=== PATIENT | female | born 1940 | race Caucasian/White ===

== ENCOUNTER 2017-11-19 12:24 | Emergency (ER) | payer MEDICARE ==
[2017-11-19] MEDS ORDERED: HYDROcodone/ACETAMIN 5-325 MG* 1 TAB PO ONE (14:08)
[2017-11-19 14:45] LABS: ABS Basophils 0.2 10^3/ul (0-0.2); ABS Eosinophils 0.3 10^3/ul (0-0.6); ABS Lymphocytes 3.2 10^3/ul (1.0-4.8); ABS Monocytes 0.8 10^3/ul (0-0.8); ABS Neutrophils 10.8 10^3/ul (1.5-7.7); ABS Nucleated RBC 0 10^3/ul; Hematocrit 40 % (35-47); Hemoglobin 13.1 g/dl (12.0-16.0); Lymphocyte % 20.9 % (25-47); Mean Corpuscular HGB Conc 33 g/dl (31-36); Mean Corpuscular Hemoglobin 25 pg (27-31); Mean Corpuscular Volume 78 fL (80-97); Mean Platelet Volume 9 um3 (7.4-10.4); Nucleated Red Blood Cells % 0.1; Platelet Count 336 10^3/ul (150-450); Red Blood Count 5.17 10^6/ul (4.0-5.4); Red Cell Distribution Width 18 % (10.5-15); White Blood Count 15.2 10^3/ul (3.5-10.8)
[2017-11-19 15:01] LABS: EGFR Non-African American 60.3 (>60)
--- NOTE | 2017-11-19 15:19 | RAD ---
CLINICAL HISTORY: Right buttock and thigh swelling COMPARISON: Same day venous duplex of the right lower extremity that does not reveal any DVT. TECHNIQUE: Axial CT images of the pelvis were obtained without intravenous contrast. Reformats in the sagittal and coronal planes were created and reviewed. FINDINGS: The visualized portions of the solid abdominal organs are grossly normal in appearance. The visualized segments of small and large bowel are not distended. The appendix Is grossly normal appearance without pathologic dilatation. There is no gross retroperitoneal or mesenteric lymphadenopathy in the visualized portions of the lower abdomen and pelvis. The coarsely calcified lower abdominal aorta is normal in course and diameter. The arterial and venous structures of the pelvis and upper thighs are normal in size and morphology. Degenerative changes of the lower lumbar spine includes loss of intervertebral disc height. . There are no sinister bone lesions in the visualized bones. IMPRESSION: Chronic findings described above without CT apparent acute abnormality involving the right buttock or upper thigh.
--- NOTE | 2017-11-19 15:25 | RAD ---
HISTORY: Right lower extremity pain TECHNIQUE: Multiple transverse and longitudinal ultrasound images were obtained of the veins of the right lower extremity using grayscale, color Doppler, and spectral Doppler imaging with and without compression and with augmentation. FINDINGS: VEINS: The common femoral vein, deep femoral vein, femoral vein and popliteal vein are compressible throughout their course, with normal flow on color Doppler imaging and normal response to augmentation on spectral Doppler imaging. SOFT TISSUES: Grossly normal. No large popliteal fossa cyst was identified. IMPRESSION: No sonographic evidence of deep vein thrombosis.
--- NOTE | 2017-11-19 18:07 | ED ---
Anatoly Hodges Jennifer, scribed for Manish Mercer MD on 11/19/17 at 1406 . Lower Extremity - HPI Summary HPI Summary: The patient is a 77 year old female who presents with sciatic nerve pain in the lower back pain and increasing mobility impairment that began over one month ago. She adds that there is swelling of the right buttock, and her lower back pain radiates down to the top of her right knee. She explains that she cant get out of bed or sit for more than 15 minutes without pain. The patient tried physical therapy for her low back pain that was prescribed by her doctor who [place] of the country [place] six [place]. She additionally complains of numbness in the top of both feet. - History of Current Complaint Chief Complaint: EDBackInjuryPain Stated Complaint: LOW BACK PAIN/POSSIBLE BLOOD CLOT Time Seen by Provider: 11/19/17 13:50 Hx Obtained From: Patient Onset of Pain: Prior to Arrival Onset/Duration: Weeks - Over 4 weeks ago Severity Initially: Moderate Severity Currently: Moderate Pain Intensity: 9 Pain Scale Used: 0-10 Numeric Timing: Constant Location: Radiates To - down lower back to Associated Signs And Symptoms: Positive: Swelling - right buttock, Knee Pain, Other - Lower back pain Aggravating Factor(s): Movement, Other - Getting out of bed, sitting for more than 15 minutes Alleviating Factor(s): Nothing - Allergies/Home Medications Allergies/Adverse Reactions: Allergies Allergy/AdvReac Type Severity Reaction Status Date / Time MS Codeine [Codeine] Allergy Vomiting Verified 10/27/17 08:55 MS Levofloxacin Allergy Joint Pain Verified 10/27/17 08:55 [From Levaquin] MS Penicillins [Penicillins] Allergy Hives Verified 10/27/17 08:55 MS Shellfish Allergy Allergy Difficulty Verified 10/27/17 08:55 [Shellfish Allergy] Breathing/Wheezing MS Sulfa Antibiotics Allergy Hives Verified 10/27/17 08:55 [Sulfa Antibiotics] MS Tetracycline Allergy Difficulty Verified 10/27/17 08:55 [Tetracycline] Breathing ALMONDS Allergy GI Upset Uncoded 10/27/17 08:55 AVACADO Allergy Unknown Uncoded 10/27/17 08:55 Reaction Details MRI CONTRAST MEDIUM Allergy Difficulty Uncoded 10/27/17 08:55 Breathing/Wheezing PMH/Surg Hx/FS Hx/Imm Hx Endocrine/Hematology History: Reports: Hx Diabetes Cardiovascular History: Reports: Hx Hypertension Denies: Hx Deep Vein Thrombosis, Hx Pacemaker/ICD Respiratory History: Denies: Hx Pulmonary Embolism History: Denies: Hx Renal Disease Musculoskeletal History: Denies: Hx Osteoporosis Sensory History: Denies: Hx Hearing Aid Psychiatric History: Denies: Hx Panic Disorder - Cancer History Cancer Type, 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 Hx Chemotherapy: No Hx Radiation Therapy: No - Surgical History Surgery Procedure, Year, and Place: RT KNEE TOTAL REPLACEMENT, CARDIAC STENT [facility] 2013 (RESOLUTE STENT CONDITIONAL 5 UP TO 3T SCAN IN NORMAL MODE AND 1000G/CM888SEE OTHER FACILITITY REPORTS); HYSTERECTOMY; chest tube, exploratory LUNG sx; BILATERAL CATARACTS; T&A; BLADDER TUMOR REMOVAL(CANCEROUS) Infectious Disease History: No Infectious Disease History: Denies: Traveled Outside the [place] in Last 30 Days - Family History Known Family History: Positive: Cardiac Disease, Other - [place] - Social History Alcohol Use: None Substance Use Type: Reports: None Hx Tobacco Use: No Smoking Status (MU): Never Smoked Tobacco Review of Systems Positive: Decreased ROM, Other - swelling of right buttock, pain in lower back that radiates to top of right knee Neurological: Other - Sciatic nerve pain Positive: Numbness - top of feet bilateral All Other Systems Reviewed And Are Negative: Yes Physical Exam - Summary Physical Exam Summary: General: well-appearing, no pain distress Skin: warm, color reflects adequate perfusion, dry Head: normal Eyes: EOMI, LOUIE ENT: normal Neck: supple, nontender Respiratory: CTA, breath sounds present Cardiovascular: RRR Abdomen: soft, nontender Bowel: present Musculoskeletal: Tenderness to midline of the lower back, right sciatic distribution, and right buttock. Swelling of the right buttock in comparison to the left. Right leg and left lag have 5/5 strength. Decreased range of motion with hip flexion bilateral, which the patient states is old. Neurological: Reports decreased sensation in dorsal bilateral feet. A&O x3 Psychological: affect/mood appropriate Triage Information Reviewed: Yes Vital Signs On Initial Exam: Initial Vitals Temp Pulse Resp BP Pulse Ox 97.2 F 82 15 168/107 97 11/19/17 12:27 11/19/17 12:27 11/19/17 12:27 11/19/17 12:27 11/19/17 12:27 Vital Signs Reviewed: Yes Diagnostics - Vital Signs Vital Signs Temp Pulse Resp BP Pulse Ox 11/19/17 12:27 97.2 F 82 15 168/107 97 - Laboratory Lab Results: Lab Results 11/19/17 11/19/17 11/19/17 Range/Units 14:24 14:24 14:24 WBC 15.2 H (3.5-10.8) 10^3/ul RBC 5.17 (4.0-5.4) 10^6/ul Hgb 13.1 (12.0-16.0) g/dl Hct 40 (35-47) % MCV 78 L (80-97) fL MCH 25 L (27-31) pg MCHC 33 (31-36) g/dl RDW 18 H (10.5-15) % Plt Count 336 (150-450) 10^3/ul MPV 9 (7.4-10.4) um3 Neut % (Auto) 71.0 (38-83) % Lymph % (Auto) 20.9 L (25-47) % Lucas % (Auto) 5.0 (1-9) % Eos % (Auto) 2.0 (0-6) % Baso % (Auto) 1.1 (0-2) % Absolute Neuts (auto) 10.8 H (1.5-7.7) 10^3/ul Absolute Lymphs (auto) 3.2 (1.0-4.8) 10^3/ul Absolute Monos (auto) 0.8 (0-0.8) 10^3/ul Absolute Eos (auto) 0.3 (0-0.6) 10^3/ul Absolute Basos (auto) 0.2 (0-0.2) 10^3/ul Absolute Nucleated RBC 0 10^3/ul Nucleated RBC % 0.1 APTT 32.5 (26.0-36.3) seconds Sodium 134 (133-145) mmol/L Potassium 3.3 L (3.5-5.0) mmol/L Chloride 96 L (101-111) mmol/L Carbon Dioxide 28 (22-32) mmol/L Anion Gap 10 (2-11) mmol/L BUN 25 H (6-24) mg/dL Creatinine 0.91 (0.51-0.95) mg/dL Est GFR ( Amer) 77.5 (>60) Est GFR (Non-Af Amer) 60.3 (>60) BUN/Creatinine Ratio 27.5 H (8-20) Glucose 173 H (70-100) mg/dL Calcium 10.1 (8.6-10.3) mg/dL Total Bilirubin 0.70 (0.2-1.0) mg/dL AST 22 (13-39) U/L ALT 26 (7-52) U/L Alkaline Phosphatase 60 (34-104) U/L C-Reactive Protein 18.25 H (< 5.00) mg/L Total Protein 7.3 (6.4-8.9) g/dL Albumin 4.6 (3.2-5.2) g/dL Globulin 2.7 (2-4) g/dL Albumin/Globulin Ratio 1.7 (1-3) Result Diagrams: 11/19/17 14:24 11/19/17 14:24 Lab Statement: Any lab studies that have been ordered have been reviewed, and results considered in the medical decision making process. - CT CT Pelvis CT Interpretation: Positive (See Comments) - Chronic findings described above without CT apparent acute abnormality involving the right buttock or upper thigh. Dr. Mercer has reviewed this report. CT Interpretation Completed By: Radiologist - Additional Comments Diagnostic Additional Comments: Venous Doppler Study at 14:08. Impression: No sonographic evidence of deep vein thrombosis. Dr. Mercer has reviewed this report. Lower Extremity Course/Dx - Course Course Of Treatment: BP noted and advised to follow up with PCP. Allergies noted. Medications reviewed. PAIN IMPROVED WITH NORCO. WE DISCUSSED THE INCREASED RISK OF FALL WITH THE NORCO. THE PATIENT IS AWARE AND WILL DECREASE/ STOP USE IF SHE NOTICES BEING UNSTABLE. DISCUSSED WITH NEUROSURGERY, DR SHAW. F/U PMD AND NEUROSURGERY; RETURN IF WORSE. - Diagnoses Provider Diagnoses: Uncontrolled hypertension, Low back pain, Leg pain, right buttock swelling Discharge - Discharge Plan Condition: Stable Disposition: HOME Prescriptions: HYDROcodone/ACETAMIN 5-325 MG* [[place] 5-325 TAB*] 1 tab PO Q6H PRN #20 tab MDD 4 PRN Reason: Pain Patient Education Materials: Chronic Back Pain (ED), Leg Pain (ED) Referrals: Renny Moore MD [Primary Care Provider] - Fabby Conde MD [Medical Doctor] - Additional Instructions: Your blood pressure was elevated during todays visit; please follow up with your primary care provider within a week for further evaluation. FOLLOW UP WITH YOUR PRIMARY CARE DOCTOR AND NEUROSURGERY, DR SHAW. RETURN TO THE EMERGENCY DEPARTMENT FOR ANY WORSENING OF YOUR CONDITION OR QUESTIONS OR CONCERNS. The documentation as recorded by the Anatoly bowie Jennifer accurately reflects the service I personally performed and the decisions made by me, Manish Mercer MD.
[2017-11-19 18:38] VITALS: BP 162/90
== END 2017-11-19 18:37 | disposition home or self-care (01) ==
LOC: ED 12:24
DX: M54.5 Low back pain (principal); R22.31 Localized swelling, mass and lump, right upper limb; I10 Essential (primary) hypertension; M47.816 Spondylosis without myelopathy or radiculopathy, lumbar region; Z88.3 Allergy status to other anti-infective agents; Z88.5 Allergy status to narcotic agent; Z88.0 Allergy status to penicillin; Z88.2 Allergy status to sulfonamides; Z91.041 Radiographic dye allergy status
CPT/HCPCS: 36415; 72192; 80053; 85025; 85730; 86140; 99282

== ENCOUNTER 2017-12-01 10:57 | Emergency (ER) | payer MEDICARE ==
--- OUTSIDE RECORDS SUMMARY | 2017-12-01 12:56 | XMS REPORT ---
:1940 External Reference #:[id number] Author Organization [facility] Address [address] [address] Phone [phone] Care Team Providers Name Role Phone Renny Moore MD Primary Care Physician Unavailable Payers Type Date Identification Numbers Payment Provider Subscriber Commercial Policy Number: [id number] [employer] Medicare Ashley Wilhelm Group Number: [id number] [address] PayID: [id number] [place] [address] Commercial PayID: [id number] Medicare D - Drug Plan Ashley Wilhelm Commercial Effective: Policy Number: [id number] yoshi Galvez/Leo Ashley Wilhelm 2015 Options Expires: 2016 PayID: [id number] [address] [address] Attn: [place] [address] Commercial Effective: 2015 Policy Number: Today's Option Of Ashley Wilhelm [id number] [place] Expires: 2015 PayID: [id number] [address] [place] [address] Medigap Part B Expires: 2015 Policy Number: [employer] Ashley Wilhelm [id number] Healthcare PayID: [id number] [address] [place] [address] Workers Compensation Expires: 2016 Policy Number: [place] Wilhelm [id number] Onset: 2014 Group Number: [id number] [address] [place] [address] PayID: [id number] Problems Date Description Provider Status Onset: 10/18/2014 Asthma without status asthmaticus Renny Moore M.D. Active Onset: 10/18/2014 Depressive disorder Renny Moore M.D. Active Onset: 10/18/2014 Benign essential hypertension Renny Moore M.D. Active Onset: 10/18/2014 Mixed hyperlipidemia Renny Moore M.D. Active Onset: 10/18/2014 Hypothyroidism Renny Moore M.D. Active Onset: 10/18/2014 Psoriasis Renny Moore M.D. Active Onset: 01/06/2015 Injury of lower leg Renny Moore M.D. Active Onset: 01/06/2015 Neck pain Renny Moore M.D. Active Onset: 01/27/2015 Type 2 diabetes mellitus Renny Moore M.D. Active Onset: 01/27/2015 Lymphedema Renny Moore M.D. Active Onset: 01/27/2015 Anemia Renny Moore M.D. Active Onset: 02/10/2015 Onychia of toe Renny Moore M.D. Active Onset: 05/21/2015 Morbid obesity Renny Moore M.D. Active Onset: 08/19/2015 Coronary angioplasty Renny Moore M.D. Active Onset: 08/19/2015 Coronary atherosclerosis Renny Moore M.D. Active Onset: 05/13/2016 Parkinson's disease Daniel Peterson MD Active Onset: 05/13/2016 Essential tremor Daniel Peterson MD Active Onset: 05/13/2016 Diabetic peripheral neuropathy Daniel Peterson MD Active associated with type 2 diabetes mellitus Onset: 05/20/2016 Age-related osteoporosis w/o Renny Moore M.D. Active current pathological fracture Onset: 06/25/2016 Edema Adrianna Kaplan M.D. Active Onset: 08/02/2016 Sleep disorder Daniel Peterson MD Active Onset: 12/07/2016 Mild recurrent major depression Renny Moore M.D. Active Onset: 12/23/2016 Abnormal gait Renny Moore M.D. Active Onset: 04/13/2017 Localized, primary osteoarthritis Christiana Talbot M.D. Active Onset: 05/26/2017 Non-organic sleep disorder Daniel Peterson MD Active Onset: 07/04/2017 Chronic obstructive lung disease Sarai Cochran MD Active Onset: 07/04/2017 Other sleep disorders Sarai Cochran MD Active Onset: 07/15/2017 Arthralgia of the ankle and/or Christiana Talbot M.D. Active foot Onset: 09/20/2017 Thoracic and lumbosacral neuritis Renny Moore M.D. Active Onset: 11/21/2017 Lumbosacral spondylosis without Fabby Conde MD Active myelopathy Onset: 11/21/2017 Lumbar spondylolisthesis Fabby Conde MD Active Onset: 11/21/2017 Obesity Fabby Conde MD Active Onset: 10/18/2014 Disorder of upper respiratory Renny Moore M.D. Resolved system Resolved: 08/19/2015 Onset: 10/18/2014 Malaise and fatigue Renny Moore M.D. Resolved Resolved: 08/19/2015 Onset: 12/30/2014 Concussion injury of brain Renny Moore M.D. Resolved Resolved: 08/19/2015 Onset: 08/07/2015 Essential hypertension Renny Moore M.D. Resolved Resolved: 08/19/2015 Family History Date Family Member(s) Problem(s) Comments General Heart Disease General Cancer General Bursitis General Lymphedema General Cerebrovascular Accident (CVA) General Hypertension Father Heart Disease Father Alcoholism Father prostate cancer Mother Heart Disease Mother Bipolar Disorder Mother breast and uterine cancer Siblings 1 Siblings heart disease,prostate cancer,depression Social History Type Date Description Comments Lives With Alone Occupation Disabled Cigarette Use Former Cigarette Smoker ETOH Use 11/20/2017 Denies alcohol use Smoking Patient is a former smoker quit 30+ yrs ago smoked 1/2 pack daily Recreational Drug Use Denies Drug Use Daily Caffeine Consumes on average 2 cups 1-2 of regular coffee per day Exercise Type/Frequency Exercises regularly chair exercise twice a week Allergies, Adverse Reactions, Alerts Date Description Reaction Status Severity Comments 10/18/2014 Penicillins active Moderate to hives Severe 10/18/2014 Erythromycin active Moderate 10/18/2014 Sulfa Antibiotics active hives 10/18/2014 Vancomycin active intense itching 10/18/2014 Codeine Nausea and active Vomiting 10/18/2014 Cipro active Severe white corpuscles disappear 10/18/2014 Levaquin active muscle pain 05/21/2015 Meloxicam active 05/21/2015 Statins myalgia active 06/30/2015 Shellfish active 06/30/2015 Tetracycline active 06/30/2015 Ampicillin active 08/07/2015 Doxycycline active 06/25/2016 Fosamax active 04/13/2017 Bandage Adhesive active Medications Medication Date Status Form Strength Qnty SIG Indications Ordering Provider Ventolin HFA 11/04 Active Aerosol 108(90Bas 1unit 2 puffs by J45.909 Alex e) s mouth four D. Perd[place], mcg/Act times a M.D.,FACP day as needed Duloxetine HCL 10/[address] 60mg 30cap 1 by mouth F33.0 Part s every day Roman Moore Vortex Valved 07/14 Active Device 1unit use as Sarai [employer] s instructed MD Sammie Neuroquell 07/04 Active Capsules One Sarai capsule lani Cochran MD Nebulizer 07/04 Active Kit 1unit 1 unit J44.9 Sarai Kit/Tubing/Mouthpi s nebulizati sukumar Cochran on every MD 4- 6 hours as needed Pulse Oximeter 07/04 Active Misc 1unit use as J44.9 Sarai s instructed MD Sammie Montelukast Sodium 01/28 Active Tablets 10mg 90tab once daily J30.2 s Roman Moore Repaglinide 12/10 Active Tablets 0.5mg 60tab twice s daily just Oscar bentley M.D. food Hydrochlorothiazid 12/07 Active Tablets 12.5mg 90tab 1 by mouth I10 s every day Roman Moore Valsartan-Hydrochl 09/29 Active Tablets 160-12.5m 90tab 1 by mouth I10 Ridge orothiazide g s every day Roman Moore Albuterol Sulfate 08/19 Active Nebulizer 0.63mg/3M 75ml one J45.901 Sarai /2016 L treatment Sammie every 4 MD hours as needed Metformin HCL 11/11 Active Tablets 1000mg 180ta take one bs tablet by Oscar blunt M.D. twice daily Levothyroxine Active Tablets 125mcg 90tab 1 by mouth Alex /0000 s every day Mimi Wallace M.D.,FACP Multi For Her 50+ Active Capsules 1 by mouth Unknown /0000 every day Vitamin D-3 Active Capsules 5000Unit 90cap 1 by mouth Unknown /0000 s every day Cranberry Plus Active Capsules 4200-20-3 90cap 1 by mouth Unknown Vitamin C /0000 mg-mg-Uni s every day t Vitamin C ER Active Tablets ER 1000mg 1 by mouth Unknown /0000 every day Co Q10 Active Capsules 100mg 90cap 1 by mouth Unknown /0000 s every day Aspirin Active Tablets 81mg 1 by mouth Unknown /0000 every day Zyrtec Allergy Active Tablets 10mg 1 by mouth Unknown /0000 every day Advair Diskus Active Aerosol 100-50mcg 3unit use 2 Ridge /Dose s inhalation Pachikara 2 times , M.D. daily Probiotic Active Capsules 1 by mouth Unknown /0000 once daily Aleve Active Tablets 220mg 2 tablets Unknown /0000 as needed for pain Tylenol Active Capsules 325mg 2 tablets Unknown /0000 every 4 hours as needed for pain (alternate s with aleve) Oxycodone HCL Active Tablets 5mg 1-2 tabs Unknown /0000 by mouth every 4-6 hours as needed Medrol 11/14 Hx Tablets 4mg 1pak medrol M51.16 Alex dosepack Mimi Wallace, Jena galvan M.D.,FACP 11/21 Medrol 10/28 Hx TBPK 4mg 1unit as s directed Oscar Bella M.D. 11/14 Doxycycline 10/25 Hx Capsules 100mg 20cap 1 cab J01.90 Renny luisnaa s twice a Oscar bolivar M.D. 11/04 Prednisone 09/20 Hx Tablets 10mg 30tab 5tabx M51.16 s 2days,4 Pachikara - [id number] , MPari 10/25 [id number] /2018 ,0dcal8dve s,1tabx . Duloxetine HCL 07/[address] 30mg 90cap once daily F33.0 Part s with food Oscar Bella M.D. 10/25 Azithromycin 07/19 Hx Tablets 250mg 6tabs 2 tab J06.9 today and Oscar carrillo M.D. 07/24 Methylprednisolone 07/19 Hx TBPK 4mg 1unit as s directed Oscar Bella M.D. 11/04 Azithromycin 05/11 Hx Tablets 250mg 6tabs 2 tab J06.9 today and Duikara - then Roman carrillo 05/25 Clindamycin HCL 04/28 Hx Capsules 150mg 28cap 1 cap L03.116 s every 6 Oscar castaneda M.D. 05/11 Medial Prevention Coordinator 04/13 Hx 1unit medial M25.562 Christiana Knee Brace s concrete handler Antione, - knee M.DSantiago 07/04 brace, left Venlafaxine HCL ER 01/28 Hx Caps ER 150mg 90cap 1 by mouth F33.0 24HR s every day Oscar Bella M.D. 07/04 Azithromycin 01/28 Hx Tablets 250mg 6tabs 2 tab J06.9 today and Oscar carrillo M.D. 05/11 Carbidopa-Levodopa 01/24 Hx Tablets 25-100mg 120ta 2 tabs in G20 Harmony, - morning 07/04 and 1 at lunch and 1 in evening Venlafaxine HCL ER 12/28 Hx Caps ER 75mg 30cap once a day 24HR s Oscar Bella M.D. 01/28 Venlafaxine HCL 12/24 Hx Tablets 75mg 90tab 1 by mouth F33.0 s every day Oscar Bella M.D. 12/28 Venlafaxine HCL ER 12/07 Hx Tablets ER 37.5mg 30tab 1 tab F33.0 24HR s daily for Oscar - 1week and Roman 12/24 then 2 tab /2016 daily Januvia 12/07 Hx Tablets 50mg 60tab one tab E11.42 s daily [facility] M.DSantiago 12/09 Bupropion HCL ER 09/29 Hx Tablets ER 150mg 30tab once daily F33.0 (XL) 24HR s [facility] , M.D. 12/07 with food Sertraline HCL 09/29 Hx Tablets 100mg 30tab 1 by mouth F33.0 s every day [facility] M.D. 12/07 Clindamycin HCL 09/17 Hx Capsules 300mg 30cap three L03.032 s times a [facility] - day , M.D. 12/07 Sertraline HCL 09/17 Hx Tablets 100mg 30tab 1 by mouth F32.9 s every day Oscar M.DSantiago 09/29 Symbicort 09/14 Hx Aerosol 160-4.5mc 30.6g 2 puff g/Act m twice a [facility] - day , M.D. 10/27 Azithromycin 08/23 Hx Tablets 250mg 6tabs 2 tab J20.9 today and Oscar - then 1tab , M.DSantiago 09/17 Prednisone 08/19 Hx Tablets 10mg 30tab 5tabx J45.901 s 2days,4 Pachikara - [id number] , M.D. 09/17 [id number] /2016 ,8vnri5bma s,1tabxday . Medrol 06/28 Hx TBPK 4mg 1unit as s directed Oscar M.DSantiago 08/20 Bupropion HCL ER 05/20 Hx Tablets ER 300mg 30tab 1 tab in F32.9 () [facility]HR [facility] , M.[facility] 09/29 Sertraline HCL 05/20 Hx Tablets 50mg 30tab 1 by mouth F32.9 s every day Ocsar M.DSantiago 09/17 Bupropion HCL ER 03/11 Hx Tablets ER 150mg 30tab 1 by mouth F32.9 Renny (XL) 24HR s every day Oscar Bella M.D. 05/20 Azithromycin 01/04 Hx Tablets 250mg 6tabs 2 tab J20.8 today and Oscar - then 1tab Roman 03/11 Methylprednisolone 01/04 Hx Tablets 4mg 21tab use as J20.8 Renny (Oliver) s directed Oscar Bella M.D. 03/11 Prednisone 09/18 Hx Tablets 10mg 30tab 5tabx s 2days,4 Oscar - [id number] Roman 11/17 [id number] /2016 ,6qbuk2lbo s,1tabx . Azithromycin 09/10 Hx Tablets 250mg 6tabs 2 tab J20.8 today and Oscar - juan 1tab Roman 11/17 Clindamycin HCL 08/12 Hx Capsules 150mg 28cap 1 cap R07.9 s every 6 Pachikara - hours , M.DSantiago 08/12 Clindamycin HCL 08/12 Hx Capsules 150mg 28cap 1 cap J20.8 s every 6 Pachikara - hours , M.DSantiago 09/10 Hydrochlorothiazid 08/12 Hx Tablets 12.5mg 30tab once daily I89.0 Ridge s Oscar Bella M.D. 01/04 Feosol 08/07 Hx Tablets 325(65Fe) 30tab once daily D50.9 mg s Oscar Bella M.D. 11/17 Bupropion HCL ER 07/04 Hx Tablets ER 100mg 90tab take 1 F32.9 Olvin (SR) 12HR s tablet by [place], - mouth SYSTEMS ENGINEER 03/11 morning Ipratropium 06/17 Hx Solution 0.5-2.5(3 84ml 3ml Olvin Atlas/Albuterol )mg/3ML nebulizer [place], Sulfate - up to SYSTEMS ENGINEER 12/07 twice a day as needed Prednisone 06/13 Hx Tablets 10mg 30tab 5tabx 493.90 Olvin /2014 s 2days,4 [place], - [id number] SYSTEMS ENGINEER 06/23 [id number] /2015 ,0cyev4orw s,1tabxday . Prednisone 05/21 Hx Tablets 10mg 25tab 5tab x 1 493.90 s day,4 Pachikara - czhw1phym , M.DSantiago 06/13 3 t a b x2days,2ta ix6voqa,1t abxday. Feosol 05/21 Hx Tablets 325(65Fe) 30tab once daily 285.8 mg s Pachikara - M.DSantiago 08/07 Meloxicam 05/07 Hx Tablets 7.5mg 30tab 1 by mouth 722.93 s every day Pachikara - as needed , MSantiagoDSantiago 06/24 Clindamycin HCL 02/10 Hx Capsules 150mg 28cap 1 cap 681.11 s every 6 Pachikara - hours MPari 02/14 Doxycycline 01/06 Hx Tablets 100mg 20tab twice a Renny Monohydrate day Pachika - MPari 02/10 Proair HFA 10/18 Hx Aerosol 108(90Bas 3unit 2 puffs ih J45.909 e) s every 4 Pachikara - mcg/Act hours as M.Mimi 11/04 Doxycycline 10/18 Hx Tablets 100mg 20tab 1 by mouth 478.9 Ridge Hyclate s twice a Pachikara - day MSantiagoDSantiago 12/30 Lisinopril Hx Tablets 10mg 90tab 1 by mouth Ridge / s every day Pachika - MSantiagoDSantiago 06/02 Clopidogrel Hx Tablets 75mg 90tab 1 by mouth Renny Bisulfate / s every day Oscar - Roman 05/07 Levemir Flextouch Hx Solution 100Unit/M 30uni inject 55 Unknown /0000 Pen-Inject L ts units - under the 10/18 skin every day Metformin HCL Hx Tablets 500mg 180ta 2 by mouth Renny /0000 bs twice a Pachikara - day , M.D. 11/11 Xopenex HFA Hx Aerosol 45mcg/Act 1unit 2 puffs Unknown /0000 s four times - a day as 10/18 Astragalus Root Hx Tablet 1000mg 1 by mouth Unknown /0000 every day - 05/12 Acidophilus Hx Unknown /0000 - 05/12 Krill Oil Hx 1 by mouth Unknown /0000 three - times 07/04 Amlodipine Hx Tablets 5mg 180ta take 1 Renny Besylate /0000 bs tablet by Pachikara - mouth , M.D. 09/29 morning and in the evening Sertraline HCL Hx Tablets 100mg 90tab take one Renny /0000 s tablet by Pachikara - mouth once , M.D. 05/20 Montelukast Sodium Hx Tablets 10mg 90tab Take One Olvin /0000 s Tablet By Bhutanese, - Mouth Once SYSTEMS ENGINEER 08/19 Prednisone Hx TBPK 10mg (21) 3 tabs Unknown /0000 day#1, 3 - tabs 09/17 day#2, tabs day#3, #1 for 3 days Aspirin Adult Low Hx Tablets DR 81mg 1 by mouth Unknown Dose /0000 every day - 05/25 Turmeric Hx Capsules 500mg 1 by mouth Unknown /0000 twice a - day 11/14 Clindamycin HCL Hx Capsules 300mg Unknown /0000 - 11/14 Medications Administered in Office Medication Date Status Form Strength Qnty SIG Indications Ordering Provider Depomedrol Administered Injection Christiana 40MG Ryann Talbot M.D. Depomedrol Administered Injection Christiana 40MG Ryann Talbot M.D. Immunizations CPT Code Status Date Vaccine Lot # [id number] Given 09/01/2017 Tdap - Tetanus/Diptheria/Acellular Pertussis [id number] Given 09/17/2016 Influenza Virus Vaccine, Quadrivalent, Split [id number] Virus, [place] Use [id number] Given 10/24/2015 Influenza Virus Vaccine, Quadrivalent, Split, Preservative Free [id number] Given 01/27/2015 Pneumococcal Conjugate Vaccine 13 Valent For [id number] Intramuscular Use Vital Signs Date Vital Result Comment 11/21/2017 Height 61.5 inches 5'1.50" Weight 280.00 lb Heart Rate 91 /min BP Systolic Sitting 138 mmHg BP Diastolic Sitting 84 mmHg Pain Level 6 BMI (Body Mass Index) 52.0 kg/m2 11/14/2017 Heart Rate 98 /min BP Systolic Sitting 174 mmHg BP Diastolic Sitting 100 mmHg Body Temperature 97.3 F O2 % BldC Oximetry 94 % 10/25/2017 Height 61.5 inches 5'1.50" Heart Rate 86 /min BP Systolic Sitting 146 mmHg BP Diastolic Sitting 80 mmHg Body Temperature 97.4 F O2 % BldC Oximetry 95 % 09/20/2017 Heart Rate 88 /min BP Systolic Sitting 136 mmHg BP Diastolic Sitting 80 mmHg O2 % BldC Oximetry 96 % 09/01/2017 Heart Rate 86 /min BP Systolic Sitting 138 mmHg BP Diastolic Sitting 80 mmHg O2 % BldC Oximetry 95 % 07/19/2017 Height 61.5 inches 5'1.50" Weight 283.00 lb per pt Heart Rate 90 /min BP Systolic 138 mmHg BP Diastolic 80 mmHg Body Temperature 97.7 F O2 % BldC Oximetry 97 % BMI (Body Mass Index) 52.6 kg/m2 07/15/2017 Height 61.5 inches 5'1.50" Weight 283.00 lb Heart Rate 98 /min BP Systolic 140 mmHg BP Diastolic 80 mmHg BMI (Body Mass Index) 52.6 kg/m2 06/27/2017 Height 61.5 inches 5'1.50" Weight 275.00 lb Heart Rate 84 /min BP Systolic 115 mmHg BP Diastolic 81 mmHg Body Temperature 97.9 F Pain Level 4 BMI (Body Mass Index) 51.1 kg/m2 05/26/2017 Height 61.5 inches 5'1.50" Weight 274.00 lb Heart Rate 102 /min BP Systolic Sitting 138 mmHg BP Diastolic Sitting 82 mmHg Respiratory Rate 19 /min BMI (Body Mass Index) 50.9 kg/m2 05/11/2017 Heart Rate 79 /min BP Systolic Sitting 138 mmHg BP Diastolic Sitting 80 mmHg Body Temperature 98.0 F O2 % BldC Oximetry 97 % 04/28/2017 Heart Rate 118 /min BP Systolic Sitting 169 mmHg BP Diastolic Sitting 96 mmHg Body Temperature 98.3 F O2 % BldC Oximetry 96 % 04/13/2017 Height 61.5 inches 5'1.50" Weight 274.00 lb Heart Rate 87 /min BP Systolic 147 mmHg BP Diastolic 73 mmHg Body Temperature 98.3 F BMI (Body Mass Index) 50.9 kg/m2 03/18/2017 Heart Rate 100 /min BP Systolic 142 mmHg BP Diastolic 76 mmHg Body Temperature 98.4 F O2 % BldC Oximetry 95 % 01/28/2017 Heart Rate 84 /min BP Systolic Sitting 138 mmHg BP Diastolic Sitting 76 mmHg Body Temperature 98.2 F O2 % BldC Oximetry 98 % 01/24/2017 Height 61.5 inches 5'1.50" Weight 276.00 lb Heart Rate 88 /min BP Systolic 130 mmHg BP Diastolic 90 mmHg BMI (Body Mass Index) 51.3 kg/m2 12/23/2016 Height 61.5 inches 5'1.50" Weight 277.38 lb Heart Rate 96 /min BP Systolic Sitting 150 mmHg BP Diastolic Sitting 84 mmHg Body Temperature 98.4 F O2 % BldC Oximetry 96 % BMI (Body Mass Index) 51.6 kg/m2 12/07/2016 Weight 275.50 lb Heart Rate 112 /min BP Systolic Sitting 126 mmHg BP Diastolic Sitting 88 mmHg Body Temperature 98.3 F O2 % BldC Oximetry 95 % 09/29/2016 Weight 273.00 lb Heart Rate 92 /min BP Systolic Sitting 140 mmHg BP Diastolic Sitting 82 mmHg Respiratory Rate 15 /min Body Temperature 97.7 F O2 % BldC Oximetry 97 % 09/17/2016 Heart Rate 96 /min BP Systolic Sitting 156 mmHg BP Diastolic Sitting 70 mmHg Body Temperature 98.7 F O2 % BldC Oximetry 97 % 08/23/2016 Height 61.5 inches 5'1.50" Weight 279.00 lb per pt report Heart Rate 92 /min BP Systolic Sitting 144 mmHg BP Diastolic Sitting 76 mmHg Respiratory Rate 18 /min Body Temperature 99.2 F O2 % BldC Oximetry 97 % BMI (Body Mass Index) 51.9 kg/m2 08/19/2016 Height 61.5 inches 5'1.50" Weight 279.00 lb Heart Rate 112 /min BP Systolic Sitting 168 mmHg BP Diastolic Sitting 88 mmHg Body Temperature 98.9 F O2 % BldC Oximetry 96 % BMI (Body Mass Index) 51.9 kg/m2 08/02/2016 Height 61.5 inches 5'1.50" Weight 276.50 lb Heart Rate 84 /min BP Systolic Sitting 130 mmHg BP Diastolic Sitting 80 mmHg BMI (Body Mass Index) 51.4 kg/m2 06/25/2016 Height 61.5 inches 5'1.50" Weight 276.00 lb Heart Rate 82 /min BP Systolic 128 mmHg L lower arm, reg cuff BP Diastolic 98 mmHg L lower arm, reg cuff BP Systolic Sitting 134 mmHg R Lower arm, reg cuff BP Diastolic Sitting 82 mmHg R Lower arm, reg cuff BP Systolic Standing 130 mmHg R Lower arm, reg cuff BP Diastolic Standing 86 mmHg R Lower arm, reg cuff Respiratory Rate 20 /min BMI (Body Mass Index) 51.3 kg/m2 Ejection Fraction 55-60% 08/15/15 06/03/2016 Height 61.5 inches 5'1.50" Heart Rate 100 /min BP Systolic 133 mmHg BP Diastolic 86 mmHg Body Temperature 98.9 F O2 % BldC Oximetry 97 % 05/20/2016 Height 61.5 inches 5'1.50" Weight 274.12 lb Heart Rate 92 /min BP Systolic 136 mmHg BP Diastolic 70 mmHg Body Temperature 98.4 F O2 % BldC Oximetry 95 % BMI (Body Mass Index) 51.0 kg/m2 05/13/2016 Height 61.5 inches 5'1.50" Weight 272.00 lb Heart Rate 84 /min BP Systolic Sitting 132 mmHg BP Diastolic Sitting 80 mmHg Respiratory Rate 16 /min BMI (Body Mass Index) 50.6 kg/m2 03/11/2016 Height 61.5 inches 5'1.50" Weight 274.00 lb Heart Rate 86 /min BP Systolic Sitting 122 mmHg BP Diastolic Sitting 76 mmHg Body Temperature 98.6 F O2 % BldC Oximetry 97 % BMI (Body Mass Index) 50.9 kg/m2 01/05/2016 Height 61.5 inches 5'1.50" Weight 275.00 lb Heart Rate 108 /min BP Systolic Sitting 148 mmHg BP Diastolic Sitting 86 mmHg Body Temperature 98.8 F O2 % BldC Oximetry 95 % BMI (Body Mass Index) 51.1 kg/m2 11/17/2015 Height 61.5 inches 5'1.50" Weight 271.50 lb Heart Rate 88 /min BP Systolic Sitting 140 mmHg BP Diastolic Sitting 80 mmHg Body Temperature 97.4 F O2 % BldC Oximetry 96 % BMI (Body Mass Index) 50.5 kg/m2 09/10/2015 Height 61.5 inches 5'1.50" Weight 270.00 lb Heart Rate 85 /min BP Systolic 118 mmHg BP Diastolic 70 mmHg Body Temperature 98.8 F O2 % BldC Oximetry 96 % BMI (Body Mass Index) 50.2 kg/m2 08/12/2015 Height 61.5 inches 5'1.50" Weight 275.00 lb Heart Rate 88 /min BP Systolic Sitting 163 mmHg BP Diastolic Sitting 78 mmHg Body Temperature 98.3 F O2 % BldC Oximetry 96 % BMI (Body Mass Index) 51.1 kg/m2 08/07/2015 Weight 273.38 lb Heart Rate 84 /min BP Systolic Sitting 142 mmHg taking sudafed BP Diastolic Sitting 78 mmHg taking sudafed Body Temperature 99.4 F O2 % BldC Oximetry 97 % 07/04/2015 Height 61.5 inches 5'1.50" Weight 270.25 lb Heart Rate 84 /min BP Systolic Sitting 142 mmHg BP Diastolic Sitting 70 mmHg Body Temperature 98.6 F O2 % BldC Oximetry 96 % BMI (Body Mass Index) 50.2 kg/m2 06/13/2015 Height 61.5 inches 5'1.50" Heart Rate 88 /min BP Systolic Sitting 142 mmHg BP Diastolic Sitting 80 mmHg O2 % BldC Oximetry 95 % 05/21/2015 Height 61.5 inches 5'1.50" Weight 272.00 lb Heart Rate 83 /min BP Systolic 136 mmHg BP Diastolic 78 mmHg Body Temperature 98.9 F O2 % BldC Oximetry 97 % BMI (Body Mass Index) 50.6 kg/m2 05/07/2015 Weight 272.00 lb Heart Rate 94 /min BP Systolic Sitting 132 mmHg BP Diastolic Sitting 74 mmHg Pain Level 4 lower back O2 % BldC Oximetry 96 % 03/07/2015 Heart Rate 76 /min BP Systolic Sitting 145 mmHg BP Diastolic Sitting 85 mmHg 02/10/2015 Height 61.5 inches 5'1.50" Weight 266.00 lb Heart Rate 98 /min BP Systolic Sitting 128 mmHg BP Diastolic Sitting 80 mmHg Body Temperature 98.7 F O2 % BldC Oximetry 96 % BMI (Body Mass Index) 49.4 kg/m2 01/27/2015 Height 61.5 inches 5'1.50" Weight 266.00 lb Heart Rate 107 /min BP Systolic Sitting 130 mmHg BP Diastolic Sitting 70 mmHg O2 % BldC Oximetry 94 % BMI (Body Mass Index) 49.4 kg/m2 01/06/2015 Height 61.5 inches 5'1.50" Weight 262.00 lb BMI (Body Mass Index) 48.7 kg/m2 12/30/2014 Weight 261.25 lb Heart Rate 103 /min BP Systolic Sitting 130 mmHg BP Diastolic Sitting 86 mmHg Body Temperature 98.2 F O2 % BldC Oximetry 97 % 12/27/2014 Weight 261.75 lb Heart Rate 88 /min BP Systolic Sitting 129 mmHg BP Diastolic Sitting 76 mmHg Body Temperature 99.0 F 10/18/2014 Height 61.5 inches 5'1.50" Weight 259.00 lb Heart Rate 87 /min BP Systolic Sitting 124 mmHg BP Diastolic Sitting 62 mmHg Body Temperature 98.8 F O2 % BldC Oximetry 97 % BMI (Body Mass Index) 48.1 kg/m2 Results Test Date Test Result H/L Range Note CBC Auto Diff 11/19/2017 White Blood Count 15.2 10^3/uL High 3.5-10.8 Red Blood Count 5.17 10^6/uL 4.0-5.4 Hemoglobin 13.1 g/dL 12.0-16.0 Hematocrit 40 % 35-47 Mean Corpuscular Volume 78 fL Low 80-97 Mean Corpuscular Hemoglobin 25 pg Low 27-31 Mean Corpuscular HGB Conc 33 g/dL 31-36 Red Cell Distribution Width 18 % High 10.5-15 Platelet Count 336 10^3/uL 150-450 Mean Platelet Volume 9 um3 7.4-10.4 Abs Neutrophils 10.8 10^3/uL High 1.5-7.7 Abs Lymphocytes 3.2 10^3/uL 1.0-4.8 Abs Monocytes 0.8 10^3/uL 0-0.8 Abs Eosinophils 0.3 10^3/uL 0-0.6 Abs Basophils 0.2 10^3/uL 0-0.2 Abs Nucleated RBC 0 10^3/uL Granulocyte % 71.0 % 38-83 Lymphocyte % 20.9 % Low 25-47 Monocyte % 5.0 % 1-9 Eosinophil % 2.0 % 0-6 Basophil % 1.1 % 0-2 Nucleated Red Blood Cells % 0.1 Laboratory test finding 11/19/2017 Partial Thrombo Time 32.5 seconds 26.0 -36.3 PTT Comp Metabolic Panel 11/19/2017 Sodium 134 mmol/L 133-145 Potassium 3.3 mmol/L Low 3.5-5.0 Chloride 96 mmol/L Low 101-111 Co2 Carbon Dioxide 28 mmol/L 22-32 Anion Gap 10 mmol/L 2-11 Glucose 173 mg/dL High 70-100 Blood Urea Nitrogen 25 mg/dL High 6-24 Creatinine 0.91 mg/dL 0.51-0.95 BUN/Creatinine Ratio 27.5 High 8-20 Calcium 10.1 mg/dL 8.6-10.3 Total Protein 7.3 g/dL 6.4-8.9 Albumin 4.6 g/dL 3.2-5.2 Globulin 2.7 g/dL 2-4 Albumin/Globulin Ratio 1.7 1-3 Total Bilirubin 0.70 mg/dL 0.2-1.0 Alkaline Phosphatase 60 U/L 34-104 Alt 26 U/L 7-52 Ast 22 U/L 13-39 Egfr Non- 60.3 >60 Egfr 77.5 >60 1 Laboratory test finding 11/19/2017 C Reactive Protein 18.25 mg/L High &lt ; 5.00 2 Comp Metabolic Panel 10/27/2017 Sodium 136 mmol/L 133-145 Potassium 4.6 mmol/L 3.5-5.0 Chloride 99 mmol/L Low 101-111 Co2 Carbon Dioxide 29 mmol/L 22-32 Anion Gap 8 mmol/L 2-11 Glucose 163 mg/dL High 70-100 Blood Urea Nitrogen 18 mg/dL 6-24 Creatinine 0.75 mg/dL 0.51-0.95 BUN/Creatinine Ratio 24.0 High 8-20 Calcium 9.5 mg/dL 8.6-10.3 Total Protein 6.3 g/dL Low 6.4-8.9 Albumin 4.2 g/dL 3.2-5.2 Globulin 2.1 g/dL 2-4 Albumin/Globulin Ratio 2.0 1-3 Total Bilirubin 0.80 mg/dL 0.2-1.0 Alkaline Phosphatase 70 U/L 34-104 Alt 17 U/L 7-52 Ast 19 U/L 13-39 Egfr Non- 75.3 >60 Egfr 96.9 >60 3 Laboratory test finding 10/27/2017 TSH (Thyroid Stim Horm) 1.61 mcIU/mL 0.34-5.60 Lipid Profile 10/27/2017 Triglycerides 192 mg/dL 4 (Trig/Chol/HDL) Cholesterol 220 mg/dL 5 HDL Cholesterol 57.2 mg/dL 6 LDL Cholesterol 124 mg/dL 7 Laboratory test finding 07/19/2017 Hemoglobin A1c 6.6 5-7 Laboratory test finding 04/28/2017 Hemoglobin A1c 7.0 5-7 Laboratory test finding 12/23/2016 Hemoglobin A1c 7.5 High 5-7 Urine Microalbumin Random 12/23/2016 Urine Creatinine 122.02 mg/dL Ur Microalbumin (mg/L) 38.0 mg/L Urine Microalbumin/Creatinine 31.1 ug/mg High <31 Laboratory test 09/24/2016 D Dimer Quantitative < 200 ng/mL Less Than 230 8 finding Comp Metabolic Panel 09/24/2016 Sodium 135 mmol/L 133-145 Potassium 3.8 mmol/L 3.5-5.0 Chloride 100 mmol/L Low 101-111 Co2 Carbon Dioxide 27 mmol/L 22-32 Anion Gap 8 mmol/L 2-11 Glucose 167 mg/dL High 70-100 Blood Urea Nitrogen 16 mg/dL 6-24 Creatinine 0.94 mg/dL 0.51-0.95 BUN/Creatinine Ratio 17.0 8-20 Calcium 9.6 mg/dL 8.6-10.3 Total Protein 7.0 g/dL 6.4-8.9 Albumin 4.2 g/dL 3.2-5.2 Globulin 2.8 g/dL 2-4 Albumin/Globulin Ratio 1.5 1-3 Total Bilirubin 0.60 mg/dL 0.2-1.0 Alkaline Phosphatase 70 U/L 34-104 Alt 22 U/L 7-52 Ast 19 U/L 13-39 Egfr Non- 58.2 >60 Egfr 74.9 >60 9 Laboratory test finding 09/24/2016 C Reactive Protein 15.76 mg/L High &lt ; 5.00 10 CBC Auto Diff 09/24/2016 White Blood Count 10.0 10^3/uL 3.5-10.8 Red Blood Count 4.52 10^6/uL 4.0-5.4 Hemoglobin 11.5 g/dL Low 12.0-16.0 Hematocrit 35 % 35-47 Mean Corpuscular Volume 78 fL Low 80-97 Mean Corpuscular Hemoglobin 26 pg Low 27-31 Mean Corpuscular HGB Conc 33 g/dL 31-36 Red Cell Distribution Width 17 % High 10.5-15 Platelet Count 266 10^3/uL 150-450 Mean Platelet Volume 8 um3 7.4-10.4 Abs Neutrophils 6.3 10^3/uL 1.5-7.7 Abs Lymphocytes 2.2 10^3/uL 1.0-4.8 Abs Monocytes 0.6 10^3/uL 0-0.8 Abs Eosinophils 0.8 10^3/uL High 0-0.6 Abs Basophils 0.1 10^3/uL 0-0.2 Abs Nucleated RBC 0.01 10^3/uL Granulocyte % 63.7 % 38-83 Lymphocyte % 21.9 % Low 25-47 Monocyte % 5.9 % 1-9 Eosinophil % 7.8 % High 0-6 Basophil % 0.7 % 0-2 Nucleated Red Blood Cells % 0.1 Laboratory test finding 09/24/2016 B-Type Natriuretic Peptide 48 pg/mL 11 BNP Comp Metabolic Panel 08/24/2016 Sodium 134 mmol/L 133-145 Potassium 4.0 mmol/L 3.5-5.0 Chloride 98 mmol/L Low 101-111 Co2 Carbon Dioxide 26 mmol/L 22-32 Anion Gap 10 mmol/L 2-11 Glucose 304 mg/dL High 70-100 Blood Urea Nitrogen 25 mg/dL High 6-24 Creatinine 1.05 mg/dL High 0.51-0.95 BUN/Creatinine Ratio 23.8 High 8-20 Calcium 9.0 mg/dL 8.6-10.3 Total Protein 6.0 g/dL Low 6.4-8.9 Albumin 4.0 g/dL 3.2-5.2 Globulin 2.0 g/dL 2-4 Albumin/Globulin Ratio 2.0 1-3 Total Bilirubin 0.60 mg/dL 0.2-1.0 Alkaline Phosphatase 62 U/L 34-104 Alt 19 U/L 7-52 Ast 12 U/L Low 13-39 Egfr Non- 51.2 >60 Egfr 65.9 >60 12 Laboratory test finding 08/23/2016 Hemoglobin A1c 7.4 High 5-7 Laboratory test finding 05/20/2016 Hemoglobin A1c 7.4 High 5-7 Lipid Profile (Trig/Chol/HDL) 05/04/2016 Triglycerides 341 mg/dL 13 Cholesterol 310 mg/dL 14 HDL Cholesterol 49.8 mg/dL 15 LDL Cholesterol 192 mg/dL 16 Comp Metabolic Panel 05/04/2016 Sodium 135 mmol/L 133-145 Potassium 4.1 mmol/L 3.5-5.0 Chloride 101 mmol/L 101-111 Co2 Carbon Dioxide 26 mmol/L 22-32 Anion Gap 8 mmol/L 2-11 Glucose 162 mg/dL High 70-100 Blood Urea Nitrogen 17 mg/dL 6-24 Creatinine 0.91 mg/dL 0.51-0.95 BUN/Creatinine Ratio 18.7 8-20 Calcium 9.4 mg/dL 8.6-10.3 Total Protein 6.1 g/dL Low 6.4-8.9 Albumin 4.0 g/dL 3.2-5.2 Globulin 2.1 g/dL 2-4 Albumin/Globulin Ratio 1.9 1-3 Total Bilirubin 0.60 mg/dL 0.2-1.0 Alkaline Phosphatase 67 U/L 34-104 Alt 17 U/L 7-52 Ast 15 U/L 13-39 Egfr Non- 60.6 >60 Egfr 77.9 >60 17 Laboratory test finding 05/04/2016 TSH (Thyroid Stim 0.47 mcIU/mL 0.34- 5.60 18 Horm) Vitamin B12 And Folate 05/04/2016 Vitamin B12 564 pg/mL 180-914 19 Serum Folic Acid (Folate) > 20.00 ng/mL >3.99 20 Laboratory test finding 03/11/2016 Hemoglobin A1c 7.5 High 5-7 Laboratory test finding 11/17/2015 Hemoglobin A1c 7.6 High 5-7 CBC Auto Diff 09/16/2015 White Blood Count 10.1 10^3/uL 4.8-10.8 Red Blood Count 4.52 10^6/uL 4.0-5.4 Hemoglobin 11.7 g/dL Low 12.0-16.0 Hematocrit 36 % 35-47 Mean Corpuscular Volume 79 fL Low 80-97 Mean Corpuscular Hemoglobin 26 pg Low 27-31 Mean Corpuscular HGB Conc 33 g/dL 31-36 Red Cell Distribution Width 17 % High 10.5-15 Platelet Count 247 10^3/uL 150-450 Mean Platelet Volume 8 um3 7.4-10.4 Abs Neutrophils 6.7 10^3/uL 1.5-7.7 Abs Lymphocytes 2.0 10^3/uL 1.0-4.8 Abs Monocytes 0.6 10^3/uL 0-0.8 Abs Eosinophils 0.7 10^3/uL High 0-0.6 Abs Basophils 0.1 10^3/uL 0-0.2 Abs Nucleated RBC 0 10^3/uL Granulocyte % 66.9 % 38-83 Lymphocyte % 19.6 % Low 25-47 Monocyte % 6.0 % 1-9 Eosinophil % 6.7 % High 0-6 Basophil % 0.8 % 0-2 Nucleated Red Blood Cells % 0 Laboratory test finding 08/07/2015 Hemoglobin A1c 7.3 High 5-7 CBC Auto Diff 05/16/2015 White Blood Count 7.7 10^3/uL 4.8-10.8 Red Blood Count 4.63 10^6/uL 4.0-5.4 Hemoglobin 11.7 g/dL Low 12.0-16.0 Hematocrit 37 % 35-47 Mean Corpuscular Volume 79 fL Low 80-97 Mean Corpuscular Hemoglobin 25 pg Low 27-31 Mean Corpuscular HGB Conc 32 g/dL 31-36 Red Cell Distribution Width 17 % High 10.5-15 Platelet Count 224 10^3/uL 150-450 Mean Platelet Volume 8 um3 7.4-10.4 Abs Neutrophils 5.0 10^3/uL 1.5-7.7 Abs Lymphocytes 1.5 10^3/uL 1.0-4.8 Abs Monocytes 0.4 10^3/uL 0-0.8 Abs Eosinophils 0.6 10^3/uL 0-0.6 Abs Basophils 0.1 10^3/uL 0-0.2 Abs Nucleated RBC 0 10^3/uL Granulocyte % 64.8 % 38-83 Lymphocyte % 19.9 % Low 25-47 Monocyte % 5.8 % 1-9 Eosinophil % 8.1 % High 0-6 Basophil % 1.4 % 0-2 Nucleated Red Blood Cells % 0.1 Iron & Iron Binding Capacity 05/16/2015 Iron 47 g/dL Low 50-212 Unsaturated Iron Binding 366 g/dL Total Iron Binding Capacity 413 g/dL 250-450 % Iron Saturation 11 % Low 15-55 Vitamin B12 And Folate Serum 05/16/2015 Vitamin B12 980 pg/mL High 180- 914 21 Folic Acid (Folate) > 20.00 ng/mL >3.99 Laboratory test finding 05/16/2015 TSH (Thyroid Stim Horm) 1.54 ?IU/mL 0.34-5.60 Urine Microalbumin 05/16/2015 Ur Microalbumin (mg/L) 7.0 mg/L Random Urine Creatinine 84.15 mg/dL Urine Microalbumin/Creatinine 8.3 ug/mg <31 Lipid Profile (Trig/Chol/HDL) 05/16/2015 Triglycerides 324 mg/dL 22 Cholesterol 285 mg/dL 23 HDL Cholesterol 46.8 mg/dL 24 LDL Cholesterol 173 mg/dL 25 Comp Metabolic Panel 05/16/2015 Sodium 136 mmol/L 133-145 Potassium 4.3 mmol/L 3.5-5.0 Chloride 101 mmol/L 101-111 Co2 Carbon Dioxide 26 mmol/L 22-32 Anion Gap 9 mmol/L 2-11 Glucose 164 mg/dL High 70-100 Blood Urea Nitrogen 16 mg/dL 6-24 Creatinine 0.81 mg/dL 0.51-0.95 BUN/Creatinine Ratio 19.8 8-20 Calcium 9.4 mg/dL 8.6-10.3 Total Protein 6.5 g/dL 6.4-8.9 Albumin 4.2 g/dL 3.2-5.2 Globulin 2.3 g/dL 2-4 Albumin/Globulin Ratio 1.8 1-3 Total Bilirubin 0.70 mg/dL 0.2-1.0 Alkaline Phosphatase 72 U/L 34-104 Alt 18 U/L 7-52 Ast 17 U/L 13-39 Egfr Non- 69.5 >60 Egfr 89.4 >60 26 Laboratory test finding 01/17/2015 TSH (Thyroid Stimulating 0.80 IU/mL 0.34-5.60 Horm) CBC Auto Diff 01/17/2015 White Blood Count 8.6 10^3/uL 4.8-10.8 Red Blood Count 4.45 10^6/uL 4.0-5.4 Hemoglobin 11.5 g/dL Low 12.0-16.0 Hematocrit 35 % 35-47 Mean Corpuscular Volume 78 fL Low 80-97 Mean Corpuscular Hemoglobin 26 pg Low 27-31 Mean Corpuscular HGB Conc 33 g/dL 31-36 Red Cell Distribution Width 16 % High 10.5-15 Platelet Count 237 10^3/uL 150-450 Mean Platelet Volume 8 um3 7.4-10.4 Abs Neutrophils 5.7 10^3/uL 1.5-7.7 Abs Lymphocytes 1.7 10^3/uL 1.0-4.8 Abs Monocytes 0.5 10^3/uL 0-0.8 Abs Eosinophils 0.5 10^3/uL 0-0.6 Abs Basophils 0.1 10^3/uL 0-0.2 Abs Nucleated RBC 0 10^3/uL Granulocyte % 66.6 % 38-83 Lymphocyte % 20.1 % Low 25-47 Monocyte % 6.1 % 1-9 Eosinophil % 6.1 % High 0-6 Basophil % 1.1 % 0-2 Nucleated Red Blood Cells % 0 Comp Metabolic Panel 01/17/2015 Sodium 137 mmol/L 133-145 Potassium 4.4 mmol/L 3.5-5.0 Chloride 102 mmol/L 101-111 Co2 Carbon Dioxide 26 mmol/L 22-32 Anion Gap 9 mmol/L 2-11 Glucose 129 mg/dL High 70-100 Blood Urea Nitrogen 15 mg/dL 6-24 Creatinine 0.79 mg/dL 0.51-0.95 BUN/Creatinine Ratio 19.0 8-20 Calcium 9.3 mg/dL 8.6-10.3 Total Protein 6.5 g/dL 6.4-8.9 Albumin 4.3 g/dL 3.2-5.2 Globulin 2.2 g/dL 2-4 Albumin/Globulin Ratio 2.0 1-3 Total Bilirubin 0.50 mg/dL 0.2-1.0 Alkaline Phosphatase 78 U/L 34-104 Alt 18 U/L 7-52 Ast 15 U/L 13-39 Egfr Non- 71.5 >60 Egfr 92.0 >60 27 Vitamin B12 And Folate Serum 01/17/2015 Vitamin B12 774 pg/mL 180-914 28 Folate > 20.00 ng/mL >3.99 Vitamin D, 25 Hydroxy 01/17/2015 25-Hydroxy Vitamin D2 <4.0 ng/mL 25-Hydroxy Vitamin D3 66 ng/mL 25-Hydroxy Vitamin D Total 66 ng/mL 29 Laboratory test finding 10/18/2014 Hemoglobin A1c 6.3 5-7 1 Because ethnic data is not always readily available, this report includes an eGFR for both -Americans and non- Americans. The National Kidney Disease Education Program (NKDEP) does not endorse the use of the MDRD equation for patients that are not between the ages of 18 and 70, are , have extremes of body size, muscle mass, or nutritional status, or are non- or non-. According to the National Kidney Foundation, irrespective of diagnosis, the stage of the disease is based on the level of kidney function: Stage Description GFR(mL/min/1.73 m(2)) 1 Kidney damage with normal or decreased GFR 90 2 Kidney damage with mild decrease in GFR 60-89 3 Moderate decrease in GFR 30-59 4 Severe decrease in GFR 15-29 5 Kidney failure <15 (or dialysis) 2 Acute inflammation: >10.00 3 Because ethnic data is not always readily available, this report includes an eGFR for both -Americans and non- Americans. The National Kidney Disease Education Program (NKDEP) does not endorse the use of the MDRD equation for patients that are not between the ages of 18 and 70, are , have extremes of body size, muscle mass, or nutritional status, or are non- or non-. According to the National Kidney Foundation, irrespective of diagnosis, the stage of the disease is based on the level of kidney function: Stage Description GFR(mL/min/1.73 m(2)) 1 Kidney damage with normal or decreased GFR 90 2 Kidney damage with mild decrease in GFR 60-89 3 Moderate decrease in GFR 30-59 4 Severe decrease in GFR 15-29 5 Kidney failure <15 (or dialysis) 4 Desirable: <150 Borderline High: 150-199 High: 200-499 Very High: >500 5 Desirable: <200 Borderline High: 200-239 High: >239 6 Low: <40 Desirable: 40-60 High: >60 7 Desirable: <100 Near Optimal: 100-129 Borderline High: 130-159 High: 160-189 Very High: >189 8 Please note: The following may produce a false positive D Dimer test: - Rheumatoid factor greater than 60 IU/ml - Plasma hemoglobin greater than 0.05 gm/dl - Bilirubin greater than 50 mg/dl - Lipids greater than 1000 mg/dl - FDP greater than 20 ug/ml 9 Because ethnic data is not always readily available, this report includes an eGFR for both -Americans and non- Americans. The National Kidney Disease Education Program (NKDEP) does not endorse the use of the MDRD equation for patients that are not between the ages of 18 and 70, are , have extremes of body size, muscle mass, or nutritional status, or are non- or non-. According to the National Kidney Foundation, irrespective of diagnosis, the stage of the disease is based on the level of kidney function: Stage Description GFR(mL/min/1.73 m(2)) 1 Kidney damage with normal or decreased GFR 90 2 Kidney damage with mild decrease in GFR 60-89 3 Moderate decrease in GFR 30-59 4 Severe decrease in GFR 15-29 5 Kidney failure <15 (or dialysis) 10 Acute inflammation: >10.00 11 >100 to <200 pg/mL: likely compensated congestive heart failure (CHF) 200 to 400 pg/mL: likely moderate CHF >400 pg/mL: likely moderate to severe CHF 12 Because ethnic data is not always readily available, this report includes an eGFR for both -Americans and non- Americans. The National Kidney Disease Education Program (NKDEP) does not endorse the use of the MDRD equation for patients that are not between the ages of 18 and 70, are , have extremes of body size, muscle mass, or nutritional status, or are non- or non-. According to the National Kidney Foundation, irrespective of diagnosis, the stage of the disease is based on the level of kidney function: Stage Description GFR(mL/min/1.73 m(2)) 1 Kidney damage with normal or decreased GFR 90 2 Kidney damage with mild decrease in GFR 60-89 3 Moderate decrease in GFR 30-59 4 Severe decrease in GFR 15-29 5 Kidney failure <15 (or dialysis) 13 Desirable <150 Borderline high 150-199 High 200-499 Very High >500 14 Desirable <200 Borderline high 200-239 High >239 15 Low <40 Desirable: 40-60 High: >60 16 Desirable: <100 mg/dL Near Optimal: 100-129 mg/dL Borderline High: 130-159 mg/dL High: 160-189 mg/dL Very High: >189 mg/dL 17 Because ethnic data is not always readily available, this report includes an eGFR for both -Americans and non- Americans. The National Kidney Disease Education Program (NKDEP) does not endorse the use of the MDRD equation for patients that are not between the ages of 18 and 70, are , have extremes of body size, muscle mass, or nutritional status, or are non- or non-. According to the National Kidney Foundation, irrespective of diagnosis, the stage of the disease is based on the level of kidney function: Stage Description GFR(mL/min/1.73 m(2)) 1 Kidney damage with normal or decreased GFR 90 2 Kidney damage with mild decrease in GFR 60-89 3 Moderate decrease in GFR 30-59 4 Severe decrease in GFR 15-29 5 Kidney failure <15 (or dialysis) 18 FASTING 12 HOUR 19 Normal Range 180 to 914 Indeterminate Range 145 to 180 Deficient Range <145 20 FASTING 12 HOUR 21 Normal Range 180 to 914 Indeterminate Range 145 to 180 Deficient Range <145 22 Desirable <150 Borderline high 150-199 High 200-499 Very High >500 23 Desirable <200 Borderline high 200-239 High >239 24 Low <40 Desirable: 40-60 High: >60 25 Desirable: <100 mg/dL Near Optimal: 100-129 mg/dL Borderline High: 130-159 mg/dL High: 160-189 mg/dL Very High: >189 mg/dL 26 Because ethnic data is not always readily available, this report includes an eGFR for both -Americans and non- Americans. The National Kidney Disease Education Program (NKDEP) does not endorse the use of the MDRD equation for patients that are not between the ages of 18 and 70, are , have extremes of body size, muscle mass, or nutritional status, or are non- or non-. According to the National Kidney Foundation, irrespective of diagnosis, the stage of the disease is based on the level of kidney function: Stage Description GFR(mL/min/1.73 m(2)) 1 Kidney damage with normal or decreased GFR 90 2 Kidney damage with mild decrease in GFR 60-89 3 Moderate decrease in GFR 30-59 4 Severe decrease in GFR 15-29 5 Kidney failure <15 (or dialysis) 27 Because ethnic data is not always readily available, this report includes an eGFR for both -Americans and non- Americans. The National Kidney Disease Education Program (NKDEP) does not endorse the use of the MDRD equation for patients that are not between the ages of 18 and 70, are , have extremes of body size, muscle mass, or nutritional status, or are non- or non-. According to the National Kidney Foundation, irrespective of diagnosis, the stage of the disease is based on the level of kidney function: Stage Description GFR(mL/min/1.73 m(2)) 1 Kidney damage with normal or decreased GFR 90 2 Kidney damage with mild decrease in GFR 60-89 3 Moderate decrease in GFR 30-59 4 Severe decrease in GFR 15-29 5 Kidney failure <15 (or dialysis) 28 Normal Range 180 to 914 Indeterminate Range 145 to 180 Deficient Range <145 29 Interpretation: 51-80 ng/mL (increased risk of hypercalciuria) REFERENCE VALUE 25-HYDROXY D TOTAL (D2+D3) Optimum levels in the healthy population are 20-50, patients with bone disease may benefit from higher levels within this range. Test Performed by: [facility] - [address] [address] Supervisor Blood Donor Recruiters: Manish Sandoval II, M.D., Ph.D. Procedures Date CPT Code Description Status Comment 07/15/2017 Inject/Drain Joint/Bursa Major Completed 04/13/2017 Inject/Drain Joint/Bursa Major Completed 03/28/2017 Diabetic Retinal Eye Exam Completed 08/23/2016 Colonoscopy Completed declines 07/30/2016 92256 ECHO Transthorasic Realtime 2D W Completed Doppler & Color Flow Hosp 06/25/2016 03241 EKG Tracing & Interpretation Completed 04/15/2016 33152 Diffusing Capacity Completed 04/15/2016 23552 Pulmonary Function><Bronchodil Completed 04/15/2016 Bone Mineral Density Test Completed 08/15/2015 69194 ECHO Transthoracic, Real-Time 2D With Completed Doppler And Color Flow 08/12/2015 07659 EKG Tracing & Interpretation Completed 07/17/2015 Diabetic Retinal Eye Exam Completed 09/16/2013 Mammogram Completed Declined further Encounters Type Date Location Provider CPT E/M Dx Office Visit 11/21/2017 [facility] [address] M47.26 2:00p Of Saida Conde MD M43.16 M51.16 E66.8 E11.42 Office Visit 11/14/2017 8:40a [facility] Internal Alex Wallace, 40576 M51.16 Medicine - [place] [address] Owens,FACP E11.42 Office Visit 10/25/2017 11:20a [facility] Internal Renny Moore, 19365 J01.90 Medicine - [place] [address] [place] F33.0 M51.16 Office Visit 09/20/2017 1:00p [facility] Internal Renny Moore 91072 M51.16 Medicine - [place] [address] [place] Office Visit 09/01/2017 8:40a [facility] Internal Renny Moore 48136 J45.909 Medicine - [place] [address] [place] J01.90 F33.0 Z23 Office Visit 07/19/2017 11:20a [facility] Internal Renny Moore 74963 J45.909 Medicine - [place] [address] Owens E11.42 I10 F33.0 J06.9 Office Visit 07/15/2017 1:45p [facility] M.D. 88558 M25.562 C.M.A. M25.462 M17.12 M25.572 R29.6 Office Visit 07/04/2017 11:30a [facility] [place] [address] J44.9 Services Of [facility] J45.909 R06.83 R40.0 R68.2 E66.01 Office Visit 06/27/2017 10:15a [facility] M.D. 23616 M25.572 C.M.A. S92.415A M25.562 W19.xxxA Office Visit 05/26/2017 9:45a [facility] [address] G20 E11.42 R53.83 Office Visit 05/11/2017 11:20a [facility] Internal Renny Moore, 84740 J06.9 Medicine - [place] Owens Office Visit 04/28/2017 1:40p [facility] Internal Renny Moore 66204 E11.42 Medicine - [address] Roman E66.01 Z12.39 I10 F33.0 L03.116 M25.562 Office Visit 04/13/2017 10:00a [facility] M.D. 26943 M25.562 C.M.A. M25.462 M17.12 Office Visit 03/18/2017 11:20a [facility] Internal Renny Moore M.D. 54047 F33.0 Medicine - [address] J45.909 M25.562 Office Visit 01/28/2017 11:00a [facility] Internal Renny Moore M.D. 17905 F33.0 Medicine - [address] G93.3 I82.402 J06.9 J30.2 Office Visit 01/24/2017 2:15p [facility] [address] R26.81 E11.42 G20 Office Visit 12/07/2016 3:40p [facility] Internal Renny Moore 92929 E11.42 Medicine - [address] Roman F33.0 I10 Office Visit 09/29/2016 11:40a [facility] Internal Renny Moore 06234 L03.032 Medicine - [place] M.D. I10 F33.0 Office Visit 09/17/2016 2:20p [facility] Internal Renny Moore 39272 L03.032 Medicine - [address] Roman Z23 Office Visit 08/23/2016 1:00p [facility] Internal Medicine Renny Moore M.D. 02582 I10 - [address] E78.2 E11.42 J45.909 E03.9 J20.9 E66.01 M81.0 Office Visit 08/19/2016 2:40p [facility] Internal Medicine - Renny Moore, [address] M.D. Office Visit 08/02/2016 10:15a [facility] [address] G20 E11.42 F51.8 Office Visit 06/25/2016 9:40a [facility] Adrianna Kaplan M.D. 63525 I25.10 [facility] I10 E11.8 E78.2 E66.01 Z82.49 R60.0 R06.02 Z68.43 Office Visit 06/03/2016 4:20p [facility] Internal Renny Moore 23231 M79.605 Medicine - [address] M.D. Office Visit 05/20/2016 8:40a [facility] Internal Renny Moore 75703 M81.0 Medicine - [address] M.D. E78.2 E11.42 G20 J45.909 F32.9 Office Visit 05/13/2016 8:30a [facility] [address] G20 G25.2 E11.42 Office Visit 03/11/2016 9:40a [facility] Internal Renyn Moore M.D. 18267 E11.9 Medicine - [address] I10 E03.9 E78.2 F32.9 R25.1 Office Visit 01/05/2016 3:40p [facility] Internal Renny Moore M.D. 94654 J20.8 Medicine - [address] Office Visit 11/17/2015 2:40p [facility] Internal Renny Moore M.D. 52204 E11.9 Medicine - [address] M81.0 J45.909 I10 E03.9 E66.01 Z68.43 Office Visit 09/10/2015 10:00a [facility] Internal Medicine Renny Moore 78719 J20.8 - [place] Owens Office Visit 08/12/2015 8:40a [facility] Internal Medicine Renny Moore 83830 R07.9 - [address] M.DSantiago J20.8 I89.0 R60.0 R94.31 Office Visit 08/07/2015 8:40a [facility] Internal Renny Moore M.D. 11289 E11.9 Medicine - [address] E03.8 J45.909 F32.9 D50.9 I10 I89.0 Office Visit 07/04/2015 8:30a [facility] [place] [address] 285.8 280.9 Office Visit 06/13/2015 2:00p [facility] [place] [address] 493.[address] - [address] Office Visit 05/21/2015 8:00a [facility] Internal Medicine Renny Moore 29129 493.90 - [place] Owens 285.8 278.01 272.2 285.9 Office Visit 05/07/2015 4:00p [facility] Internal Renny Moore, 85022 250.00 Lucio Sheikh M.D. 722.93 285.8 244.8 724.2 Office Visit 03/07/2015 11:00a [facility] Internal Renny Moore, 83316 959.7 Lucio Sheikh M.D. Office Visit 02/10/2015 2:20p [facility] Internal Renny Moore, 12752 681.11 Medicine - [address] Nakita.DSantiago Office Visit 01/27/2015 3:00p [facility] Internal Renny Moore 42659 250.00 Medicine - [address] Roman 244.8 401.1 272.2 457.1 285.8 V03.82 Office Visit 01/06/2015 3:00p [facility] Jana Moore M.D. 34937 850.9 Medicine - [address] 850.9 959.7 959.7 723.1 723.1 Office Visit 12/30/2014 1:20p [facility] Jana Moore M.D. 18394 850.9 Medicine - [address] 850.9 959.7 959.7 Office Visit 12/27/2014 2:20p [facility] Internal Medicine Peggy Damon M.D. 18145 850.0 - [place] 850.0 924.9 924.9 847.0 847.0 847.9 847.9 Office Visit 10/18/2014 10:20a [facility] Internal Renny Moore, 52133 493.90 Medicine - [place] 311 401.1 272.2 244.8 478.9 780.79 781.2 627.8 719.47 250.00 Plan of Care Future Appointment(s):12/19/2017 1:00 pm - Fabby Conde MD at [facility]12/13/2017 3:00 pm - Renny Moore M.D. at [facility] Internal Medicine - [address]/21/2017 - Fabby Conde, MDM47.26 Other spondylosis with radiculopathy, lumbar regionNew Xrays:SP Lumbar Ap//Lat 2-3 ViewsSpine Entire Ap/LatM43.16 Spondylolisthesis, lumbar pubpxhB11.16 Intervertebral disc disorders w radiculopathy, lumbar hfshbjX53.8 Other lswpshjK61.42 Type 2 diabetes mellitus with diabetic polyneuropathyFollow up:RV 4 weeks
[2017-12-01 13:43] LABS: ABS Basophils 0.1 10^3/ul (0-0.2); ABS Eosinophils 0.3 10^3/ul (0-0.6); ABS Monocytes 0.6 10^3/ul (0-0.8); ABS Nucleated RBC 0 10^3/ul; Eosinophil % 3.4 % (0-6); Hematocrit 34 % (35-47); Hemoglobin 11.5 g/dl (12.0-16.0); Lymphocyte % 20.2 % (25-47); Mean Corpuscular HGB Conc 33 g/dl (31-36); Mean Corpuscular Hemoglobin 26 pg (27-31); Mean Corpuscular Volume 77 fL (80-97); Mean Platelet Volume 8 um3 (7.4-10.4); Nucleated Red Blood Cells % 0.1; Platelet Count 284 10^3/ul (150-450); Red Blood Count 4.48 10^6/ul (4.0-5.4); Red Cell Distribution Width 18 % (10.5-15); White Blood Count 10.1 10^3/ul (3.5-10.8)
[2017-12-01 14:04] VITALS: BP 181/85
--- NOTE | 2017-12-02 16:54 | ED ---
Elpdiio Hodges Angela, scribed for Wilman Beal MD on 12/01/17 at 1253 . Throat Pain/Nasal Congestion - HPI Summary HPI Summary: This pt is a 77 y/o female [facility] since last night. Pt reports her epistaxis began in the middle of the night. She notes that this morning her epistaxis worsened. Pt denies any recent sinus infection, her last one was 3-4 weeks ago. Pt states she has been dealing with herniating discs in her back which have caused her to have increased pain. Pt notes her pain has significantly increased that she is unable to ambulate anymore. She has seen Dr. Conde once and has another upcoming appointment later in the month. PMHx: HTN. Pt is currently on low dose aspirin, and ibuprofen and aleve for back pain. - History of Current Complaint Chief Complaint: EDEpistaxis Time Seen by Provider: 12/01/17 12:43 Hx Obtained From: Patient Onset/Duration: Lasting Hours, Still Present Severity: Moderate Associated Signs And Symptoms: Positive: Nasal Discharge - epistaxis Cough: None - Allergies/Home Medications Allergies/Adverse Reactions: Allergies Allergy/AdvReac Type Severity Reaction Status Date / Time almond Allergy GI Upset Verified 11/19/17 18:13 avocado Allergy Unknown Verified 11/19/17 18:13 Reaction Details codeine Allergy Vomiting Verified 11/19/17 18:13 Iodinated Contrast- Oral and Allergy Difficulty Verified 11/19/17 18:13 IV Dye Breathing/Wheezing levofloxacin Allergy Joint Pain Verified 11/19/17 18:13 Penicillins Allergy Hives Verified 11/19/17 18:13 shellfish derived Allergy Difficulty Verified 11/19/17 18:13 Breathing/Wheezing Sulfa (Sulfonamide Allergy Hives Verified 11/19/17 18:13 Antibiotics) Tetracyclines Allergy Difficulty Verified 11/19/17 18:13 Breathing PMH/Surg Hx/FS Hx/Imm Hx Endocrine/Hematology History: Reports: Hx Diabetes Cardiovascular History: Reports: Hx Hypertension Denies: Hx Deep Vein Thrombosis, Hx Pacemaker/ICD Respiratory History: Denies: Hx Pulmonary Embolism History: Denies: Hx Renal Disease Musculoskeletal History: Denies: Hx Osteoporosis Sensory History: Denies: Hx Hearing Aid Psychiatric History: Denies: Hx Panic Disorder - Cancer History Cancer Type, 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 Hx Chemotherapy: No Hx Radiation Therapy: No - Surgical History Surgery Procedure, Year, and Place: [facility] KN[facility] (RESOLUTE STENT CONDITIONAL 5 UP TO 3T SCAN IN NORMAL MODE AND 1000G/CM888SEE OTHER FACILITITY REPORTS); HYSTERECTOMY; chest tube, exploratory LUNG sx; BILATERAL CATARACTS; T&A; BLADDER TUMOR REMOVAL(CANCEROUS) Infectious Disease History: No Infectious Disease History: Denies: Traveled Outside the [place] in Last 30 Days - Family History Known Family History: Positive: Cardiac Disease, Other - [place] - Social History Alcohol Use: None Substance Use Type: Reports: None Hx Tobacco Use: No Smoking Status (MU): Never Smoked Tobacco Review of Systems Negative: Fever, Chills Positive: Epistaxis Respiratory: Negative Gastrointestinal: Negative Musculoskeletal: Other - chronic back pain Neurological: Negative All Other Systems Reviewed And Are Negative: Yes Physical Exam - Summary Physical Exam Summary: VITAL SIGNS: Reviewed. GENERAL: Patient is an obese female who is lying comfortable in the stretcher. Patient is not in any acute respiratory distress. HEAD AND FACE: No signs of trauma. No ecchymosis, hematomas or skull depressions. No sinus tenderness. There is old blood in the right nostril, not actively bleeding. EYES: PERRLA, EOMI x 2, No injected conjunctiva, no nystagmus. EARS: Hearing grossly intact. Ear canals and tympanic membranes are within normal limits. MOUTH: Oropharynx within normal limits. NECK: Supple, trachea is midline, no adenopathy, no JVD, no carotid bruit, no c- spine tenderness, neck with full ROM. CHEST: Symmetric, no tenderness at palpation LUNGS: Clear to auscultation bilaterally. No wheezing or crackles. CVS: Regular rate and rhythm, S1 and S2 present, no murmurs or gallops appreciated. ABDOMEN: Soft, non-tender. No signs of distention. No rebound no guarding, and no masses palpated. Bowel sounds are normal. EXTREMITIES: FROM in all major joints, no edema, no cyanosis or clubbing. NEURO: Alert and oriented x 3. No acute neurological deficits. Speech is normal and follows commands. SKIN: Dry and warm Triage Information Reviewed: Yes Vital Signs On Initial Exam: Initial Vitals Temp Pulse Resp BP Pulse Ox 96.9 F 92 17 142/73 97 12/01/17 11:01 12/01/17 11:01 12/01/17 11:01 12/01/17 11:01 12/01/17 11:01 Vital Signs Reviewed: Yes Diagnostics - Vital Signs Vital Signs Temp Pulse Resp BP Pulse Ox 12/01/17 11:01 96.9 F 92 17 142/73 97 - Laboratory Result Diagrams: 12/01/17 13:25 Lab Statement: Any lab studies that have been ordered have been reviewed, and results considered in the medical decision making process. EENT Course/Dx - Course Assessment/Plan: This pt is a 77 y/o female presenting to [facility] c/o epistaxis since last night. Pt reports her epistaxis began in the middle of the night. She notes that this morning her epistaxis worsened. Pt denies any recent sinus infection, her last one was 3-4 weeks ago. Pt states she has been dealing with herniating discs in her back which have caused her to have increased pain. Pt notes her pain has significantly increased that she is unable to ambulate anymore. She has seen Dr. Conde once and has another upcoming appointment later in the month. The pt was observed in the ED for a couple of hours and there were no more episodes of bleeding. Therefore the pt will be discharged to home with follow up from her PCP. Pt is hemodynamically stable, alert and oriented x3. She is instructed to return to the ED for any worsening symptoms. - Diagnoses Provider Diagnoses: Epistaxis Discharge - Discharge Plan Condition: Stable Disposition: HOME Patient Education Materials: Nosebleed (ED) Referrals: Renny Moore MD [Primary Care Provider] - 3 Days Additional Instructions: Please follow up with your primary care provider. RETURN TO THE ED FOR ANY WORSENING SYMPTOMS. The documentation as recorded by the Elpidio bowie Angela accurately reflects the service I personally performed and the decisions made by , Wilman Beal MD.
== END 2017-12-01 14:00 | disposition home or self-care (01) ==
LOC: ED 10:57
DX: R04.0 Epistaxis (principal); E11.9 Type 2 diabetes mellitus without complications; I10 Essential (primary) hypertension; Z85.51 Personal history of malignant neoplasm of bladder; Z79.82 Long term (current) use of aspirin; Z88.2 Allergy status to sulfonamides
CPT/HCPCS: 36415; 85025; 99282

== ENCOUNTER 2017-12-08 11:54 | Inpatient (IN) | payer MEDICARE ==
[2017-12-08 12:44] LABS: ABS Basophils 0.1 10^3/ul (0-0.2); ABS Eosinophils 0.4 10^3/ul (0-0.6); ABS Lymphocytes 2.2 10^3/ul (1.0-4.8); ABS Monocytes 0.5 10^3/ul (0-0.8); ABS Neutrophils 7.2 10^3/ul (1.5-7.7); ABS Nucleated RBC 0 10^3/ul; Eosinophil % 3.9 % (0-6); Hematocrit 34 % (35-47); Hemoglobin 11.1 g/dl (12.0-16.0); Lymphocyte % 20.9 % (25-47); Mean Corpuscular HGB Conc 33 g/dl (31-36); Mean Corpuscular Hemoglobin 26 pg (27-31); Mean Corpuscular Volume 78 fL (80-97); Mean Platelet Volume 8 um3 (7.4-10.4); Nucleated Red Blood Cells % 0.1; Platelet Count 318 10^3/ul (150-450); Red Blood Count 4.34 10^6/ul (4.0-5.4); Red Cell Distribution Width 18 % (10.5-15); White Blood Count 10.5 10^3/ul (3.5-10.8)
[2017-12-08 12:50] LABS: INR 0.93 (0.77-1.02)
--- OUTSIDE RECORDS SUMMARY | 2017-12-08 12:53 | XMS REPORT ---
:1940 External Reference #:[id number] Author Organization [facility] Address [address] [address] Phone [phone] Care Team Providers Name Role Phone Renny Moore MD Primary Care Physician Unavailable Payers Type Date Identification Numbers Payment Provider Subscriber Commercial Policy Number: [id number] [employer] Ashely Wilhelm Group Number: [id number] [address] PayID: [id number] [place] [address] Commercial PayID: [id number] Medicare D - Drug Plan Ashley Wilhelm Commercial Effective: Policy Number: [id number] yoshi Galvez/Leo Ashley Wilhelm 2015 Options Expires: 2016 PayID: [id number] [address] [address] Attn: [place] [address] Commercial Effective: 2015 Policy Number: Today's Option Of Ashley Wilhelm [id number] [place] Expires: 2015 PayID: [id number] [address] [place] [address] Medigap Part B Expires: 2015 Policy Number: [facility] Ashley Wilhelm [id number] Healthcare PayID: [id number] [address] [place] [address] Workers Compensation Expires: 2016 Policy Number: Quita Wilhelm [id number] Onset: 2014 Group Number: [id number] [address] [place] [address] PayID: [address] [id number] Problems Date Description Provider Status Onset: 10/18/2014 [...] 11/21/2017 Obesity Fabby Conde MD Active Onset: 12/05/2017 Candidiasis Renny Moore M.D. Active Onset: 10/18/2014 Disorder of upper respiratory [...] Form Strength Qnty SIG Indications Ordering Provider Hydrocodone-Acetam 12/05 Active Tablets 5-325mg 45tab 1 tab M51.16 Renny inophen s every 8h Pachika as needed , Roman Cyclobenzaprine 12/05 Active Tablets 5mg 30tab 1 tab at M51.16 Renny HCL s 4pm and at [facility] bedtime , Roman Clotrimazole 12/05 Active Cream 1% 90gm apply B37.9 twice Oscar daily , Roman Ventolin HFA 11/04 Active Aerosol 108(90Bas 1unit 2 puffs by J45.909 Alex e) s mouth four DSantiago Wallace, mcg/Act times a M.DSantiago,FACP day as needed Duloxetine HCL 10/25 Active [...] Tablets 0.5mg 60tab twice s daily just Pachikara before Roman food Hydrochlorothiazid 12/07 Active Tablets 12.5mg 90tab 1 by mouth I10 s every day Roman Moore Valsartan-Hydrochl 09/29 Active Tablets 160-12.5m 90tab 1 by mouth I10 orothiazide g s every day Roman Moore Albuterol Sulfate 08/19 Active Nebulizer 0.63mg/3M 75ml one J45.901 Sarai L treatment Sammie, every 4 MD hours as needed Metformin HCL 11/11 Active Tablets 1000mg 180ta take one bs tablet by Oscar blunt M.D. twice daily Levothyroxine Active Tablets 125mcg 90tab 1 by mouth Alex / s every day Mimi Wallace M.D.,FACP Multi [...] Capsules 100mg 90cap 1 by mouth Unknown / s every day Aspirin Active Tablets 81mg 1 by mouth Unknown /0000 every day Zyrtec Allergy Active Tablets 10mg 1 by mouth Unknown /0000 every day Advair Diskus Active Aerosol 100-50mcg 3unit use 2 Renny /Dose s inhalation Oscar 2 times Roman daily Probiotic Active Capsules 1 by mouth [...] Hx Tablets 4mg 1pak medrol M51.16 Alex /2017 Jena Ding M.D.,FACP 11/21 Medrol 10/28 Hx TBPK 4mg 1unit as s directed Oscar Bella M.D. 11/14 Doxycycline 10/25 Hx Capsules 100mg 20cap 1 cab J01.90 s twice a Oscar bolivar M.D. 11/04 Prednisone 12/ Hx Tablets 10mg 30tab 5tabx M51.16 s 2days,4 Pachikara - [id number] , MSantiagoD. 10/25 [id number] /2018 ,5dgqe4hon s,1tabxday . Duloxetine HCL 07/[address] 30mg 90cap once daily F33.0 Part s with food Oscar Bella M.D. 10/25 Azithromycin 07/19 Hx Tablets 250mg 6tabs 2 tab J06.9 today and Oscar - then Roman carrillo 07/24 Methylprednisolone 07/19 Hx TBPK 4mg 1unit as s directed Oscar Bella M.D. 11/04 Azithromycin 05/11 Hx Tablets 250mg 6tabs 2 tab J06.9 today and Duikara - then Roman carrillo 05/25 Clindamycin HCL 04/28 Hx Capsules 150mg 28cap 1 cap L03.116 s every 6 Oscar castaneda M.D. 05/11 Medial Candy Decorator 04/13 Hx 1unit medial M25.562 Christiana Knee Brace s repairer screen crusher Antione, - knee M.DSantiago 07/04 brace, left Venlafaxine HCL ER 01/28 Hx Caps ER 150mg 90cap 1 by mouth F33.0 24HR s every day Oscar Bella M.D. 07/04 Azithromycin 01/28 Hx Tablets 250mg 6tabs 2 tab J06.9 today and Zacra - then 1Roman sun 05/11 Carbidopa-Levodopa 01/24 Hx Tablets 25-100mg 120ta 2 tabs in G20 bs rufina Peterson, - morning 07/04 and 1 at lunch and 1 in evening Venlafaxine HCL ER 12/28 Hx Caps ER 75mg 30cap once a day 24HR s Oscar SahnDSantiago 01/28 Venlafaxine HCL 12/24 Hx Tablets 75mg 90tab 1 by mouth F33.0 s every day Oscar - M.D. 12/28 Venlafaxine HCL ER 12/07 Hx Tablets ER 37.5mg 30tab 1 tab F33.0 24HR s daily for Pachikara - 1we and , M.D. 12/24 then 2 tab daily Januvia 12/07 Hx Tablets 50mg 60tab one tab E11.42 s daily Oscar M.DSantiago 12/09 Bupropion HCL ER 09/29 Hx Tablets ER 150mg 30tab once daily F33.0 () 24HR s in the [facility] , M.D. 12/07 with Sertraline HCL 09/29 Hx Tablets 100mg 30tab 1 by mouth F33.0 s every day Oscar M.DSantiago 12/07 Clindamycin HCL 09/17 Hx Capsules 300mg 30cap three L03.032 s times a Zac - day , M.D. 12/07 Sertraline HCL 09/17 Hx Tablets 100mg 30tab 1 by mouth F32.9 s every day Nakita Hi.DSantiago 09/29 Symbicort 09/14 Hx Aerosol 160-4.5mc 30.6g 2 puff g/Act m twice a Pachikara - day , M.D. 10/27 Azithromycin 08/23 Hx Tablets 250mg 6tabs 2 tab J20.9 today and Zacra - then 1tab , M.D. 09/17 Prednisone 08/19 Hx Tablets 10mg 30tab 5tabx J45.901 s 2days,4 Pachikara - [id number] , M.D. 09/17 [id number] /2016 ,1rqxy5klf s,1tabxday . Medrol 06/28 Hx TBPK 4mg 1unit as s directed Oscar Bella M.D. 08/20 Bupropion HCL ER 05/20 Hx Tablets ER 300mg 30tab 1 tab in F32.9 Renyn (XL) 24HR s in the [facility] , M.D. 09/29 Sertraline HCL 05/20 Hx Tablets 50mg 30tab 1 by mouth F32.9 s every day Oscar Bella M.D. 09/17 Bupropion HCL ER 03/11 Hx Tablets ER 150mg 30tab 1 by mouth F32.9 Renny (XL) 24HR s every day Oscar Bella M.D. 05/20 Azithromycin 01/04 Hx Tablets 250mg 6tabs 2 tab J20.8 today and Oscar - then 1tab , MSantiagoDSantiago 03/11 Methylprednisolone 01/04 Hx Tablets 4mg 21tab use as J20.8 Renny (Oliver s directed Oscar Bella M.D. 03/11 Prednisone 09/18 Hx Tablets 10mg 30tab 5tabx s 2days,4 Duikara - ocub1ihzc , MSantiagoDSantiago 11/17 [id number] /2016 ,0gtxw6xjf s,1tabxday . Azithromycin 09/10 Hx Tablets 250mg 6tabs 2 tab J20.8 today and Oscar - then 1tab , MSantiagoD. 11/17 Clindamycin HCL 08/12 Hx Capsules 150mg 28cap 1 cap R07.9 s every 6 Pachikara - hours , M.D. 08/12 Clindamycin HCL 08/12 Hx Capsules 150mg 28cap 1 cap J20.8 s every 6 Pachikara - hours , M.D. 09/10 Hydrochlorothiazid 08/12 Hx Tablets 12.5mg 30tab once daily I89.0 Renny s sOcar Bella M.D. 01/04 Feosol 08/07 Hx Tablets 325(65Fe) 30tab once daily D50.9 mg s Pachika - , M.D. 11/17 Bupropion HCL ER 07/04 Hx Tablets ER 100mg 90tab take 1 F32.9 Olvin (SR) 12HR s tablet by Romanian, - mouth [employer] 03/11 morning Ipratropium 06/17 Hx Solution 0.5-2.5(3 84ml 3ml Olvin Earleton/Albuterol )mg/3ML nebulizer Romanian, Sulfate - up to [employer] 12/07 twice a day as needed Prednisone 06/13 Hx Tablets 10mg 30tab 5tabx 493.90 Olvin /2014 s 2days,4 Romanian, - xpoq2isfc [employer] 06/23 4fxjw1qakb /2015 ,5hwou9mqd s,1tabxday . Prednisone 05/21 Hx Tablets 10mg 25tab 5tab x 1 493.90 [place] s day,4 Pachikara - aaqr4cdje , M.D. 06/13 3 t a b x2days,2ta he2lziz,1t abxday. Feosol 05/21 Hx Tablets 325(65Fe) 30tab once daily 285.8 mg s Oscar - , M.D. 08/07 Meloxicam 05/07 Hx Tablets 7.5mg 30tab 1 by mouth 722.93 [place] s every day Pachikara - as needed , M.D. 06/24 Clindamycin HCL 02/10 Hx Capsules 150mg 28cap 1 cap 681.11 s every 6 Pachikara - hours , M.D. 02/14 Doxycycline 01/06 Hx Tablets 100mg 20tab twice a Renny Monohydrate /2014 s day Pachikara - , M.D. 02/10 Proair HFA 10/18 Hx Aerosol 108(90Bas 3unit 2 puffs ih J45.909 e) s every 4 Pachikara - mcg/Act hours as , M.D. 11/04 Doxycycline 10/18 Hx Tablets 100mg 20tab 1 by mouth 478.9 Renny Hyclate s twice a Pachikara - day , M.D. 12/30 Lisinopril 00 Hx Tablets 10mg 90tab 1 by mouth [place] /0000 s every day Oscar Bella M.D. 06/02 Clopidogrel /00 Hx Tablets 75mg 90tab 1 by mouth Renny Bisulfate /0000 s every day Oscar Bella M.D. 05/07 Levemir Flextouch Hx Solution 100Unit/M 30uni inject 55 Unknown /0000 Pen-Inject L ts units - under the 10/18 skin day Metformin HCL Hx Tablets 500mg 180ta 2 by mouth Renny /0000 bs twice a Oscar - Roman bolivar 11/11 Xopenex HFA Hx Aerosol 45mcg/Act 1unit 2 puffs Unknown /0000 s four times - a day as 10/18 Astragalus Root 00/ Hx Tablet 1000mg 1 by mouth Unknown /0000 every day - 05/12 Acidophilus 00/ Hx Unknown /0000 - 05/12 Krill Oil Hx 1 by mouth Unknown /0000 three - times 07/04 Amlodipine 00 Hx Tablets 5mg 180ta take 1 [place] Besylate /0000 bs tablet by Duika - mouth , M.DSantiago 09/29 morning and in the evening Sertraline HCL / Hx Tablets 100mg 90tab take one [place] /0000 s tablet by Pachikara - mouth once , M.D. 05/20 Montelukast Sodium Hx Tablets 10mg 90tab Take One Olvin /0000 s Tablet By Romanian, - Mouth Once [employer] 08/192016 Prednisone 0000 Hx TBPK 10mg (21) 3 tabs Unknown /0000 day#1, 3 - tabs 09/17 day#2, tabs day#3, #1 for 3 days Aspirin Adult Low [address] 81mg 1 by mouth Unknown Dose /0000 every day - 05/25 Turmeric Hx Capsules 500mg 1 by mouth Unknown /0000 twice a - day 11/14 Clindamycin HCL 0000 Hx Capsules 300mg Unknown /0000 - 11/14 Medications Administered in Office Medication Date Status Form Strength Qnty SIG Indications Ordering Provider Depomedrol Administered Injection Christiana 40MG 017 Roman Talbot Depomedrol Administered Injection Christiana 40MG 017 Roman Talbot Immunizations CPT Code Status Date Vaccine Lot # [id number] Given 09/01/2017 Tdap - Tetanus/Diptheria/Acellular Pertussis [id number] Given 09/17/2016 Influenza Virus Vaccine, Quadrivalent, Split [id number] Virus, Im Use 39175 Given 10/24/2015 Influenza Virus Vaccine, Quadrivalent, Split, Preservative Free 65653 Given 01/27/2015 Pneumococcal Conjugate Vaccine 13 Valent For [id number] Intramuscular Use Vital Signs Date Vital Result Comment 12/05/2017 Height 61.5 inches 5'1.50" Heart Rate 104 /min BP Systolic 150 mmHg Lower Arm BP Diastolic 90 mmHg Lower Arm O2 % BldC Oximetry 97 % 11/21/2017 Height 61.5 inches 5'1.50" Weight 280.00 [...] Result H/L Range Note CBC Auto Diff 12/01/2017 White Blood Count 10.1 10^3/uL 3.5-10.8 Red Blood Count 4.48 10^6/uL 4.0-5.4 Hemoglobin 11.5 g/dL Low 12.0-16.0 Hematocrit 34 % Low 35-47 Mean Corpuscular Volume 77 fL Low 80-97 Mean Corpuscular Hemoglobin 26 pg Low 27-31 Mean Corpuscular HGB Conc 33 g/dL 31-36 Red Cell Distribution Width 18 % High 10.5-15 Platelet Count 284 10^3/uL 150-450 Mean Platelet Volume 8 um3 7.4-10.4 Abs Neutrophils 7.0 10^3/uL 1.5-7.7 Abs Lymphocytes 2.0 10^3/uL 1.0-4.8 Abs Monocytes 0.6 10^3/uL 0-0.8 Abs Eosinophils 0.3 10^3/uL 0-0.6 Abs Basophils 0.1 10^3/uL 0-0.2 Abs Nucleated RBC 0 10^3/uL Granulocyte % 69.9 % 38-83 Lymphocyte % 20.2 % Low 25-47 Monocyte % 5.8 % 1-9 Eosinophil % 3.4 % 0-6 Basophil % 0.7 % 0-2 Nucleated Red Blood Cells % 0.1 CBC Auto Diff 11/19/2017 White Blood Count [...] levels within this range. Test Performed by: [facility] [address] [address] Website/Blog Editor: Manish Sandoval II, M.D., Ph.D. Procedures Date CPT Code Description Status Comment 07/15/2017 Inject/Drain Joint/Bursa Major Completed 04/13/2017 Inject/Drain Joint/Bursa Major Completed 03/28/2017 Diabetic Retinal Eye Exam Completed 08/23/2016 Colonoscopy Completed declines 07/30/2016 59617 ECHO Transthorasic Realtime 2D W Completed Doppler & Color Flow Hosp 06/25/2016 07756 EKG Tracing & Interpretation Completed 04/15/2016 46329 Diffusing Capacity Completed 04/15/2016 34937 Pulmonary Function><Bronchodil Completed 04/15/2016 Bone Mineral Density Test Completed 08/15/2015 62901 ECHO Transthoracic, Real-Time 2D With Completed Doppler And Color Flow 08/12/2015 19659 EKG Tracing & Interpretation Completed 07/17/2015 Diabetic Retinal Eye Exam Completed 09/16/2013 Mammogram Completed Declined further Encounters Type Date Location Provider CPT E/M Dx Office Visit 11/14/2017 8:40a [facility] Internal Alex Wallace, [address] M51.16 Medicine - [address] Roman,FACP E11.42 Office Visit 10/25/2017 11:20a [facility] Internal Renny Moore, 64303 J01.90 Medicine - [address] Roman F33.0 M51.16 Office Visit 09/20/2017 1:00p [facility] Internal Renny Moore, [address]20 M51.16 Medicine - [address] [place] Office Visit 09/01/2017 8:40a [facility] Internal Renny Moore, 90888 J45.909 Medicine - [address] Roman J01.90 F33.0 Z23 Office Visit 07/19/2017 11:20a [facility] Internal Renny Moore, 31507 J45.909 Medicine - [address] Roman E11.42 I10 F33.0 J06.9 Office Visit 07/15/2017 1:45p [facility] Talbot M.D. 23078 M25.562 C.M.A. M25.462 M17.12 M25.572 R29.6 Office Visit 07/04/2017 11:30a [facility] [address] J44.9 Services Of [facility] J45.909 R06.83 R40.0 R68.2 E66.01 Office Visit 06/27/2017 10:15a [facility] Tal[facility] M.D. 71584 M25.572 C.M.A. S92.415A M25.562 W19.xxxA Office Visit 05/26/2017 9:45a [facility] [address] G20 E11.42 R53.83 Office Visit 05/11/2017 11:20a [facility] Internal Renny Moore, 19294 J06.9 Lucio Sheikh M.D. Office Visit 04/28/2017 1:40p [facility] Internal Renny Moore, 40170 E11.42 Medicine - [address] Nakita.DSantiago E66.01 Z12.39 I10 F33.0 L03.116 M25.562 Office Visit 04/13/2017 10:00a [facility] M.D. 22812 M25.562 C.M.A. M25.462 M17.12 Office Visit 03/18/2017 11:20a [facility] Internal Renny Moore M.D. 98687 F33.0 Medicine - [address] J45.909 M25.562 Office Visit 01/28/2017 11:00a [facility] Jana Moore M.D. 56055 F33.0 Medicine - [address] G93.3 I82.402 J06.9 J30.2 Office Visit 01/24/2017 2:15p [facility] [address] R26.81 E11.42 G20 Office Visit 12/07/2016 3:40p [facility] Internal Renny Moore, 23666 E11.42 Medicine - [address] ShanDSantiago F33.0 I10 Office Visit 09/29/2016 11:40a [facility] Internal Renny Moore 27155 L03.032 Lucio Sheikh M.D. I10 F33.0 Office Visit 09/17/2016 2:20p [facility] Internal Renny Moore 66553 L03.032 Medicine - [address] MSantiagoDSantiago Z23 Office Visit 08/23/2016 1:00p [facility] Internal Medicine Renny Moore M.D. 43487 I10 - [address] E78.2 E11.42 J45.909 E03.9 J20.9 E66.01 M81.0 Office Visit 08/19/2016 2:40p [facility] Internal Medicine Jena Moore [address] M.D. Office Visit 08/02/2016 10:15a [facility] [address] G20 E11.42 F51.8 Office Visit 06/25/2016 9:40a [facility] Adrianna Kaplan M.D. 61127 I25.10 [facility] At [facility] I10 E11.8 E78.2 E66.01 Z82.49 R60.0 R06.02 Z68.43 Office Visit 06/03/2016 4:20p [facility] Internal Renny Moore 61363 M79.605 Medicine - [address] M.D. Office Visit 05/20/2016 8:40a [facility] Internal Renny Moore 85193 M81.0 Medicine - [address] M.D. E78.2 E11.42 G20 J45.909 F32.9 Office Visit 05/13/2016 8:30a [facility] [address] G20 G25.2 E11.42 Office Visit 03/11/2016 9:40a [facility] Internal Renny Moore M.D. 33532 E11.9 Medicine - [address] I10 E03.9 E78.2 F32.9 R25.1 Office Visit 01/05/2016 3:40p [facility] Internal Renny Moore M.D. 69618 J20.8 Medicine - [address] Office Visit 11/17/2015 2:40p [facility] Internal Renny Moore M.D. 26528 E11.9 Medicine - [address] M81.0 J45.909 I10 E03.9 E66.01 Z68.43 Office Visit 09/10/2015 10:00a [facility] Internal Medicine Renny Moore 36654 J20.8 - Aguilar Owens Office Visit 08/12/2015 8:40a [facility] Internal Medicine Renny Mooer [address]29 R07.9 - [address] M.DSantiago J20.8 I89.0 R60.0 R94.31 Office Visit 08/07/2015 8:40a [facility] Internal Renny Moore M.D. 20452 E11.9 Medicine - [address] E03.8 J45.909 F32.9 D50.9 I10 I89.0 Office Visit 07/04/2015 8:30a [facility] Internal Medicine - Olvin Wright, [employer] [address] 285.8 280.9 Office Visit 06/13/2015 2:00p [facility] Internal Medicine Olvin Wright, [employer] [address]30 493.90 - [address] Office Visit 05/21/2015 8:00a [facility] Internal Medicine Renny Moore, 42099 493.90 - [place] M.DSantiago 285.8 278.01 272.2 285.9 Office Visit 05/07/2015 4:00p [facility] Internal Renny Moore, 99206 250.00 Medicine - [place] Nakita.DSantiago 722.93 285.8 244.8 724.2 Office Visit 03/07/2015 11:00a [facility] Internal Renny Moore, 74673 959.7 Medicine - [place] ShanDSantiago Office Visit 02/10/2015 2:20p [facility] Internal Renny Moore 72237 681.11 Medicine - [address] M.D. Office Visit 01/27/2015 3:00p [facility] Internal Renny Moore, 43016 250.00 Medicine - [address] M.D. 244.8 401.1 272.2 457.1 285.8 V03.82 Office Visit 01/06/2015 3:00p [facility] Internal Renny Moore M.D. 32443 850.9 Medicine - [address] 850.9 959.7 959.7 723.1 723.1 Office Visit 12/30/2014 1:20p [facility] Internal Renny Moore M.D. 55644 850.9 Medicine - [address] 850.9 959.7 959.7 Office Visit 12/27/2014 2:20p [facility] Internal Medicine Peggy Damon M.D. 60318 850.0 - [place] 850.0 924.9 924.9 847.0 847.0 847.9 847.9 Office Visit 10/18/2014 10:20a [facility] Internal Renny Moore, 33155 493.90 Medicine - [place] Roman 311 401.1 272.2 244.8 478.9 780.79 781.2 627.8 719.47 250.00 Plan of Care Future Appointment(s):12/19/2017 1:00 pm - Fabby Conde MD at [facility]12/05/2017 - Renny Moore M.D.M51.16 Intervertebral disc disorders w radiculopathy, lumbar regionNew Medication: Hydrocodone-Acetaminophen 5-325 mgCyclobenzaprine HCL 5 mgComments:Will arrange hospital bed.Restart VNA.? Asisted livingFollow up:2 amryzV66.9 Candidiasis, unspecifiedNew Medication:Clotrimazole 1 %F33.0 Major depressive disorder, recurrent, mildComments:Continue present regimen
[2017-12-08 12:59] LABS: Urine Appearance Cloudy; Urine Blood Negative (Negative); Urine Color Yellow; Urine Ketones Negative (Negative); Urine Protein Negative (Negative); Urine Urobilinogen Negative (Negative)
[2017-12-08 13:02] LABS: EGFR Non-African American 77.7 (>60)
[2017-12-08] MEDS ORDERED: Aztreonam (*) 2 GM VIAL IVPB ONE (13:26)
[2017-12-08] MEDS ORDERED: Clindamycin 600 MG IVPREMIX(* 600 MG/50 ML SDV IV ONE (13:26)
[2017-12-08] MEDS ORDERED: Aztreonam (*) 1 GM in NS 0.9% 50 ML* 50 ML IVPB ONE (14:00)
--- NOTE | 2017-12-08 14:15 | RAD ---
INDICATION: Lower extremity edema and redness. COMPARISON: Comparison is made with a prior study from November 19, 2017. TECHNIQUE: Multiple real-time, color flow and Doppler tracings of both lower extremities were obtained. FINDINGS: The common femoral, femoral, profunda femoral and popliteal veins all demonstrate normal compressibility, augmentation with compression and phasic response with respiration. Flow is documented in the posterior tibial veins of the right calf. The peroneal veins in the right calf were not well visualized and the calf veins in the left lower leg were not seen. IMPRESSION: 1. NO EVIDENCE FOR DEEP VENOUS THROMBOSIS AT OR ABOVE THE KNEE. 2. UNABLE TO ASSESS CALF VEINS DUE TO EDEMA AND BODY HABITUS.
--- NOTE | 2017-12-08 14:17 | ED ---
Ken Hodges Julia, scribed for Wilman Lockwood MD on 12/08/17 at 1212 . Lower Extremity - HPI Summary HPI Summary: This patient is a 77 year old F BIBA to [facility] from [facility] due to worsening lower extremity edema and erythema for the past few days. . Patient report lower extremity numbness. Patient denies fever and chills. The patient rates the pain 6/10 in severity. Symptoms aggravated by walking. 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 - History of Current Complaint Chief Complaint: EDExtremityLower Stated Complaint: LEG SWELLING Time Seen by Provider: 12/08/17 12:04 Hx Obtained From: Patient Mechanism Of Injury: Unknown Pain Intensity: 6 Pain Scale Used: 0-10 Numeric Associated Signs And Symptoms: Positive: Swelling, Redness Aggravating Factor(s): Standing Able to Bear Weight: Yes - Allergies/Home Medications Allergies/Adverse Reactions: Allergies Allergy/AdvReac Type Severity Reaction Status Date / Time almond Allergy GI Upset Verified 12/08/17 12:02 avocado Allergy Unknown Verified 12/08/17 12:02 Reaction Details codeine Allergy Vomiting Verified 12/08/17 12:02 Iodinated Contrast- Oral and Allergy Difficulty Verified 12/08/17 12:02 IV Dye Breathing/Wheezing levofloxacin Allergy Joint Pain Verified 12/08/17 12:02 Penicillins Allergy Hives Verified 12/08/17 12:02 shellfish derived Allergy Difficulty Verified 12/08/17 12:02 Breathing/Wheezing Sulfa (Sulfonamide Allergy Hives Verified 12/08/17 12:02 Antibiotics) Tetracyclines Allergy Difficulty Verified 12/08/17 12:02 Breathing vancomycin Allergy Itching Verified 12/08/17 12:02 Home Medications: Home Medications Clotrimazole 1% CREAM* [Clotrimazole 1%*] 1 applic TOPICAL BID 12/08/17 [ History Confirmed 12/08/17] Cranberry [Cranberry] 400 mg PO DAILY 12/08/17 [History Confirmed 12/08/17] Cyclobenzaprine TAB* [Flexeril 10 MG TAB*] 5 mg PO BID PRN 12/08/17 [History Confirmed 12/08/17] DULoxetine DR CAP* [Cymbalta CAP*] 60 mg PO DAILY 12/08/17 [History Confirmed ] HYDROcodone/ACETAMIN 5-325 MG* [[place] 5-325 TAB*] 1 tab PO Q8H PRN MDD 3 [History Confirmed 12/08/17] Hydrochlorothiazide TAB* [Hydrodiuril TAB*] 12.5 mg PO DAILY 12/08/17 [History Confirmed 12/08/17] Multivitamins/Minerals TAB* [Theragran/minerals TAB*] 1 tab PO DAILY 12/08/17 [ History Confirmed 12/08/17] Repaglinide TAB* [Prandin TAB*] 0.5 mg PO BID AC 12/08/17 [History Confirmed ] PMH/Surg Hx/FS Hx/Imm Hx Endocrine/Hematology History: Reports: Hx Diabetes Cardiovascular History: Reports: Hx Hypertension Denies: Hx Deep Vein Thrombosis, Hx Pacemaker/ICD Respiratory History: Reports: Hx Chronic Obstructive Pulmonary Disease (COPD) Denies: Hx Pulmonary Embolism History: Denies: Hx Renal Disease Musculoskeletal History: Reports: Hx Back Problems - herniat lumbar sacarl spine , DDD Denies: Hx Osteoporosis Sensory History: Denies: Hx Hearing Aid Neurological History: Reports: Other Neuro Impairments/Disorders - early jesús Parkinsons Psychiatric History: Denies: Hx Panic Disorder - Cancer History Cancer Type, 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 Hx Chemotherapy: No Hx Radiation Therapy: No - Surgical History Surgery Procedure, Year, and Place: RT KNEE TOTAL REPLACEMENT, CARDIAC STENT [facility] 2013 (RESOLUTE STENT CONDITIONAL 5 UP TO 3T SCAN IN NORMAL MODE AND 1000G/CM888SEE OTHER FACILITITY REPORTS); HYSTERECTOMY; chest tube, exploratory LUNG sx; BILATERAL CATARACTS; T&A; BLADDER TUMOR REMOVAL(CANCEROUS) Infectious Disease History: No Infectious Disease History: Denies: Traveled Outside the [place] in Last 30 Days - Family History Known Family History: Positive: Cardiac Disease, Other - CA and lymphedema - Social History Occupation: Retired Alcohol Use: None Substance Use Type: Reports: None Hx Tobacco Use: No Smoking Status (MU): Never Smoked Tobacco Review of Systems Negative: Fever, Chills Positive: Edema Positive: Rash - erythmea of LE Positive: Numbness - lower extremities All Other Systems Reviewed And Are Negative: Yes Physical Exam Triage Information Reviewed: Yes Vital Signs On Initial Exam: Initial Vitals Temp Pulse Resp BP Pulse Ox 98.5 F 79 18 215/100 98 12/08/17 12:00 12/08/17 12:00 12/08/17 12:00 12/08/17 12:00 12/08/17 12:00 Vital Signs Reviewed: Yes Appearance: Positive: Well-Appearing, No Pain Distress Skin: Positive: Other - bilateral leg cellulitis with significant edema both legs. Head/Face: Positive: Normal Head/Face Inspection Neck: Positive: Nontender Respiratory/Lung Sounds: Positive: Clear to Auscultation, Breath Sounds Present Cardiovascular: Positive: RRR. Negative: Murmur Abdomen Description: Positive: Nontender Musculoskeletal: Positive: Edema Left, Edema Right Neurological: Positive: Sensory/Motor Intact, Alert, Oriented to Person Place, Time, CN Intact II-III Psychiatric: Positive: Normal - Rachel Coma Scale Best Eye Response: 4 - Spontaneous Best Motor Response: 6 - Obeys Commands Best Verbal Response: 5 - Oriented Coma Scale Total: 15 Diagnostics - Vital Signs Vital Signs Temp Pulse Resp BP Pulse Ox 12/08/17 12:00 98.5 F 79 18 215/100 98 - Laboratory Lab Results: Lab Results 12/08/17 12/08/17 12/08/17 Range/Units 12:20 12:28 12:28 WBC 10.5 (3.5-10.8) 10^3/ul RBC 4.34 (4.0-5.4) 10^6/ul Hgb 11.1 L (12.0-16.0) g/dl Hct 34 L (35-47) % MCV 78 L (80-97) fL MCH 26 L (27-31) pg MCHC 33 (31-36) g/dl RDW 18 H (10.5-15) % Plt Count 318 (150-450) 10^3/ul MPV 8 (7.4-10.4) um3 Neut % (Auto) 69.2 (38-83) % Lymph % (Auto) 20.9 L (25-47) % [place] % (Auto) 5.2 (0-7) % Eos % (Auto) 3.9 (0-6) % Baso % (Auto) 0.8 (0-2) % Absolute Neuts (auto) 7.2 (1.5-7.7) 10^3/ul Absolute Lymphs (auto) 2.2 (1.0-4.8) 10^3/ul Absolute Monos (auto) 0.5 (0-0.8) 10^3/ul Absolute Eos (auto) 0.4 (0-0.6) 10^3/ul Absolute Basos (auto) 0.1 (0-0.2) 10^3/ul Absolute Nucleated RBC 0 10^3/ul Nucleated RBC % 0.1 ESR 48 H (0-40) mm/Hr INR (Anticoag Therapy) (0.77-1.02) Sodium 131 L (133-145) mmol/L Potassium 3.3 L (3.5-5.0) mmol/L Chloride 93 L (101-111) mmol/L Carbon Dioxide 28 (22-32) mmol/L Anion Gap 10 (2-11) mmol/L BUN 15 (6-24) mg/dL Creatinine 0.73 (0.51-0.95) mg/dL Est GFR ( Amer) 100.0 (>60) Est GFR (Non-Af Amer) 77.7 (>60) BUN/Creatinine Ratio 20.5 H (8-20) Glucose 129 H (70-100) mg/dL Lactic Acid (0.5-2.0) mmol/L Calcium 9.9 (8.6-10.3) mg/dL Total Bilirubin 0.60 (0.2-1.0) mg/dL AST 27 (13-39) U/L ALT 26 (7-52) U/L Alkaline Phosphatase 66 (34-104) U/L C-Reactive Protein 53.78 H (< 5.00) mg/L Total Protein 7.0 (6.4-8.9) g/dL Albumin 4.3 (3.2-5.2) g/dL Globulin 2.7 (2-4) g/dL Albumin/Globulin Ratio 1.6 (1-3) Urine Color Yellow Urine Appearance Cloudy Urine pH 5.0 (5-9) Ur Specific [place] 1.010 (1.010-1.030) Urine Protein Negative (Negative) Urine Ketones Negative (Negative) Urine Blood Negative (Negative) Urine Nitrate Negative (Negative) Urine Bilirubin Negative (Negative) Urine Urobilinogen Negative (Negative) Ur Leukocyte Esterase 2+ H (Negative) Urine WBC (Auto) 3+(>20/hpf) H (Absent) Urine RBC (Auto) Absent (Absent) Urine Bacteria Absent (Absent) Urine Glucose Negative (Negative) Urine Ascorbic Acid * H (Negative) 12/08/17 12/08/17 Range/Units 12:28 12:28 WBC (3.5-10.8) 10^3/ul RBC (4.0-5.4) 10^6/ul Hgb (12.0-16.0) g/dl Hct (35-47) % MCV (80-97) fL MCH (27-31) pg MCHC (31-36) g/dl RDW (10.5-15) % Plt Count (150-450) 10^3/ul MPV (7.4-10.4) um3 Neut % (Auto) (38-83) % Lymph % (Auto) (25-47) % [place] % (Auto) (0-7) % Eos % (Auto) (0-6) % Baso % (Auto) (0-2) % Absolute Neuts (auto) (1.5-7.7) 10^3/ul Absolute Lymphs (auto) (1.0-4.8) 10^3/ul Absolute Monos (auto) (0-0.8) 10^3/ul Absolute Eos (auto) (0-0.6) 10^3/ul Absolute Basos (auto) (0-0.2) 10^3/ul Absolute Nucleated RBC 10^3/ul Nucleated RBC % ESR (0-40) mm/Hr INR (Anticoag Therapy) 0.93 (0.77-1.02) Sodium (133-145) mmol/L Potassium (3.5-5.0) mmol/L Chloride (101-111) mmol/L Carbon Dioxide (22-32) mmol/L Anion Gap (2-11) mmol/L BUN (6-24) mg/dL Creatinine (0.51-0.95) mg/dL Est GFR ( Amer) (>60) Est GFR (Non-Af Amer) (>60) BUN/Creatinine Ratio (8-20) Glucose (70-100) mg/dL Lactic Acid 1.4 (0.5-2.0) mmol/L Calcium (8.6-10.3) mg/dL Total Bilirubin (0.2-1.0) mg/dL AST (13-39) U/L ALT (7-52) U/L Alkaline Phosphatase (34-104) U/L C-Reactive Protein (< 5.00) mg/L Total Protein (6.4-8.9) g/dL Albumin (3.2-5.2) g/dL Globulin (2-4) g/dL Albumin/Globulin Ratio (1-3) Urine Color Urine Appearance Urine pH (5-9) Ur Specific [place] (1.010-1.030) Urine Protein (Negative) Urine Ketones (Negative) Urine Blood (Negative) Urine Nitrate (Negative) Urine Bilirubin (Negative) Urine Urobilinogen (Negative) Ur Leukocyte Esterase (Negative) Urine WBC (Auto) (Absent) Urine RBC (Auto) (Absent) Urine Bacteria (Absent) Urine Glucose (Negative) Urine Ascorbic Acid (Negative) Result Diagrams: 12/08/17 12:28 12/08/17 12:28 Lab Statement: Any lab studies that have been ordered have been reviewed, and results considered in the medical decision making process. Lower Extremity Course/Dx - Course Course Of Treatment: Patient presents with bilateral lower extremity edema and redness worsening over the past few days. Lab work is unremarkable. A lower extremity US reveals . Patient is given Clindamycin and Azactam. Dr. Mckeon agrees to admit. - Diagnoses Provider Diagnoses: Cellulitis, Leg edema, Hypertension - Physician Notifications Discussed Care Of Patient With: Venu Mckeon - hospitalist Time Discussed With Above Provider: 13:30 Instructed by Provider To: Admit As Inpatient Discharge - Discharge Plan Condition: Good Disposition: ADMITTED TO [facility] Referrals: Renny Moore MD [Primary Care Provider] - The documentation as recorded by the Ken bowie Julia accurately reflects the service I personally performed and the decisions made by , Wilman Lockwood MD.
[2017-12-08] MEDS ORDERED: Acetaminophen TAB* 325 MG PO PRN (14:22)
[2017-12-08] MEDS ORDERED: Dextrose 50% Syringe 50 ML* 25 GM/50 ML SYRINGE IV PUSH PRN (14:22)
[2017-12-08] MEDS ORDERED: Ondansetron INJ* 2 MG/ML VIAL IV PRN (14:22)
[2017-12-08] MEDS ORDERED: Potassium Chlor TAB* 20 MEQ TAB.ER PO ONE (14:29)
--- NOTE | 2017-12-08 14:29 | ED ---
Ken Hodges Julia, scribed for Wilman Lockwood MD on 12/08/17 at 1425 . Progress - Progress Note Progress Note: Patients lower extremity US reveals: 1. NO EVIDENCE FOR DEEP VENOUS THROMBOSIS AT OR ABOVE THE KNEE. 2. UNABLE TO ASSESS CALF VEINS DUE TO EDEMA AND BODY HABITUS. ED Physician has reviewed this report. Course/Dx - Course Course Of Treatment: Patient presents with bilateral lower extremity edema and redness worsening over the past few days. Lab work is unremarkable. A lower extremity US reveals . Patient is given Clindamycin and Azactam. Dr. Mckeon agrees to admit. - Diagnoses Provider Diagnoses: Cellulitis, Leg edema, Hypertension - Provider Notifications Time Discussed With Above Provider: 13:30 Instructed by Provider To: Admit As Inpatient The documentation as recorded by the Ken bowie Julia accurately reflects the service I personally performed and the decisions made by Mandie francis Walter, MD.
[2017-12-08] MEDS ORDERED: NS 0.9% 1000 ML* 1,000 ML IV SCH (14:30)
[2017-12-08] MEDS ORDERED: hydrALAZINE IV* 20 MG/ML VIAL IV SLOW PU PRN (14:46)
[2017-12-08] MEDS: Cyclobenzaprine TAB* 10 MG PO PRN (14:55)
[2017-12-08] MEDS ORDERED: ceFAZolin 2 GM PREMIX (*) 2 GM/50 ML BAG IVPB SCH (16:00)
[2017-12-08] MEDS: HYDROcodone/ACETAMIN 5-325 MG* 1 TAB PO PRN (16:35)
[2017-12-08] MEDS: amLODIPine TAB* 5 MG PO SCH (16:35)
[2017-12-08] MEDS: Insulin LISPRO* 1 UNITS UNIT SUBCUT SCH (16:52)
[2017-12-08] MEDS: CEFAZOLIN IVPB SCH ×2 (17:21)
[2017-12-08] MEDS: D5W IVPB SCH ×2 (17:21)
--- NOTE | 2017-12-08 17:50 | ECHO ---
Patient: DAVID DUFF [facility] Rec#: [id number] : 1940 Date: 12/08/2017 Age: 77y Height: 154.94 cm / 61.0 in Weight: 127.01 kg / 279.9 lbs Sex: F BSA: 2.18 Room#: [facility] Admit Date#: 12/08/2017 Type: Inpatient Referring: Corey Avila NP Reading: Adrianna Kaplan MD Bridge Teacher: Odalis Alvarez RDCS CC: Oscar GRIFFITHS,[facility] Indication: Hypertension, history of CAD, edema BP: 210/95 HR: 80 Rhythm: NSR with PACs Findings History: CAD with PCI, HTN, DM, COPD, lymphedema. Technical Comments: The study quality is fair. The study is technically limited due to patient body habitus. Completed at 1645. Left Ventricle: The left ventricular chamber size is normal. Mild concentric left ventricular hypertrophy is observed. There is basal septal hypertrophy without evidence of systolic anterior motion. Global left ventricular wall motion and contractility are within normal limits. The left ventricle appears hyperdynamic. The estimated ejection fraction is greater than 65%. Abnormal left ventricular diastolic function is observed. Abnormal left ventricular diastolic filling is observed, consistent with impaired relaxation. Left Atrium: The left atrium is mildly dilated. Right Ventricle: The right ventricular cavity size is normal. The right ventricular global systolic function is hyperdynamic. Right Atrium: The right atrial cavity size is normal. Aortic Valve: The aortic valve is trileaflet. The aortic valve leaflets are moderately thickened. Systolic excursion of the aortic valve cusps is reduced. There is no evidence of aortic regurgitation. There is mild aortic stenosis.Note: hyperdynamic contraction of the LV elevates velocities across the aortic valve, but short axis view of aortic valve confirms decreased leaflet excursion. The mean gradient of the aortic valve is 13.82 mmHg. The aortic valve area, by VTI's, is calculated at 1.7 cm2. Mitral Valve: There is mitral annular calcification. The mitral valve leaflets are moderately thickened. There is mild mitral regurgitation. There is no evidence of mitral stenosis. Tricuspid Valve: The tricuspid valve leaflets are normal. There is mild tricuspid regurgitation. The right ventricular systolic pressure is estimated at 34 mmHg. There is evidence that pulmonary hypertension may be underestimated. There is no tricuspid stenosis. Pulmonic Valve: The pulmonic valve appears normal. There is a trace pulmonic regurgitation. There is no pulmonic stenosis. Pericardium: There is no significant pericardial effusion. A pericardial fat pad is visualized. Aorta: There is no dilatation of the ascending aorta. There is no dilatation of the aortic arch. The aortic root is normal in size. Pulmonary Artery: The main pulmonary artery appears normal. Venous: The inferior vena cava appears normal in size. There is a greater than 50% respiratory change in the inferior vena cava dimension. Conclusions Mild concentric left ventricular hypertrophy is observed. The left ventricle appears hyperdynamic. The estimated ejection fraction is greater than 65%. Abnormal left ventricular diastolic filling is observed, consistent with impaired relaxation. The right ventricular global systolic function is hyperdynamic. There is mild aortic stenosis: mean gradient is 13.82 mmHg, the MALIA by VTI's, is calculated at 1.7 cm2. DI 0.6 (VTI). There is mild mitral regurgitation. There is mild tricuspid regurgitation. The right ventricular systolic pressure is estimated at 34 mmHg, possible underestimated. Compared with prior echo of 07/30/16, hyperdynamic ventricular function replaces normal function, no prior valvular stenosis or insufficiency noted. Measurements Name Value Normal Range RVIDd (AP) 2D 3.1 cm (0.9 - 2.6) RVDdMajor (2D) 3.9 cm (2.2 - 4.4) RVAW (2D) 0.7 cm (0.2 - 0.5) RAd ISD 4CH 4.9 cm (3.4 - 4.9) RA (A4C)W 4.2 cm (2.9 - 4.6) IVSd (2D) 1.2 cm (0.6 - 1) LVPWd (2D) 1.3 cm (0.6 - 1) LVIDd (2D) 4.5 cm (3.6 - 5.4) LVIDs (2D) 2.6 cm - LV FS (2D) 43 % (25 - 45) Aortic Annulus 1.7 cm (1.4 - 2.6) Ao root diameter (2D) 3.2 cm (2.1 - 3.5) Ascending Ao 3.3 cm (2.1 - 3.4) Aortic arch 2.4 cm (1.8 - 3.4) LA dimension (AP) 2D 4.1 cm (2.3 - 3.8) LAd ISD 4CH 5.2 cm (2.9 - 5.3) LA ISD 4CH W 4.5 cm (2.5 - 4.5) Name Value Normal Range LA ESV SP 4CH (A/L) 58 ml - LA ESV SP 2CH (A/L) 57 ml - LA ESV BP (A/L) 63 ml - LA ESV BP (A/L) index 29 ml/m2 - LA ESV SP 4CH (MOD) 51 ml - LA ESV SP 2CH (MOD) 56 ml - Name Value Normal Range MV E-wave Vmax 1.19 m/sec - MV deceleration time 233.39 msec - MV A-wave Vmax 1.47 m/sec - MV E:A ratio 0.8 ratio - LV septal e' Vmax 0.08 m/sec - LV lateral e' Vmax 0.08 m/sec - LV E:e' septal ratio 15.4 ratio - LV E:e' lateral ratio 14.9 ratio - Name Value Normal Range AV Vmax 2.7 m/sec - AV VTI 55 cm - AV peak gradient 29.63 mmHg - AV mean gradient 13.82 mmHg - LVOT diameter 1.9 cm - LVOT Vmax 1.4 m/sec - LVOT VTI 33.1 cm - LVOT peak gradient 8.25 mmHg - LVOT mean gradient 5.19 mmHg - DOI (VTI) 0.6 ratio - MALIA (continuity Vmax) 1.5 cm2 - MALIA (continuity VTI) 1.7 cm2 - MERT Vmax 0.86 m/sec - Name Value Normal Range TR Vmax 2.8 m/sec - TR peak gradient 31 mmHg - RAP 3 mmHg - RVSP 34 mmHg - IVC diameter 1.8 cm - Name Value Normal Range PV Vmax 1.1 m/sec - PV peak gradient 4.86 mmHg -
[2017-12-08] MEDS: Mometasone/Formoter 100/5 MDI INH SCH (20:36)
[2017-12-08] MEDS: Heparin VIAL(*) 5000 UNITS/ML VIAL (FIVE THOUSAND) SUBCUT SCH (21:45)
[2017-12-08] MEDS: Nystatin TOP POWDER* 15 GM BTL TOPICAL SCH (21:46)
--- NOTE | 2017-12-08 22:39 | HP ---
CC: Dr. Moore * HISTORY AND PHYSICAL: DATE OF ADMISSION: 12/07/17 PRIMARY CARE PHYSICIAN: Dr. Moore. ATTENDING PHYSICIAN WHILE IN THE HOSPITAL: Red Mckeon MD * (report dictated by Corey Avila NP). CHIEF COMPLAINT: Leg swelling bilaterally. HISTORY OF PRESENT ILLNESS: Mrs. Wilhelm is a 77-year-old female patient. She has a history of asthma, hypertension, diabetes, hypothyroidism, carotid artery disease, anxiety, depression, pleural effusion in the past requiring VATS, and history of requiring chronic pain related to disk herniation. She presents today stating that over the last several days, she has had worsening redness and swelling over the lower extremities. She does state while talking to her she had a history of lymphedema and she does have visiting nurses. She says that the redness was getting worse. She called her primary to try to get an appointment with them, but they unfortunately could not fill her and so, they referred her to Urgent Care. She went to Urgent Care today and they referred her to the ER. She says the redness has been getting worse since probably Tuesday. The swelling in her legs is worse as well. She denies having any history of CHF. Denies ever having to be on Lasix and she says that she never had the redness to the lower extremities like this previously. She says her legs again does have the history of lymphedema. She says that for the last several weeks because of the back pain, she has been really lying in bed. She has been sleeping in the upright position in her couch. She denies any orthopnea. No nocturnal dyspnea. She denies any weight changes. No chest pain or shortness of breath. She came into the ED today. There was concern because of the lower leg swelling and the fact that this may represent a cellulitis. We were asked to evaluate for admission. PAST MEDICAL HISTORY: Significant for: 1. Asthma. 2. Hypertension. 3. Diabetes. 4. Hypothyroidism. 5. Depression. 6. Anxiety. 7. Chronic back pain. 8. CAD. 9. History of pleural effusions. PAST SURGICAL HISTORY: 1. She has had VATS. 2. Cardiac cath. 3. Hysterectomy. 4. Right knee replacement. HOME MEDICATIONS: Include: 1. Levothyroxine 125 mcg daily. 2. Clotrimazole 1 application topically b.i.d. 3. Multivitamin 1 tablet daily. 4. [place] 1 tablet p.o. every 8 hours as needed. 5. Flexeril 5 mg twice a day as needed. 6. Vitamin D 5000 units p.o. daily. 7. Vitamin C 1000 mg daily. 8. Coenzyme Q10 100 mg p.o. daily. 9. Cymbalta 60 mg p.o. daily. 10. Cranberry 400 mg p.o. daily. 11. Zyrtec 10 mg daily. 12. Aspirin 81 mg a day. 13. Metformin 1000 mg p.o. b.i.d. 14. Prandin 0.5 mg p.o. b.i.d. a.c. 15. Singulair 10 mg daily. 16. Hydrochlorothiazide 12.5 mg p.o. daily. 17. Advair 1 puff inhaled b.i.d. 18. Ventolin 2 puffs inhaled every 4 hours as needed. ALLERGIES TO MEDICATIONS: Include CODEINE, IV DYE, LEVAQUIN, PENICILLIN, SHELLFISH, SULFA, TETRACYCLINE, and VANCO. SOCIAL HISTORY: She does not smoke. Does not drink alcohol. She is . Surrogate decision makers are her brother and daughter. REVIEW OF SYSTEMS: There is no documented fever. She denied having any significant weight change. There was no ear discharge. She denies having any rhinorrhea. No sore throat. No thyroid enlargement. Denied having any chest pain. No orthopnea. No nocturnal dyspnea. There was no abdominal pain. No nausea or vomiting. No dysuria. There was no frequency. No seizure. No loss of consciousness. No pruritus. There is no skin ulcerations reported. Review of 14 systems completed, all others negative. PHYSICAL EXAMINATION GENERAL: At this time, Ms. Wilhelm is a 77-year-old female patient. She is morbidly obese. She is sitting in the ED stretcher. She does not appear to be in any acute distress. VITAL SIGNS: When she initially came in, the blood pressure was 215/110 and is still 110/95. The blood pressure was taken by the nursing staff and is taking another one now. Her pulse was 81, respirations 18, O2 sat 97%, temperature 98.5. HEENT: Head: Atraumatic, normocephalic. Eyes: Sclerae are anicteric and not pale. Throat: Oral mucosa appears to be moist. No oropharyngeal erythema. NECK: Supple. LUNGS: Clear to auscultation bilaterally. No wheezes, rales, or rhonchi. HEART: Sounds S1, S2. Regular rate and rhythm. No murmurs, rubs, or gallops. ABDOMEN: Soft, flat, nontender. Bowel sounds were present. EXTREMITIES: Again, she had +4 pitting edema bilaterally. She does appear to have chronic lymphedema. She has redness to lower extremities bilaterally. Redness to the right leg does appear to be slightly worse. The redness is extending up into her right groin. NEUROLOGIC: She is awake, alert, oriented. No gross focal deficits. SKIN: Intact. DIAGNOSTIC STUDIES/LAB DATA: WBC of 10.5, RBC of 4.34, hemoglobin 11.1, hematocrit of 34, platelet count of 318. INR of 0.93. Sodium 131, potassium is 3.3, chloride 93, bicarb 28, BUN 15, creatinine of 0.73, glucose 129, lactic 1.4, calcium 9.9. Total bili 0.6, AST 27, ALT 26. CRP of 53. Urine showed 2+ leukocyte esterase, 2+ wbc's. She had a venous Doppler ultrasound today, impression: No evidence for DVT at or above the knee, unable to assess calf veins due to edema and body habitus. EKG pending. Old medical records reviewed. ASSESSMENT AND PLAN: Ms. Wilhelm is a 77-year-old female patient with multiple medical problems coming into our ER today with complaints of lower leg swelling , pain, redness for evaluation. There was concern for possible cellulitis. We were asked to evaluate for admission. She will be admitted under observation status for: 1. Lower leg swelling and edema with what appears like cellulitis. The right leg appears to be a little bit worse than the left. There is redness going up into her groin on that side. I am going to go ahead and put her on Ancef 2 g every 8 hours. I will get blood cultures as well. She does not appear to be septic. I will get wound care consult because she does look like she has a chronic component of lymphedema and her legs probably do need to be wrapped as well. Keep them in an elevated position and we will continue to follow. 2. Asthma. Continue meds as prescribed. 3. Hypertension. Not well controlled. When she came in, her blood pressure was in the 200 systolic. Most recently now is 170/89 and she is on hydrochlorothiazide. I will go ahead and put her on Norvasc and p.r.n. hydralazine. We will follow. 4. Diabetes. Lispro insulin sliding scale has been ordered. 5. Hypothyroidism. Continue Synthroid. 6. Depression and anxiety. Continue supportive care. 7. History of chronic pain. I did order Flexeril and [place], she is taking at home. 8. Coronary artery disease. She is not on aspirin. We will continue this for now. I am adding the calcium channel yrn. We are going to try to get records from [facility] in [place] as that is where she was cathed 4 years ago and that she is where she says the last hospitalization was. 9. History of pleural effusion, not an active issue. 10. DVT prophylaxis. She is high risk. I will place her on heparin subcu. 11. Code status. Full code. 12. Fluids, electrolytes, and nutrition. She can have a consistent carb diet. TIME SPENT: Time spent on admission 60 minutes, greater than half the time was spent [id number] with the patient obtaining my history and physical; other half time was spent going over the plan of care with the patient and implementing plan of care. I did discuss the plan of care with my attending, Dr. Mckeon; he is in agreement. COREY AVILA NP [id number]/[facility] #: [id number] HENRI
[2017-12-09] MEDS: D5W IVPB SCH ×4 (00:24→08:29)
[2017-12-09] MEDS: CEFAZOLIN IVPB SCH ×4 (00:24→08:29)
[2017-12-09] MEDS: HYDROcodone/ACETAMIN 5-325 MG* 1 TAB PO PRN ×2 (00:26→08:30)
[2017-12-09] MEDS: Cyclobenzaprine TAB* 10 MG PO PRN (04:01)
[2017-12-09] MEDS: Heparin VIAL(*) 5000 UNITS/ML VIAL (FIVE THOUSAND) SUBCUT SCH ×3 (05:45→21:42)
[2017-12-09] MEDS: Levothyroxine TAB* 125 MCG TAB PO SCH (05:45)
[2017-12-09 06:38] LABS: ABS Basophils 0.1 10^3/ul (0-0.2); ABS Eosinophils 0.3 10^3/ul (0-0.6); ABS Lymphocytes 1.3 10^3/ul (1.0-4.8); ABS Monocytes 0.5 10^3/ul (0-0.8); ABS Neutrophils 6.4 10^3/ul (1.5-7.7); ABS Nucleated RBC 0 10^3/ul; Eosinophil % 3.1 % (0-6); Hematocrit 30 % (35-47); Hemoglobin 9.8 g/dl (12.0-16.0); Lymphocyte % 14.7 % (25-47); Mean Corpuscular HGB Conc 33 g/dl (31-36); Mean Corpuscular Hemoglobin 26 pg (27-31); Mean Corpuscular Volume 77 fL (80-97); Mean Platelet Volume 8 um3 (7.4-10.4); Nucleated Red Blood Cells % 0.1; Platelet Count 241 10^3/ul (150-450); Red Blood Count 3.81 10^6/ul (4.0-5.4); Red Cell Distribution Width 18 % (10.5-15); White Blood Count 8.6 10^3/ul (3.5-10.8)
[2017-12-09 06:49] LABS: INR 0.98 (0.77-1.02)
[2017-12-09 06:50] LABS: EGFR Non-African American 85.8 (>60)
[2017-12-09] MEDS: Nystatin TOP POWDER* 15 GM BTL TOPICAL SCH ×3 (08:27→20:30)
[2017-12-09] MEDS: amLODIPine TAB* 5 MG PO SCH (08:30)
[2017-12-09] MEDS: Hydrochlorothiazide TAB* 25 MG PO SCH (08:30)
[2017-12-09] MEDS: Cetirizine* 10 MG TAB PO SCH (08:30)
[2017-12-09] MEDS: Aspirin Low Dose CHEW TAB* 81 MG PO SCH (08:30)
[2017-12-09] MEDS: DULoxetine DR CAP* 60 MG CAP.DR PO SCH (08:30)
[2017-12-09] MEDS: Insulin LISPRO* 1 UNITS UNIT SUBCUT SCH ×3 (08:30→17:53)
[2017-12-09] MEDS: Mometasone/Formoter 100/5 MDI INH SCH ×2 (08:31→20:22)
[2017-12-09] MEDS ORDERED: Levothyroxine TAB* 125 MCG TAB PO SCH (09:00)
[2017-12-09] MEDS ORDERED: HYDROcodone/ACETAMIN 5-325 MG* 1 TAB PO PRN (09:22)
--- NOTE | 2017-12-09 12:10 | PN ---
Subjective Date of Service: 12/09/17 Interval History: Patient seen and examined. States she feels the staff "moved her too quickly" and now she is having spasms and can't ambulate. Per record, patient was ambulating in room and in the ER. Denies any fever, fatigue or chills. Only complaint is back spasms and feels her legs are more edematous than usual. Objective Active Medications: Acetaminophen (Tylenol Tab*) 650 mg PO Q4H PRN PRN Reason: FEVER/PAIN Hydrocodone Bitart/Acetaminophen ([place] 5-325 Tab*) 1 tab PO Q6H PRN PRN Reason: PAIN Amlodipine Besylate (Norvasc Tab*) 10 mg PO DAILY [facility] Last Admin: 12/09/17 08:30 Dose: 10 mg Aspirin (Aspirin Low Dose Tab*) 81 mg PO DAILY [facility] Last Admin: 12/09/17 08:30 Dose: 81 mg Cetirizine HCl (Zyrtec*) 10 mg PO DAILY [facility] PRN Reason: Protocol Last Admin: 12/09/17 08:30 Dose: 10 mg Cyclobenzaprine HCl (Flexeril Tab*) 5 mg PO BID PRN PRN Reason: PAIN Last Admin: 12/09/17 04:01 Dose: 5 mg Dextrose (D50w Syringe 50 Ml*) 12.5 gm IV PUSH .FOR FS < 60 - SS PRN PRN Reason: FS < 60 Duloxetine HCl (Cymbalta Cap*) 60 mg PO DAILY [facility] Last Admin: 12/09/17 08:30 Dose: 60 mg Heparin Sodium (Porcine) (Heparin Vial(*)) 5,000 units SUBCUT Q8HR [facility] Last Admin: 12/09/17 05:45 Dose: 5,000 units Hydralazine HCl (Apresoline Iv*) 5 mg IV SLOW PU Q6H PRN PRN Reason: BLOOD PRESSURE Hydrochlorothiazide (Hydrodiuril Tab*) 12.5 mg PO DAILY [facility] Last Admin: 12/09/17 08:30 Dose: 12.5 mg Sodium Chloride (Ns 0.9% 1000 Ml*) 1,000 mls @ 100 mls/hr IV PER RATE [facility] Last Admin: 12/08/17 19:40 Dose: 100 mls/hr Cefazolin Sodium 2 gm/ (Dextrose) 50 mls @ 100 mls/hr IVPB Q8H [facility] Last Admin: 12/09/17 08:29 Dose: 100 mls/hr Insulin Human Lispro (Humalog*) 0 units SUBCUT AC [facility] PRN Reason: Protocol Last Admin: 12/09/17 08:30 Dose: 3 unit Levothyroxine Sodium (Synthroid Tab*) 125 mcg PO 0600 [facility] Last Admin: 12/09/17 05:45 Dose: 125 mcg Mometasone Furoate/Formoterol Fumar (Dulera 100/5 Mdi*) 2 puff INH BID [facility] Last Admin: 12/09/17 08:31 Dose: 2 puff Nystatin (Nystatin Top Powder*) 1 applic TOPICAL TID [facility] Last Admin: 12/09/17 08:27 Dose: 1 applic Ondansetron HCl (Zofran Inj*) 4 mg IV Q6H PRN PRN Reason: NAUSEA Vital Signs - 8 hr 12/09/17 12/09/17 12/09/17 05:56 07:18 08:30 Temperature 98.2 F Pulse Rate 79 Respiratory 16 18 16 Rate Blood Pressure 160/65 (mmHg) O2 Sat by Pulse 96 Oximetry 12/09/17 12/09/17 10:10 11:42 Temperature 98.3 F Pulse Rate 76 Respiratory 16 18 Rate Blood Pressure 149/72 (mmHg) O2 Sat by Pulse 96 Oximetry Oxygen Devices in Use Now: None Appearance: Alert, anxious Ears/Nose/Mouth/Throat: - - dry oral mucosa Neck: Trachea Midline Respiratory: Symmetrical Chest Expansion and Respiratory Effort, Clear to Auscultation Cardiovascular: NL Sounds; No Murmurs; No JVD, RRR Abdominal: NL Sounds; No Tenderness; No Distention Extremities: - - baseline lymphedema of LE with erythema, no warmth, some scabbing, no exudate Neurological: Alert and Oriented x 3, - - general weakness Nutrition: Taking PO's Result Diagrams: 12/09/17 06:17 12/09/17 06:17 Additional Lab and Data: Lab Results 12/08/17 12/08/17 12/08/17 Range/Units 12:20 12:28 12:28 WBC 10.5 (3.5-10.8) 10^3/ul RBC 4.34 (4.0-5.4) 10^6/ul Hgb 11.1 L (12.0-16.0) g/dl Hct 34 L (35-47) % MCV 78 L (80-97) fL MCH 26 L (27-31) pg MCHC 33 (31-36) g/dl RDW 18 H (10.5-15) % Plt Count 318 (150-450) 10^3/ul MPV 8 (7.4-10.4) um3 Neut % (Auto) 69.2 (38-83) % Lymph % (Auto) 20.9 L (25-47) % [place] % (Auto) 5.2 (0-7) % Eos % (Auto) 3.9 (0-6) % Baso % (Auto) 0.8 (0-2) % Absolute Neuts (auto) 7.2 (1.5-7.7) 10^3/ul Absolute Lymphs (auto) 2.2 (1.0-4.8) 10^3/ul Absolute Monos (auto) 0.5 (0-0.8) 10^3/ul Absolute Eos (auto) 0.4 (0-0.6) 10^3/ul Absolute Basos (auto) 0.1 (0-0.2) 10^3/ul Absolute Nucleated RBC 0 10^3/ul Nucleated RBC % 0.1 ESR 48 H (0-40) mm/Hr INR (Anticoag Therapy) (0.77-1.02) Sodium 131 L (133-145) mmol/L Potassium 3.3 L (3.5-5.0) mmol/L Chloride 93 L (101-111) mmol/L Carbon Dioxide 28 (22-32) mmol/L Anion Gap 10 (2-11) mmol/L BUN 15 (6-24) mg/dL Creatinine 0.73 (0.51-0.95) mg/dL Est GFR ( Amer) 100.0 (>60) Est GFR (Non-Af Amer) 77.7 (>60) BUN/Creatinine Ratio 20.5 H (8-20) Glucose 129 H (70-100) mg/dL Lactic Acid (0.5-2.0) mmol/L Calcium 9.9 (8.6-10.3) mg/dL Total Bilirubin 0.60 (0.2-1.0) mg/dL AST 27 (13-39) U/L ALT 26 (7-52) U/L Alkaline Phosphatase 66 (34-104) U/L C-Reactive Protein 53.78 H (< 5.00) mg/L Total Protein 7.0 (6.4-8.9) g/dL Albumin 4.3 (3.2-5.2) g/dL Globulin 2.7 (2-4) g/dL Albumin/Globulin Ratio 1.6 (1-3) Urine Color Yellow Urine Appearance Cloudy Urine pH 5.0 (5-9) Ur Specific [place] 1.010 (1.010-1.030) Urine Protein Negative (Negative) Urine Ketones Negative (Negative) Urine Blood Negative (Negative) Urine Nitrate Negative (Negative) Urine Bilirubin Negative (Negative) Urine Urobilinogen Negative (Negative) Ur Leukocyte Esterase 2+ H (Negative) Urine WBC (Auto) 3+(>20/hpf) H (Absent) Urine RBC (Auto) Absent (Absent) Urine Bacteria Absent (Absent) Urine Glucose Negative (Negative) Urine Ascorbic Acid * H (Negative) 12/08/17 12/08/17 Range/Units 12:28 12:28 WBC (3.5-10.8) 10^3/ul RBC (4.0-5.4) 10^6/ul Hgb (12.0-16.0) g/dl Hct (35-47) % MCV (80-97) fL MCH (27-31) pg MCHC (31-36) g/dl RDW (10.5-15) % Plt Count (150-450) 10^3/ul MPV (7.4-10.4) um3 Neut % (Auto) (38-83) % Lymph % (Auto) (25-47) % [place] % (Auto) (0-7) % Eos % (Auto) (0-6) % Baso % (Auto) (0-2) % Absolute Neuts (auto) (1.5-7.7) 10^3/ul Absolute Lymphs (auto) (1.0-4.8) 10^3/ul Absolute Monos (auto) (0-0.8) 10^3/ul Absolute Eos (auto) (0-0.6) 10^3/ul Absolute Basos (auto) (0-0.2) 10^3/ul Absolute Nucleated RBC 10^3/ul Nucleated RBC % ESR (0-40) mm/Hr INR (Anticoag Therapy) 0.93 (0.77-1.02) Sodium (133-145) mmol/L Potassium (3.5-5.0) mmol/L Chloride (101-111) mmol/L Carbon Dioxide (22-32) mmol/L Anion Gap (2-11) mmol/L BUN (6-24) mg/dL Creatinine (0.51-0.95) mg/dL Est GFR ( Amer) (>60) Est GFR (Non-Af Amer) (>60) BUN/Creatinine Ratio (8-20) Glucose (70-100) mg/dL Lactic Acid 1.4 (0.5-2.0) mmol/L Calcium (8.6-10.3) mg/dL Total Bilirubin (0.2-1.0) mg/dL AST (13-39) U/L ALT (7-52) U/L Alkaline Phosphatase (34-104) U/L C-Reactive Protein (< 5.00) mg/L Total Protein (6.4-8.9) g/dL Albumin (3.2-5.2) g/dL Globulin (2-4) g/dL Albumin/Globulin Ratio (1-3) Urine Color Urine Appearance Urine pH (5-9) Ur Specific [place] (1.010-1.030) Urine Protein (Negative) Urine Ketones (Negative) Urine Blood (Negative) Urine Nitrate (Negative) Urine Bilirubin (Negative) Urine Urobilinogen (Negative) Ur Leukocyte Esterase (Negative) Urine WBC (Auto) (Absent) Urine RBC (Auto) (Absent) Urine Bacteria (Absent) Urine Glucose (Negative) Urine Ascorbic Acid (Negative) Assess/Plan/Problems-Billing Assessment: This is a 77 year old morbidly obese female that presented to ER with c/o bilateral leg edema and inability to ambulate 2/2 to back pain. - Patient Problems (1) Lymphedema of both lower extremities Code(s): I89.0 - LYMPHEDEMA, NOT ELSEWHERE CLASSIFIED SNOMED Code(s): 29437966032508637 Comment: - Continue IV ancef Q8h, although this appears to be chronic and not cellulitic in nature - Wound consult - supportive care (2) Back pain Code(s): M54.9 - DORSALGIA, UNSPECIFIED SNOMED Code(s): 426268459 Comment: - Chronic, has seen Dr. Conde in the past - Reviewed MRI, has stage 1 spondy and herniations, is not due to go back to [place] until May - Increase frequency of pain meds, trial valium for spasms - PT evaluation (3) Hypertension Code(s): I10 - ESSENTIAL (PRIMARY) HYPERTENSION SNOMED Code(s): 11837791 Comment: - BP stable now on amlodipine, HCTZ and hydralazine PRN - Continue to monitor (4) Asthma Code(s): J45.909 - UNSPECIFIED ASTHMA, UNCOMPLICATED SNOMED Code(s): 375973685 Comment: - No exacerbation noted, continue zyrtec and Dulera (5) Coronary artery disease Code(s): I25.10 - ATHSCL HEART DISEASE OF CIRCLE CORONARY ARTERY W/O ANG PCTRS SNOMED Code(s): 95167744 Comment: - Not on ASA or statin at home - ASA added (6) Hypothyroid Code(s): E03.9 - HYPOTHYROIDISM, UNSPECIFIED SNOMED Code(s): 04491540 Comment: - Continue synthroid (7) Diabetes Code(s): E11.9 - TYPE 2 DIABETES MELLITUS WITHOUT COMPLICATIONS SNOMED Code(s) : 74443780 Comment: - Lispro SS AC and HS (8) Anxiety and depression Code(s): F41.8 - OTHER SPECIFIED ANXIETY DISORDERS SNOMED Code(s): 567025857 Comment: - Continue cymbalta (9) DVT prophylaxis Code(s): TYI1532 - SNOMED Code(s): 808851895 Comment: - Heparin SQ (10) Full code status Code(s): Z78.9 - OTHER SPECIFIED HEALTH STATUS SNOMED Code(s): 991440228 Status and Disposition: Remain inpatient OBS, likely DC in AM to home with [facility] Counseling and/or Coordination of Care Minutes: coordinated with staff
[2017-12-09] MEDS: Diazepam TAB(*) 5 MG PO PRN ×2 (13:11→20:29)
[2017-12-09] MEDS ORDERED: Ondansetron TAB* 4 MG PO PRN (15:05)
[2017-12-09] MEDS: oxyCODONE TAB* 5 MG TAB PO PRN ×2 (15:57→22:56)
[2017-12-09] MEDS: ceFAZolin 1 GM VIAL(*) 2 GM in NS 0.9% 100 ML* 100 ML IVPB SCH (16:47)
[2017-12-09] MEDS ORDERED: predniSONE TAB* 20 MG PO ONE (16:51)
[2017-12-09] MEDS ORDERED: Senna TAB PO ONE (16:52)
[2017-12-09] MEDS ORDERED: Docusate CAP* 100 MG PO PRN (16:54)
[2017-12-09] MEDS ORDERED: Senna TAB PO PRN (16:55)
[2017-12-09] MEDS: Polyethylene Glycol 3350* 17 GM PACKET PO PRN (20:36)
[2017-12-10] MEDS: ceFAZolin 1 GM VIAL(*) 2 GM in NS 0.9% 100 ML* 100 ML IVPB SCH ×4 (00:06→23:56)
[2017-12-10] MEDS: Levothyroxine TAB* 125 MCG TAB PO SCH (05:56)
[2017-12-10] MEDS: Heparin VIAL(*) 5000 UNITS/ML VIAL (FIVE THOUSAND) SUBCUT SCH ×3 (05:56→22:14)
[2017-12-10] MEDS: oxyCODONE TAB* 5 MG TAB PO PRN (05:56)
[2017-12-10] MEDS: Mometasone/Formoter 100/5 MDI INH SCH ×2 (07:51→19:39)
[2017-12-10] MEDS: DULoxetine DR CAP* 60 MG CAP.DR PO SCH (08:42)
[2017-12-10] MEDS: Cetirizine* 10 MG TAB PO SCH (08:42)
[2017-12-10] MEDS: predniSONE TAB* 20 MG PO SCH (08:42)
[2017-12-10] MEDS: Hydrochlorothiazide TAB* 25 MG PO SCH (08:42)
[2017-12-10] MEDS: amLODIPine TAB* 5 MG PO SCH (08:42)
[2017-12-10] MEDS: Aspirin Low Dose CHEW TAB* 81 MG PO SCH (08:43)
[2017-12-10] MEDS: Insulin LISPRO* 1 UNITS UNIT SUBCUT SCH ×3 (08:45→17:30)
--- NOTE | 2017-12-10 10:09 | PN ---
Subjective Date of Service: 12/10/17 Interval History: Pt reports her LE continue to feel painful and are "much much more red than normal". She c/o low back pain in which she states it has been difficult to get OOB but she is willing to try today. She reports 8 weeks of declining due to increased back pain and increase in LE edema. She reports she had to call EMS to help her get off her couch. She reports she has be sleeping in her recliner due to not being able to get in and out of her bed. She had a f/u with Neuro surgeon a few weeks ago who is not sure yet if she is a surgical candidate for back surgery and has a f/u next week. She denies any fever/chills. No nausea. Reports good appetite. No SOB, orthopnea or CP. Objective Active Medications: Acetaminophen (Tylenol Tab*) 650 mg PO Q4H PRN PRN Reason: FEVER/PAIN Hydrocodone Bitart/Acetaminophen ([place] 5-325 Tab*) 1 tab PO Q6H PRN PRN Reason: PAIN Amlodipine Besylate (Norvasc Tab*) 10 mg PO DAILY [facility] Last Admin: 12/10/17 08:42 Dose: 10 mg Aspirin (Aspirin Low Dose Tab*) 81 mg PO DAILY [facility] Last Admin: 12/10/17 08:43 Dose: 81 mg Cetirizine HCl (Zyrtec*) 10 mg PO DAILY [facility] PRN Reason: Protocol Last Admin: 12/10/17 08:42 Dose: 10 mg Cyclobenzaprine HCl (Flexeril Tab*) 5 mg PO BID PRN PRN Reason: PAIN Last Admin: 12/09/17 04:01 Dose: 5 mg Dextrose (D50w Syringe 50 Ml*) 12.5 gm IV PUSH .FOR FS < 60 - SS PRN PRN Reason: FS < 60 Diazepam (Valium Tab(*)) 5 mg PO Q6H PRN PRN Reason: spasm Last Admin: 12/09/17 20:29 Dose: 5 mg Docusate Sodium (Colace Cap*) 100 mg PO DAILY PRN PRN Reason: CONSTIPATION Last Admin: 12/09/17 17:53 Dose: 100 mg Duloxetine HCl (Cymbalta Cap*) 60 mg PO DAILY [facility] Last Admin: 12/10/17 08:42 Dose: 60 mg Heparin Sodium (Porcine) (Heparin Vial(*)) 5,000 units SUBCUT Q8HR [facility] Last Admin: 12/10/17 05:56 Dose: 5,000 units Hydralazine HCl (Apresoline Iv*) 5 mg IV SLOW PU Q6H PRN PRN Reason: BLOOD PRESSURE Last Admin: 12/10/17 04:31 Dose: 5 mg Hydrochlorothiazide (Hydrodiuril Tab*) 12.5 mg PO DAILY [facility] Last Admin: 12/10/17 08:42 Dose: 12.5 mg Sodium Chloride (Ns 0.9% 1000 Ml*) 1,000 mls @ 100 mls/hr IV PER RATE [facility] Last Admin: 12/08/17 19:40 Dose: 100 mls/hr Cefazolin Sodium 2 gm/ Sodium (Chloride) 100 mls @ 200 mls/hr IVPB Q8H [facility] Last Admin: 12/10/17 08:46 Dose: 200 mls/hr Insulin Human Lispro (Humalog*) 0 units SUBCUT AC [facility] PRN Reason: Protocol Last Admin: 12/10/17 08:45 Dose: 2 unit Levothyroxine Sodium (Synthroid Tab*) 125 mcg PO 0600 [facility] Last Admin: 12/10/17 05:56 Dose: 125 mcg Mometasone Furoate/Formoterol Fumar (Dulera 100/5 Mdi*) 2 puff INH BID [facility] Last Admin: 12/10/17 07:51 Dose: 2 puff Nystatin (Nystatin Top Powder*) 1 applic TOPICAL TID [facility] Last Admin: 12/09/17 20:30 Dose: Not Given Ondansetron HCl (Zofran Tab*) 8 mg PO Q6H PRN PRN Reason: NAUSEA Oxycodone HCl (Roxycodone Tab*) 10 mg PO Q6H PRN PRN Reason: PAIN - BREAKTHROUGH Last Admin: 12/10/17 05:56 Dose: 10 mg Polyethylene Glycol/Electrolytes (Miralax*) 17 gm PO DAILY PRN PRN Reason: CONSTIPATION Last Admin: 12/09/17 20:36 Dose: 17 gm Prednisone (Deltasone Tab*) 40 mg PO DAILY [facility] Stop: 12/15/17 08:59 Last Admin: 12/10/17 08:42 Dose: 40 mg Senna (Senokot Tab*) 1 tab PO DAILY PRN PRN Reason: CONSTIPATION Vital Signs - 8 hr 12/10/17 12/10/17 12/10/17 04:22 05:56 07:38 Temperature 97.5 F 97.4 F Pulse Rate 74 80 Respiratory 16 16 18 Rate Blood Pressure 185/99 158/74 (mmHg) O2 Sat by Pulse 98 98 Oximetry 12/10/17 08:46 Temperature Pulse Rate Respiratory 18 Rate Blood Pressure (mmHg) O2 Sat by Pulse Oximetry Oxygen Devices in Use Now: None Appearance: morbidly obese female sitting up in bed A+O x3 in NAD Eyes: No Scleral Icterus, PERRLA Ears/Nose/Mouth/Throat: NL Teeth, Lips, Gums, Mucous Membranes Moist Neck: NL Appearance and Movements; NL JVP Respiratory: Symmetrical Chest Expansion and Respiratory Effort, Clear to Auscultation Cardiovascular: NL Sounds; No Murmurs; No JVD, RRR Abdominal: NL Sounds; No Tenderness; No Distention, - - obese Extremities: No Clubbing, Cyanosis, - - 3+ LE edema b/l LE; Both LE are bright red, hot to touch Skin: No Nodules or Sclerosis Neurological: Alert and Oriented x 3, NL Sensation, NL Muscle Strength and Tone Lines/Tubes/Other Access: Clean, Dry and Intact Peripheral IV Nutrition: Taking PO's Result Diagrams: 12/09/17 06:17 12/09/17 06:17 Additional Lab and Data: Lab Results 12/08/17 12/08/17 12/08/17 Range/Units 12:20 12:28 12:28 WBC 10.5 (3.5-10.8) 10^3/ul RBC 4.34 (4.0-5.4) 10^6/ul Hgb 11.1 L (12.0-16.0) g/dl Hct 34 L (35-47) % MCV 78 L (80-97) fL MCH 26 L (27-31) pg MCHC 33 (31-36) g/dl RDW 18 H (10.5-15) % Plt Count 318 (150-450) 10^3/ul MPV 8 (7.4-10.4) um3 Neut % (Auto) 69.2 (38-83) % Lymph % (Auto) 20.9 L (25-47) % [place] % (Auto) 5.2 (0-7) % Eos % (Auto) 3.9 (0-6) % Baso % (Auto) 0.8 (0-2) % Absolute Neuts (auto) 7.2 (1.5-7.7) 10^3/ul Absolute Lymphs (auto) 2.2 (1.0-4.8) 10^3/ul Absolute Monos (auto) 0.5 (0-0.8) 10^3/ul Absolute Eos (auto) 0.4 (0-0.6) 10^3/ul Absolute Basos (auto) 0.1 (0-0.2) 10^3/ul Absolute Nucleated RBC 0 10^3/ul Nucleated RBC % 0.1 ESR 48 H (0-40) mm/Hr INR (Anticoag Therapy) (0.77-1.02) Sodium 131 L (133-145) mmol/L Potassium 3.3 L (3.5-5.0) mmol/L Chloride 93 L (101-111) mmol/L Carbon Dioxide 28 (22-32) mmol/L Anion Gap 10 (2-11) mmol/L BUN 15 (6-24) mg/dL Creatinine 0.73 (0.51-0.95) mg/dL Est GFR ( Amer) 100.0 (>60) Est GFR (Non-Af Amer) 77.7 (>60) BUN/Creatinine Ratio 20.5 H (8-20) Glucose 129 H (70-100) mg/dL Lactic Acid (0.5-2.0) mmol/L Calcium 9.9 (8.6-10.3) mg/dL Total Bilirubin 0.60 (0.2-1.0) mg/dL AST 27 (13-39) U/L ALT 26 (7-52) U/L Alkaline Phosphatase 66 (34-104) U/L C-Reactive Protein 53.78 H (< 5.00) mg/L Total Protein 7.0 (6.4-8.9) g/dL Albumin 4.3 (3.2-5.2) g/dL Globulin 2.7 (2-4) g/dL Albumin/Globulin Ratio 1.6 (1-3) Urine Color Yellow Urine Appearance Cloudy Urine pH 5.0 (5-9) Ur Specific [place] 1.010 (1.010-1.030) Urine Protein Negative (Negative) Urine Ketones Negative (Negative) Urine Blood Negative (Negative) Urine Nitrate Negative (Negative) Urine Bilirubin Negative (Negative) Urine Urobilinogen Negative (Negative) Ur Leukocyte Esterase 2+ H (Negative) Urine WBC (Auto) 3+(>20/hpf) H (Absent) Urine RBC (Auto) Absent (Absent) Urine Bacteria Absent (Absent) Urine Glucose Negative (Negative) Urine Ascorbic Acid * H (Negative) 12/08/17 12/08/17 Range/Units 12:28 12:28 WBC (3.5-10.8) 10^3/ul RBC (4.0-5.4) 10^6/ul Hgb (12.0-16.0) g/dl Hct (35-47) % MCV (80-97) fL MCH (27-31) pg MCHC (31-36) g/dl RDW (10.5-15) % Plt Count (150-450) 10^3/ul MPV (7.4-10.4) um3 Neut % (Auto) (38-83) % Lymph % (Auto) (25-47) % [place] % (Auto) (0-7) % Eos % (Auto) (0-6) % Baso % (Auto) (0-2) % Absolute Neuts (auto) (1.5-7.7) 10^3/ul Absolute Lymphs (auto) (1.0-4.8) 10^3/ul Absolute Monos (auto) (0-0.8) 10^3/ul Absolute Eos (auto) (0-0.6) 10^3/ul Absolute Basos (auto) (0-0.2) 10^3/ul Absolute Nucleated RBC 10^3/ul Nucleated RBC % ESR (0-40) mm/Hr INR (Anticoag Therapy) 0.93 (0.77-1.02) Sodium (133-145) mmol/L Potassium (3.5-5.0) mmol/L Chloride (101-111) mmol/L Carbon Dioxide (22-32) mmol/L Anion Gap (2-11) mmol/L BUN (6-24) mg/dL Creatinine (0.51-0.95) mg/dL Est GFR ( Amer) (>60) Est GFR (Non-Af Amer) (>60) BUN/Creatinine Ratio (8-20) Glucose (70-100) mg/dL Lactic Acid 1.4 (0.5-2.0) mmol/L Calcium (8.6-10.3) mg/dL Total Bilirubin (0.2-1.0) mg/dL AST (13-39) U/L ALT (7-52) U/L Alkaline Phosphatase (34-104) U/L C-Reactive Protein (< 5.00) mg/L Total Protein (6.4-8.9) g/dL Albumin (3.2-5.2) g/dL Globulin (2-4) g/dL Albumin/Globulin Ratio (1-3) Urine Color Urine Appearance Urine pH (5-9) Ur Specific [place] (1.010-1.030) Urine Protein (Negative) Urine Ketones (Negative) Urine Blood (Negative) Urine Nitrate (Negative) Urine Bilirubin (Negative) Urine Urobilinogen (Negative) Ur Leukocyte Esterase (Negative) Urine WBC (Auto) (Absent) Urine RBC (Auto) (Absent) Urine Bacteria (Absent) Urine Glucose (Negative) Urine Ascorbic Acid (Negative) Assess/Plan/Problems-Billing Assessment: This is a 77 year old morbidly obese female that presented to ER with c/o bilateral leg edema and inability to ambulate 2/2 to back pain with LE cellulitis. - Patient Problems (1) Lymphedema of both lower extremities Comment: - bilateral LE cellulitis? Pt's legs do appear to be very erythematous, could be chronic, per pt this is not her baseline. No leukocytosis or fevers. BC negative so far. - Continue IV ancef Q8h - Wound consult - pt refused for nurse to touch legs - supportive care - She will require a referral to lymphedema clinic at discharge (2) Back pain Comment: - Appears she has be declining over the last 8 weeks, reporting she called EMS as she was not able to get off the couch - will await PT input. Strongly encouraged to get OOB. - Chronic, has seen Dr. Conde recently, pt reports f/u next week - Reviewed MRI, has stage 1 spondy and herniations - NS wasnt sure if she was a surgical canidate - Increase frequency of pain meds, trial valium for spasms - PT evaluation (3) Anxiety and depression Comment: - Continue cymbalta (4) Asthma Comment: - No exacerbation noted, continue zyrtec and Dulera (5) Coronary artery disease Comment: - Not on ASA or statin at home - ASA added (6) Diabetes Comment: - Lispro SS AC and HS (7) Hypertension Comment: - BP stable now on amlodipine, HCTZ and hydralazine PRN - Continue to monitor (8) Hypothyroid Comment: - Continue synthroid - Last TSH 1.61 on 10/27/17 (9) DVT prophylaxis Comment: - Heparin SQ (10) Full code status Status and Disposition: Switch to inpatient. Pt may require subacute rehab depending on her ability to ambulate.
[2017-12-10] MEDS: Nystatin TOP POWDER* 15 GM BTL TOPICAL SCH ×3 (11:15→20:35)
[2017-12-10] MEDS: Diazepam TAB(*) 5 MG PO PRN ×2 (13:36→22:20)
[2017-12-10] MEDS ORDERED: Metoprolol Tartrate IV* 1 MG/ML 5 ML VIAL IV ONE ×3 (17:03→18:54)
[2017-12-10] MEDS: Lidocaine PATCH 5%* 1 PATCH TRANSDERM SCH (17:29)
[2017-12-10] MEDS ORDERED: Metoprolol Tartrate IV* 1 MG/ML 5 ML VIAL ONE (18:15)
[2017-12-10] MEDS ORDERED: NS 0.9% 1000 ML* 1,000 ML IV SCH (18:45)
--- NOTE | 2017-12-10 19:21 | PN ---
Hospitalist Progress Note Date of Service: 12/10/17 Patient HR 130-150's, initially appearing to be SVT, then afib. pt asymptomatic , blood pressures stable SBP 130/140's. Metoprolol 5 mg IV x2 given which broke rate into a NSR. Pt has no hx of afib and this appears to be an isolate event in the setting of illness. Plan to continue to monitor on tele. If develops afib again, consider starting metoprolol po and anticoagulation. Troponin 0.15, continue to trend trops. Pt has no CP/SOB. Suspect demand ischemia.
[2017-12-10] MEDS: Lidocaine Patch REMOVE* 1 NOTE MISC PATCH OFF SCH (20:35)
[2017-12-10] MEDS ORDERED: Lidocaine Patch REMOVE* 1 NOTE MISC SCH (21:00)
[2017-12-11] MEDS: Mometasone/Formoter 100/5 MDI INH SCH ×3 (00:26→21:19)
[2017-12-11] MEDS: oxyCODONE TAB* 5 MG TAB PO PRN ×3 (02:26→21:12)
[2017-12-11] MEDS: Levothyroxine TAB* 125 MCG TAB PO SCH (05:38)
[2017-12-11] MEDS: Heparin VIAL(*) 5000 UNITS/ML VIAL (FIVE THOUSAND) SUBCUT SCH ×2 (05:38→13:20)
[2017-12-11 06:15] LABS: ABS Basophils 0.1 10^3/ul (0-0.2); ABS Eosinophils 0.2 10^3/ul (0-0.6); ABS Lymphocytes 2.6 10^3/ul (1.0-4.8); ABS Monocytes 0.8 10^3/ul (0-0.8); ABS Neutrophils 7.3 10^3/ul (1.5-7.7); ABS Nucleated RBC 0 10^3/ul; Eosinophil % 1.9 % (0-6); Hematocrit 31 % (35-47); Hemoglobin 10.1 g/dl (12.0-16.0); Lymphocyte % 24.1 % (25-47); Mean Corpuscular HGB Conc 33 g/dl (31-36); Mean Corpuscular Hemoglobin 26 pg (27-31); Mean Corpuscular Volume 79 fL (80-97); Mean Platelet Volume 8 um3 (7.4-10.4); Nucleated Red Blood Cells % 0.1; Platelet Count 266 10^3/ul (150-450); Red Blood Count 3.92 10^6/ul (4.0-5.4); Red Cell Distribution Width 18 % (10.5-15); White Blood Count 10.9 10^3/ul (3.5-10.8)
[2017-12-11 06:28] LABS: EGFR Non-African American 84.4 (>60)
[2017-12-11] MEDS: Diazepam TAB(*) 5 MG PO PRN ×2 (07:50→21:12)
[2017-12-11] MEDS: ceFAZolin 1 GM VIAL(*) 2 GM in NS 0.9% 100 ML* 100 ML IVPB SCH (07:54)
[2017-12-11] MEDS: amLODIPine TAB* 5 MG PO SCH (08:33)
[2017-12-11] MEDS: Aspirin Low Dose CHEW TAB* 81 MG PO SCH (08:34)
[2017-12-11] MEDS: Cetirizine* 10 MG TAB PO SCH (08:34)
[2017-12-11] MEDS: Insulin LISPRO* 1 UNITS UNIT SUBCUT SCH ×3 (08:34→17:33)
[2017-12-11] MEDS: Lidocaine PATCH 5%* 1 PATCH TRANSDERM SCH (08:34)
[2017-12-11] MEDS: Hydrochlorothiazide TAB* 25 MG PO SCH (08:35)
[2017-12-11] MEDS: Cephalexin CAP* 500 MG PO SCH ×4 (08:48→19:58)
[2017-12-11] MEDS: predniSONE TAB* 20 MG PO SCH (08:49)
[2017-12-11] MEDS ORDERED: Potassium Chlor TAB* 20 MEQ TAB.ER PO ONE (09:00)
[2017-12-11] MEDS: DULoxetine DR CAP* 60 MG CAP.DR PO SCH (10:22)
[2017-12-11] MEDS: Nystatin TOP POWDER* 15 GM BTL TOPICAL SCH ×3 (10:22→20:00)
[2017-12-11] MEDS ORDERED: Metoprolol Tartrate IV* 1 MG/ML 5 ML VIAL IV ONE ×3 (13:57→14:45)
--- NOTE | 2017-12-11 13:58 | PN ---
Subjective Date of Service: 12/11/17 Interval History: Patient reports she feels better today and LE are much less red. No fevers or chills. No SOB/CP - reports wheezing today. She continues to refuse to get OOB reporting now she "twisted on over stretched my left hip". She had another episode of afib with rvr and converted after 5 mg of metoprolol x2. Discussed anticoagulation and she is not sure if she would like coumadin and NOAC. She was completely asymptomatic. Objective Active Medications: Acetaminophen (Tylenol Tab*) 650 mg PO Q4H PRN PRN Reason: FEVER/PAIN Hydrocodone Bitart/Acetaminophen ([place] 5-325 Tab*) 1 tab PO Q6H PRN PRN Reason: PAIN Amlodipine Besylate (Norvasc Tab*) 10 mg PO DAILY [facility] Last Admin: 12/11/17 08:33 Dose: 10 mg Aspirin (Aspirin Low Dose Tab*) 81 mg PO DAILY [facility] Last Admin: 12/11/17 08:34 Dose: 81 mg Cephalexin HCl (Keflex Cap*) 500 mg PO QID [facility] Stop: 12/16/17 08:59 Last Admin: 12/11/17 13:20 Dose: 500 mg Cetirizine HCl (Zyrtec*) 10 mg PO DAILY [facility] PRN Reason: Protocol Last Admin: 12/11/17 08:34 Dose: 10 mg Cyclobenzaprine HCl (Flexeril Tab*) 5 mg PO BID PRN PRN Reason: PAIN Last Admin: 12/09/17 04:01 Dose: 5 mg Dextrose (D50w Syringe 50 Ml*) 12.5 gm IV PUSH .FOR FS < 60 - SS PRN PRN Reason: FS < 60 Diazepam (Valium Tab(*)) 5 mg PO Q8H PRN PRN Reason: spasm Last Admin: 12/11/17 07:50 Dose: 5 mg Docusate Sodium (Colace Cap*) 100 mg PO DAILY PRN PRN Reason: CONSTIPATION Last Admin: 12/09/17 17:53 Dose: 100 mg Duloxetine HCl (Cymbalta Cap*) 60 mg PO DAILY [facility] Last Admin: 12/11/17 10:22 Dose: 60 mg Heparin Sodium (Porcine) (Heparin Vial(*)) 5,000 units SUBCUT Q8HR [facility] Last Admin: 12/11/17 13:20 Dose: 5,000 units Hydralazine HCl (Apresoline Iv*) 5 mg IV SLOW PU Q6H PRN PRN Reason: BLOOD PRESSURE Last Admin: 12/10/17 04:31 Dose: 5 mg Hydrochlorothiazide (Hydrodiuril Tab*) 12.5 mg PO DAILY [facility] Last Admin: 12/11/17 08:35 Dose: 12.5 mg Insulin Human Lispro (Humalog*) 0 units SUBCUT AC [facility] PRN Reason: Protocol Last Admin: 12/11/17 13:19 Dose: 6 unit Levothyroxine Sodium (Synthroid Tab*) 125 mcg PO 0600 [facility] Last Admin: 12/11/17 05:38 Dose: 125 mcg Lidocaine (Lidoderm 5% Patch*) 1 patch TRANSDERM DAILY [facility] Last Admin: 12/11/17 08:34 Dose: 1 patch Metoprolol Tartrate (Lopressor Iv*) 5 mg IV ONCE ONE Stop: 12/11/17 13:58 Mometasone Furoate/Formoterol Fumar (Dulera 100/5 Mdi*) 2 puff INH BID [facility] Last Admin: 12/11/17 07:28 Dose: 2 puff Nystatin (Nystatin Top Powder*) 1 applic TOPICAL TID [facility] Last Admin: 12/11/17 10:22 Dose: 1 applic Ondansetron HCl (Zofran Tab*) 8 mg PO Q6H PRN PRN Reason: NAUSEA Oxycodone HCl (Roxycodone Tab*) 10 mg PO Q6H PRN PRN Reason: PAIN - BREAKTHROUGH Last Admin: 12/11/17 08:49 Dose: 10 mg Pharmacy Profile Note (Lidocaine Patch Remove*) 1 note PATCH OFF 2100 [facility] Last Admin: 12/10/17 20:35 Dose: 1 note Polyethylene Glycol/Electrolytes (Miralax*) 17 gm PO DAILY PRN PRN Reason: CONSTIPATION Last Admin: 12/09/17 20:36 Dose: 17 gm Prednisone (Deltasone Tab*) 40 mg PO DAILY [facility] Stop: 12/15/17 08:59 Last Admin: 12/11/17 08:49 Dose: 40 mg Senna (Senokot Tab*) 1 tab PO DAILY PRN PRN Reason: CONSTIPATION Vital Signs - 8 hr 12/11/17 12/11/17 12/11/17 07:50 08:49 09:20 Respiratory 20 20 20 Rate 12/11/17 10:45 Respiratory 19 Rate Oxygen Devices in Use Now: None Appearance: morbidly obese female A+O x3 in NAD Eyes: No Scleral Icterus, PERRLA Ears/Nose/Mouth/Throat: NL Teeth, Lips, Gums Neck: NL Appearance and Movements; NL JVP Respiratory: Symmetrical Chest Expansion and Respiratory Effort, Clear to Auscultation Cardiovascular: NL Sounds; No Murmurs; No JVD, - - 2-3+ LE edema Abdominal: NL Sounds; No Tenderness; No Distention, - - obese Extremities: No Clubbing, Cyanosis, - - Passive ROM intact in LE. Skin: - - LE have b/l vascualr skin changes - cellulitis was bright red now faded erythema. Neurological: Alert and Oriented x 3, NL Sensation, NL Muscle Strength and Tone Lines/Tubes/Other Access: Clean, Dry and Intact Peripheral IV Nutrition: Taking PO's Result Diagrams: 12/11/17 05:34 12/11/17 05:34 Additional Lab and Data: Lab Results 12/08/17 12/08/17 12/08/17 Range/Units 12:20 12:28 12:28 WBC 10.5 (3.5-10.8) 10^3/ul RBC 4.34 (4.0-5.4) 10^6/ul Hgb 11.1 L (12.0-16.0) g/dl Hct 34 L (35-47) % MCV 78 L (80-97) fL MCH 26 L (27-31) pg MCHC 33 (31-36) g/dl RDW 18 H (10.5-15) % Plt Count 318 (150-450) 10^3/ul MPV 8 (7.4-10.4) um3 Neut % (Auto) 69.2 (38-83) % Lymph % (Auto) 20.9 L (25-47) % [place] % (Auto) 5.2 (0-7) % Eos % (Auto) 3.9 (0-6) % Baso % (Auto) 0.8 (0-2) % Absolute Neuts (auto) 7.2 (1.5-7.7) 10^3/ul Absolute Lymphs (auto) 2.2 (1.0-4.8) 10^3/ul Absolute Monos (auto) 0.5 (0-0.8) 10^3/ul Absolute Eos (auto) 0.4 (0-0.6) 10^3/ul Absolute Basos (auto) 0.1 (0-0.2) 10^3/ul Absolute Nucleated RBC 0 10^3/ul Nucleated RBC % 0.1 ESR 48 H (0-40) mm/Hr INR (Anticoag Therapy) (0.77-1.02) Sodium 131 L (133-145) mmol/L Potassium 3.3 L (3.5-5.0) mmol/L Chloride 93 L (101-111) mmol/L Carbon Dioxide 28 (22-32) mmol/L Anion Gap 10 (2-11) mmol/L BUN 15 (6-24) mg/dL Creatinine 0.73 (0.51-0.95) mg/dL Est GFR ( Amer) 100.0 (>60) Est GFR (Non-Af Amer) 77.7 (>60) BUN/Creatinine Ratio 20.5 H (8-20) Glucose 129 H (70-100) mg/dL Lactic Acid (0.5-2.0) mmol/L Calcium 9.9 (8.6-10.3) mg/dL Total Bilirubin 0.60 (0.2-1.0) mg/dL AST 27 (13-39) U/L ALT 26 (7-52) U/L Alkaline Phosphatase 66 (34-104) U/L C-Reactive Protein 53.78 H (< 5.00) mg/L Total Protein 7.0 (6.4-8.9) g/dL Albumin 4.3 (3.2-5.2) g/dL Globulin 2.7 (2-4) g/dL Albumin/Globulin Ratio 1.6 (1-3) Urine Color Yellow Urine Appearance Cloudy Urine pH 5.0 (5-9) Ur Specific [place] 1.010 (1.010-1.030) Urine Protein Negative (Negative) Urine Ketones Negative (Negative) Urine Blood Negative (Negative) Urine Nitrate Negative (Negative) Urine Bilirubin Negative (Negative) Urine Urobilinogen Negative (Negative) Ur Leukocyte Esterase 2+ H (Negative) Urine WBC (Auto) 3+(>20/hpf) H (Absent) Urine RBC (Auto) Absent (Absent) Urine Bacteria Absent (Absent) Urine Glucose Negative (Negative) Urine Ascorbic Acid * H (Negative) 12/08/17 12/08/17 Range/Units 12:28 12:28 WBC (3.5-10.8) 10^3/ul RBC (4.0-5.4) 10^6/ul Hgb (12.0-16.0) g/dl Hct (35-47) % MCV (80-97) fL MCH (27-31) pg MCHC (31-36) g/dl RDW (10.5-15) % Plt Count (150-450) 10^3/ul MPV (7.4-10.4) um3 Neut % (Auto) (38-83) % Lymph % (Auto) (25-47) % [place] % (Auto) (0-7) % Eos % (Auto) (0-6) % Baso % (Auto) (0-2) % Absolute Neuts (auto) (1.5-7.7) 10^3/ul Absolute Lymphs (auto) (1.0-4.8) 10^3/ul Absolute Monos (auto) (0-0.8) 10^3/ul Absolute Eos (auto) (0-0.6) 10^3/ul Absolute Basos (auto) (0-0.2) 10^3/ul Absolute Nucleated RBC 10^3/ul Nucleated RBC % ESR (0-40) mm/Hr INR (Anticoag Therapy) 0.93 (0.77-1.02) Sodium (133-145) mmol/L Potassium (3.5-5.0) mmol/L Chloride (101-111) mmol/L Carbon Dioxide (22-32) mmol/L Anion Gap (2-11) mmol/L BUN (6-24) mg/dL Creatinine (0.51-0.95) mg/dL Est GFR ( Amer) (>60) Est GFR (Non-Af Amer) (>60) BUN/Creatinine Ratio (8-20) Glucose (70-100) mg/dL Lactic Acid 1.4 (0.5-2.0) mmol/L Calcium (8.6-10.3) mg/dL Total Bilirubin (0.2-1.0) mg/dL AST (13-39) U/L ALT (7-52) U/L Alkaline Phosphatase (34-104) U/L C-Reactive Protein (< 5.00) mg/L Total Protein (6.4-8.9) g/dL Albumin (3.2-5.2) g/dL Globulin (2-4) g/dL Albumin/Globulin Ratio (1-3) Urine Color Urine Appearance Urine pH (5-9) Ur Specific [place] (1.010-1.030) Urine Protein (Negative) Urine Ketones (Negative) Urine Blood (Negative) Urine Nitrate (Negative) Urine Bilirubin (Negative) Urine Urobilinogen (Negative) Ur Leukocyte Esterase (Negative) Urine WBC (Auto) (Absent) Urine RBC (Auto) (Absent) Urine Bacteria (Absent) Urine Glucose (Negative) Urine Ascorbic Acid (Negative) Assess/Plan/Problems-Billing Assessment: This is a 77 year old morbidly obese female that presented to ER with c/o bilateral leg edema and inability to ambulate 2/2 to back pain with LE cellulitis. - Patient Problems (1) Lymphedema of both lower extremities Comment: - bilateral LE cellulitis - much improvement today. No fevers. BC negative so far. - SWitch to PO Keflex - Wound consult - pt refused for nurse to touch legs - supportive care - She will require a referral to lymphedema clinic at discharge (2) New onset a-fib Comment: - first episode 12/10 where she was converted with IV metoprolol 5 md x 2 - thought it was an isolated episode in the setting of cellulitis; Today had 2nd episode today with afib rvr rate 140's - converted again to NSR with metoprolol 5 mg iv x2. She was started on Metoprolol Tartrate 25 mg po Q12. Heparin drip started. Pt to determine discharge anticoagulation med. Will needs cards eval and f/u as outpt. - Echo: "mild LVH, LV hyperdynamic EF >65%, Abnormal LV diastolic filling consistent with impaired relaxation, RV global systolic function is hyperdynamic , mild , mild MR, mild TR. - Trend Trops. - Add on TSH, mg+ (3) Back pain Comment: - Appears she has be declining over the last 8 weeks, reporting she called EMS as she was not able to get off the couch - will await PT input (was not seen yesterday). Strongly encouraged to get OOB. Difficult to determine if she does have pain, she has many excuses to not get OOB, she appears comfortable w/o pain on exam. - Chronic, has seen Dr. Conde recently, pt reports f/u next week - Reviewed MRI, has stage 1 spondy and herniations - NS wasnt sure if she was a surgical canidate - Pain management, trial valium for spasms - May require subacute rehab (4) Anxiety and depression Comment: - Continue cymbalta (5) Asthma Comment: - Reports feeling wheezy today - continue zyrtec and Dulera - nebs prn (6) Coronary artery disease Comment: - Not on ASA or statin at home - ASA added (7) Diabetes Comment: - Lispro SS AC and HS (8) Hypertension Comment: - BP stable now on amlodipine, HCTZ and hydralazine PRN - Continue to monitor (9) Hypothyroid Comment: - Continue synthroid - Last TSH 1.61 on 10/27/17 - recheck TSH now (10) DVT prophylaxis Comment: - Heparin SQ (11) Full code status Status and Disposition: inpatient. Pt may require subacute rehab depending on her ability to ambulate.
[2017-12-11] MEDS ORDERED: Magnesium Sulfate 2 GM IV* 2 GM/50 ML BAG IVPB ONE (14:31)
[2017-12-11] MEDS ORDERED: Metoprolol Tartrate TAB* 25 MG ONE (14:45)
[2017-12-11] MEDS ORDERED: Metoprolol Tartrate TAB* 25 MG PO ONE (14:45)
[2017-12-11] MEDS ORDERED: Albuterol/Ipratropium NEB.SOL* Albuterol 2.5 MG/Ipratropium 0.5 MG 3 ML INH PRN (15:37)
[2017-12-11] MEDS: Heparin VIAL(*) 5000 UNITS/ML VIAL (FIVE THOUSAND) IV SCH (16:04)
[2017-12-11] MEDS: Heparin DRIP 25,000 UNITS(*) 25,000 UNITS/500 ML BAG IVPB SCH (16:12)
[2017-12-11] MEDS: Lidocaine Patch REMOVE* 1 NOTE MISC PATCH OFF SCH (19:59)
[2017-12-11] MEDS: Metoprolol Tartrate TAB* 25 MG PO SCH (19:59)
[2017-12-11 22:29] LABS: ABS Basophils 0.1 10^3/ul (0-0.2); ABS Eosinophils 0 10^3/ul (0-0.6); ABS Lymphocytes 2.8 10^3/ul (1.0-4.8); ABS Monocytes 1.3 10^3/ul (0-0.8); ABS Neutrophils 16.4 10^3/ul (1.5-7.7); ABS Nucleated RBC 0 10^3/ul; Eosinophil % 0.2 % (0-6); Hematocrit 34 % (35-47); Lymphocyte % 13.6 % (25-47); Mean Corpuscular HGB Conc 32 g/dl (31-36); Mean Corpuscular Hemoglobin 25 pg (27-31); Mean Corpuscular Volume 78 fL (80-97); Mean Platelet Volume 8 um3 (7.4-10.4); Nucleated Red Blood Cells % 0; Platelet Count 408 10^3/ul (150-450); Red Blood Count 4.34 10^6/ul (4.0-5.4); Red Cell Distribution Width 19 % (10.5-15); White Blood Count 20.7 10^3/ul (3.5-10.8)
[2017-12-12] MEDS: Levothyroxine TAB* 125 MCG TAB PO SCH (05:34)
[2017-12-12 06:14] LABS: EGFR Non-African American 62.6 (>60)
[2017-12-12] MEDS: Metoprolol Tartrate TAB* 25 MG PO SCH ×2 (08:20→21:02)
[2017-12-12] MEDS: amLODIPine TAB* 5 MG PO SCH (08:24)
[2017-12-12] MEDS: Hydrochlorothiazide TAB* 25 MG PO SCH (08:24)
[2017-12-12] MEDS: Cephalexin CAP* 500 MG PO SCH ×4 (08:24→21:02)
[2017-12-12] MEDS: DULoxetine DR CAP* 60 MG CAP.DR PO SCH (08:24)
[2017-12-12] MEDS: Cetirizine* 10 MG TAB PO SCH (08:25)
[2017-12-12] MEDS: Aspirin Low Dose CHEW TAB* 81 MG PO SCH (08:25)
[2017-12-12] MEDS: Nystatin TOP POWDER* 15 GM BTL TOPICAL SCH ×3 (08:25→21:04)
[2017-12-12] MEDS: Insulin LISPRO* 1 UNITS UNIT SUBCUT SCH ×3 (08:25→17:56)
[2017-12-12] MEDS: Lidocaine PATCH 5%* 1 PATCH TRANSDERM SCH (08:26)
--- NOTE | 2017-12-12 09:00 | PN ---
Subjective Date of Service: 12/12/17 Interval History: Ms. Wilhelm reports that she feels tired but otherwise denies complaint. Note is made that she fell earlier today and hit her head. CT brain was negative. She reports feeling fine now. She feels that she is ready for discharge and able to ambulate safely enough to care for herself at home. Objective Active Medications: Acetaminophen (Tylenol Tab*) 650 mg PO Q4H PRN Hydrocodone Bitart/Acetaminophen ([place] 5-325 Tab*) 1 tab PO Q6H PRN Albuterol/Ipratropium (Duoneb (Albuterol 2.5 Mg/Ipratropium 0.5 Mg)) 1 neb INH Q4H PRN Amlodipine Besylate (Norvasc Tab*) 10 mg PO DAILY [facility] Aspirin (Aspirin Low Dose Tab*) 81 mg PO DAILY [facility] Cephalexin HCl (Keflex Cap*) 500 mg PO QID [facility] Cetirizine HCl (Zyrtec*) 10 mg PO DAILY [facility] Cyclobenzaprine HCl (Flexeril Tab*) 5 mg PO BID PRN Dextrose (D50w Syringe 50 Ml*) 12.5 gm IV PUSH .FOR FS < 60 - SS PRN Diazepam (Valium Tab(*)) 5 mg PO Q8H PRN Docusate Sodium (Colace Cap*) 100 mg PO DAILY [facility] Duloxetine HCl (Cymbalta Cap*) 60 mg PO DAILY [facility] Heparin Sodium (Porcine) (Heparin Vial(*)) 0 units IV .PER PROTOCOL [facility] Hydralazine HCl (Apresoline Iv*) 5 mg IV SLOW PU Q6H PRN Hydrochlorothiazide (Hydrodiuril Tab*) 12.5 mg PO DAILY [facility] Heparin Sodium/Dextrose (Heparin Drip 25,000 Units(*)) 25,000 units in 500 mls @ 0 mls/hr IVPB PER RATE [facility]; Per Protocol Insulin Human Lispro (Humalog*) 0 units SUBCUT AC [facility] Levothyroxine Sodium (Synthroid Tab*) 125 mcg PO 0600 [facility] Lidocaine (Lidoderm 5% Patch*) 1 patch TRANSDERM DAILY [facility] Metoprolol Tartrate (Lopressor Tab*) 25 mg PO BID [facility] Mometasone Furoate/Formoterol Fumar (Dulera 100/5 Mdi*) 2 puff INH BID [facility] Nystatin (Nystatin Top Powder*) 1 applic TOPICAL TID [facility] Ondansetron HCl (Zofran Tab*) 8 mg PO Q6H PRN Oxycodone HCl (Roxycodone Tab*) 10 mg PO Q6H PRN Pharmacy Profile Note (Lidocaine Patch Remove*) 1 note PATCH OFF 2100 [facility] Polyethylene Glycol/Electrolytes (Miralax*) 17 gm PO DAILY PRN Senna (Senokot Tab*) 1 tab PO DAILY PRN Vital Signs: Temp Pulse Resp BP Pulse Ox 98.5 F 98 18 142/77 97 12/12/17 07:37 12/12/17 07:37 12/12/17 07:37 12/12/17 07:37 12/12/17 07:37 Oxygen Devices in Use Now: None Appearance: Morbidly obese female lying in bed in NAD Eyes: No Scleral Icterus Ears/Nose/Mouth/Throat: Mucous Membranes Moist Neck: Trachea Midline Respiratory: Symmetrical Chest Expansion and Respiratory Effort, Clear to Auscultation Cardiovascular: NL Sounds; No Murmurs; No JVD, - - +1 edema to B LEs Abdominal: No Hepatosplenomegaly Skin: - - Faint erythema to bilateral LEs at level of ankles Neurological: Alert and Oriented x 3, NL Muscle Strength and Tone Nutrition: Taking PO's Result Diagrams: 12/12/17 16:23 12/12/17 05:41 Additional Lab and Data: . Assess/Plan/Problems-Billing Assessment: Ms. Wilhelm is a 77 year old morbidly obese female who was admitted on 12/08/17 with c/o bilateral leg edema and inability to ambulate 2/2 to back pain with LE cellulitis. - Patient Problems (1) Fall Comment: - Fall while on heparin gtt. - CT brain negative, plan to monitor overnight due to presence of anticoagulation. - Neuro checks q2h. (2) Cellulitis Comment: - Worsening leukocytosis as of yesterday but now resolved. Cellulititis is greatly improved. No fevers. BC negative so far. - Continue PO Keflex - Wound consult - pt refused for nurse to touch legs - She will require a referral to lymphedema clinic at discharge (3) New onset a-fib Comment: - Intermittent afib since 12/10 with some response to metoprolol. - Increase metoprolol to 37.5 mg po BID. - Heparin drip started. Pt to determine discharge anticoagulation med. - Will needs cards eval and f/u as outpt. - Echo: "mild LVH, LV hyperdynamic EF >65%, Abnormal LV diastolic filling consistent with impaired relaxation, RV global systolic function is hyperdynamic , mild , mild MR, mild TR. (4) Back pain Comment: - Pt reports that she is able to adequately ambulate independently. - Chronic, has seen Dr. Conde recently, pt reports f/u next week. Reviewed MRI, has stage 1 spondy and herniations - NS wasnt sure if she was a surgical canidate - Pain management, trial valium for spasms. (5) Elevated troponin Comment: - Peaked at 0.28. - Suspect demand ischemia related to afib with RVR and acute illnes. - Echo with intact EF and no wall motion abnormalities. (6) Anxiety and depression Comment: - Continue cymbalta (7) Hypertension Comment: - BP well controlled. - Continue amlodipine, HCTZ. (8) Hypothyroid Comment: - Continue synthroid - Last TSH 1.61 on 10/27/17 - recheck TSH now (9) Asthma Comment: - No further wheezing. - Continue zyrtec and Dulera, nebs prn. (10) Coronary artery disease Comment: - Not on ASA or statin at home - ASA added (11) Diabetes Comment: - BG 170-270. - Increase Lispro SS AC. (12) DVT prophylaxis Comment: - Heparin SQ (13) Full code status Comment: Status and Disposition: Inpatient. Anticipate discharge to home when medically stable.
[2017-12-12] MEDS ORDERED: Metoprolol Tartrate TAB* 25 MG PO ONE ×2 (09:01)
[2017-12-12] MEDS ORDERED: Potassium Chlor TAB* 20 MEQ TAB.ER PO ONE (09:05)
[2017-12-12] MEDS: Mometasone/Formoter 100/5 MDI INH SCH ×2 (09:30→21:10)
[2017-12-12] MEDS: Diazepam TAB(*) 5 MG PO PRN ×2 (09:36→21:00)
[2017-12-12] MEDS: Polyethylene Glycol 3350* 17 GM PACKET PO PRN (09:44)
[2017-12-12] MEDS ORDERED: Morphine INJ* 4 MG/ML 1 ML SYRINGE (NEW SYRINGE VERSION) IV ONE (12:19)
[2017-12-12] MEDS ORDERED: Morphine INJ* 4 MG/ML 1 ML SYRINGE (NEW SYRINGE VERSION) ONE (12:21)
--- NOTE | 2017-12-12 13:22 | RAD ---
INDICATION: Fall in a patient taking heparin COMPARISON: Most recent comparison CT the brain is dated December 31, 2014 TECHNIQUE: Contiguous axial sections of the brain were obtained from the skull base to the vertex without contrast. FINDINGS: The ventricles, cisterns and sulci are within normal limits. A stable calcified meningioma is noted immediately external to the right frontal lobe. The [place]-white matter differentiation is adequately maintained and there is no sulcal effacement. No significant focal abnormality or mass effect is present. There is no evidence for intracranial hemorrhage. Again noted is hyperostosis frontalis interna. No significant focal osseous abnormality is present. The visualized portion of the paranasal sinuses appear clear. The mastoid air cells are well aerated bilaterally. IMPRESSION: Chronic findings as described above without CT evidence of acute intracranial hemorrhage or traumatic bony injury.
[2017-12-12 16:33] LABS: ABS Basophils 0.1 10^3/ul (0-0.2); ABS Eosinophils 0.6 10^3/ul (0-0.6); ABS Lymphocytes 3.3 10^3/ul (1.0-4.8); ABS Monocytes 0.7 10^3/ul (0-0.8); ABS Nucleated RBC 0 10^3/ul; Eosinophil % 4.4 % (0-6); Hematocrit 32 % (35-47); Hemoglobin 10.5 g/dl (12.0-16.0); Lymphocyte % 26.3 % (25-47); Mean Corpuscular HGB Conc 32 g/dl (31-36); Mean Corpuscular Hemoglobin 25 pg (27-31); Mean Corpuscular Volume 78 fL (80-97); Mean Platelet Volume 8 um3 (7.4-10.4); Nucleated Red Blood Cells % 0; Platelet Count 314 10^3/ul (150-450); Red Blood Count 4.13 10^6/ul (4.0-5.4); Red Cell Distribution Width 19 % (10.5-15); White Blood Count 12.6 10^3/ul (3.5-10.8)
[2017-12-12] MEDS: Heparin VIAL(*) 5000 UNITS/ML VIAL (FIVE THOUSAND) IV SCH (18:23)
[2017-12-12] MEDS: Heparin DRIP 25,000 UNITS(*) 25,000 UNITS/500 ML BAG IVPB SCH (18:24)
[2017-12-12] MEDS: Cyclobenzaprine TAB* 10 MG PO PRN (19:59)
[2017-12-12] MEDS: Lidocaine Patch REMOVE* 1 NOTE MISC PATCH OFF SCH (21:04)
[2017-12-12] MEDS: oxyCODONE TAB* 5 MG TAB PO PRN (23:20)
[2017-12-13] MEDS: Levothyroxine TAB* 125 MCG TAB PO SCH (06:16)
[2017-12-13] MEDS: Mometasone/Formoter 100/5 MDI INH SCH (08:25)
[2017-12-13] MEDS: Insulin LISPRO* 1 UNITS UNIT SUBCUT SCH ×2 (10:22→13:22)
[2017-12-13] MEDS: Metoprolol Tartrate TAB* 25 MG PO SCH (10:25)
[2017-12-13] MEDS: Nystatin TOP POWDER* 15 GM BTL TOPICAL SCH ×2 (10:25→14:00)
[2017-12-13] MEDS: Cephalexin CAP* 500 MG PO SCH ×2 (10:28→13:22)
[2017-12-13] MEDS: Hydrochlorothiazide TAB* 25 MG PO SCH (10:28)
[2017-12-13] MEDS: amLODIPine TAB* 5 MG PO SCH (10:29)
[2017-12-13] MEDS: Cetirizine* 10 MG TAB PO SCH (10:29)
[2017-12-13] MEDS: Aspirin Low Dose CHEW TAB* 81 MG PO SCH (10:30)
[2017-12-13] MEDS: Lidocaine PATCH 5%* 1 PATCH TRANSDERM SCH (10:32)
[2017-12-13] MEDS: DULoxetine DR CAP* 60 MG CAP.DR PO SCH (10:42)
--- NOTE | 2017-12-13 11:33 | PN ---
Subjective Date of Service: 12/13/17 Interval History: Ms. Wilhelm states that she is feeling very well today and is eager for discharge to home. She denies chest pain, SOB, nausea, or abdominal pain. Objective Active Medications: Acetaminophen (Tylenol Tab*) 650 mg PO Q4H PRN Hydrocodone Bitart/Acetaminophen ([place] 5-325 Tab*) 1 tab PO Q6H PRN Albuterol/Ipratropium (Duoneb (Albuterol 2.5 Mg/Ipratropium 0.5 Mg)) 1 neb INH Q4H PRN Amlodipine Besylate (Norvasc Tab*) 10 mg PO DAILY [facility] Aspirin (Aspirin Low Dose Tab*) 81 mg PO DAILY [facility] Cephalexin HCl (Keflex Cap*) 500 mg PO QID [facility] Cetirizine HCl (Zyrtec*) 10 mg PO DAILY [facility] Cyclobenzaprine HCl (Flexeril Tab*) 5 mg PO BID PRN Dextrose (D50w Syringe 50 Ml*) 12.5 gm IV PUSH .FOR FS < 60 - SS PRN Diazepam (Valium Tab(*)) 5 mg PO Q8H PRN Docusate Sodium (Colace Cap*) 100 mg PO DAILY [facility]N Duloxetine HCl (Cymbalta Cap*) 60 mg PO DAILY [facility] Heparin Sodium (Porcine) (Heparin Vial(*)) 0 units IV .PER PROTOCOL [facility] Hydralazine HCl (Apresoline Iv*) 5 mg IV SLOW PU Q6H PRN Hydrochlorothiazide (Hydrodiuril Tab*) 12.5 mg PO DAILY [facility] Heparin Sodium/Dextrose (Heparin Drip 25,000 Units(*)) 25,000 units in 500 mls @ 0 mls/hr IVPB PER RATE [facility]; Per Protocol Insulin Human Lispro (Humalog*) 0 units SUBCUT AC [facility] Levothyroxine Sodium (Synthroid Tab*) 125 mcg PO 0600 [facility] Lidocaine (Lidoderm 5% Patch*) 1 patch TRANSDERM DAILY [facility] Metoprolol Tartrate (Lopressor Tab*) 37.5 mg PO BID [facility] Mometasone Furoate/Formoterol Fumar (Dulera 100/5 Mdi*) 2 puff INH BID [facility] Nystatin (Nystatin Top Powder*) 1 applic TOPICAL TID [facility] Ondansetron HCl (Zofran Tab*) 8 mg PO Q6H PRN Oxycodone HCl (Roxycodone Tab*) 10 mg PO Q6H PRN Pharmacy Profile Note (Lidocaine Patch Remove*) 1 note PATCH OFF 2100 [facility] Polyethylene Glycol/Electrolytes (Miralax*) 17 gm PO DAILY PRN Senna (Senokot Tab*) 1 tab PO DAILY PRN Vital Signs: Temp Pulse Resp BP Pulse Ox 98.4 F 72 16 149/70 95 12/13/17 08:21 12/13/17 08:25 12/13/17 08:25 12/13/17 08:21 12/13/17 08:25 Oxygen Devices in Use Now: None Appearance: Female lying in bed in NAD Eyes: No Scleral Icterus Ears/Nose/Mouth/Throat: Mucous Membranes Moist Neck: Trachea Midline Respiratory: Symmetrical Chest Expansion and Respiratory Effort, Clear to Auscultation Cardiovascular: NL Sounds; No Murmurs; No JVD, - - Bilateral LE edema unchanged Abdominal: NL Sounds; No Tenderness; No Distention Lymphatic: No Cervical Adenopathy Skin: No Rash or Ulcers Neurological: Alert and Oriented x 3, NL Muscle Strength and Tone Nutrition: Taking PO's Result Diagrams: 12/12/17 16:23 12/12/17 05:41 Additional Lab and Data: . Assess/Plan/Problems-Billing Assessment: Ms. Wilhelm is a 77 year old morbidly obese female who was admitted on 12/08/17 with c/o bilateral leg edema and inability to ambulate 2/2 to back pain with LE cellulitis. - Patient Problems (1) Fall Comment: - No neuro changes. - CT brain negative. (2) Cellulitis Comment: - Worsening leukocytosis as of yesterday but now resolved. Cellulititis is greatly improved. No fevers. BC negative so far. - Continue PO Keflex - Wound consult - pt refused for nurse to touch legs - She will require a referral to lymphedema clinic at discharge (3) New onset a-fib Comment: - Intermittent afib since 12/10 with good response to metoprolol. - Continue metoprolol to 37.5 mg po BID. - CHADSVasc2 score of 4, plan for xarelto for anticoagulation. - Will needs cards eval and f/u as outpt. - Echo: "mild LVH, LV hyperdynamic EF >65%, Abnormal LV diastolic filling consistent with impaired relaxation, RV global systolic function is hyperdynamic , mild , mild MR, mild TR. (4) Back pain Comment: - Pt reports that she is able to adequately ambulate independently. - Chronic, has seen Dr. Conde recently, pt reports f/u next week. Reviewed MRI, has stage 1 spondy and herniations - NS wasnt sure if she was a surgical canidate - Pain management, trial valium for spasms. (5) Elevated troponin Comment: - Peaked at 0.28. - Suspect demand ischemia related to afib with RVR and acute illnes. - Echo with intact EF and no wall motion abnormalities. (6) Anxiety and depression Comment: - Continue cymbalta (7) Hypertension Comment: - BP well controlled. - Continue amlodipine, HCTZ. (8) Hypothyroid Comment: - Continue synthroid (9) Asthma Comment: - No further wheezing. - Continue zyrtec and Dulera, nebs prn. (10) Coronary artery disease Comment: - Not on ASA or statin at home - ASA added (11) Diabetes Comment: - BG 170-270. - Resume metformin and prandin. (12) DVT prophylaxis Comment: - Heparin SQ (13) Full code status Comment: Status and Disposition: Inpatient. Discharge to home.
[2017-12-13 13:54] VITALS: BP 131/67
[2017-12-13] MEDS ORDERED: Rivaroxaban TAB(*) 20 MG TAB PO SCH (14:45)
--- NOTE | 2017-12-14 20:16 | DS ---
CC: Dr. Moore * DISCHARGE SUMMARY: DATE OF ADMISSION: 12/07/17 DATE OF DISCHARGE: 12/13/17 PRIMARY CARE PHYSICIAN: Dr. Moore. ATTENDING PHYSICIAN: Dr. Sree Cotton * (dictation provided by Nohemy Wilhelm NP ). PRIMARY DIAGNOSES: 1. Bilateral lower extremity cellulitis. 2. Atrial fibrillation with rapid ventricular response (new diagnosis). SECONDARY DIAGNOSES: 1. Asthma. 2. Hypertension. 3. Diabetes. 4. Hypothyroidism. 5. Depression. 6. Anxiety. 7. Chronic back pain. 8. Coronary artery disease. 9. History of pleural effusions. PAST SURGICAL HISTORY: 1. History of VATS. 2. Cardiac cath. 3. Hysterectomy. 4. Right knee replacement. MEDICATIONS AT THE TIME OF DISCHARGE: 1. Levothyroxine 125 mcg p.o. daily. 2. Clotrimazole cream 1 application topically b.i.d. 3. Multivitamin with mineral 1 tab p.o. daily. 4. Hydrocodone/acetaminophen 5/325 one tab p.o. q.8 hours. p.r.n. 5. Cyclobenzaprine 5 mg p.o. b.i.d. p.r.n. 6. Cholecalciferol 5000 units p.o. daily. 7. Ascorbic acid 1000 mg p.o. daily. 8. CoQ10 100 mg p.o. daily. 9. Cymbalta 60 mg p.o. daily. 10. Cranberry 400 mg p.o. daily. 11. Cetirizine 10 mg p.o. daily. 12. Aspirin 81 mg p.o. daily. 13. Metformin 1000 mg p.o. b.i.d. 14. Montelukast 10 mg p.o. daily. 15. Prandin 0.5 mg p.o. b.i.d. with meals. 16. Hydrochlorothiazide 12.5 mg p.o. daily. 17. Fluticasone/salmeterol 100/50 one inhalation b.i.d. 18. Albuterol inhaler 2 puffs inhaled q.4 hours p.r.n. 19. Amlodipine 10 mg p.o. daily. 20. Senna 1 tab p.o. daily p.r.n. 21. Rivaroxaban 20 mg p.o. daily. 22. Polyethylene glycol 17 g p.o. daily p.r.n. 23. Metoprolol tartrate 37.5 mg p.o. b.i.d. 24. Lidocaine patch 5% daily. 25. Docusate 100 mg p.o. daily p.r.n. 26. Keflex 500 mg p.o. four times a day to complete course for cellulitis. HOSPITAL COURSE: Ms. Wilhelm is 77-year-old female with the past medical history as outlined above, who originally presented to the emergency room on 12/07/17 with concern for lower extremity swelling. Please see dictated H and P from Corey Avila NP, for complete details. In brief, the patient reports that she had redness that had been getting worse to bilateral lower extremities. She went to Urgent Care and they were concerned for significant cellulitis and therefore sent her directly to the emergency room. In the emergency room, it is suspected that she had cellulitis. She had no leukocytosis. Her ESR was 48. Her CRP was 53.78. In the emergency room, she had a venous Doppler study that showed "no evidence of deep venous thrombosis at or above the knee, unable to assess calf veins due to edema and body habitus." The patient was admitted to the hospital, she was treated with Ancef intravenously and initially a wound care consult was ordered for the component of significant chronic lymphedema. The patient ultimately refused to have wound care, look at her legs or help with lymphedema. For this edema, she did have a transthoracic echocardiogram on 12/08/17, which showed that the ejection fraction was 65%. There was abnormal left ventricular diastolic filling, impaired relaxation. No significant valvular stenosis or insufficiency was noted. The patient intermittently complained of back pain and spasms, but is now able to ambulate independently. The patient has a history of back pain that has been a problem for several weeks at least. She had an MRI performed, which showed spondylosis and herniations and that she is scheduled already to go back previously as an outpatient to see the neurosurgeon and will continue with that plan. The patient was found to be in atrial fibrillation with the heart rate in the 130s to 150s. On 12/10/17, the patient was given metoprolol intravenously with good resolution of this; however, despite addition of metoprolol orally, she had another episode. Ultimately, she has had good control on metoprolol tartrate 37.5 mg p.o. b.i.d. She was initially on a heparin drip. Her AFib now has been transitioned over to Xarelto. She did have echocardiogram as noted. She is in sinus rhythm at the time of discharge. It is recommended that she follows up with Cardiology as outpatient. During this hospitalization, while on heparin drip, the patient stood up to get out of bed and fell. She reported hitting her head, so we did send her for CT of the brain on 12/12/17, which showed no abnormality. Because of the fact that she was anticoagulated, I did monitor her overnight. She showed no neurological abnormalities whatsoever and was at baseline over 24 hours after that incident. I have instructed her, she should return immediately to the emergency room if she has any confusion or neurological deficit or significant headache though I think this is unlikely given the mechanism of her fall. Ms. Wilhelm is medically stable for discharge home and to follow up with Dr. Moore. DISPOSITION: To home. DIET: Consistent carbohydrate, low fat, low salt. ACTIVITY: As tolerated. FOLLOWUP PLANS: 1. Please follow up with Dr. Moore and the neurosurgical team regarding back pain. 2. Please follow up with Dr. Moore regarding possibility of seeing Cardiology regarding new atrial fibrillation. 3. Please follow up with the wound clinic or lymphedema specialist regarding ongoing lower extremity edema. TIME SPENT: Approximately 60 minutes was spent in discharge of this patient, more than half the time was spent with patient at the bedside reviewing the events leading up to this hospitalization, performing physical examination, reviewing my plan of care. NOHEMY WILHELM NP [id number]/CPS #: [id number] HENRI
== END 2017-12-13 15:30 | disposition home or self-care (01) | DRG 603 ==
LOC: ED 11:54 → OBSVTOIN 14:16 → MED 14:16
PROVIDERS: ADMIT Internal Medicine; ATTEND Internal Medicine
DX: L03.116 Cellulitis of left lower limb (principal); I48.91 Unspecified atrial fibrillation; S09.90XA Unspecified injury of head, initial encounter; L03.115 Cellulitis of right lower limb; J45.909 Unspecified asthma, uncomplicated; I25.10 Atherosclerotic heart disease of native coronary artery without angina pectoris; I11.9 Hypertensive heart disease without heart failure; E11.9 Type 2 diabetes mellitus without complications; E03.9 Hypothyroidism, unspecified; F32.9 Major depressive disorder, single episode, unspecified; F41.9 Anxiety disorder, unspecified; M54.9 Dorsalgia, unspecified; Z96.651 Presence of right artificial knee joint; M47.9 Spondylosis, unspecified; W18.30XA Fall on same level, unspecified, initial encounter; Y92.230 Patient room in hospital as the place of occurrence of the external cause; M51.26 Other intervertebral disc displacement, lumbar region; Z79.84 Long term (current) use of oral hypoglycemic drugs; Z79.82 Long term (current) use of aspirin; Z79.899 Other long term (current) drug therapy; Z88.2 Allergy status to sulfonamides; Z88.8 Allergy status to other drugs, medicaments and biological substances; Z88.1 Allergy status to other antibiotic agents; Z91.041 Radiographic dye allergy status; Z88.5 Allergy status to narcotic agent; Z88.0 Allergy status to penicillin; Z91.013 Allergy to seafood; R74.8 Abnormal levels of other serum enzymes; I89.0 Lymphedema, not elsewhere classified
CPT/HCPCS: 36415; 70450; 80048; 80053; 81003; 81015; 83605; 83735; 83880; 84443; 84484; 85025; 85610; 85652; 85730; 86140; 87040; 87086; 93005; 93306; 93970; 94640; 94760; 99284; A9270-GY; G8978-GP-CM; G8979-GP-CK; J0360; J0690; J1644; J2270; J3475; J3490; J7512

== ENCOUNTER 2017-12-15 09:41 | Observation (INO) | payer MEDICARE ==
[2017-12-15] MEDS ORDERED: NS 0.9% 1000 ML* 1,000 ML IV ONE (12:56)
[2017-12-15] MEDS ORDERED: Cyclobenzaprine TAB* 10 MG PO ONE (12:56)
[2017-12-15] MEDS ORDERED: NS 0.9% 1000 ML* 1,000 ML IV SCH (13:00)
--- NOTE | 2017-12-15 13:24 | RAD ---
HISTORY: Weakness COMPARISONS: August 23, 2016 VIEWS: 1: frontal portable view of the chest at 12:55 PM FINDINGS: LINES AND TUBES: None. CARDIOMEDIASTINAL SILHOUETTE: The cardiac silhouette is enlarged. The cardiomediastinal silhouette is otherwise normal for portable technique. PLEURA: The costophrenic angles are sharp. No pleural abnormalities are noted. LUNG PARENCHYMA: There is patchy alveolar opacification of the right lower lung. ABDOMEN: The upper abdomen is clear. There is no subphrenic gas. BONES AND SOFT TISSUES: No bone or soft tissue abnormalities are noted. IMPRESSION: 1. CARDIOMEGALY. 2. BIBASILAR ATELECTASIS VERSUS CONSOLIDATION. RECOMMEND FOLLOW-UP UNTIL RESOLUTION TO EXCLUDE UNDERLYING PULMONARY PARENCHYMAL PATHOLOGY.
--- NOTE | 2017-12-15 13:33 | RAD ---
Indication: Right pelvis and hip pain. CT of the pelvis was obtained in the axial plane. Sagittal and coronal reconstructed images were obtained. The visualized lower lumbar spine demonstrates degenerative changes of the facet joints. No fracture is noted. The sacrum demonstrates no fracture. Coccyx demonstrates no fracture. The ileum is otherwise unremarkable. Degenerative changes of the sacroiliac joints are noted with sclerosis especially in the right sacroiliac joint. The right acetabulum is intact without fracture. The right inferior pubic ramus demonstrates no fracture. The right femoral neck and head demonstrates no fracture. Pelvic ring is otherwise intact. . No pelvic masses are identified. No dilated small bowel are noted. The colon is filled with stool. IMPRESSION: No fracture of the pelvis is noted. No fracture of the right femur is noted. Degenerative changes of the sacroiliac joints more so on the right than on the left.
--- NOTE | 2017-12-15 13:36 | RAD ---
HISTORY: Low back pain status post fall COMPARISONS: October 28, 2017 MRI TECHNIQUE: Multiple contiguous axial CT scans were obtained of the lumbar spine without intravenous contrast, with coronal and sagittal multiplanar reformations. FINDINGS: SPINAL CANAL: Evaluation of the central canal is limited on CT technique; however, there is no obvious canalicular mass or epidural hemorrhage. ALIGNMENT: There is a levoscoliotic curvature of the spine. There is grade 1 anterolisthesis of L4 on L5 and L5 on S1. VERTEBRAL BODIES: There is anterolateral marginal osteophyte formation with reactive end plate changes most pronounced along the lower thoracic spine, and at L4-L5 and L5-S1. There is no displaced fracture. The vertebral bodies are preserved in height. There is diffuse osteopenia. JOINTS: There is facet osteoarthritis most pronounced along the lower lumbar spine. MUSCULATURE: Unremarkable INTERVERTEBRAL DISCS: There is diffuse loss of intervertebral disc height throughout the spine. AXIAL IMAGES: At L3-L4, there is broad-based disc bulge with ligament separately. There is mild narrowing of the central canal. There is no osseous neural foraminal narrowing. At L4-L5, there is broad-based disc bulge/rolled disc. There is severe bilateral neural foraminal narrowing. There is severe narrowing of central canal. L5-S1, there is bilateral facet hypertrophy. There is severe bilateral neural foraminal narrowing. There is mild narrowing of the central canal. SOFT TISSUES: There is atherosclerosis of the abdominal aorta. OTHER: There is osteoarthritis of the SI joints bilaterally. IMPRESSION: 1. OSTEOPENIA. 2. DEGENERATIVE DISC DISEASE AND OSTEOARTHRITIS, DESCRIBED ABOVE. 3. NO ACUTE OSSEOUS INJURY TO THE LUMBAR SPINE.
[2017-12-15 13:54] LABS: ABS Basophils 0.1 10^3/ul (0-0.2); ABS Eosinophils 0.4 10^3/ul (0-0.6); ABS Lymphocytes 1.6 10^3/ul (1.0-4.8); ABS Monocytes 0.5 10^3/ul (0-0.8); ABS Neutrophils 6.8 10^3/ul (1.5-7.7); ABS Nucleated RBC 0 10^3/ul; Hematocrit 33 % (35-47); Lymphocyte % 16.9 % (25-47); Mean Corpuscular HGB Conc 34 g/dl (31-36); Mean Corpuscular Hemoglobin 26 pg (27-31); Mean Corpuscular Volume 78 fL (80-97); Mean Platelet Volume 8 um3 (7.4-10.4); Nucleated Red Blood Cells % 0.1; Platelet Count 310 10^3/ul (150-450); Red Blood Count 4.24 10^6/ul (4.0-5.4); Red Cell Distribution Width 18 % (10.5-15); White Blood Count 9.4 10^3/ul (3.5-10.8)
[2017-12-15 14:04] LABS: INR 1.08 (0.77-1.02)
[2017-12-15 14:09] LABS: EGFR Non-African American 103.4 (>60)
[2017-12-15] MEDS ORDERED: Ondansetron INJ* 2 MG/ML VIAL IV PRN (17:03)
[2017-12-15] MEDS ORDERED: Docusate CAP* 100 MG PO PRN (17:05)
[2017-12-15] MEDS ORDERED: Albuterol HFA INHALER* 8 gm MDI INH PRN (17:05)
[2017-12-15] MEDS ORDERED: Polyethylene Glycol 3350* 17 GM PACKET PO PRN (17:05)
[2017-12-15] MEDS ORDERED: Senna TAB PO PRN (17:05)
[2017-12-15] MEDS ORDERED: Furosemide IV* 10 MG/ML 2 ML VIAL (20 MG) IV SLOW PU ONE (17:08)
--- NOTE | 2017-12-15 17:34 | ED ---
[facility] Hodges Thomas, scribed for Manish Mercer MD on 12/15/17 at 1141 . Complex/Multi-Sys Presentation - HPI Summary HPI Summary: The patient is a 77 year old female who fell from her recliner last night and was found this morning by maintenance. She was not able to get up by herself and she was on the floor for 7-8 hours before being found. She presents to the emergency department with complaints of lower back pain that radiates to her right lower extremity. This pain is chronic but was worsened with the fall last night. The pain is worsened with lower extremity movement. The patient has some bruising to her left hand due to an IV. The patient denies head pain, neck pain , chest pain, and arm pain. Past medical history includes herniated disk and Parkinsons disease. She is shaking, which she attributes to her Parkinsons disease. She lives alone in independent living. - History Of Current Complaint Chief Complaint: EDExtremityLower Time Seen by Provider: 12/15/17 11:22 Hx Obtained From: Patient Onset/Duration: Lasting Days - 1, Still Present Timing: Constant Severity Currently: Moderate Location: Pain At: - bilateral lower extremities, lower back Alleviating Factor(s): None Associated Signs And Symptoms: Positive: Other - Bilateral lower extremity pain , lower back pain, bruising; NEGATIVE: head pain, neck pain, chest pain, arm pain - Allergies/Home Medications Allergies/Adverse Reactions: Allergies Allergy/AdvReac Type Severity Reaction Status Date / Time avocado Allergy Unknown Verified 12/08/17 12:02 Reaction Details Iodinated Contrast- Oral and Allergy Difficulty Verified 12/08/17 12:02 IV Dye Breathing/Wheezing Penicillins Allergy Hives Verified 12/08/17 12:02 shellfish derived Allergy Difficulty Verified 12/08/17 12:02 Breathing/Wheezing Sulfa (Sulfonamide Allergy Hives Verified 12/08/17 12:02 Antibiotics) Tetracyclines Allergy Difficulty Verified 12/08/17 12:02 Breathing vancomycin Allergy Itching Verified 12/08/17 12:02 almond AdvReac GI Upset Verified 12/09/17 09:39 codeine AdvReac Vomiting Verified 12/09/17 09:39 levofloxacin AdvReac Joint Pain Verified 12/09/17 09:39 PMH/Surg Hx/FS Hx/Imm Hx Endocrine/Hematology History: Reports: Hx Diabetes Cardiovascular History: Reports: Hx Hypertension Denies: Hx Deep Vein Thrombosis, Hx Pacemaker/ICD Respiratory History: Reports: Hx Chronic Obstructive Pulmonary Disease (COPD) Denies: Hx Pulmonary Embolism History: Denies: Hx Renal Disease Musculoskeletal History: Reports: Hx Back Problems - herniat lumbar sacarl spine , DDD Denies: Hx Osteoporosis Sensory History: Denies: Hx Contacts or Glasses, Hx Hearing Aid Opthamlomology History: Denies: Hx Contacts or Glasses Neurological History: Reports: Other Neuro Impairments/Disorders - early stang Parkinsons Psychiatric History: Denies: Hx Panic Disorder - Cancer History Cancer Type, 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 Hx Chemotherapy: No Hx Radiation Therapy: No - Surgical History Surgery Procedure, Year, and Place: RT KNEE TOTAL REPLACEMENT, CARDIAC STENT [facility] 2013 (RESOLUTE STENT CONDITIONAL 5 UP TO 3T SCAN IN NORMAL MODE AND 1000G/CM888SEE OTHER FACILITITY REPORTS); HYSTERECTOMY; chest tube, exploratory LUNG sx; BILATERAL CATARACTS; T&A; BLADDER TUMOR REMOVAL(CANCEROUS) Infectious Disease History: No Infectious Disease History: Denies: Traveled Outside the [place] in Last 30 Days - Family History Known Family History: Positive: Cardiac Disease, Other - CA and lymphedema - Social History Occupation: Unemployed Lives: Alone Alcohol Use: None Substance Use Type: Reports: None Hx Tobacco Use: No Smoking Status (MU): Former Smoker Amount Used/How Often: Quit 30 years ago Review of Systems Negative: Fever Negative: Chest Pain Positive: Other - Bilateral lower extremity pain, lower back pain; NEGATIVE: head pain, neck pain, arm pain Negative: Headache All Other Systems Reviewed And Are Negative: Yes Physical Exam - Summary Physical Exam Summary: General: well-appearing, mild pain distress, morbidly obese Skin: warm, color reflects adequate perfusion, dry Head: normal Eyes: EOMI, LOUIE ENT: dry oral mucosa Neck: supple, nontender Respiratory: CTA, breath sounds present Cardiovascular: RRR Abdomen: soft, nontender, morbidly obese Bowel: present Musculoskeletal: strength/ROM intact Extremities: There is erythema in both lower legs. She can move both lower extremities. She has good plantar and dorsiflexion. There is no sensory deficit. She is tender to palpation to the right sciatic distribution on her right buttock and down the left leg. Neurological: sensory/motor intact, A&O x3 Psychological: affect/mood appropriate Triage Information Reviewed: Yes Vital Signs On Initial Exam: Initial Vitals Temp Pulse Resp BP Pulse Ox 97.7 F 66 20 148/66 97 12/15/17 09:52 12/15/17 09:52 12/15/17 09:52 12/15/17 09:52 12/15/17 09:52 Vital Signs Reviewed: Yes Diagnostics - Vital Signs Vital Signs Temp Pulse Resp BP Pulse Ox 12/15/17 11:00 67 14 167/67 99 12/15/17 10:30 66 9 157/138 98 12/15/17 10:06 67 15 97 12/15/17 10:05 151/65 12/15/17 09:52 97.7 F 66 20 148/66 97 - Laboratory Lab Results: Lab Results 12/15/17 12/15/17 12/15/17 Range/Units 13:42 13:42 13:42 WBC (3.5-10.8) 10^3/ul RBC (4.0-5.4) 10^6/ul Hgb (12.0-16.0) g/dl Hct (35-47) % MCV (80-97) fL MCH (27-31) pg MCHC (31-36) g/dl RDW (10.5-15) % Plt Count (150-450) 10^3/ul MPV (7.4-10.4) um3 Neut % (Auto) (38-83) % Lymph % (Auto) (25-47) % Payette % (Auto) (0-7) % Eos % (Auto) (0-6) % Baso % (Auto) (0-2) % Absolute Neuts (auto) (1.5-7.7) 10^3/ul Absolute Lymphs (auto) (1.0-4.8) 10^3/ul Absolute Monos (auto) (0-0.8) 10^3/ul Absolute Eos (auto) (0-0.6) 10^3/ul Absolute Basos (auto) (0-0.2) 10^3/ul Absolute Nucleated RBC 10^3/ul Nucleated RBC % INR (Anticoag Therapy) 1.08 H (0.77-1.02) APTT 36.3 (26.0-36.3) seconds Sodium 134 (133-145) mmol/L Potassium 3.4 L (3.5-5.0) mmol/L Chloride 97 L (101-111) mmol/L Carbon Dioxide 29 (22-32) mmol/L Anion Gap 8 (2-11) mmol/L BUN 13 (6-24) mg/dL Creatinine 0.57 (0.51-0.95) mg/dL Est GFR ( Amer) 133.0 (>60) Est GFR (Non-Af Amer) 103.4 (>60) BUN/Creatinine Ratio 22.8 H (8-20) Glucose 171 H (70-100) mg/dL Lactic Acid (0.5-2.0) mmol/L Calcium 9.3 (8.6-10.3) mg/dL Magnesium 1.7 L (1.9-2.7) mg/dL Total Bilirubin 0.70 (0.2-1.0) mg/dL AST 12 L (13-39) U/L ALT 14 (7-52) U/L Alkaline Phosphatase 88 (34-104) U/L Total Creatine Kinase 74 (10-223) U/L CK-MB (CK-2) 4.7 (0.6-6.3) ng/mL Troponin I 0.03 (<0.04) ng/mL C-Reactive Protein 66.26 H (< 5.00) mg/L B-Natriuretic Peptide 133 H ( - 100) pg/mL Total Protein 6.2 L (6.4-8.9) g/dL Albumin 3.6 (3.2-5.2) g/dL Globulin 2.6 (2-4) g/dL Albumin/Globulin Ratio 1.4 (1-3) Lipase 22 (11.0-82.0) U/L TSH 2.40 (0.34-5.60) mcIU/mL 12/15/17 12/15/17 Range/Units 13:42 13:42 WBC 9.4 (3.5-10.8) 10^3/ul RBC 4.24 (4.0-5.4) 10^6/ul Hgb 11.0 L (12.0-16.0) g/dl Hct 33 L (35-47) % MCV 78 L (80-97) fL MCH 26 L (27-31) pg MCHC 34 (31-36) g/dl RDW 18 H (10.5-15) % Plt Count 310 (150-450) 10^3/ul MPV 8 (7.4-10.4) um3 Neut % (Auto) 72.4 (38-83) % Lymph % (Auto) 16.9 L (25-47) % Payette % (Auto) 5.3 (0-7) % Eos % (Auto) 4.0 (0-6) % Baso % (Auto) 1.4 (0-2) % Absolute Neuts (auto) 6.8 (1.5-7.7) 10^3/ul Absolute Lymphs (auto) 1.6 (1.0-4.8) 10^3/ul Absolute Monos (auto) 0.5 (0-0.8) 10^3/ul Absolute Eos (auto) 0.4 (0-0.6) 10^3/ul Absolute Basos (auto) 0.1 (0-0.2) 10^3/ul Absolute Nucleated RBC 0 10^3/ul Nucleated RBC % 0.1 INR (Anticoag Therapy) (0.77-1.02) APTT (26.0-36.3) seconds Sodium (133-145) mmol/L Potassium (3.5-5.0) mmol/L Chloride (101-111) mmol/L Carbon Dioxide (22-32) mmol/L Anion Gap (2-11) mmol/L BUN (6-24) mg/dL Creatinine (0.51-0.95) mg/dL Est GFR ( Amer) (>60) Est GFR (Non-Af Amer) (>60) BUN/Creatinine Ratio (8-20) Glucose (70-100) mg/dL Lactic Acid 1.2 (0.5-2.0) mmol/L Calcium (8.6-10.3) mg/dL Magnesium (1.9-2.7) mg/dL Total Bilirubin (0.2-1.0) mg/dL AST (13-39) U/L ALT (7-52) U/L Alkaline Phosphatase (34-104) U/L Total Creatine Kinase (10-223) U/L CK-MB (CK-2) (0.6-6.3) ng/mL Troponin I (<0.04) ng/mL C-Reactive Protein (< 5.00) mg/L B-Natriuretic Peptide ( - 100) pg/mL Total Protein (6.4-8.9) g/dL Albumin (3.2-5.2) g/dL Globulin (2-4) g/dL Albumin/Globulin Ratio (1-3) Lipase (11.0-82.0) U/L TSH (0.34-5.60) mcIU/mL Result Diagrams: 12/15/17 13:42 12/15/17 13:42 Lab Statement: Any lab studies that have been ordered have been reviewed, and results considered in the medical decision making process. - Radiology CXR Xray Interpretation: No Acute Changes - 1. CARDIOMEGALY. 2. BIBASILAR ATELECTASIS VERSUS CONSOLIDATION. RECOMMEND FOLLOW-UP UNTIL RESOLUTION TO EXCLUDE UNDERLYING PULMONARY PARENCHYMAL PATHOLOGY. Dr. Mercer has reviewed this report. Radiology Interpretation Completed By: Radiologist - CT CT Pelvis CT Interpretation: No Acute Changes - No fracture of the pelvis is noted. No fracture of the right femur is noted. Degenerative changes of the sacroiliac joints more so on the right than on the left. Dr. Mercer has reviewed this report. CT Interpretation Completed By: Radiologist CT L-Spine CT Interpretation: No Acute Changes - 1. OSTEOPENIA. 2. DEGENERATIVE DISC DISEASE AND OSTEOARTHRITIS, DESCRIBED ABOVE. 3. NO ACUTE OSSEOUS INJURY TO THE LUMBAR SPINE. Dr. Mercer has reviewed this report. CT Interpretation Completed By: Radiologist - EKG 13:23 Cardiac Rate: NL - at 69 BPM EKG Rhythm: Sinus Rhythm ST Segment: Normal Ectopy: None Complex Multi-Symp Course/Dx Course Of Treatment: Medications reviewed. Allergies noted. BP noted and patient urged to follow up with primary care. PATIENT FEELS UNSAFE TO GO HOME DUE TO GENERALIZED WEAKNESS AND LOW BACK PAIN/RT SCIATICA - Diagnoses Provider Diagnoses: Uncontrolled hypertension, Weakness, Low back pain with sciatica - Physician Notifications Discussed Care Of Patient With: Sharonda Mchugh Time Discussed With Above Provider: 15:00 Instructed by Provider To: Admit As Inpatient Discharge - Discharge Plan Condition: Stable Disposition: ADMITTED TO [facility] Referrals: Renny Moore MD [Primary Care Provider] - The documentation as recorded by the Stone bowie Thomas accurately reflects the service I personally performed and the decisions made by me, Manish Mercer MD.
[2017-12-15] MEDS: Rivaroxaban TAB(*) 20 MG TAB PO SCH (18:22)
[2017-12-15] MEDS: HYDROcodone/ACETAMIN 5-325 MG* 1 TAB PO PRN (18:22)
[2017-12-15] MEDS ORDERED: hydrALAZINE IV* 20 MG/ML VIAL IV SLOW PU PRN (18:43)
[2017-12-15] MEDS: Mometasone/Formoter 100/5 MDI INH SCH (20:42)
[2017-12-15] MEDS: Cephalexin CAP* 500 MG PO SCH (21:20)
[2017-12-15] MEDS: Metoprolol Tartrate TAB* 25 MG PO SCH (21:20)
[2017-12-15] MEDS: Cyclobenzaprine TAB* 10 MG PO PRN (21:20)
[2017-12-15] MEDS: metFORMIN* 1,000 MG TAB PO SCH (21:20)
[2017-12-15] MEDS: Clotrimazole 1% CREAM* 30 GM TOPICAL SCH (21:29)
[2017-12-15] MEDS: Lidocaine Patch REMOVE* 1 NOTE MISC PATCH OFF SCH (21:30)
--- NOTE | 2017-12-16 01:49 | HP ---
CC: Dr. Moore * ADMISSION HISTORY AND PHYSICAL: DATE OF ADMISSION: 12/15/17 PRIMARY CARE PROVIDER: Dr. Moore. MY ATTENDING WHILE IN THE HOSPITAL: Dr. Sharonda Mchugh.* (DICTATED BY CHELI DOMINGUEZ) CHIEF COMPLAINT: Fall with prolonged downtime. HISTORY OF PRESENT ILLNESS: Ms. Wilhelm is a 77-year-old female with past medical history significant for Parkinson's, coronary artery disease, asthma, diabetes, atrial fibrillation, chronic pain, spinal pathology, and lymphedema, who presents after trying to get out of her recliner in the middle of the night last night and experiencing spasms in the back of both of her legs and falling without head trauma. The patient was unable to get to her phone and was down until 9 a.m. The patient denies any prodromal symptoms. The patient has been feeling very weak due to her Parkinson's disease and has been experiencing significant muscle spasms. The patient states that the swelling in her legs was worse yesterday because she was unable to keep them elevated at home. The patient states that her redness and swelling related to her presumed cellulitis has improved greatly since she has been on antibiotics. The patient states that she is on mild diuretic, but is not on any other therapy for her lymphedema. The patient denies any other symptoms except for slight nasal congestion and cough, but she attributes these not being able to take her Advair this morning. The patient states she has been feeling cold all day. The patient denies any sick contacts or ever being in the hospital. The patient denies urinary frequency or pain, diarrhea, constipation, abdominal pain, chest pain, shortness of breath or other abnormalities. The patient was unable to walk in the emergency department due to weakness in her legs. Due to the patient being unable to function at home, we were asked to consult for admission. The patient rates her pain at the time of examination in her legs from her hips down to her knee at a 6/10. PAST MEDICAL HISTORY: Asthma; coronary artery disease; hypertension; diabetes mellitus; lymphedema; hyperlipidemia; Parkinson's disease; hypothyroidism; anxiety and depression; pleural effusion, status post VATS; chronic pain; atrial fibrillation; bladder cancer. PAST SURGICAL HISTORY: VATS procedure, cardiac catheterization with stent placement, right knee replacement, hysterectomy. MEDICATIONS: 1. Metformin 1000 mg p.o. b.i.d. 2. Singulair 10 mg p.o. daily. 3. Advair 150 one inhalation b.i.d. 4. Zyrtec 10 mg p.o. daily. 5. CoQ10 100 mg p.o. daily. 6. Aspirin 81 mg p.o. daily. 7. Vitamin C 1000 mg p.o. daily. 8. Vitamin D 5000 units p.o. daily. 9. Levothyroxine 125 mcg p.o. daily. 10. Albuterol 2 puffs inhalation q.4 hours as needed. 11. Clotrimazole 1 application topical b.i.d. 12. Multivitamin 1 tab p.o. daily. 13. Cyclobenzaprine 5 mg p.o. b.i.d. as needed. 14. Duloxetine 60 mg p.o. daily. 15. Cranberry 400 mg p.o. daily. 16. Prandin 0.5 mg p.o. a.c. 17. Hydrochlorothiazide 12.5 mg p.o. daily. 18. [place] 5/325 one tab p.o. q.8 hours. 19. Amlodipine 10 mg p.o. daily. 20. Cephalexin 500 mg p.o. 4 times a day. 21. Docusate 100 mg p.o. daily. 22. Metoprolol 37.5 mg p.o. b.i.d. 23. Polyethylene glycol 17 g p.o. daily. 24. Xarelto 20 mg p.o. nightly. 25. Senna 1 tab p.o. daily as needed. 26. Lidocaine patch 1 patch transdermal daily. ALLERGIES: AVOCADO, IV CONTRAST, PENICILLIN, SHELLFISH, SULFA, TETRACYCLINE, VANCOMYCIN, ALMOND, CODEINE, and LEVOFLOXACIN. FAMILY HISTORY: The patient's mother of heart disease. The patient's father of heart failure, also had prostate cancer. The patient's brother has prostate cancer and heart disease. The patient's mother had breast cancer. SOCIAL HISTORY: The patient has never smoked, drunk, or used illicit drugs. 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 The patient is and has 1 adult child who is in good health. The patient would like her healthcare proxy to be her brother, Moo Cat, phone number [phone]. REVIEW OF SYSTEMS: A 14-point review of systems was reviewed and is negative except as above. PHYSICAL EXAMINATION GENERAL: The patient is a 77-year-old female who appears stated age and is sitting in the bed, in no acute distress. HEENT: Head: Normocephalic, atraumatic. Sclerae anicteric. No conjunctival injection. Nasal mucosa moist. Oral mucosa moist. The patient's lips are chapped. No pharyngeal erythema, discharge, or exudate. NECK: Supple, nontender. No lymphadenopathy. No carotid bruit auscultated. No JVD. RESPIRATORY: Clear to auscultation bilaterally. No wheezes, rales, or rhonchi. Good air exchange bilaterally. CARDIAC: Regular rate and rhythm. No clicks, murmurs, gallops, or rubs. Pulses 2+ in the bilateral dorsalis pedis, posterior tibialis, and radial areas. 4+ edema in the bilateral lower extremities with redness and tenderness to light touch anywhere in the lower extremities. ABDOMEN: Soft, nontender, and nondistended. Bowel sounds present and normoactive in all 4 quadrants. No hepatosplenomegaly. No abdominal bruits auscultated. Morbidly obese. NEUROLOGICAL: Cranial nerves II through XII intact. Strength 4/5 in bilateral upper extremities. The patient has a high-frequency tremor in her left upper extremity, worse than her right. Sensation to light touch intact bilaterally. The patient has 2+/5 strength in her left lower extremity and 2-/5 strength in her right lower extremity. Sensation is intact to light touch. Reflexes are 1 + in the bilateral brachial, patellar areas and areflexic in the bilateral Achilles' areas. Babinski is downgoing bilaterally. PSYCHIATRIC: The patient is pleasant and cooperative. SKIN: The patient has significant bruises over her body and various stages of healing. The patient has significant edema with skin scaling in her bilateral lower extremities as well as redness with mild warmth. LABORATORY DATA: White blood cell count 9.4, hemoglobin 11.0, hematocrit 33, platelet count 310. INR 1.08, APTT 36.3. Sodium 134, potassium 3.4, chloride 97, carbon dioxide 29, anion gap 8, BUN 13, creatinine 0.57, glucose 171, lactic acid 1.2, calcium 9.3, magnesium 1.7. Total bilirubin 0.7, AST 12, ALT 14, creatine kinase 74, alkaline phosphatase 88, CK-MB 4.7. Troponin I 0.03. CRP 66.23. BNP 133. Total protein 6.2, albumin 3.6, globulin 2.6, albumin to globulin ratio 1.4, lipase 22. TSH 2.4. DIAGNOSTIC STUDIES: Electrocardiogram shows a poor quality study, baseline wander, the patient is in normal sinus rhythm though P waves are not always present due to baseline activity, no ST segment changes, no blocks or other abnormalities, QTC of 475, left axis deviation, no other abnormalities. Chest x-ray read as cardiomegaly, bibasilar atelectasis versus consolidation, recommend followup until resolution to exclude underlying pulmonary parenchymal pathology. Lumbar spine CT read as osteopenia, degenerative disk disease, and osteoarthritis as described above. No acute osseous injury of the lumbar spine. Pelvis CT read as no fracture of the pelvis, no fracture of the right femur is noted, degenerative changes of the sacroiliac joints more so in the left than the right. IMPRESSION: The patient is a 77-year-old female with complex past medical history including significant for morbid obesity, lymphedema, Parkinson's disease, asthma, coronary artery disease, degenerative disk disease, and spondylolisthesis with bilateral neuroforaminal stenosis, who presents after a fall with significant downtime with no other significant pathology besides overall weakness, was unable to walk and will be admitted to the hospital for physical therapy, occupational therapy, and pain control and possible placement. ASSESSMENT AND PLAN: 1. Fall, weakness. The patient had a fall due to what appears to be exacerbation of known weakness in her lower extremities. The patient had increased swelling in her legs due to not being able to raise them. The patient also has known lumbar spine pathology, which she is not a surgical candidate for due to her weight and Parkinson's disease. The patient has no signs of stroke or new focal deficits. The patient will be admitted to the hospital for physical therapy, occupational therapy, and probable placement. The patient will have pain control with Flexeril and her home pain medications. The patient will be continued on Keflex for her lower extremity edema. The patient will be continued on hydrochlorothiazide and received an extra dose of Lasix IV at this time for her lower extremity edema as this may be contributing to her inability to walk. 2. Lymphedema, previous lower extremity cellulitis. The patient does not appear to have current cellulitis. We will have the wound clinic take a look at her to assess her for care of her chronic lymphedema. The patient should follow up as outpatient with the lymphedema clinic. 3. Parkinson's. The patient has Parkinson's disease, which is at baseline according to her. The patient is on any medications for this. The patient will follow up with her neurologist outpatient for initiation of medications. 4. Coronary artery disease. The patient has no chest pain or shortness of breath. The patient had a troponin that is negative and no EKG changes. Continue the patient's aspirin and beta yrn. 5. Asthma. Continue the patient's home Singulair, Advair, albuterol. The patient feels congested, but has no other signs of asthma exacerbation. 6. Diabetes mellitus. Continue the patient's metformin and Prandin while in the hospital. 7. Chronic pain. Continue the patient's duloxetine, [place], and Flexeril. 8. Hypertension. The patient is hypertensive in the emergency department. Continue metoprolol and amlodipine. We will increase the patient's hydrochlorothiazide. 9. Depression. Continue duloxetine. 10. Atrial fibrillation. The patient is in normal sinus rhythm currently. Continue the patient's metoprolol. 11. DVT prophylaxis: The patient is on Xarelto. 12. FEN: The patient is on a heart-healthy diet without caffeine and have no fluids at this time due to lower extremity edema. 13. Code status. The patient will be a full code. The patient's surrogate decision maker will be her brother, Moo Cat, as above. DISPOSITION: The patient is admitted inpatient with hopeful placement. TIME SPENT: Approximately 60 minutes spent on this admission, 30 of which was spent [id number] with the patient obtaining history and physical and discussing treatment plan. This plan has been discussed with my attending, Dr. Sharonda Mchugh, and she is in agreement. CHELI DOMINGUEZ [id number]/[facility] #: [id number] MTDD
[2017-12-16] MEDS: HYDROcodone/ACETAMIN 5-325 MG* 1 TAB PO PRN ×3 (02:45→21:57)
[2017-12-16] MEDS ORDERED: HYDROmorphone INJ* 1 MG/ML CARPUJECT SYRINGE IV ONE (03:54)
[2017-12-16] MEDS ORDERED: HYDROmorphone INJ* 1 MG/ML CARPUJECT SYRINGE ONE (03:57)
[2017-12-16] MEDS: Levothyroxine TAB* 125 MCG TAB PO SCH (06:18)
[2017-12-16 07:14] LABS: ABS Basophils 0.1 10^3/ul (0-0.2); ABS Eosinophils 0.4 10^3/ul (0-0.6); ABS Monocytes 0.7 10^3/ul (0-0.8); ABS Neutrophils 6.6 10^3/ul (1.5-7.7); ABS Nucleated RBC 0 10^3/ul; Eosinophil % 3.7 % (0-6); Hematocrit 32 % (35-47); Hemoglobin 10.7 g/dl (12.0-16.0); Lymphocyte % 20.3 % (25-47); Mean Corpuscular HGB Conc 33 g/dl (31-36); Mean Corpuscular Hemoglobin 26 pg (27-31); Mean Corpuscular Volume 78 fL (80-97); Mean Platelet Volume 8 um3 (7.4-10.4); Nucleated Red Blood Cells % 0.1; Platelet Count 345 10^3/ul (150-450); Red Blood Count 4.14 10^6/ul (4.0-5.4); Red Cell Distribution Width 18 % (10.5-15); White Blood Count 9.6 10^3/ul (3.5-10.8)
[2017-12-16 07:30] LABS: EGFR Non-African American 85.8 (>60)
[2017-12-16] MEDS ORDERED: Repaglinide TAB* 0.5 MG PO SCH (07:30)
[2017-12-16] MEDS: Cyclobenzaprine TAB* 10 MG PO PRN ×3 (08:04→21:57)
[2017-12-16] MEDS: Montelukast Sodium TAB* 10 MG PO SCH (08:04)
[2017-12-16] MEDS: DULoxetine DR CAP* 60 MG CAP.DR PO SCH (08:04)
[2017-12-16] MEDS: Cholecalciferol TAB* 1000 UNITS PO SCH (08:04)
[2017-12-16] MEDS: metFORMIN* 1,000 MG TAB PO SCH ×2 (08:04→21:22)
[2017-12-16] MEDS: Cetirizine* 10 MG TAB PO SCH (08:04)
[2017-12-16] MEDS: Repaglinide TAB* 0.5 MG PO SCH ×3 (08:04→17:20)
[2017-12-16] MEDS: Ascorbic Acid TAB* 500 MG PO SCH (08:04)
[2017-12-16] MEDS: Multivitamins/Minerals TAB PO SCH (08:04)
[2017-12-16] MEDS: Aspirin Low Dose CHEW TAB* 81 MG PO SCH (08:05)
[2017-12-16] MEDS: Hydrochlorothiazide TAB* 25 MG PO SCH (08:05)
[2017-12-16] MEDS: amLODIPine TAB* 5 MG PO SCH (08:05)
[2017-12-16] MEDS: Cephalexin CAP* 500 MG PO SCH ×4 (08:05→21:21)
[2017-12-16] MEDS: Metoprolol Tartrate TAB* 25 MG PO SCH ×2 (08:05→21:22)
[2017-12-16] MEDS: Lidocaine PATCH 5%* 1 PATCH TRANSDERM SCH (08:07)
[2017-12-16] MEDS: Mometasone/Formoter 100/5 MDI INH SCH ×2 (08:45→19:48)
[2017-12-16] MEDS: Clotrimazole 1% CREAM* 30 GM TOPICAL SCH ×2 (13:38→21:27)
[2017-12-16] MEDS: Rivaroxaban TAB(*) 20 MG TAB PO SCH (17:20)
--- NOTE | 2017-12-16 18:40 | PN ---
Subjective Date of Service: 12/16/17 Interval History: Patient seen and examined at bedside. Denies fever, chills, shortness of breath , chest discomfort, N/V/D. Pt states that the redness and swelling in her LEs is improving since she was treated for cellulitis. Family History: Unchanged from Admission Social History: Unchanged from Admission Past Medical History: Unchanged from Admission Objective Active Medications: Hydrocodone Bitart/Acetaminophen ([place] 5-325 Tab*) 1 tab PO Q8H PRN Reason: PAIN Albuterol (Ventolin Hfa Inhaler*) 2 puff INH Q4HR PRN Reason: WHEEZING Amlodipine Besylate (Norvasc Tab*) 10 mg PO DAILY [facility] Ascorbic Acid (Vitamin C Tab*) 1,000 mg PO DAILY [facility] Aspirin (Aspirin Low Dose Tab*) 81 mg PO DAILY [facility] Cephalexin HCl (Keflex Cap*) 500 mg PO QID [facility] Cetirizine HCl (Zyrtec*) 10 mg PO DAILY [facility] Cholecalciferol (Vitamin D Tab*) 5,000 units PO DAILY [facility] Clotrimazole (Clotrimazole 1%*) 1 applic TOPICAL BID [facility] Cyclobenzaprine HCl (Flexeril Tab*) 5 mg PO TID PRN Reason: PAIN Docusate Sodium (Colace Cap*) 100 mg PO DAILY PRN Reason: CONSTIPATION Duloxetine HCl (Cymbalta Cap*) 60 mg PO DAILY [facility] Hydralazine HCl (Apresoline Iv*) 5 mg IV SLOW PU Q6H PRN Reason: SYSTOLIC BP GREATER THAN: Hydrochlorothiazide (Hydrodiuril Tab*) 25 mg PO DAILY [facility] Levothyroxine Sodium (Synthroid Tab*) 125 mcg PO 0600 [facility] Lidocaine (Lidoderm 5% Patch*) 1 patch TRANSDERM DAILY [facility] Metformin HCl (Glucophage*) 1,000 mg PO BID [facility] Metoprolol Tartrate (Lopressor Tab*) 37.5 mg PO BID [facility] Mometasone Furoate/Formoterol Fumar (Dulera 100/5 Mdi*) 2 puff INH BID [facility] Montelukast Sodium (Singulair Tab*) 10 mg PO DAILY [facility] Multivitamins/Minerals (Theragran/Minerals Tab*) 1 tab PO DAILY [facility] Ondansetron HCl (Zofran Inj*) 4 mg IV Q6H PRN Reason: NAUSEA Pharmacy Profile Note (Lidocaine Patch Remove*) 1 note PATCH OFF 2100 [facility] Polyethylene Glycol/Electrolytes (Miralax*) 17 gm PO DAILY PRN Reason: CONSTIPATION Repaglinide (Prandin Tab*) 0.5 mg PO AC [facility] Rivaroxaban (Xarelto(*)) 20 mg PO 1800 [facility] Senna (Senokot Tab*) 1 tab PO DAILY PRN Reason: CONSTIPATION Vital Signs - 8 hr 12/16/17 12/16/17 12/16/17 10:40 10:49 11:32 Temperature 98.2 F Pulse Rate 65 Respiratory 18 18 16 Rate Blood Pressure 129/61 (mmHg) O2 Sat by Pulse 100 Oximetry 12/16/17 12/16/17 12/16/17 13:33 13:39 15:13 Temperature 98.5 F Pulse Rate 71 Respiratory 18 16 20 Rate Blood Pressure 98/37 (mmHg) O2 Sat by Pulse 97 Oximetry 12/16/17 12/16/17 16:10 16:22 Temperature 98.3 F Pulse Rate 80 Respiratory 18 Rate Blood Pressure 144/56 (mmHg) O2 Sat by Pulse 95 Oximetry Oxygen Devices in Use Now: None Appearance: NAD, laying in bed Ears/Nose/Mouth/Throat: Mucous Membranes Moist Respiratory: Symmetrical Chest Expansion and Respiratory Effort, Clear to Auscultation Cardiovascular: NL Sounds; No Murmurs; No JVD, RRR Abdominal: NL Sounds; No Tenderness; No Distention Extremities: - - Bilateral LE edema Skin: - - Mild erythema to bilateral LE Neurological: Alert and Oriented x 3, NL Muscle Strength and Tone Lines/Tubes/Other Access: Clean, Dry and Intact Peripheral IV - site benign Nutrition: Taking PO's Result Diagrams: 12/16/17 06:33 12/16/17 06:33 Additional Lab and Data: Microbiology and Other Data: Microbiology 12/15/17 18:00 Influenza Types A,B Antigen (SELMA) - Final Nasal Specimen received for Influenza A/B Molecular testing Assess/Plan/Problems-Billing Assessment: Ms. Wilhelm is a 77 yo female with PMH significant for Parkinson's disease, astham, REGLA, HTN, DM, lymphedema, HLD, hypothyroidism, A/D, chronic pain, bladder CA and afib who presented to the emergency room with complaints of back spasms and a fall at home. - Patient Problems (1) Fall Comment: - Suspect secondary to exacerbation of weakness / generalized weakness - Continue PT/OT - Pt will need VANDANA (2) Lymphedema of both lower extremities Code(s): I89.0 - LYMPHEDEMA, NOT ELSEWHERE CLASSIFIED SNOMED Code(s): 75901219184918283 Comment: - With recent cellulitis - Afebrile and no leukocytosis - Blood cultures, no growth day 1 - Continue Keflex, day 8/10 - Wound clinic consult, input appreciated - Supportive care - She will require a referral to lymphedema clinic at discharge (3) Parkinson disease Code(s): G20 - PARKINSON'S DISEASE SNOMED Code(s): 52816084 Comment: - No currently on medications - Will need to follow-up with neurology outpatient for initiation of medications (4) Chronic pain Code(s): G89.29 - OTHER CHRONIC PAIN SNOMED Code(s): 45967555 Comment: - Continue duloxetine, [place], and flexeril (5) Afib Code(s): I48.91 - UNSPECIFIED ATRIAL FIBRILLATION SNOMED Code(s): 89561373 Comment: - Heart rate regular at this time - Continue metoprolol (6) Anxiety and depression Code(s): F41.8 - OTHER SPECIFIED ANXIETY DISORDERS SNOMED Code(s): 979313503 Comment: - Continue cymbalta (7) Hypertension Code(s): I10 - ESSENTIAL (PRIMARY) HYPERTENSION SNOMED Code(s): 81991740 Comment: - SBP 90-140's - Continue amlodipine and HCTZ (8) Hypothyroid Code(s): E03.9 - HYPOTHYROIDISM, UNSPECIFIED SNOMED Code(s): 27527053 Comment: - TSH 2.4 - Continue synthroid (9) Coronary artery disease Code(s): I25.10 - ATHSCL HEART DISEASE OF [place] CORONARY ARTERY W/O ANG PCTRS SNOMED Code(s): 69898660 Comment: - Asymptomatic - Continue metoprolol and ASA (10) Diabetes Code(s): E11.9 - TYPE 2 DIABETES MELLITUS WITHOUT COMPLICATIONS SNOMED Code(s) : 93119339 Comment: - BG 120-170 - Continue metformin and prandin (11) DVT prophylaxis Code(s): NTC9582 - SNOMED Code(s): 696171410 Comment: - Heparin SQ (12) Full code status Code(s): Z78.9 - OTHER SPECIFIED HEALTH STATUS SNOMED Code(s): 349385396 Status and Disposition: OBV to Inpatient. Discharge to rehab when bed available.
[2017-12-16] MEDS ORDERED: Magnesium Sulfate 2 GM IV* 2 GM/50 ML BAG IVPB ONE (18:44)
[2017-12-16] MEDS: Lidocaine Patch REMOVE* 1 NOTE MISC PATCH OFF SCH (21:28)
[2017-12-17 02:08] LABS: Urine Appearance Clear; Urine Blood Negative (Negative); Urine Color Yellow; Urine Ketones Negative (Negative); Urine Protein Negative (Negative); Urine Specific Gravity 1.012 (1.010-1.030); Urine Urobilinogen Negative (Negative)
[2017-12-17] MEDS: Levothyroxine TAB* 125 MCG TAB PO SCH (05:56)
[2017-12-17] MEDS: Cyclobenzaprine TAB* 10 MG PO PRN ×3 (06:09→23:37)
[2017-12-17] MEDS: Cholecalciferol TAB* 1000 UNITS PO SCH (09:24)
[2017-12-17] MEDS: Hydrochlorothiazide TAB* 25 MG PO SCH (09:25)
[2017-12-17] MEDS: amLODIPine TAB* 5 MG PO SCH (09:26)
[2017-12-17] MEDS: Cetirizine* 10 MG TAB PO SCH (09:26)
[2017-12-17] MEDS: Aspirin Low Dose CHEW TAB* 81 MG PO SCH (09:26)
--- NOTE | 2017-12-17 09:28 | PN ---
Subjective Family History: Unchanged from Admission Social History: Unchanged from Admission Past Medical History: Unchanged from Admission Objective Active Medications: Hydrocodone Bitart/Acetaminophen ([place] 5-325 Tab*) 1 tab PO Q8H PRN PRN Reason: PAIN Last Admin: 12/16/17 21:57 Dose: 1 tab Albuterol (Ventolin Hfa Inhaler*) 2 puff INH Q4HR PRN PRN Reason: WHEEZING Amlodipine Besylate (Norvasc Tab*) 10 mg PO DAILY [facility] Last Admin: 12/16/17 08:05 Dose: 10 mg Ascorbic Acid (Vitamin C Tab*) 1,000 mg PO DAILY [facility] Last Admin: 12/16/17 08:04 Dose: 1,000 mg Aspirin (Aspirin Low Dose Tab*) 81 mg PO DAILY [facility] Last Admin: 12/16/17 08:05 Dose: 81 mg Cephalexin HCl (Keflex Cap*) 500 mg PO QID [facility] Stop: 12/18/17 22:00 Last Admin: 12/16/17 21:21 Dose: 500 mg Cetirizine HCl (Zyrtec*) 10 mg PO DAILY [facility] PRN Reason: Protocol Last Admin: 12/16/17 08:04 Dose: 10 mg Cholecalciferol (Vitamin D Tab*) 5,000 units PO DAILY [facility] Last Admin: 12/16/17 08:04 Dose: 5,000 units Clotrimazole (Clotrimazole 1%*) 1 applic TOPICAL BID [facility] Last Admin: 12/16/17 21:27 Dose: 1 applic Cyclobenzaprine HCl (Flexeril Tab*) 5 mg PO TID PRN PRN Reason: PAIN Last Admin: 12/17/17 06:09 Dose: 5 mg Docusate Sodium (Colace Cap*) 100 mg PO DAILY PRN PRN Reason: CONSTIPATION Last Admin: 12/16/17 13:33 Dose: 100 mg Duloxetine HCl (Cymbalta Cap*) 60 mg PO DAILY [facility] Last Admin: 12/16/17 08:04 Dose: 60 mg Hydralazine HCl (Apresoline Iv*) 5 mg IV SLOW PU Q6H PRN PRN Reason: SYSTOLIC BP GREATER THAN: Hydrochlorothiazide (Hydrodiuril Tab*) 25 mg PO DAILY [facility] Last Admin: 12/16/17 08:05 Dose: 25 mg Levothyroxine Sodium (Synthroid Tab*) 125 mcg PO 0600 [facility] Last Admin: 12/17/17 05:56 Dose: 125 mcg Lidocaine (Lidoderm 5% Patch*) 1 patch TRANSDERM DAILY [facility] Last Admin: 12/16/17 08:07 Dose: 1 patch Metformin HCl (Glucophage*) 1,000 mg PO BID [facility] Last Admin: 12/16/17 21:22 Dose: 1,000 mg Metoprolol Tartrate (Lopressor Tab*) 37.5 mg PO BID [facility] Last Admin: 12/16/17 21:22 Dose: 37.5 mg Mometasone Furoate/Formoterol Fumar (Dulera 100/5 Mdi*) 2 puff INH BID [facility] Last Admin: 12/16/17 19:48 Dose: 2 puff Montelukast Sodium (Singulair Tab*) 10 mg PO DAILY [facility] Last Admin: 12/16/17 08:04 Dose: 10 mg Multivitamins/Minerals (Theragran/Minerals Tab*) 1 tab PO DAILY [facility] Last Admin: 12/16/17 08:04 Dose: 1 tab Ondansetron HCl (Zofran Inj*) 4 mg IV Q6H PRN PRN Reason: NAUSEA Pharmacy Profile Note (Lidocaine Patch Remove*) 1 note PATCH OFF 2100 [facility] Last Admin: 12/16/17 21:28 Dose: 1 note Polyethylene Glycol/Electrolytes (Miralax*) 17 gm PO DAILY PRN PRN Reason: CONSTIPATION Repaglinide (Prandin Tab*) 0.5 mg PO AC [facility] Last Admin: 12/16/17 17:20 Dose: 0.5 mg Rivaroxaban (Xarelto(*)) 20 mg PO 1800 [facility] Last Admin: 12/16/17 17:20 Dose: 20 mg Senna (Senokot Tab*) 1 tab PO DAILY PRN PRN Reason: CONSTIPATION Last Admin: 12/16/17 08:06 Dose: 1 tab Vital Signs - 8 hr 12/17/17 12/17/17 12/17/17 03:16 06:09 07:23 Temperature 98.1 F 98.0 F Pulse Rate 58 68 Respiratory 16 16 14 Rate Blood Pressure 136/61 162/74 (mmHg) O2 Sat by Pulse 96 94 Oximetry Oxygen Devices in Use Now: None Appearance: Alert, supine in bed. In good spirits. Looks comfortable. Eyes: No Scleral Icterus Respiratory: Symmetrical Chest Expansion and Respiratory Effort, Clear to Auscultation, Clear to Percussion Cardiovascular: NL Sounds; No Murmurs; No JVD, RRR, No Edema, - Extremities: No Clubbing, Cyanosis, - - 1+ edema BL Skin: No Nodules or Sclerosis, - - Lower half both lower legs dry, red, scaly anteriorly. Neurological: NL Sensation - BURK. Speech clear and fluent. No tremor. Result Diagrams: 12/16/17 06:33 12/16/17 06:33 Additional Lab and Data: Microbiology and Other Data: Microbiology 12/15/17 18:00 Influenza Types A,B Antigen (SELMA) - Final Nasal Specimen received for Influenza A/B Molecular testing Assess/Plan/Problems-Billing Assessment: Ms. Wilhelm is a 77 yo female with PMH significant for Parkinson's disease, astham, REGLA, HTN, DM, lymphedema, HLD, hypothyroidism, A/D, chronic pain, bladder CA and afib who presented to the emergency room with complaints of back spasms and a fall at home. - Patient Problems (1) Back pain Current Visit: No Status: Acute Code(s): M54.9 - DORSALGIA, UNSPECIFIED SNOMED Code(s): 479234993 Comment: Has seen Dr. Conde and Dr. Peterson. LS spine MRI 10/28/17 showed has stage 1 spondy and herniations - NS wasnt sure if she was a surgical canidate Continue present hydrocodone/APAP, cyclobenzaprine, lidocaine patch. (2) Hypomagnesemia Current Visit: Yes Status: Acute Code(s): E83.42 - HYPOMAGNESEMIA SNOMED Code(s): 484851579 Comment: Start po mag oxide. This may contribute to her leg spasms. (3) Lymphedema of both lower extremities Current Visit: No Status: Chronic Code(s): I89.0 - LYMPHEDEMA, NOT ELSEWHERE CLASSIFIED SNOMED Code(s): 17597464589103057 Comment: ? cellulitis vs dermatitis. - Afebrile and no leukocytosis - Blood cultures, no growth day 1 - Continue Keflex, last day 3/4. (10 day course). Start HC 1% cream bid to legs. - She may benefit from a referral to lymphedema clinic at discharge (4) Afib Current Visit: No Status: Chronic Code(s): I48.91 - UNSPECIFIED ATRIAL FIBRILLATION SNOMED Code(s): 19733214 Comment: In NSR 12/16. - Continue metoprolol, rviaroxaban. (5) Hypothyroid Current Visit: No Status: Chronic Code(s): E03.9 - HYPOTHYROIDISM, UNSPECIFIED SNOMED Code(s): 17639791 Comment: - TSH 2.40 12/15/17. - Continue synthroid (6) Morbid obesity Current Visit: Yes Status: Acute Code(s): E66.01 - MORBID (SEVERE) OBESITY DUE TO EXCESS CALORIES SNOMED Code(s): 687387968 Comment: BMI 52.4. (7) Asthma Current Visit: No Status: Chronic Code(s): J45.909 - UNSPECIFIED ASTHMA, UNCOMPLICATED SNOMED Code(s): 283128871 Comment: - Continue mometasone/formoterol (8) Gait difficulty Current Visit: Yes Status: Acute Code(s): R26.9 - UNSPECIFIED ABNORMALITIES OF GAIT AND MOBILITY SNOMED Code(s): 69142521 Comment: ? dx Parkinsons's, did not tolerate first med. Dr. Lin to see. (9) Diabetes Current Visit: No Status: Chronic Code(s): E11.9 - TYPE 2 DIABETES MELLITUS WITHOUT COMPLICATIONS SNOMED Code(s): 43169190 Comment: Start Lispro by SS 12/17. - Continue metformin and repaglinide. (10) Hypertension Current Visit: No Status: Chronic Code(s): I10 - ESSENTIAL (PRIMARY) HYPERTENSION SNOMED Code(s): 77193930 Comment: - Continue amlodipine and HCTZ (11) Cellulitis Current Visit: No Status: Acute Code(s): L03.90 - CELLULITIS, UNSPECIFIED SNOMED Code(s): 172972053 Comment: See discussion of lymphedema above. (12) Coronary artery disease Current Visit: No Status: Chronic Code(s): I25.10 - ATHSCL HEART DISEASE OF [place] CORONARY ARTERY W/O ANG PCTRS SNOMED Code(s): 75883472 Comment: - Asymptomatic - Continue metoprolol and ASA Start atorvastatin 20 mg 12/17. Status and Disposition: OBV to Inpatient. Discharge to rehab when bed available.
[2017-12-17] MEDS: DULoxetine DR CAP* 60 MG CAP.DR PO SCH (09:30)
[2017-12-17] MEDS: Cephalexin CAP* 500 MG PO SCH ×4 (09:30→21:00)
[2017-12-17] MEDS: Multivitamins/Minerals TAB PO SCH (09:30)
[2017-12-17] MEDS: Montelukast Sodium TAB* 10 MG PO SCH (09:31)
[2017-12-17] MEDS: metFORMIN* 1,000 MG TAB PO SCH ×2 (09:31→21:01)
[2017-12-17] MEDS: Ascorbic Acid TAB* 500 MG PO SCH (09:34)
[2017-12-17] MEDS: Repaglinide TAB* 0.5 MG PO SCH ×3 (09:34→18:11)
[2017-12-17] MEDS: Metoprolol Tartrate TAB* 25 MG PO SCH ×2 (09:36→21:00)
[2017-12-17] MEDS: Lidocaine PATCH 5%* 1 PATCH TRANSDERM SCH (09:38)
[2017-12-17] MEDS: HYDROcodone/ACETAMIN 5-325 MG* 1 TAB PO PRN ×2 (09:38→21:01)
[2017-12-17] MEDS: Clotrimazole 1% CREAM* 30 GM TOPICAL SCH ×2 (09:43→21:02)
[2017-12-17] MEDS ORDERED: Dextrose 50% Syringe 50 ML* 25 GM/50 ML SYRINGE IV PUSH PRN (09:47)
[2017-12-17] MEDS ORDERED: Magnesium Oxide TAB* 400 MG ONE (09:47)
[2017-12-17] MEDS: Magnesium Oxide TAB* 400 MG PO SCH ×2 (09:49→21:01)
[2017-12-17] MEDS: Mometasone/Formoter 100/5 MDI INH SCH ×2 (10:15→20:55)
[2017-12-17] MEDS: Insulin LISPRO* 1 UNITS UNIT SUBCUT SCH ×3 (13:17→21:11)
[2017-12-17] MEDS ORDERED: Atorvastatin* 20 MG TAB PO SCH (17:00)
[2017-12-17] MEDS: Rivaroxaban TAB(*) 20 MG TAB PO SCH (18:12)
[2017-12-17] MEDS: Lidocaine Patch REMOVE* 1 NOTE MISC PATCH OFF SCH (21:03)
[2017-12-17] MEDS: Calcium Carbonate CHEW TAB* 500 MG (TUMS) PO PRN (23:37)
--- NOTE | 2017-12-17 23:48 | CONS ---
CC: Dr. Daniel Peterson; Dr. Moore* CONSULTATION REPORT: DATE OF CONSULT: 12/17/2017. REQUESTING PHYSICIAN: Dr. Mckeon. NEUROLOGIST: Dr. Daniel Peterson. PRIMARY CARE PHYSICIAN: Dr. Moore. REASON FOR CONSULT: Difficulty walking. HISTORY OF PRESENT ILLNESS: Sheryl Wilhelm is a 77-year-old woman with history of tremor following with Dr. Peterson, who was admitted recently to hospital from to 12/13/17 with bilateral lower extremity cellulitis and atrial fibrillation with rapid ventricular response, who now is readmitted on 12/15/17 secondary to back spasms making it difficult for her to get out of her La-[place]-Boy. She tells me her story goes back about a year. It has been about a year since she has been able to climb into her bed. She started sleeping on her sofa, eventually it was hard to get up. She had to call the ambulance twice. She then started using a La-Z-Boy. She indicates it has been 9 months since she walked regularly. It used to take 2 minutes walk from her door to her mail box and now it takes 10 minutes. She lives at an independent living at [facility]. She does do chair exercises twice a week. She unfortunately in the morning can feel like there are tendons behind her knee that freeze up and she will have to call the ambulance to get out of bed. When she started having that feeling today; the pain radiating from her left hip toward her knee. The discomfort can be behind her knee on the left hand side. Once she gets moving, then the pain goes away. She does find that at times she has spasms in her low back she can feel like she is dragging her feet. Her feet can be numb. She notices this more in the last 5 to 6 weeks. It is mainly in her feet, but sometimes it can go higher. Sometimes, it is hard to black pickler her legs, right greater than left, and her legs have gotten more edematous with lymphedema and more recent diagnosis of possible cellulitis. She has had difficulty with tremor, which tends to happen when she is using them and gets worse when she is tired or stressed. She had seen Dr. Peterson, who had raised question of Parkinson's disease, tried Sinemet with no improvement. He also diagnosed her with a essential tremor as well as with a peripheral neuropathy in the setting of diabetes. She indicates that she had an MRI of the lumbosacral spine, was going to see a neurosurgeon and was going to start physical therapy. In review of her MRI of the lumbosacral spine, she does have several findings in particular a moderate stenosis at L4-L5. Please see report for details. This film was reviewed directly. She also tells me that she occasionally feels like has difficulty swallowing and food gets struck in her throat. This is on occasion. Her handwriting has not changed in size. She describes it as a medium size handwriting. She did have an MRI of the brain in May 2016, which was reported to be normal. This film was reviewed directly. PAST MEDICAL HISTORY: Includes tremor with a diagnosis of a essential tremor and the question of Parkinson's, however she did not respond to Sinemet; coronary artery disease with stent; hypertension; diabetes; hyperlipidemia; hypothyroidism; lymphedema; pleural effusion with surgery; atrial fibrillation with rapid ventricular response; chronic pain. She has a longstanding history of fibromyalgia, anxiety, depression, bladder cancer, asthma, degenerative joint disease. She has had right knee replacement, surgery for bladder cancer, tonsillectomy, and adenoidectomy at age 4, and hysterectomy with bilateral salpingo- oophorectomy. MEDICATIONS: Her current medications in hospital include: 1. Hydrocodone 1 tablet every 8 hours by mouth as needed for pain. 2. Albuterol 2 puffs inhaled q.4 hours p.r.n. wheezing. 3. Norvasc 10 mg p.o. q. day. 4. Aspirin 81 mg p.o. q. day. 5. Atorvastatin 20 mg p.o. q.p.m. 6. Keflex 500 mg p.o. four times a day. 7. Zyrtec 10 mg p.o. q. day. 8. Vitamin D 5000 units p.o. q. day. 9. Clotrimazole 1% applied topically b.i.d. 10. Flexeril 5 mg p.o. t.i.d. p.r.n. pain. 11. Dextrose 12.5 g IV push p.r.n. fingerstick less than 60. 12. Colace 100 mg p.o. p.r.n. constipation. 13. Cymbalta 60 mg p.o. q. day. 14. Hydrochlorothiazide 25 mg p.o. q. day. 15. Hydrocortisone cream 1% applied topically b.i.d. 16. Humalog as prescribed. 17. Levothyroxine 125 mcg p.o. q.a.m. 18. Lidocaine patch 5% applied each day. 19. Mag oxide 400 mg p.o. b.i.d. 20. Glucophage 1000 mg p.o. b.i.d. 21. Metoprolol 37.5 mg p.o. b.i.d. 22. Dulera 2 puffs inhaled b.i.d. 23. Singulair 10 mg p.o. q. day. 24. Zofran 4 mg IV q.6 hours p.r.n. nausea. 25. MiraLAX 17 g p.o. q. day p.r.n. constipation. 26. Prandin 0.5 mg p.o. a.c. 27. Xarelto 20 mg p.o. q.p.m. 28. Senna 1 tablet p.o. q. day p.r.n. constipation. ALLERGIES: Include AVOCADO, IV CONTRAST, PENICILLIN, SHELL FISH, SULFA, TETRACYCLINE, VANCOMYCIN, ALMOND, CODEINE, and LEVOFLOXACIN. The patient indicates to refer to the chart as she could not remember all of this information. FAMILY HISTORY: Includes a mother who had bipolar and the chart indicates she of heart disease. Father had prostate cancer, was an alcoholic, and chart indicates he also of heart failure. There is a history of prostate cancer and heart disease in a brother. Chart indicates breast cancer in mother and there is also history of arthritis and heart disease in the family. SOCIAL HISTORY: Sheryl Wilhelm does not smoke or drink alcohol. She is single, . Her daughter is in [place]. REVIEW OF SYSTEMS: A 14-review of systems was performed and this has been included in the HPI and in the past medical history. PHYSICAL EXAM: Sheryl Wilhelm is a 77-year-old woman, who showed appropriate concern. The most recent vitals include a temperature of 98, pulse of 63, respiratory rate was 22, saturation was 95%, blood pressure was 146/77. She had a regular cardiac rhythm. Her lungs were clear to auscultation. She had lymphedema in her legs. They were extremely large, distally had some redness to them, which she tells me has improved. No clear open wounds. Peripheral pulses could be felt down in her feet. She is awake, alert, articulate, had normal language function. The pupils were equal and responsive to light. It is hard to visualize her fundi. She had full extraocular movements with no nystagmus. She had full staley to confrontation. Her facial expression and sensation were equal. Palate was upgoing. Tongue was midline. Sternocleidomastoid and trapezius were 5/5 in strength. There was normal bulk and tone. No pronator drift. She had good strength in the upper extremities. She did have some bruising of her arm on the right. In her lower extremities, she could not lift up her legs; she proximally had hip flexion on the right side when she tried to lift the leg she got back pain, and when she lifted the left leg she got pain from her lateral hip down to her knee, but was able to move it slightly. Distally, however, when helping lift her leg, she had good knee extension and knee flexion bilaterally with full strength. She had full strength and foot dorsiflexion and EHL strength. Vibration sensation was absent in the toes, decreased by 20 seconds at the ankles, normal at the distal interphalangeal joints. She had sharp sensation and cold sensation that were decreased in the feet. Light touch was symmetric. There were no asymmetries to pinprick, cold, or light touch. Reflexes were 2+ in the upper extremities, absent in the right knee where she had a knee replacement, 2+ in the left knee, absent at the ankles, and toes with flexor response. An essential tremor was noted in the left greater than right upper extremity. Gait could not be tested due to clinical status. There was no evidence of resting tremor, increased tone , or bradykinesia. DIAGNOSTIC STUDIES/LAB DATA: Data includes TSH of 2.40, CK of 74. MRI of the lumbosacral spine as noted above that was reviewed directly from October, which did show lumbosacral spinal stenosis, which was moderate at L4- L5. Please see report for details. MRI of the brain from 2015, which did not show any significant pathology. CBC yesterday showed normal hemoglobin, normal white count, and normal platelets. Hemoglobin and hematocrit were slightly low at 10.7 and 32. Her basic metabolic panel showed a slightly low chloride at 98 yesterday. Glucose was 170. Point-of- care glucose has been variable between 128 and 184. In the last 2 days, her magnesium was low at 1.6. Urinalysis most recently showed 1+ esterase, 1+ white blood cell count. IMPRESSION AND PLAN: 1. Sheryl Wilhelm is a 77-year-old woman with progressive weakness over 1 year with falls in the setting of diabetes, peripheral neuropathy, significant lower extremity lymphedema, history of arthritis, findings of lumbosacral spine stenosis which is moderate at L4-L5 on MRI of the lumbosacral spine in October. The cause for her decline in gait and function is most likely multifactorial. First of all at baseline, she has a peripheral neuropathy most likely secondary to diabetes, which can affect her balance. This seems mostly distal in nature, but certainly can affect proprioception. 2. She has history of arthritis with significant pain that gets better with movement, sometimes this is so bad she needs someone to help her get out of bed and has had to call the ambulance or fire department. Once she gets going, she is better and the pain goes away. 3. Edema, which has increased causing increased lower extremity weight. This can make it harder for her to move. The disconnect between the good distal strength compared to the proximal strength, both in the L5-S1 distribution suggests this leg weight is significantly contributing to her weakness. Certainly over time, progressively not being able to use her limbs because of all of these issues, she has had progressive decline in function. There is no clear proximal weakness in her arms or pain in the muscles or proximal limbs to suggest myopathy and her CK is normal. It is unclear to say how much the finding of lumbosacral spinal stenosis is contributing to the picture. The findings are significant. EMG/NCS can not be performed in the setting of her significant lymphedema. She does need supportive care and at this point, I would highly suggest aggressive rehabilitation with physical therapy, occupational therapy, work on lymphedema to try to get back and to an independent state. She does have evidence of a essential tremor. I found no evidence of Parkinson' s disease on today's visit. Therefore, no new medications have been suggested at this time. My thoughts and ideas were transmitted to Dr. Mckeon, who will be taking care of her as a hospitalist. Please let me know if further neurologic input is needed. TIME SPENT: Over 2 hours was spent in patient care, reviewing outpatient chart , inpatient chart, previous workup, films directly, communicating with caregiver. All questions were answered. [id number]/CPS #: [id number] HENRI
[2017-12-18] MEDS: Hydrocortisone 1% CREAM* 30 GM TUBE TOPICAL SCH ×3 (00:22→21:20)
[2017-12-18] MEDS: HYDROcodone/ACETAMIN 5-325 MG* 1 TAB PO PRN (05:18)
[2017-12-18] MEDS: Levothyroxine TAB* 125 MCG TAB PO SCH (05:29)
[2017-12-18] MEDS: Mometasone/Formoter 100/5 MDI INH SCH ×2 (08:17→20:09)
[2017-12-18] MEDS: Cyclobenzaprine TAB* 10 MG PO PRN ×2 (08:40→18:40)
[2017-12-18] MEDS: Cholecalciferol TAB* 1000 UNITS PO SCH (08:43)
[2017-12-18] MEDS: Metoprolol Tartrate TAB* 25 MG PO SCH ×2 (08:44→21:19)
[2017-12-18] MEDS: metFORMIN* 1,000 MG TAB PO SCH ×2 (08:46→21:20)
[2017-12-18] MEDS: Hydrochlorothiazide TAB* 25 MG PO SCH (08:46)
[2017-12-18] MEDS: DULoxetine DR CAP* 60 MG CAP.DR PO SCH (08:46)
[2017-12-18] MEDS: Cephalexin CAP* 500 MG PO SCH ×4 (08:46→21:19)
[2017-12-18] MEDS: Repaglinide TAB* 0.5 MG PO SCH ×3 (08:46→17:29)
[2017-12-18] MEDS: Montelukast Sodium TAB* 10 MG PO SCH (08:47)
[2017-12-18] MEDS: amLODIPine TAB* 5 MG PO SCH (08:47)
[2017-12-18] MEDS: Magnesium Oxide TAB* 400 MG PO SCH ×2 (08:48→21:19)
[2017-12-18] MEDS: Cetirizine* 10 MG TAB PO SCH (08:48)
[2017-12-18] MEDS: Aspirin Low Dose CHEW TAB* 81 MG PO SCH (08:48)
[2017-12-18] MEDS: Clotrimazole 1% CREAM* 30 GM TOPICAL SCH ×2 (08:49→21:20)
[2017-12-18] MEDS: Lidocaine PATCH 5%* 1 PATCH TRANSDERM SCH (08:50)
[2017-12-18] MEDS: Insulin LISPRO* 1 UNITS UNIT SUBCUT SCH ×4 (08:50→21:14)
--- NOTE | 2017-12-18 09:08 | PN ---
Subjective Date of Service: 12/18/17 Interval History: Intermittent pains: spasms both legs, pain R buttock to R leg, 2-3 times a days , last hours. No bowel c/o. Appetite OK. Family History: Unchanged from Admission Social History: Unchanged from Admission Past Medical History: Unchanged from Admission Objective Active Medications: Hydrocodone Bitart/Acetaminophen ([place] 5-325 Tab*) 1 tab PO Q8H PRN PRN Reason: PAIN Last Admin: 12/18/17 05:18 Dose: 1 tab Albuterol (Ventolin Hfa Inhaler*) 2 puff INH Q4HR PRN PRN Reason: WHEEZING Amlodipine Besylate (Norvasc Tab*) 10 mg PO DAILY [facility] Last Admin: 12/18/17 08:47 Dose: 10 mg Aspirin (Aspirin Low Dose Tab*) 81 mg PO DAILY [facility] Last Admin: 12/18/17 08:48 Dose: 81 mg Atorvastatin Calcium (Lipitor*) 20 mg PO 1700 [facility] Last Admin: 12/17/17 18:11 Dose: Not Given Calcium Carbonate (Tums*) 500 mg PO TID PRN PRN Reason: INDIGESTION Last Admin: 12/17/17 23:37 Dose: 500 mg Cephalexin HCl (Keflex Cap*) 500 mg PO QID [facility] Stop: 12/18/17 22:00 Last Admin: 12/18/17 08:46 Dose: 500 mg Cetirizine HCl (Zyrtec*) 10 mg PO DAILY [facility] PRN Reason: Protocol Last Admin: 12/18/17 08:48 Dose: 10 mg Cholecalciferol (Vitamin D Tab*) 5,000 units PO DAILY [facility] Last Admin: 12/18/17 08:43 Dose: 5,000 units Clotrimazole (Clotrimazole 1%*) 1 applic TOPICAL BID [facility] Last Admin: 12/18/17 08:49 Dose: 1 applic Cyclobenzaprine HCl (Flexeril Tab*) 5 mg PO TID PRN PRN Reason: PAIN Last Admin: 12/18/17 08:40 Dose: 5 mg Dextrose (D50w Syringe 50 Ml*) 12.5 gm IV PUSH .FOR FS < 60 - SS PRN PRN Reason: FS < 60 Docusate Sodium (Colace Cap*) 100 mg PO DAILY PRN PRN Reason: CONSTIPATION Last Admin: 12/16/17 13:33 Dose: 100 mg Duloxetine HCl (Cymbalta Cap*) 60 mg PO DAILY [facility] Last Admin: 12/18/17 08:46 Dose: 60 mg Hydrochlorothiazide (Hydrodiuril Tab*) 25 mg PO DAILY [facility] Last Admin: 12/18/17 08:46 Dose: 25 mg Hydrocortisone (Hytone Cream 1%*) 1 applic TOPICAL BID [facility] Last Admin: 12/18/17 00:22 Dose: Not Given Insulin Human Lispro (Humalog*) 0 units SUBCUT ACHS [facility] PRN Reason: Protocol Last Admin: 12/18/17 08:50 Dose: 3 unit Levothyroxine Sodium (Synthroid Tab*) 125 mcg PO 0600 [facility] Last Admin: 12/18/17 05:29 Dose: 125 mcg Lidocaine (Lidoderm 5% Patch*) 1 patch TRANSDERM DAILY [facility] Last Admin: 12/18/17 08:50 Dose: 1 patch Magnesium Oxide (Magox 400 Tab*) 400 mg PO BID [facility] Last Admin: 12/18/17 08:48 Dose: 400 mg Metformin HCl (Glucophage*) 1,000 mg PO BID [facility] Last Admin: 12/18/17 08:46 Dose: 1,000 mg Metoprolol Tartrate (Lopressor Tab*) 37.5 mg PO BID [facility] Last Admin: 12/18/17 08:44 Dose: 37.5 mg Mometasone Furoate/Formoterol Fumar (Dulera 100/5 Mdi*) 2 puff INH BID [facility] Last Admin: 12/18/17 08:17 Dose: 2 puff Montelukast Sodium (Singulair Tab*) 10 mg PO DAILY [facility] Last Admin: 12/18/17 08:47 Dose: 10 mg Ondansetron HCl (Zofran Inj*) 4 mg IV Q6H PRN PRN Reason: NAUSEA Pharmacy Profile Note (Lidocaine Patch Remove*) 1 note PATCH OFF 2100 [facility] Last Admin: 12/17/17 21:03 Dose: 1 note Polyethylene Glycol/Electrolytes (Miralax*) 17 gm PO DAILY PRN PRN Reason: CONSTIPATION Repaglinide (Prandin Tab*) 0.5 mg PO AC [facility] Last Admin: 12/18/17 08:46 Dose: 0.5 mg Rivaroxaban (Xarelto(*)) 20 mg PO 1800 [facility] Last Admin: 12/17/17 18:12 Dose: 20 mg Senna (Senokot Tab*) 1 tab PO DAILY PRN PRN Reason: CONSTIPATION Last Admin: 12/16/17 08:06 Dose: 1 tab Vital Signs - 8 hr 12/18/17 12/18/17 12/18/17 02:23 03:12 05:18 Temperature 98.3 F Pulse Rate 63 Respiratory 16 16 16 Rate Blood Pressure 137/61 (mmHg) O2 Sat by Pulse 95 Oximetry 12/18/17 12/18/17 12/18/17 07:35 07:57 08:40 Temperature 98.0 F Pulse Rate 65 Respiratory 16 16 18 Rate Blood Pressure 154/73 (mmHg) O2 Sat by Pulse 97 Oximetry Oxygen Devices in Use Now: None Appearance: Alert, supine in bed. In good spirits. Looks comfortable. Eyes: No Scleral Icterus Extremities: No Clubbing, Cyanosis, - - 1+ edema BL. Skin: No Nodules or Sclerosis, - - erythema, dryness and scales about the same both LE's. Neurological: Alert and Oriented x 3, NL Sensation Result Diagrams: 12/16/17 06:33 12/16/17 06:33 Additional Lab and Data: Microbiology and Other Data: Microbiology 12/15/17 18:00 Influenza Types A,B Antigen (SELMA) - Final Nasal Specimen received for Influenza A/B Molecular testing Assess/Plan/Problems-Billing Assessment: Ms. Wilhelm is a 77 yo female with PMH significant for Parkinson's disease, astham, REGLA, HTN, DM, lymphedema, HLD, hypothyroidism, A/D, chronic pain, bladder CA and afib who presented to the emergency room with complaints of back spasms and a fall at home. - Patient Problems (1) Back pain Current Visit: No Status: Acute Code(s): M54.9 - DORSALGIA, UNSPECIFIED SNOMED Code(s): 535098434 Comment: Has seen Dr. Conde and Dr. Peterson. LS spine MRI 10/28/17 showed has stage 1 spondy and herniations - NS wasnt sure if she was a surgical canidate Continue present hydrocodone/APAP, cyclobenzaprine, lidocaine patch. She does not want any stronger pain meds. (2) Hypomagnesemia Current Visit: Yes Status: Acute Code(s): E83.42 - HYPOMAGNESEMIA SNOMED Code(s): 668753462 Comment: Start po mag oxide. This may contribute to her leg spasms. Recheck mag level in a few days. (3) Lymphedema of both lower extremities Current Visit: No Status: Chronic Code(s): I89.0 - LYMPHEDEMA, NOT ELSEWHERE CLASSIFIED SNOMED Code(s): 32037760423657087 Comment: ? cellulitis vs dermatitis. - Afebrile and no leukocytosis - Blood cultures, no growth day 1 - Completed 10 day course of cephalexin. Started HC 1% cream bid to legs 12/17. - She may benefit from a referral to lymphedema clinic at discharge (4) Afib Current Visit: No Status: Chronic Code(s): I48.91 - UNSPECIFIED ATRIAL FIBRILLATION SNOMED Code(s): 56175628 Comment: In NSR 12/16. - Continue metoprolol, rivaroxaban. (5) Hypothyroid Current Visit: No Status: Chronic Code(s): E03.9 - HYPOTHYROIDISM, UNSPECIFIED SNOMED Code(s): 20446936 Comment: - TSH 2.40 12/15/17. - Continue synthroid (6) Morbid obesity Current Visit: Yes Status: Acute Code(s): E66.01 - MORBID (SEVERE) OBESITY DUE TO EXCESS CALORIES SNOMED Code(s): 809918556 Comment: BMI 52.4. (7) Asthma Current Visit: No Status: Chronic Code(s): J45.909 - UNSPECIFIED ASTHMA, UNCOMPLICATED SNOMED Code(s): 430891004 Comment: - Continue mometasone/formoterol (8) Gait difficulty Current Visit: Yes Status: Acute Code(s): R26.9 - UNSPECIFIED ABNORMALITIES OF GAIT AND MOBILITY SNOMED Code(s): 18300768 Comment: Dr. Lin did not find evidence of Parkinson's disease. Gait impaired by pt's peripheral neuropathy (likely diabetic), arthritis, leg edema, extreme obesity. (9) Diabetes Current Visit: No Status: Chronic Code(s): E11.9 - TYPE 2 DIABETES MELLITUS WITHOUT COMPLICATIONS SNOMED Code(s): 35175604 Comment: Start Lispro by SS 12/17. - Continue metformin and repaglinide. (10) Hypertension Current Visit: No Status: Chronic Code(s): I10 - ESSENTIAL (PRIMARY) HYPERTENSION SNOMED Code(s): 69222242 Comment: - Continue amlodipine and HCTZ (11) Cellulitis Current Visit: No Status: Acute Code(s): L03.90 - CELLULITIS, UNSPECIFIED SNOMED Code(s): 437248660 Comment: See discussion of lymphedema above. (12) Coronary artery disease Current Visit: No Status: Chronic Code(s): I25.10 - ATHSCL HEART DISEASE OF [place] CORONARY ARTERY W/O ANG PCTRS SNOMED Code(s): 80602643 Comment: - Continue metoprolol and ASA Pt states she had a muscle problem with atorvastatin. Pt did not receive any-- she refused it. Now listed as adverse reaction in allergy list. Status and Disposition: OBV to Inpatient. Discharge to rehab when bed available.
[2017-12-18] MEDS: Rivaroxaban TAB(*) 20 MG TAB PO SCH (18:36)
[2017-12-18] MEDS: Lidocaine Patch REMOVE* 1 NOTE MISC PATCH OFF SCH (21:20)
[2017-12-19] MEDS: HYDROcodone/ACETAMIN 5-325 MG* 1 TAB PO PRN ×2 (00:04→13:34)
[2017-12-19] MEDS: Levothyroxine TAB* 125 MCG TAB PO SCH (05:41)
[2017-12-19] MEDS: Repaglinide TAB* 0.5 MG PO SCH ×3 (07:43→16:49)
[2017-12-19] MEDS: Insulin LISPRO* 1 UNITS UNIT SUBCUT SCH ×4 (07:43→20:05)
[2017-12-19] MEDS: Cyclobenzaprine TAB* 10 MG PO PRN ×3 (07:44→22:22)
[2017-12-19] MEDS: Mometasone/Formoter 100/5 MDI INH SCH ×2 (07:55→20:30)
[2017-12-19] MEDS: Metoprolol Tartrate TAB* 25 MG PO SCH ×2 (10:17→20:13)
[2017-12-19] MEDS: Cholecalciferol TAB* 1000 UNITS PO SCH (10:18)
[2017-12-19] MEDS: DULoxetine DR CAP* 60 MG CAP.DR PO SCH (10:19)
[2017-12-19] MEDS: Hydrochlorothiazide TAB* 25 MG PO SCH (10:19)
[2017-12-19] MEDS: Montelukast Sodium TAB* 10 MG PO SCH (10:19)
[2017-12-19] MEDS: amLODIPine TAB* 5 MG PO SCH (10:20)
[2017-12-19] MEDS: Cetirizine* 10 MG TAB PO SCH (10:20)
[2017-12-19] MEDS: Magnesium Oxide TAB* 400 MG PO SCH ×2 (10:20→20:11)
[2017-12-19] MEDS: Aspirin Low Dose CHEW TAB* 81 MG PO SCH (10:20)
[2017-12-19] MEDS: metFORMIN* 1,000 MG TAB PO SCH (10:21)
[2017-12-19] MEDS: Hydrocortisone 1% CREAM* 30 GM TUBE TOPICAL SCH ×2 (10:22→20:11)
[2017-12-19] MEDS: Clotrimazole 1% CREAM* 30 GM TOPICAL SCH ×2 (10:23→20:17)
[2017-12-19] MEDS: Lidocaine PATCH 5%* 1 PATCH TRANSDERM SCH (10:30)
--- NOTE | 2017-12-19 11:33 | PN ---
Subjective Date of Service: 12/19/17 Interval History: Pain in legs level 6. No BM so far today. No new c/o. Family History: Unchanged from Admission Social History: Unchanged from Admission Past Medical History: Unchanged from Admission Objective Active Medications: Hydrocodone Bitart/Acetaminophen ([place] 5-325 Tab*) 1 tab PO Q8H PRN PRN Reason: PAIN Last Admin: 12/19/17 00:04 Dose: 1 tab Albuterol (Ventolin Hfa Inhaler*) 2 puff INH Q4HR PRN PRN Reason: WHEEZING Amlodipine Besylate (Norvasc Tab*) 10 mg PO DAILY [facility] Last Admin: 12/19/17 10:20 Dose: 10 mg Aspirin (Aspirin Low Dose Tab*) 81 mg PO DAILY [facility] Last Admin: 12/19/17 10:20 Dose: 81 mg Calcium Carbonate (Tums*) 500 mg PO TID PRN PRN Reason: INDIGESTION Last Admin: 12/17/17 23:37 Dose: 500 mg Cetirizine HCl (Zyrtec*) 10 mg PO DAILY [facility] PRN Reason: Protocol Last Admin: 12/19/17 10:20 Dose: 10 mg Cholecalciferol (Vitamin D Tab*) 5,000 units PO DAILY [facility] Last Admin: 12/19/17 10:18 Dose: 5,000 units Clotrimazole (Clotrimazole 1%*) 1 applic TOPICAL BID [facility] Last Admin: 12/19/17 10:23 Dose: 1 applic Cyclobenzaprine HCl (Flexeril Tab*) 5 mg PO TID PRN PRN Reason: PAIN Last Admin: 12/19/17 07:44 Dose: 5 mg Dextrose (D50w Syringe 50 Ml*) 12.5 gm IV PUSH .FOR FS < 60 - SS PRN PRN Reason: FS < 60 Docusate Sodium (Colace Cap*) 100 mg PO DAILY PRN PRN Reason: CONSTIPATION Last Admin: 12/16/17 13:33 Dose: 100 mg Duloxetine HCl (Cymbalta Cap*) 60 mg PO DAILY [facility] Last Admin: 12/19/17 10:19 Dose: 60 mg Hydrochlorothiazide (Hydrodiuril Tab*) 25 mg PO DAILY [facility] Last Admin: 12/19/17 10:19 Dose: 25 mg Hydrocortisone (Hytone Cream 1%*) 1 applic TOPICAL BID [facility] Last Admin: 12/19/17 10:22 Dose: 1 applic Insulin Human Lispro (Humalog*) 0 units SUBCUT ACHS [facility] PRN Reason: Protocol Last Admin: 12/19/17 07:43 Dose: Not Given Levothyroxine Sodium (Synthroid Tab*) 125 mcg PO 0600 [facility] Last Admin: 12/19/17 05:41 Dose: 125 mcg Lidocaine (Lidoderm 5% Patch*) 1 patch TRANSDERM DAILY [facility] Last Admin: 12/19/17 10:30 Dose: 1 patch Magnesium Oxide (Magox 400 Tab*) 400 mg PO BID [facility] Last Admin: 12/19/17 10:20 Dose: 400 mg Metformin HCl (Glucophage*) 1,000 mg PO BID [facility] Last Admin: 12/19/17 10:21 Dose: 1,000 mg Metoprolol Tartrate (Lopressor Tab*) 37.5 mg PO BID [facility] Last Admin: 12/19/17 10:17 Dose: 37.5 mg Mometasone Furoate/Formoterol Fumar (Dulera 100/5 Mdi*) 2 puff INH BID [facility] Last Admin: 12/19/17 07:55 Dose: 2 puff Montelukast Sodium (Singulair Tab*) 10 mg PO DAILY [facility] Last Admin: 12/19/17 10:19 Dose: 10 mg Ondansetron HCl (Zofran Inj*) 4 mg IV Q6H PRN PRN Reason: NAUSEA Pharmacy Profile Note (Lidocaine Patch Remove*) 1 note PATCH OFF 2100 [facility] Last Admin: 12/18/17 21:20 Dose: 1 note Polyethylene Glycol/Electrolytes (Miralax*) 17 gm PO DAILY PRN PRN Reason: CONSTIPATION Repaglinide (Prandin Tab*) 0.5 mg PO AC [facility] Last Admin: 12/19/17 07:43 Dose: Not Given Rivaroxaban (Xarelto(*)) 20 mg PO 1800 [facility] Last Admin: 12/18/17 18:36 Dose: 20 mg Senna (Senokot Tab*) 1 tab PO DAILY PRN PRN Reason: CONSTIPATION Last Admin: 12/16/17 08:06 Dose: 1 tab Vital Signs - 8 hr 12/19/17 12/19/17 12/19/17 04:22 07:44 08:00 Respiratory 16 18 18 Rate 12/19/17 10:31 Respiratory 18 Rate Oxygen Devices in Use Now: None Appearance: Alert, supine in bed. In good spirits. Looks comfortable. Eyes: No Scleral Icterus Extremities: No Edema, No Clubbing, Cyanosis, - Skin: No Nodules or Sclerosis, - - R lower leg much better. Still mild erythema , much scaling L lower leg. Neurological: Alert and Oriented x 3, NL Sensation Result Diagrams: 12/16/17 06:33 12/16/17 06:33 Additional Lab and Data: Microbiology and Other Data: Microbiology 12/15/17 18:00 Influenza Types A,B Antigen (SELMA) - Final Nasal Specimen received for Influenza A/B Molecular testing Assess/Plan/Problems-Billing Assessment: Ms. Wilhelm is a 77 yo female with PMH significant for Parkinson's disease, astham, REGLA, HTN, DM, lymphedema, HLD, hypothyroidism, A/D, chronic pain, bladder CA and afib who presented to the emergency room with complaints of back spasms and a fall at home. - Patient Problems (1) Back pain Current Visit: No Status: Acute Code(s): M54.9 - DORSALGIA, UNSPECIFIED SNOMED Code(s): 910459533 Comment: Has seen Dr. Conde and Dr. Peterson. LS spine MRI 10/28/17 showed has stage 1 spondy and herniations - NS wasnt sure if she was a surgical canidate Continue present hydrocodone/APAP, cyclobenzaprine, lidocaine patch. She does not want any stronger pain meds. (2) Hypomagnesemia Current Visit: Yes Status: Acute Code(s): E83.42 - HYPOMAGNESEMIA SNOMED Code(s): 168892076 Comment: Start po mag oxide. This may contribute to her leg spasms. Recheck mag level in a few days. (3) Lymphedema of both lower extremities Current Visit: No Status: Chronic Code(s): I89.0 - LYMPHEDEMA, NOT ELSEWHERE CLASSIFIED SNOMED Code(s): 89234172655635512 Comment: ? cellulitis vs dermatitis. - Afebrile and no leukocytosis - Blood cultures, no growth day 1 - Completed 10 day course of cephalexin. Started HC 1% cream bid to legs 3/3. - She may benefit from a referral to lymphedema clinic at discharge (4) Afib Current Visit: No Status: Chronic Code(s): I48.91 - UNSPECIFIED ATRIAL FIBRILLATION SNOMED Code(s): 14605452 Comment: In NSR 12/16. - Continue metoprolol, rivaroxaban. (5) Hypothyroid Current Visit: No Status: Chronic Code(s): E03.9 - HYPOTHYROIDISM, UNSPECIFIED SNOMED Code(s): 35775376 Comment: - TSH 2.40 12/15/17. - Continue synthroid (6) Morbid obesity Current Visit: Yes Status: Acute Code(s): E66.01 - MORBID (SEVERE) OBESITY DUE TO EXCESS CALORIES SNOMED Code(s): 246678035 Comment: BMI 52.4. (7) Asthma Current Visit: No Status: Chronic Code(s): J45.909 - UNSPECIFIED ASTHMA, UNCOMPLICATED SNOMED Code(s): 606531990 Comment: - Continue mometasone/formoterol (8) Gait difficulty Current Visit: Yes Status: Acute Code(s): R26.9 - UNSPECIFIED ABNORMALITIES OF GAIT AND MOBILITY SNOMED Code(s): 58706998 Comment: Dr. Lin did not find evidence of Parkinson's disease. Gait impaired by pt's peripheral neuropathy (likely diabetic), arthritis, leg edema, extreme obesity. (9) Diabetes Current Visit: No Status: Chronic Code(s): E11.9 - TYPE 2 DIABETES MELLITUS WITHOUT COMPLICATIONS SNOMED Code(s): 71422143 Comment: Start Lispro by SS 12/17. Reduce metformin to 50 mg bid 12/19/17 PM, continue repaglinide. (10) Hypertension Current Visit: No Status: Chronic Code(s): I10 - ESSENTIAL (PRIMARY) HYPERTENSION SNOMED Code(s): 18193565 Comment: - Continue amlodipine and HCTZ (11) Cellulitis Current Visit: No Status: Acute Code(s): L03.90 - CELLULITIS, UNSPECIFIED SNOMED Code(s): 310457372 Comment: See discussion of lymphedema above. (12) Coronary artery disease Current Visit: No Status: Chronic Code(s): I25.10 - ATHSCL HEART DISEASE OF [place] CORONARY ARTERY W/O ANG PCTRS SNOMED Code(s): 62364859 Comment: - Continue metoprolol and ASA Pt states she had a muscle problem with atorvastatin. Pt did not receive any-- she refused it. Now listed as adverse reaction in allergy list. Status and Disposition: O Discharge to [facility].
--- NOTE | 2017-12-19 12:01 | PN ---
Progress Note - Progress Note Date of Service: 12/19/17 Note: Time spent on discharge 50 minutes.
--- NOTE | 2017-12-19 14:54 | TRS ---
CC: Dr. Moore; [facility] * TRANSFER SUMMARY: DATE OF ADMISSION: 12/17/17 DATE OF TRANSFER: 12/19/17 HISTORY OF PRESENT ILLNESS: This 77-year-old woman presented after fall. She had difficulty getting up. She really could not function at home. She stated she had pain at the time of arrival to the emergency room from her hips to her knees, rating 6/10. She had a CT scan of the spine and pelvis, no fracture was found. The patient was later evaluated by Dr. Lin who felt that the patient's gait problem was a combination of peripheral arthropathy, arthritis and edema of the legs combined with obesity, all making ambulation very difficult for her as well as with the back pain. She found no evidence of Parkinson disease. The last 24 hours in the hospital, her fingerstick blood sugar ranged between 75 and 119. I am lowering her metformin to 500 mg b.i.d. She will continue repaglinide, although this possibly could be tapered or just continued if her blood sugars remain low. She was not symptomatic from these blood sugars. Overall, her pain seems less and she was still quite reliant on physical therapy for transfers and ambulating. She is being transferred to [facility] for short-term rehabilitation. FINAL DIAGNOSES: 1. Back pain. 2. Peripheral neuropathy. 3. Hypomagnesemia. 4. Chronic lymphedema of both legs with dermatitis. 5. Atrial fibrillation. 6. Hypothyroidism. 7. Morbid obesity. 8. Asthma. 9. Diabetes. 10. Hypertension. 11. Coronary artery disease. DISCHARGE MEDICATIONS: 1. Calcium carbonate 500 mg t.i.d. p.r.n. 2. Hydrocortisone 1% cream to red areas on legs b.i.d. 3. Lispro insulin by sliding scale. 4. Lidocaine patch 1 patch daily. 5. Magnesium oxide 400 mg b.i.d. 6. Metformin 500 mg b.i.d. 7. Montelukast 10 mg daily. 8. Fluticasone/salmeterol 100/50 one inhalation b.i.d. 9. Cetirizine 10 mg daily. 10. Aspirin 81 mg daily. 11. Ascorbic acid 1000 mg daily. 12. Vitamin D3, 5000 units daily. 13. Levothyroxine 125 mcg daily. 14. Albuterol inhaler 2 puffs every 4 hours p.r.n. 15. Clotrimazole 1% cream to affected areas b.i.d. 16. Multivitamin with mineral 1 daily. 17. Cyclobenzaprine 5 mg b.i.d. p.r.n. 18. Duloxetine 60 mg daily. 19. Cranberry extract 400 mg daily. 20. Repaglinide 0.5 mg b.i.d. before meals. 21. Hydrochlorothiazide 12.5 mg daily. 22. Hydrocodone/acetaminophen 5/325 one every 8 hours p.r.n. 23. Amlodipine 10 mg daily. 24. Docusate 100 mg daily p.r.n. 25. Metoprolol 37.5 mg b.i.d. 26. Polyethylene glycol 17 g daily p.r.n. 27. Rivaroxaban 20 mg daily. 28. Senna 1 daily p.r.n. 29. Lidocaine patch daily. The patient is transferred to [facility] for rehabilitation. [id number]/[facility] #: [id number] [facility]ITALPe[facility]
[2017-12-19] MEDS: Calcium Carbonate CHEW TAB* 500 MG (TUMS) PO PRN ×2 (16:54→18:07)
[2017-12-19] MEDS: Rivaroxaban TAB(*) 20 MG TAB PO SCH (18:05)
[2017-12-19] MEDS: metFORMIN* 500 MG TAB PO SCH (20:11)
[2017-12-19] MEDS: Lidocaine Patch REMOVE* 1 NOTE MISC PATCH OFF SCH (20:17)
[2017-12-20] MEDS: HYDROcodone/ACETAMIN 5-325 MG* 1 TAB PO PRN ×2 (01:52→10:39)
[2017-12-20] MEDS: Levothyroxine TAB* 125 MCG TAB PO SCH (05:34)
[2017-12-20] MEDS: Cholecalciferol TAB* 1000 UNITS PO SCH (08:20)
[2017-12-20 08:21] VITALS: BP 140/73
[2017-12-20] MEDS: Hydrochlorothiazide TAB* 25 MG PO SCH (08:21)
[2017-12-20] MEDS: Repaglinide TAB* 0.5 MG PO SCH (08:21)
[2017-12-20] MEDS: Magnesium Oxide TAB* 400 MG PO SCH (08:21)
[2017-12-20] MEDS: Montelukast Sodium TAB* 10 MG PO SCH (08:21)
[2017-12-20] MEDS: Cetirizine* 10 MG TAB PO SCH (08:21)
[2017-12-20] MEDS: DULoxetine DR CAP* 60 MG CAP.DR PO SCH (08:21)
[2017-12-20] MEDS: amLODIPine TAB* 5 MG PO SCH (08:22)
[2017-12-20] MEDS: metFORMIN* 500 MG TAB PO SCH (08:22)
[2017-12-20] MEDS: Insulin LISPRO* 1 UNITS UNIT SUBCUT SCH (08:22)
[2017-12-20] MEDS: Metoprolol Tartrate TAB* 25 MG PO SCH (08:22)
[2017-12-20] MEDS: Aspirin Low Dose CHEW TAB* 81 MG PO SCH (08:22)
[2017-12-20] MEDS: Clotrimazole 1% CREAM* 30 GM TOPICAL SCH (08:24)
[2017-12-20] MEDS: Hydrocortisone 1% CREAM* 30 GM TUBE TOPICAL SCH (08:24)
[2017-12-20] MEDS: Lidocaine PATCH 5%* 1 PATCH TRANSDERM SCH (08:26)
[2017-12-20] MEDS: Mometasone/Formoter 100/5 MDI INH SCH (08:36)
== END 2017-12-20 11:30 ==
LOC: ED 09:41 → MED 16:32 → OBSVTOIN 12-17 10:02 → INTOOBSV 12-17 10:02 → OBSVTOIN 12-19 11:00 → INTOOBSV 12-19 11:00
PROVIDERS: ADMIT Hospitalist; ATTEND Internal Medicine
DX: M54.5 Low back pain (principal); M54.40 Lumbago with sciatica, unspecified side; E83.42 Hypomagnesemia; I89.0 Lymphedema, not elsewhere classified; I48.91 Unspecified atrial fibrillation; E03.9 Hypothyroidism, unspecified; E66.01 Morbid (severe) obesity due to excess calories; J45.909 Unspecified asthma, uncomplicated; R26.9 Unspecified abnormalities of gait and mobility; E11.9 Type 2 diabetes mellitus without complications; L03.90 Cellulitis, unspecified; I25.10 Atherosclerotic heart disease of native coronary artery without angina pectoris; M79.605 Pain in left leg; M79.604 Pain in right leg; Z87.891 Personal history of nicotine dependence; I10 Essential (primary) hypertension; R53.1 Weakness
CPT/HCPCS: 36415; 71045; 72131; 72192; 80048; 80053; 81003; 81015; 82550; 82553; 83605; 83690; 83735; 83880; 84443; 84484; 85025; 85610; 85730; 86140; 87040; 87077; 87086; 87186; 87502; 93005; 94640; 94760; 96374; 99284; A9270-GY; G0378; G8978-GP-CL; G8979-GP-CI; G8990-GO-CJ; G8991-GO-CI; G8992-GO-CI; J1170; J1940; J3475

== ENCOUNTER 2018-08-21 01:14 | Emergency (ER) | payer MEDICARE, MEDICAID ==
--- NOTE | 2018-08-21 02:33 | ED ---
Head Injury - HPI Summary HPI Summary: The pt is a 78 y.o female presenting to the [facility] with a chief complaint of a head injury. The pt states that the fell in her home when attempting to walk with her walker. The fall was stated to be in the bathroom where she fell backward and hit her head. The pt denies LOC and neck pain. She states that she has chronic back pain which she is currently on pain medication for. The pain is rated to be a 7/10 in severity. Symptoms are aggravated by nothing and the symptoms are alleviated by nothing. - History Of Current Complaint Chief Complaint: EDHeadInjury Stated Complaint: FALL/HEAD INJURY Time Seen by Provider: 08/21/18 01:55 Hx Obtained From: Patient Severity Currently: Moderate Severity Initially: Moderate Pain Intensity: 7 Pain Scale Used: 0-10 Numeric Location: Discrete At: - Back of the head Aggravating Factor(s): Other: - Nothing Alleviating Factor(s): Other: - Nothing Associated Signs And Symptoms: Negative - Allergies/Home Medications Allergies/Adverse Reactions: Allergies Allergy/AdvReac Type Severity Reaction Status Date / Time avocado Allergy Unknown Verified 08/21/18 01:33 Reaction Details Iodinated Contrast- Oral and Allergy Difficulty Verified 08/21/18 01:33 IV Dye Breathing/Wheezing Penicillins Allergy Hives Verified 08/21/18 01:33 shellfish derived Allergy Difficulty Verified 08/21/18 01:33 Breathing/Wheezing Sulfa (Sulfonamide Allergy Hives Verified 08/21/18 01:33 Antibiotics) Tetracyclines Allergy Difficulty Verified 08/21/18 01:33 Breathing vancomycin Allergy Itching Verified 08/21/18 01:33 atorvastatin AdvReac Unknown See Comment Verified 08/21/18 01:33 almond AdvReac GI Upset Verified 08/21/18 01:33 codeine AdvReac Vomiting Verified 08/21/18 01:33 levofloxacin AdvReac Joint Pain Verified 08/21/18 01:33 PMH/Surg Hx/FS Hx/Imm Hx Endocrine/Hematology History: Reports: Hx Diabetes Cardiovascular History: Reports: Hx Hypertension Denies: Hx Deep Vein Thrombosis, Hx Pacemaker/ICD Respiratory History: Reports: Hx Chronic Obstructive Pulmonary Disease (COPD) Denies: Hx Pulmonary Embolism History: Denies: Hx Renal Disease Musculoskeletal History: Denies: Hx Osteoporosis Comment Only: Hx Back Problems - herniation lumbar/sacral spine, DDD Sensory History: Reports: Hx Contacts or Glasses Denies: Hx Hearing Aid Opthamlomology History: Reports: Hx Contacts or Glasses Neurological History: Reports: Other Neuro Impairments/Disorders - early stang Parkinsons Psychiatric History: Denies: Hx Panic Disorder - Cancer History Cancer Type, 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 RIGHT KNEE REPLACEMENT. HYSTERECTOMY. EXPLORATORY LUNG SURGERY. T&A AGE 4. BILATERAL CATARACTS - Immunization History Date of Tetanus Vaccine: utd Date of Influenza Vaccine: utd Infectious Disease History: No Infectious Disease History: Denies: Traveled Outside the [place] in Last 30 Days - Family History Known Family History: Positive: Cardiac Disease, Other - CA and lymphedema - Social History Occupation: Retired Alcohol Use: None Substance Use Type: Reports: None Hx Tobacco Use: No Smoking Status (MU): Former Smoker Amount Used/How Often: Quit 30 years ago Review of Systems Constitutional: Negative Eyes: Negative ENT: Negative Cardiovascular: Negative Respiratory: Negative Gastrointestinal: Negative Genitourinary: Negative Musculoskeletal: Other - Negative neck pain Skin: Negative Positive: Headache - Head Injury at the back of the head. Negative: Syncope Psychological: Normal All Other Systems Reviewed And Are Negative: Yes Physical Exam - Summary Physical Exam Summary: VITAL SIGNS: Reviewed. GENERAL: Patient is Morbidly obese (FEMALE) who is lying comfortable in the stretcher. Patient is not in any acute respiratory distress. HEAD AND FACE: Swollen left over the partial occipital area EYES: PERRLA, EOMI x 2, No injected conjunctiva, no nystagmus. EARS: Hearing grossly intact. Ear canals and tympanic membranes are within normal limits. MOUTH: Oropharynx within im limits. NECK: Supple, trachea is midline, no adenopathy, no JVD, no carotid bruit, no c- spine tenderness, neck with full ROM. CHEST: Symmetric, no tenderness at palpation LUNGS: Clear to auscultation bilaterally. No wheezing or crackles. CVS: Regular rate and rhythm, S1 and S2 present, no murmurs or gallops appreciated. ABDOMEN: Soft, non-tender. No signs of distention. No rebound no guarding, and no masses palpated. Bowel sounds are normal. EXTREMITIES: FROM in all major joints, no edema, no cyanosis or clubbing. NEURO: Neuro exam is grossly nonfocal SKIN: Dry and warm Triage Information Reviewed: Yes Vital Signs On Initial Exam: Initial Vitals Pulse Pulse Ox 65 95 08/21/18 01:22 08/21/18 01:22 Vital Signs Reviewed: Yes Diagnostics - Vital Signs Vital Signs Temp Pulse Resp BP Pulse Ox 08/21/18 02:00 58 94 08/21/18 01:53 59 130/66 95 08/21/18 01:31 98.4 F 59 18 142/83 98 08/21/18 01:23 63 142/83 96 08/21/18 01:22 65 95 - Laboratory Lab Statement: Any lab studies that have been ordered have been reviewed, and results considered in the medical decision making process. - CT Brain CT CT Interpretation Completed By: Radiologist - Brain CT reveals 1. Posterior left parietal superficial contusion/hematoma with no acute intracranial abnormality. 2. Age-related atrophy and mild chronic small vessel ischemic disease. As per Radiologist report. The ED Physician has reveiwed this radiology report. Head Injury Course/Dx Course Of Treatment: The pt is a 78 y.o female with a chief complaint of head injury. The pt received a Brain CT in the [facility]. Upon evaluation of the Brain CT results, we discussed pt discharge plans with the pt. The pt will be discharged home with a dx of scalp hematoma. - Diagnoses Provider Diagnoses: Scalp hematoma Discharge - Sign-Out/Discharge Documenting (check all that apply): Patient Departure - Discharge home - Discharge Plan Condition: Stable Disposition: HOME Patient Education Materials: Head Injury (ED), Hematoma (ED), Contusion in Adults (ED) Referrals: Renny Moore MD [Primary Care Provider] - Additional Instructions: RETURN TO THE EMERGENCY DEPARTMENT FOR CHANGING OR WORSENING SYMPTOMS. FOLLOW UP WITH PCP IN 1-2 DAYS. - Attestation Statements Document Initiated by Scribe: Yes Documenting Scribe: Williams Toure Provider For Whom Scribe is Documenting (Include Credential): Dr. Lincoln Fulleribkatia Attestation: Williams Hodges scribed for Dr. Vandana Sahu on 08/21/18 at 0305.
--- NOTE | 2018-08-21 02:56 | RAD ---
EXAM: CT Head Without Intravenous Contrast EXAM DATE/TIME: 08/21/2018 2:48 AM CLINICAL HISTORY: 78 years old, female; Injury or trauma; Fall; Initial encounter; Blunt trauma (contusions or hematomas) and concussion / head injury; Injury date: TECHNIQUE: Axial computed tomography images of the head/brain without intravenous contrast. All CT scans at this facility use at least one of these dose optimization techniques: automated exposure control; mA and/or kV adjustment per patient size (includes targeted exams where dose is matched to clinical indication); or iterative reconstruction. COMPARISON: BRAIN WO CT BRAIN WO 12/12/2017 12:55 PM FINDINGS: Brain: Mild periventricular and subcortical low attenuation without adjacent mass effect. No acute ischemic changes, extra axial fluid collections, intraparenchymal hemorrhage, or midline shift. Ventricles: The ventricles and extraventricular CSF spaces are widened although symmetrically positioned along the midline. 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 No depressed skull fractures. Sinuses: Normal as visualized. No acute sinusitis. Mastoid air cells: Normal as visualized. No mastoid effusion. Soft tissues: Posterior left parietal subcutaneous edema and hematoma. Vasculature: The vasculature demonstrates diffuse moderate atherosclerotic calcification. IMPRESSION: 1. Posterior left parietal superficial contusion/hematoma with no acute intracranial abnormality. 2. Age-related atrophy and mild chronic small vessel ischemic disease. To contact [facility] with a general question: [facility] - [phone] For direct physician to physician contact: Physician Hotline - [phone] [facility] ([facility] Facility ID #[id number])
[2018-08-21 03:48] VITALS: BP 147/74
== END 2018-08-21 05:00 | disposition home or self-care (01) ==
LOC: ED 01:14
DX: S00.03XA Contusion of scalp, initial encounter (principal); W19.XXXA Unspecified fall, initial encounter; Y92.002 Bathroom of unspecified non-institutional (private) residence as the place of occurrence of the external cause; E66.01 Morbid (severe) obesity due to excess calories
CPT/HCPCS: 70450; 99284

== ENCOUNTER 2019-02-11 14:51 | Emergency (ER) | payer MEDICARE ==
[2019-02-11] MEDS ORDERED: Cyclobenzaprine TAB* 10 MG PO ONE (15:03)
[2019-02-11] MEDS ORDERED: Baclofen TAB* 10 MG PO ONE (16:50)
[2019-02-11] MEDS ORDERED: Acetaminophen TAB* 325 MG PO ONE (16:51)
--- NOTE | 2019-02-11 17:08 | ED ---
Adult Trauma - HPI Summary HPI Summary: Patient is a 78-year-old female presents to the ED with right hip and right knee injury after a fall. She states she was walking with her walker when she slipped. She denies hitting her head or LOC. She denies any other symptoms. Pain is currently rated a 7/10. She states she has a friend at home who helps her with her ADLs. She is status post right-sided knee replacement. She is able to flex and extend at the knee. She is able to flex and extend at the ankle joint. Denies any pain directly over the hip, and is endorsing pain more to the groin. She denies any abdominal pain, CP, SOB, head injury or headache. She states she has muscle relaxers at home and is declining pain medications on arrival. - History of Current Complaint Chief Complaint: EDFall Stated Complaint: FALL PER EMS Time Seen by Provider: 02/11/19 14:57 Hx Obtained From: Patient ?: No Mechanism of Injury: Fall Ambulatory at the Scene: Yes Loss of Consciousness: no loss of consciousness Force: Medium Restraints: None Onset Severity: Mild Current Severity: Mild Pain Intensity: 2 Pain Scale Used: 0-10 Numeric Character: Aching Alleviating Factor(s): Nothing Associated Signs & Symptoms: Negative: SOB, Chest Pain, Cough, Hematuria - Additional Pertinent History Primary Care Physician: [id number] - Allergy/Home Medications Allergies/Adverse Reactions: Allergies Allergy/AdvReac Type Severity Reaction Status Date / Time adhesive Allergy Hives Verified 02/11/19 17:31 avocado Allergy Unknown Verified 02/11/19 17:31 Reaction Details Iodinated Contrast- Oral and Allergy Difficulty Verified 02/11/19 17:31 IV Dye Breathing/Wheezing Penicillins Allergy Hives Verified 02/11/19 17:31 shellfish derived Allergy Difficulty Verified 02/11/19 17:31 Breathing/Wheezing Sulfa (Sulfonamide Allergy Hives Verified 02/11/19 17:31 Antibiotics) Tetracyclines Allergy Difficulty Verified 02/11/19 17:31 Breathing vancomycin Allergy Itching Verified 02/11/19 17:31 atorvastatin AdvReac Unknown See Comment Verified 02/11/19 17:31 almond AdvReac GI Upset Verified 02/11/19 17:31 codeine AdvReac Vomiting Verified 02/11/19 17:31 levofloxacin AdvReac Joint Pain Verified 02/11/19 17:31 Home Medications: Home Medications Magnesium Oxide TAB* [MagOx 400 TAB*] 400 mg PO DAILY 02/11/19 [History Confirmed 02/11/19] Ubidecarenone [Co Q-10] 30 mg PO DAILY 02/11/19 [History Confirmed 02/11/19] metFORMIN* [Glucophage 1000 MG TAB *] 250 mg PO BID 02/11/19 [History Confirmed 02/11/19] PMH/Surg Hx/FS Hx/Imm Hx Previously Healthy: Yes Endocrine/Hematology History: Reports: Hx Diabetes Cardiovascular History: Reports: Hx Hypertension Denies: Hx Deep Vein Thrombosis, Hx Pacemaker/ICD Respiratory History: Reports: Hx Chronic Obstructive Pulmonary Disease (COPD) Denies: Hx Pulmonary Embolism History: Denies: Hx Renal Disease Musculoskeletal History: Denies: Hx Osteoporosis Comment Only: Hx Back Problems - herniation lumbar/sacral spine, DDD Sensory History: Reports: Hx Contacts or Glasses Denies: Hx Hearing Aid Opthamlomology History: Reports: Hx Contacts or Glasses Neurological History: Reports: Other Neuro Impairments/Disorders - early jesús Sutton Psychiatric History: Denies: Hx Panic Disorder - Cancer History Cancer Type, 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 RIGHT KNEE REPLACEMENT. HYSTERECTOMY. EXPLORATORY LUNG SURGERY. T&A AGE 4. BILATERAL CATARACTS - Immunization History Date of Tetanus Vaccine: utd Date of Influenza Vaccine: utd Hx Pertussis Vaccination: No Immunizations Up to Date: Yes Infectious Disease History: No Infectious Disease History: Denies: Traveled Outside the [place] in Last 30 Days - Family History Known Family History: Positive: Cardiac Disease, Other - Social History Occupation: Unemployed, Disabled Lives: With Family Alcohol Use: None Hx Substance Use: No Substance Use Type: Reports: None Hx Tobacco Use: No Smoking Status (MU): Former Smoker Amount Used/How Often: Quit 30 years ago Review of Systems Constitutional: Negative Negative: Fever, Chills, Fatigue, Skin Diaphoresis Negative: Palpitations, Chest Pain Negative: Shortness Of Breath, Cough Genitourinary: Negative Positive: no symptoms reported, see HPI Positive: Arthralgia - right knee pain/right hip pain Skin: Negative Neurological: Negative All Other Systems Reviewed And Are Negative: Yes Physical Exam Triage Information Reviewed: Yes Vital Signs On Initial Exam: Initial Vitals Temp Pulse Resp BP Pulse Ox 99.2 F 67 16 145/74 97 02/11/19 15:00 02/11/19 15:00 02/11/19 15:00 02/11/19 15:00 02/11/19 15:00 Vital Signs Reviewed: Yes Appearance: Positive: Well-Appearing, Well-Nourished Skin: Positive: Warm, Skin Color Reflects Adequate Perfusion Head/Face: Positive: Normal Head/Face Inspection Eyes: Positive: EOMI, Conjunctiva Clear Neck: Positive: Supple, No Lymphadenopathy Respiratory/Lung Sounds: Positive: Clear to Auscultation, Breath Sounds Present Cardiovascular: Positive: RRR, Pulses are Symmetrical in both Upper and Lower Extremities Musculoskeletal: Positive: Pain @ - right hip and knee pain Neurological: Positive: Sensory/Motor Intact, Alert, Oriented to Person Place, Time, Speech Normal Psychiatric: Positive: Affect/Mood Appropriate Diagnostics - Vital Signs Vital Signs Temp Pulse Resp BP Pulse Ox 02/11/19 15:00 99.2 F 67 16 145/74 97 - Laboratory Lab Statement: Any lab studies that have been ordered have been reviewed, and results considered in the medical decision making process. Adult Trauma Course/Dx - Course Course Of Treatment: During the course of treatment, the patient is evaluated for right sided hip, right sided knee pain and left-sided toe pain status post fall. She does have a knee replacement. On physical examination, there is no pain to palpation of the lateral side of the right hip, however patient's habitus makes it difficult to thoroughly examine. Flexion and extension of the right knee with no discomfort. There is pain with flexion and extension of the left toe. X-rays obtained of the right hip, right knee and left toe. These showed no acute findings. Ambulated the patient well with a walker. She states she would like to be discharged home at this time as she has help at home and she is more comfortable there. She does not need to be admitted for pain control at this time as she is currently rating her pain a 5/10 and currently has muscle relaxers at home. She is declining pain medications. On arrival, she is given Flexeril with some relief. She is ambulating with walker independently, but will require some help with standing from sitting (using restroom), etc. She states "Bill" her friend who is picking her up helps her at home. Prior to discharge she is given baclofen and Tylenol. She has a safe ride home at this time. - Diagnoses Provider Diagnoses: Fall Discharge - Sign-Out/Discharge Documenting (check all that apply): Patient Departure Patient Received Moderate/Deep Sedation with Procedure: No - Discharge Plan Condition: Stable Disposition: HOME Patient Education Materials: Muscle Spasm (ED) Referrals: Alondra Reynolds MD [Primary Care Provider] - Additional Instructions: Please continue to take your muscle spasm medications at home as prescribed Moist heat to the area may help You may take Tylenol 650 mg 3 times daily 2-3 days - Billing Disposition and Condition Condition: STABLE Disposition: Home
[2019-02-11 17:21] VITALS: BP 155/79
== END 2019-02-11 17:18 | disposition home or self-care (01) ==
LOC: ED 14:51
DX: M25.551 Pain in right hip (principal); M25.561 Pain in right knee; W01.0XXA Fall on same level from slipping, tripping and stumbling without subsequent striking against object, initial encounter; Y93.01 Activity, walking, marching and hiking; M85.88 Other specified disorders of bone density and structure, other site; I10 Essential (primary) hypertension; J44.9 Chronic obstructive pulmonary disease, unspecified; E11.9 Type 2 diabetes mellitus without complications; Z96.651 Presence of right artificial knee joint; Z88.8 Allergy status to other drugs, medicaments and biological substances; Z91.041 Radiographic dye allergy status; Z88.0 Allergy status to penicillin; Z88.2 Allergy status to sulfonamides; Z88.3 Allergy status to other anti-infective agents; Z79.84 Long term (current) use of oral hypoglycemic drugs; Z85.51 Personal history of malignant neoplasm of bladder; Z79.899 Other long term (current) drug therapy; Z95.5 Presence of coronary angioplasty implant and graft; Z87.891 Personal history of nicotine dependence
CPT/HCPCS: 99283; A9270-GY

== ENCOUNTER 2019-02-11 17:29 | Observation (INO) | payer MEDICARE ==
[2019-02-11] MEDS ORDERED: HYDROcodone/ACETAMIN 5-325 MG* 1 TAB PO ONE (19:12)
--- NOTE | 2019-02-11 19:12 | ED ---
Back Pain - HPI Summary HPI Summary: This patient is a 78 year old F brought in by ambulance to [facility] with a chief complaint of lower back pain radiating to R knee that began status post fall. She denies LOC upon falling. The patient rates the pain 4/10 in severity. Symptoms aggravated by standing up and sitting. Symptoms alleviated by nothing. Patient denies urinary and bowel symptoms. She states she has a history of chronic back pain and the fall has exacerbated it. Patient states she was seen here for these symptoms earlier today. - History of Current Complaint Chief Complaint: EDGeneral Stated Complaint: FALL RIGHT KNEE PAIN, PER PT Time Seen by Provider: 02/11/19 19:00 Hx Obtained From: Patient Onset/Duration: Sudden Onset, Lasting Hours, Still Present Onset/Duration: Started Hours Ago, Traumatic, Still Present Timing: Constant Back Pain Location: Is Discrete @ - Low back Severity Initially: Moderate Severity Currently: Moderate Pain Intensity: 4 Pain Scale Used: 0-10 Numeric Aggravating Symptom(s): Other - Sitting and standing up Alleviating Symptom(s): Nothing Associated Signs And Symptoms: Positive: Other - Negative urinary and bowel symptoms - Allergies/Home Medications Allergies/Adverse Reactions: Allergies Allergy/AdvReac Type Severity Reaction Status Date / Time adhesive Allergy Hives Verified 02/11/19 17:31 avocado Allergy Unknown Verified 02/11/19 17:31 Reaction Details Iodinated Contrast- Oral and Allergy Difficulty Verified 02/11/19 17:31 IV Dye Breathing/Wheezing Penicillins Allergy Hives Verified 02/11/19 17:31 shellfish derived Allergy Difficulty Verified 02/11/19 17:31 Breathing/Wheezing Sulfa (Sulfonamide Allergy Hives Verified 02/11/19 17:31 Antibiotics) Tetracyclines Allergy Difficulty Verified 02/11/19 17:31 Breathing vancomycin Allergy Itching Verified 02/11/19 17:31 atorvastatin AdvReac Unknown See Comment Verified 02/11/19 17:31 almond AdvReac GI Upset Verified 02/11/19 17:31 codeine AdvReac Vomiting Verified 02/11/19 17:31 levofloxacin AdvReac Joint Pain Verified 02/11/19 17:31 PMH/Surg Hx/FS Hx/Imm Hx Previously Healthy: No Endocrine/Hematology History: Reports: Hx Diabetes Cardiovascular History: Reports: Hx Hypertension Denies: Hx Deep Vein Thrombosis, Hx Pacemaker/ICD Respiratory History: Reports: Hx Chronic Obstructive Pulmonary Disease (COPD) Denies: Hx Pulmonary Embolism History: Denies: Hx Renal Disease Musculoskeletal History: Denies: Hx Osteoporosis Comment Only: Hx Back Problems - herniation lumbar/sacral spine, DDD Sensory History: Reports: Hx Contacts or Glasses Opthamlomology History: Reports: Hx Contacts or Glasses Neurological History: Reports: Other Neuro Impairments/Disorders - early stang Parkinsons Psychiatric History: Denies: Hx Panic Disorder - Cancer History Cancer Type, 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 RIGHT KNEE REPLACEMENT. HYSTERECTOMY. EXPLORATORY LUNG SURGERY. T&A AGE 4. BILATERAL CATARACTS - Immunization History Date of Tetanus Vaccine: utd Date of Influenza Vaccine: utd Infectious Disease History: No Infectious Disease History: Denies: Traveled Outside the [place] in Last 30 Days - Family History Known Family History: Positive: Cardiac Disease - Social History Occupation: Retired Lives: Alone Alcohol Use: None Hx Substance Use: No Substance Use Type: Reports: None Hx Tobacco Use: No Smoking Status (MU): Former Smoker Amount Used/How Often: Quit 30 years ago Review of Systems Gastrointestinal: Negative Genitourinary: Negative Positive: Other - Positive back pain All Other Systems Reviewed And Are Negative: Yes Physical Exam - Summary Physical Exam Summary: Appearance: Well-appearing, Well-nourished, lying in bed comfortable Skin: Warm, dry, no obvious rash Eyes: sclera anicteric, no conjunctival pallor ENT: mucous membranes moist Neck: deferred Respiratory: No signs of respiratory distress Cardiovascular: Appears well perfused, pulses are nml Abdomen: deferred Musculoskeletal: Movement of the right leg elicits pain in the back and inside of the knee. No groin or thigh pain to suggest a hip fracture. Neurological: Awake and alert, mentation is normal, speech is fluent and appropriate Psychiatric: affect is normal, does not appear anxious or depressed Triage Information Reviewed: Yes Vital Signs On Initial Exam: Initial Vitals Temp Pulse Resp BP Pulse Ox 98.2 F 69 14 135/104 98 02/11/19 17:31 02/11/19 17:31 02/11/19 17:31 02/11/19 17:31 02/11/19 17:31 Vital Signs Reviewed: Yes Diagnostics - Vital Signs Vital Signs Temp Pulse Resp BP Pulse Ox 02/11/19 17:31 98.2 F 69 14 135/104 98 - Laboratory Lab Statement: Any lab studies that have been ordered have been reviewed, and results considered in the medical decision making process. - CT Lumbar Spine CT CT Interpretation Completed By: Radiologist Summary of CT Findings: Lumbar spine CT reveals, per radiologist, 1. No fracture in the lumbar spine. 2. L2-L3: Mild stenosis of the right lateral recess. 3. L3-L4: Mild stenosis of the thecal sac and mild bilateral neural foraminal stenosis. 4. L4-L5: Moderate to severe spinal canal stenosis, moderate to severe stenosis of the lateral recesses, and severe bilateral neural foraminal stenosis. 5. L5-S1: Mild bilateral neural foraminal stenosis. 6. Cholelithiasis. 7. Sigmoid diverticulosis. ED physician has reviewed this radiology report. Pelvis CT CT Interpretation Completed By: Radiologist Summary of CT Findings: Pelvis CT reveals, per radiologist, no fracture or dislocation of the bony pelvis or hips. ED physician has reviewed this radiology report. Back Pain Course/Dx - Course Course Of Treatment: This patient is a 78 year old F brought in by ambulance to [facility] with a chief complaint of lower back pain radiating to R knee that began status post fall. Physical Exam Findings: Movement of the right leg elicits pain in the back and inside of the knee. No groin or thigh pain to suggest a hip fracture. Lumbar spine CT reveals, per radiologist, 1. No fracture in the lumbar spine. 2. L2-L3: Mild stenosis of the right lateral recess. 3. L3-L4: Mild stenosis of the thecal sac and mild bilateral neural foraminal stenosis. 4. L4-L5: Moderate to severe spinal canal stenosis, moderate to severe stenosis of the lateral recesses, and severe bilateral neural foraminal stenosis. 5. L5- S1: Mild bilateral neural foraminal stenosis. 6. Cholelithiasis. 7. Sigmoid diverticulosis. Pelvis CT reveals, per radiologist, no fracture or dislocation of the bony pelvis or hips. In the ED course the patient was given [place]. Consult with Dr. Cm (hospitalist) at 2132. She agrees to admit the patient for further evaluation. The patient is agreeable with this plan. - Diagnoses Provider Diagnoses: Contusion of right hip, Intractable back pain - Provider Notifications Discussed Care Of Patient With: Connie Cm Time Discussed With Above Provider: 21:32 Instructed by Provider To: Other - Consult with Dr. Cm (hospitalist) at 2132. She agrees to admit the patient for further evaluation. Discharge - Sign-Out/Discharge Documenting (check all that apply): Patient Departure - [place] [facility] [place] Received Moderate/Deep Sedation with Procedure: No - Discharge Plan Condition: Stable Disposition: ADMITTED TO [facility] - Billing Disposition and Condition Condition: STABLE Disposition: Admitted to [facility] - Attestation Statements Document Initiated by Scribe: Yes Documenting Scribe: Sagrario Liz Provider For Whom Scribe is Documenting (Include Credential): Dr. Prince Yoon MD Scribe Attestation: ISagrario scribed for Dr. Prince Yoon MD on 02/12/19 at [id number]. Scribe Documentation Reviewed: Yes Provider Attestation: The documentation as recorded by the Sagrario bowie accurately reflects the service I personally performed and the decisions made by me, Dr. Prince Yoon MD Status of Scribe Document: Viewed
[2019-02-11] MEDS ORDERED: Ketorolac INJ* 30 MG/ML 1 ML VIAL IV PUSH ONE (22:03)
[2019-02-11] MEDS ORDERED: Senna TAB PO PRN (22:09)
[2019-02-11] MEDS ORDERED: Albuterol HFA INHALER* 8 gm MDI INH PRN (22:09)
[2019-02-11] MEDS ORDERED: Acetaminophen TAB* 325 MG PO PRN (22:16)
[2019-02-11] MEDS ORDERED: Ketorolac INJ* 30 MG/ML 1 ML VIAL IV PRN (22:16)
[2019-02-11] MEDS ORDERED: Cyclobenzaprine TAB* 10 MG PO PRN (22:38)
[2019-02-11] MEDS ORDERED: Dextrose 50% Syringe 50 ML* 25 GM/50 ML SYRINGE IV PUSH PRN (22:40)
[2019-02-11] MEDS ORDERED: Ondansetron INJ* 2 MG/ML VIAL IV PRN (22:42)
--- NOTE | 2019-02-12 00:46 | HP ---
HISTORY AND PHYSICAL: DATE OF ADMISSION: 02/11/19 CHIEF COMPLAINT: Fall and right-sided back pain. PRIMARY CARE PROVIDER: Dr. Reynolds. OUTSOLE CEMENTER: Moo Cat, the patient's brother. CODE STATUS: Do not resuscitate. SOURCE OF INFORMATION: HPI is obtained from the patient. The patient is an adequate historian. HISTORY OF PRESENT ILLNESS: This is a 78-year-old female with past medical history significant for atrial fibrillation, on anticoagulation, coronary artery disease, asthma, byo-ocauhoi-qmtxjvpql diabetes, chronic low back pain with known right- sided sciatica and chronic joint pain status post knee replacement on the right, chronic lymphedema, hypothyroidism, anxiety and depression, distant history of bladder cancer, obesity, who is presenting this evening twice to the emergency room status post a fall this afternoon, where the patient was turning around, lost her balance, slipped and fell onto her right hip and right buttock, no LOC, denies syncope, she had acute pain and had a difficult time getting up. She was brought by ambulance to the emergency room , where she denied any other review of systems other than acute right-sided back pain that traveled to the back of right knee, intermittent in nature, 8/10 when present, and associated right-sided back spasms. Denies any jose eduardo neurologic changes. No weakness. Does always have mild neuropathic pain with no new numbness and tingling, and no associated warmth, erythema, fevers, or chills. In the emergency room, the patient did present twice, vital signs were stable, afebrile, blood pressure 129/62, heart rate 70, respiratory rate 15, oxygen saturation 97% on room air. She had initially on her first visit a hip and pelvis x-ray, a knee x- ray, and a toe x-ray showing severe osteopenia, but no acute fracture seen on right- sided hip, pelvis, foot, right knee. She is status post right knee arthroplasty. She was discharged in the afternoon but then re-presented as she was unable to get into the car or complete her activities of daily living in her apartment, and then repeat imaging done with a lumbar spine CT as well as a pelvis CT showed lumbar without acute fracture but jkpkstpv-[id number] spinal cord stenosis in L4-L5, and pelvic CT with no acute fracture or dislocation to the bony pelvis or bilateral hips. The patient lives in senior housing alone, ambulates with walker, and works with Physical Therapy as well as neurosurgeon Dr. Conde who has discussed possible laminectomies in the future on a nonacute basis, but because she was unable to complete her ADLs or walk with a walker, the emergency room doctor asked us to admit the patient under observation for pain control after taking Waldron and Soma, achieving adequate pain control. PAST MEDICAL HISTORY: 1. Obesity. 2. Lymphedema. 3. Hypertension. 4. Ipq-futpice-yggtrybmq diabetes. 5. Parkinson disease? 6. Hypothyroidism. 7. Anxiety and depression. 8. Hyperlipidemia. 9. Pleural effusion, distant, status post VATS. 10. Chronic pain with right-sided sciatica, chronically on chronic opiate pain medication. 11. Atrial fibrillation, on anticoagulation. 12. Distant history of bladder cancer. PAST SURGICAL HISTORY: Status post VATS, status post cardiac catheterization with stent placement, status post right knee placement and total hysterectomy. MEDICATIONS: 1. Calcium carbonate 500 mg p.o. t.i.d. 2. Cranberry 400 mg p.o. daily. 3. Cyclobenzaprine 5 mg p.o. b.i.d. 4. Hydrocodone/acetaminophen 5/325 p.o. q.8 hours p.r.n. for pain. 5. Multivitamins 1 tab p.o. daily. 6. CoQ10 30 mg p.o. daily. 7. Albuterol 2 puffs inhaled q.4 hours. 8. Amlodipine 10 mg p.o. daily. 9. Ascorbic acid 1000 mg p.o. daily. 10. Aspirin 81 mg p.o. daily. 11. Vitamin D 5000 units p.o. daily. 12. Duloxetine 60 mg p.o. daily. 13. Fluticasone inhaler 1 puff inhaled b.i.d. 14. Hydrochlorothiazide 12.5 mg daily. 15. Levothyroxine 125 mg p.o. daily. 16. Magnesium oxide 400 mg p.o. daily. 17. Metformin 250 mg p.o. b.i.d. 18. Metoprolol 37.5 mg p.o. b.i.d. 19. Prandin 0.5 mg p.o. b.i.d. a.c. 20. Rivaroxaban 20 mg p.o. q.h.s. 21. Senna 1 tab p.o. daily. ALLERGIES: Avocado, IV CONTRAST, PENICILLIN, shellfish, SULFA, TETRACYCLINE, VANCOMYCIN, almond, CODEINE, and LEVOFLOXACIN. FAMILY HISTORY: Mother is from heart disease. Father is of heart failure. 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 She is a lifetime non-tobacco user, lifetime non-alcohol user, and lifetime never illicit user. REVIEW OF SYSTEMS: Negative for fevers, chills, or malaise. HEENT: Negative for headaches, vision changes, or sore throat. Cardiovascular: Negative for chest pain, palpitations, or orthopnea. Respiratory: Negative for shortness of breath, cough, or pleuritic chest pain. GI: Negative for nausea, vomiting, diarrhea, or abdominal pain right. : Negative for dysuria or hematuria. Musculoskeletal: Positive for right-sided arthralgias, right back pain radiating to the back of right thigh but no weakness, no numbness. No loss of bladder or bowel. Skin: Negative for rashes or lesions. Neurologic: Negative for new focal weakness or numbness. Psychiatric: Negative for anxiety or depression. Endocrine: Negative for polyuria or polydipsia. Heme and Lymph: Negative for bruising, bleeding, or lymphadenopathy. PHYSICAL EXAMINATION GENERAL: This is a well-appearing obese woman sitting in bed, in no acute distress, although occasionally wincing from pain during back spasms. A and O x4. VITAL SIGNS: At the time of physical exam, blood pressure 143/76, heart rate 78 , respiratory rate 15, oxygen saturation 98% on room air. HEENT: Pupils are equal and reactive to light bilaterally. Extraocular muscles are intact. Sclerae are anicteric. She has moist mucous membranes. No oral lesions. NECK: Supple with no supraclavicular or cervical lymphadenopathy. LUNGS: Clear to auscultation bilaterally. CARDIAC: Irregularly irregular with 3/6 systolic ejection murmur heard across the precordium. ABDOMEN: Obese, soft, nontender, nondistended. Normoactive bowel sounds. BACK and SPINE: She has tenderness to palpation to the paraspinal muscles right greater than left, but no acute tenderness to bony palpation of vertebrae. Her straight-leg raise test is positive on the right and the left for right-sided back pain. She has mild tenderness to palpation to right trochanter but has full range of motion in right and left hip, although limited by pain. EXTREMITIES: She has bilateral lower extremity lymphedema, 4+ nonpitting edema with no overlying skin changes, and she has palpable pulses in bilateral DPs. NEUROLOGIC: Cranial nerves II through XII are intact. She has 5/5 strength in bilateral lower extremities. Sensation is intact bilaterally in the lower extremities. Normal reflexes in bilateral lower extremities. SKIN: Without rashes or lesions. DIAGNOSTIC STUDIES/LAB DATA: CBC was done, which showed white blood cell count of 7.5, hemoglobin 10.4, hematocrit 32, platelets 240. CMP was done, which showed sodium 139, potassium 4.1, chloride 101, carbon dioxide 30, BUN 25 , creatinine 0.7, glucose 127. LFTs were not done. Imaging over the 2 emergency room courses included right foot x-ray, right knee x-ray, and right hip x-ray, all of which showed severe osteopenia but no acute fracture as well as a lumbar spine CT and right pelvic and hip CT, which showed no acute fracture , although does show L4-L5 stenosis and evidence of herniated disk. Imaging and labs are reviewed by myself. ASSESSMENT AND PLAN: This is a 78-year-old female with obesity; asthma; coronary artery disease; hypertension; tye-sjlkycn-gyvbehmbm diabetes; lymphedema; chronic low back pain; atrial fibrillation, on anticoagulation, who was presenting status post mechanical fall to right side with no acute fracture and pain consistent with acute on chronic low back pain without red flag features, most likely flare of right-sided sciatica. She is being admitted on observation status for pain control and optimization, returning to her baseline ADLs which is ambulatory with a walker. 1. Acute on chronic low back pain, most consistent with sciatica flare without red flag features. The patient does usually not take nonsteroidal antiinflammatory medications because she is on both rivaroxaban and aspirin. We discussed for the short-term it is reasonable for garnering acute pain control. We will offer Toradol as well as start Solu-Medrol as she has had success with antiinflammatory medications in the past. We will continue to offer her home hydrocodone p.r.n. and she may be able to be discharged with oral steroids or a short course of nonsteroidal antiinflammatory medication and close followup with her neurosurgeon. I have also ordered for PT and offered Tylenol [id number]. -Start Bowel Regimen as well 2. Lymphedema. She is only on hydrochlorothiazide in terms of diuretic and she has no other treatment for this at this time. No evidence of cellulitis. 3. Asthma. We will continue to offer her home inhalers. 4. Depression and anxiety. We will continue to offer her home duloxetine. 6. Hypothyroidism. Continue home levothyroxine. 7. Xrn-hmsbpti-pmdafhioe diabetes. Continue metformin and repaglinide. 8. Coronary artery disease, status post percutaneous coronary intervention. Continue her aspirin, beta-yrn. 9. Paroxysmal atrial fibrillation. She is on rate control with metoprolol as well as on anticoagulation with Xarelto. 10. DVT prophylaxis: She is already on therapeutic anticoagulation Xarelto. 11. FEN: We will offer carb consistent diet. 12. Disposition. The patient is stable for observation admission to medical floor for pain control with PT to help clear the patient for return to independent living status and ability to ambulate with walker. 13. Code status is full. TIME SPENT: Forty minutes was spent in the planning of this admission with over half of that spent directly at the bedside with the patient providing direct patient care. Plan of care was discussed with the patient, which is plan for observation admission, then clearance by PT as she returns to home activities of daily living and possible discharge on short course of oral nonsteroidal anti- inflammatories versus steroids to help with pain control in the setting of acute sciatic flare. She agrees with this plan and she has no further questions. [id number]/[facility] #: [id number] HENRI
[2019-02-12] MEDS: methylPREDNISolone SOD 40 MG* 1 ML VIAL IV SCH ×3 (01:33→22:10)
[2019-02-12] MEDS: Polyethylene Glycol 3350* 17 GM PACKET PO SCH ×2 (01:33→08:43)
[2019-02-12] MEDS: Levothyroxine TAB* 125 MCG TAB PO SCH (05:27)
[2019-02-12 07:00] LABS: BUN/Creatinine Ratio 33.8 (8-20); Calcium 9.2 mg/dL (8.6-10.3); EGFR African American 88.2 (>60); EGFR Non-African American 72.9 (>60); Potassium 4.1 mmol/L (3.5-5.0)
[2019-02-12] MEDS: Mometasone/Formoter 100/5 MDI INH SCH ×2 (07:48→19:17)
[2019-02-12] MEDS: Ascorbic Acid TAB* 500 MG PO SCH (08:34)
[2019-02-12] MEDS: DULoxetine DR CAP* 60 MG CAP.DR PO SCH (08:34)
[2019-02-12] MEDS: Repaglinide TAB* 0.5 MG PO SCH ×2 (08:34→16:51)
[2019-02-12] MEDS: amLODIPine TAB* 5 MG PO SCH (08:35)
[2019-02-12] MEDS: Aspirin 81 mg CHEW TAB* 81 MG TAB.CHEW PO SCH (08:36)
[2019-02-12] MEDS: Magnesium Oxide TAB* 400 MG PO SCH (08:36)
[2019-02-12] MEDS: Hydrochlorothiazide TAB* 25 MG PO SCH (08:37)
[2019-02-12] MEDS: Cholecalciferol TAB* 1000 UNITS PO SCH (08:38)
[2019-02-12] MEDS: metFORMIN* 500 MG TAB PO SCH ×2 (08:40→20:22)
[2019-02-12] MEDS: Metoprolol Tartrate TAB* 25 MG PO SCH ×2 (08:41→20:23)
[2019-02-12] MEDS: Insulin LISPRO* 1 UNITS UNIT SUBCUT SCH ×3 (08:43→17:48)
[2019-02-12] MEDS: HYDROcodone/ACETAMIN 5-325 MG* 1 TAB PO PRN ×2 (10:26→22:09)
--- NOTE | 2019-02-12 13:59 | PN ---
Subjective Date of Service: 02/12/19 Interval History: VS: WNL Pt presents with low back pain and spasms; has h/o R sided sciatica. She states she is feeling much better, which she attributes to steroid treatment. She is still interested in discharge home vs. VANDANA. She follows augusto Joel and has plans for a future L-spine fusion; this is not scheduled. Pt denies CP, SOB, abd pain, n/v/d, pain in calves. Pt has chronic LE edema, which is still present. Pt reports constipation. Objective Active Medications: Acetaminophen (Tylenol Tab*) 650 mg PO Q6H PRN Hydrocodone Bitart/Acetaminophen ([place] 5-325 Tab*) 2 tab PO Q6H PRN Albuterol (Ventolin Hfa Inhaler*) 2 puff INH Q4HR PRN Amlodipine Besylate (Norvasc Tab*) 10 mg PO DAILY TYLOR Ascorbic Acid (Vitamin C Tab*) 1,000 mg PO DAILY TYLOR Aspirin (Aspirin 81 Mg Chew Tab*) 81 mg PO DAILY TYLOR Cholecalciferol (Vitamin D Tab*) 5,000 units PO DAILY TYLOR Cyclobenzaprine HCl (Flexeril Tab*) 10 mg PO TID PRN Dextrose (D50w Syringe 50 Ml*) 12.5 gm IV PUSH .FOR FS < 60 - SS PRN Duloxetine HCl (Cymbalta Cap*) 60 mg PO DAILY TYLOR Hydrochlorothiazide (Hydrodiuril Tab*) 12.5 mg PO DAILY [facility] Insulin Human Lispro (Humalog*) 0 units SUBCUT AC TYLOR; Protocol Ketorolac Tromethamine (Toradol Inj*) 30 mg IV Q6H PRN Levothyroxine Sodium (Synthroid Tab*) 125 mcg PO DAILY@0600 TYLOR Magnesium Oxide (Magox 400 Tab*) 400 mg PO DAILY TYLOR Metformin HCl (Glucophage*) 250 mg PO BID TYLOR Methylprednisolone Sodium Succinate (Solu-Medrol 40 Mg) 40 mg IV Q12H TYLOR Metoprolol Tartrate (Lopressor Tab*) 37.5 mg PO BID TYLOR Mometasone Furoate/Formoterol Fumar (Dulera 100/5 Mdi*) 2 puff INH BID TYLOR Ondansetron HCl (Zofran Inj*) 4 mg IV Q8H PRN Polyethylene Glycol/Electrolytes (Miralax*) 17 gm PO DAILY TYLOR Repaglinide (Prandin Tab*) 0.5 mg PO BID AC TYLOR Rivaroxaban (Xarelto(*)) 20 mg PO 1800 TYLOR Senna (Senokot Tab*) 1 tab PO DAILY PRN Vital Signs: Temp Pulse Resp BP Pulse Ox 97.9 F 73 18 127/55 97 02/12/19 15:09 02/12/19 15:09 02/12/19 16:05 02/12/19 15:09 02/12/19 15:09 Oxygen Devices in Use Now: None Appearance: Pt is sitting in chair with b/l LE elevated. She appears comfortable and in no acute distress. Eyes: No Scleral Icterus, PERRLA Ears/Nose/Mouth/Throat: NL Teeth, Lips, Gums, Clear Oropharnyx, Mucous Membranes Moist Neck: NL Appearance and Movements; NL JVP, Trachea Midline Respiratory: Symmetrical Chest Expansion and Respiratory Effort, Clear to Auscultation Cardiovascular: RRR, - - Systolic murmur Abdominal: NL Sounds; No Tenderness; No Distention, No Hepatosplenomegaly Extremities: No Clubbing, Cyanosis, - - B/l LE sensation intact, R<L; pulses intact; b/l LE edema that is non-pitting Neurological: Alert and Oriented x 3 Result Diagrams: 02/12/19 06:15 Assess/Plan/Problems-Billing Assessment: 78yof with PMHx lymphedema, obesity, HTN, DMII, HLD, hypothyroid, chronic pain, AF who presents with R hip pain s/p fall. - Patient Problems (1) Back pain Comment: -Pain improvement with steroids, toradol -Pt follows with Dr. Conde -Will continue solu-medrol IV with transition to PO tomorrow and likely discharge (2) Afib Comment: - Continue metoprolol, rivaroxaban. (3) Diabetes Comment: -Slightly elevated, likely d/t steroids -Continue metformin, repaglinide, lispro ss (4) Asthma Comment: -Not in exacerbation -Continue mometasone/formoterol (5) Lymphedema of both lower extremities Comment: -Continue HCTZ (6) Hypothyroid Comment: - Continue synthroid (7) Coronary artery disease Comment: -Continue asa, BB (8) DVT prophylaxis Comment: -Rivaroxaban Status and Disposition: Observation. Pt improving with steroid. Will continue with likely d/c to home tomorrow.
[2019-02-12] MEDS ORDERED: Rivaroxaban TAB(*) 20 MG TAB PO SCH (18:00)
[2019-02-12] MEDS: Cetirizine* 10 MG TAB PO SCH (22:10)
[2019-02-13] MEDS: Levothyroxine TAB* 125 MCG TAB PO SCH (05:45)
[2019-02-13 07:37] VITALS: BP 129/68
[2019-02-13] MEDS: Mometasone/Formoter 100/5 MDI INH SCH (08:15)
[2019-02-13] MEDS: Insulin LISPRO* 1 UNITS UNIT SUBCUT SCH (08:19)
[2019-02-13] MEDS: Magnesium Oxide TAB* 400 MG PO SCH (10:02)
[2019-02-13] MEDS: DULoxetine DR CAP* 60 MG CAP.DR PO SCH (10:02)
[2019-02-13] MEDS: Cholecalciferol TAB* 1000 UNITS PO SCH (10:02)
[2019-02-13] MEDS: Repaglinide TAB* 0.5 MG PO SCH (10:02)
[2019-02-13] MEDS: Aspirin 81 mg CHEW TAB* 81 MG TAB.CHEW PO SCH (10:03)
[2019-02-13] MEDS: Ascorbic Acid TAB* 500 MG PO SCH (10:03)
[2019-02-13] MEDS: Metoprolol Tartrate TAB* 25 MG PO SCH (10:03)
[2019-02-13] MEDS: amLODIPine TAB* 5 MG PO SCH (10:03)
[2019-02-13] MEDS: Cetirizine* 10 MG TAB PO SCH (10:03)
[2019-02-13] MEDS: Hydrochlorothiazide TAB* 25 MG PO SCH (10:04)
[2019-02-13] MEDS: methylPREDNISolone SOD 40 MG* 1 ML VIAL IV SCH (10:04)
[2019-02-13] MEDS: metFORMIN* 500 MG TAB PO SCH (10:04)
[2019-02-13] MEDS: Polyethylene Glycol 3350* 17 GM PACKET PO SCH (10:05)
[2019-02-13] MEDS ORDERED: Calcium Carbonate CHEW TAB* 500 MG (TUMS) PO PRN (10:42)
--- NOTE | 2019-02-13 13:06 | DS ---
DISCHARGE SUMMARY: DATE OF ADMISSION: 02/11/19 DATE OF DISCHARGE: 02/13/19 PRIMARY CARE PROVIDER: Dr. Alondra Reynolds. NEUROSURGEON: Dr. Fabby Conde. ATTENDING PHYSICIAN: Dr. Shreya Booth.* (DICTATED BY CHELI MEIER ) PRIMARY DIAGNOSIS: Acute on chronic low back pain. SECONDARY DIAGNOSES: 1. Hypertension. 2. Diabetes mellitus. 3. Hypothyroidism. 4. Hyperlipidemia. 5. Extreme obesity, BMI 41.1. 6. Chronic lymphedema. 7. Anxiety, depression. 8. Parkinson's disease? 9. Chronic pain with right-sided sciatica, on chronic opioid medications. 10. Atrial fibrillation. 11. Distant history of bladder cancer. 12. History of pleural effusion, status post video-assisted thoracoscopic surgery. STUDIES WHILE IN THE HOSPITAL: Lumbar spine CT, 02/11/19, impression: No fracture in the lumbar spine. L2-L3 mild stenosis of the right lateral recess. L3-L4 mild stenosis of the thecal sac and mild bilateral neural foraminal stenosis. L4-L5 moderate to severe spinal canal stenosis, moderate to severe stenosis of the lateral recesses, and severe bilateral neural foraminal stenosis. L5-S1 mild bilateral neural foraminal stenosis. Cholelithiasis. Sigmoid diverticulosis. Pelvis CT, 02/11/19, impression: No fracture or dislocation of the bony pelvis or hips. DISCHARGE MEDICATIONS: Home medications: 1. Cranberry 400 mg p.o. daily. 2. Cholecalciferol 5000 units p.o. daily. 3. Calcium carbonate 500 mg p.o. t.i.d. p.r.n. indigestion. 4. Aspirin 81 mg p.o. daily. 5. Ascorbic acid 1000 mg p.o. daily. 6. Albuterol HFA inhaler 2 puffs inhalation q.4 hours p.r.n. wheeze. 7. Levothyroxine 125 mcg p.o. daily. 8. Hydrochlorothiazide 25 mg p.o. daily. 9. Hydrocodone/acetaminophen 5/325 one tab p.o. q.8 hours p.r.n. pain, MDD 3. 10. Fluticasone/salmeterol 100/50 one inhalation b.i.d. 11. Duloxetine 60 mg p.o. daily. 12. Cyclobenzaprine 5 mg p.o. b.i.d. p.r.n. pain/spasm. 13. Magnesium oxide 400 mg p.o. daily. 14. Senna 1 tab p.o. daily p.r.n. 15. Rivaroxaban 20 mg p.o. at 1800. 16. Repaglinide 0.5 mg p.o. b.i.d. a.c. 17. Multivitamin/minerals 1 tab p.o. daily. 18. Metoprolol tartrate 37.5 mg p.o. b.i.d. 19. Metformin 250 mg p.o. b.i.d. 20. Amlodipine 10 mg p.o. daily. 21. CoQ10 30 mg p.o. daily. New home medications: 1. Acetaminophen 650 mg p.o. q.6 hours p.r.n. pain. 2. Prednisone 60 mg x3 days, starting tomorrow, 40 mg x3 days, 20 mg x3 days, 10 mg x3 days, then discontinue. HISTORY OF PRESENT ILLNESS/HOSPITAL COURSE: Ms. Wilhelm is a 78-year-old female with a past medical history of chronic low back pain with right-sided sciatica, chronic lymphedema, obesity, who presented to the emergency room on 02/11/19 twice after a fall that day. She states she lost her balance, slipped and fell on the right hip. There was no loss of consciousness or hitting of the head. She complained of pain at the right lateral hip, in the right posterior buttock that radiated to the posterior knee and was approximately 8/10. She received workup in the ER that included a CT of the lumbar spine and pelvis. She has a history of chronic low back pain and has been working with Dr. Conde, who has suggested possible laminectomy in the future. She also works with physical therapy and uses a rolling walker for ambulation. The patient was admitted under the hospitalist services. She was started on Solu- Medrol and Toradol. She received Toradol in the ER, but did not require it while on the floor. The patient feels vast improvement with the use of Solu- Medrol and working with physical therapy. On the day of discharge, she states that she was up with physical therapy, walking with her walker, which she states she has used for the past approximately 5 months. She states that her pain is 1 to 2/10 and remains in the right hip to posterior buttock and travels down to the knee. She states that the pain is relieved with walking, but increases slightly with standing from the seated position or sitting from the standing position. She denies chest pain, shortness of breath, fever, cough, abdominal pain, nausea, vomiting or diarrhea. She does complain of constipation. She denies pain in the lower extremities, but does complain of lower extremity edema, which is chronic and has not changed in nature. Ms. Wilhelm is stable for discharge. PHYSICAL EXAMINATION: Vital Signs: Temperature 98.1 oral, heart rate 73, respiratory rate 16, oxygen saturation 98% on room air, blood pressure 129/68. General: Ms. Wilhelm is a well-developed, well-nourished, obese, older white woman, who is sitting in a chair with the lower extremities elevated. She is in no acute distress. She appears well. HEENT: Visual staley are grossly intact. Pupils are equally round and reactive to light. Extraocular movements are intact. Sclerae are without icterus. Hearing is grossly intact. Oral mucous membranes are moist. There are no lesions. Pharynx is clear. Cardiovascular: Systolic murmur noted. Regular rhythm, rate controlled. S1 and S2 present. There are no rubs, gallops, or JVD. Abdomen is obese. Bowel sounds in all quadrants. The abdomen is soft, nontender to palpation. There is no hepatosplenomegaly noted, although exam is difficult. Extremities: Skin is warm and smooth bilaterally. There is no clubbing or cyanosis. Patient has lower extremity edema from the feet to the knees, which is chronic in nature. Radial and pedal pulses are palpable. Neuro: Patient is awake. She is alert and oriented x3. She is able to move all her extremities. She has a steady, but slow gait. She uses a walker for ambulation. DISCHARGE PLAN: Ms. Wilhelm will be discharged to home. ACTIVITY: As tolerated. Continue physical therapy and occupational therapy. Continue use of walker or other ambulation assisting devices. DIET: Heart healthy, ADA. EDUCATION: 1. Follow up with primary care provider in 4 to 7 days. 2. Follow up with Dr. Conde in 1 to 2 weeks. 3. Continue prednisone as prescribed. 4. Return to the ER or nearest hospital if you experience any worsening of symptoms, shortness of breath, chest discomfort, dizziness, lightheadedness, high fevers, chills, night sweats, loss of consciousness or any other worrisome signs or symptoms. This is a summarized report of a complex medical history and hospital stay. For further details, please see the entire medical record. TIME SPENT: Approximately 40 minutes was spent on this discharge, greater than half that time was spent [id number] with the patient discussing discharge plans and instructions. CHELI MEIER [id number]/[facility] #: [id number] HENRI
== END 2019-02-13 12:00 | disposition home or self-care (01) ==
LOC: ED 17:29 → MED 22:05
PROVIDERS: ADMIT Internal Medicine; ATTEND Internal Medicine
DX: M54.9 Dorsalgia, unspecified (principal); G89.29 Other chronic pain; I10 Essential (primary) hypertension; E11.9 Type 2 diabetes mellitus without complications; E03.9 Hypothyroidism, unspecified; E78.5 Hyperlipidemia, unspecified; E66.01 Morbid (severe) obesity due to excess calories; Z68.41 Body mass index [BMI] 40.0-44.9, adult; I89.0 Lymphedema, not elsewhere classified; F41.9 Anxiety disorder, unspecified; G20 Parkinson's disease; M54.31 Sciatica, right side; Z85.51 Personal history of malignant neoplasm of bladder; Z87.09 Personal history of other diseases of the respiratory system; Z79.82 Long term (current) use of aspirin; Z88.0 Allergy status to penicillin; Z88.2 Allergy status to sulfonamides
CPT/HCPCS: 36415; 72131; 72192; 80048; 94640; 96365; 96366; 96375; 99284; A9270-GY; G0378; G8978-GP-CI; G8978-GP-CJ; G8979-GP-CI; J1885; J2920

== ENCOUNTER 2019-02-28 14:04 | Observation (INO) | payer MEDICARE ==
--- NOTE | 2019-02-28 14:11 | ED ---
Adult Trauma - HPI Summary HPI Summary: A 78 y/o female brought in by [facility] ambulance presents to [facility] with a chief complaint of a mechanical fall today. Per EMS, the patient was walking when her slipper came off and she fell onto carpet. She denies LOC. She had a similar episode one week ago when she was admitted with right hip spasms. Now she reports right hip pain. She also has had swelling in her legs for two weeks. She has caretakers who come visit her but claims that she was in a retirement and will never go back. Hx of two herniated discs. - History of Current Complaint Stated Complaint: FALL PER EMS Time Seen by Provider: 02/28/19 14:04 Hx Obtained From: Patient, EMS Mechanism of Injury: Fall Loss of Consciousness: no loss of consciousness Onset/Duration: Started Hours Ago, Still Present Onset of Pain: Immediate, Post Accident, Prior to Arrival Onset Severity: Mild Current Severity: Mild Pain Intensity: 3 Pain Scale Used: 0-10 Numeric Location: Other - right hip Aggravating Factor(s): Nothing Alleviating Factor(s): Nothing Associated Signs & Symptoms: Positive: Other: - right hip pain. Negative: Fever , Loss of Consciousness - Additional Pertinent History Primary Care Physician: GURJIT - Allergy/Home Medications Allergies/Adverse Reactions: Allergies Allergy/AdvReac Type Severity Reaction Status Date / Time adhesive Allergy Hives Verified 02/11/19 17:31 avocado Allergy Unknown Verified 02/11/19 17:31 Reaction Details ciprofloxacin [From Cipro] Allergy See Comment Verified 02/28/19 14:16 Iodinated Contrast- Oral and Allergy Difficulty Verified 02/11/19 17:31 IV Dye Breathing/Wheezing Penicillins Allergy Hives Verified 02/11/19 17:31 shellfish derived Allergy Difficulty Verified 02/11/19 17:31 Breathing/Wheezing Sulfa (Sulfonamide Allergy Hives Verified 02/11/19 17:31 Antibiotics) Tetracyclines Allergy Difficulty Verified 02/11/19 17:31 Breathing vancomycin Allergy Itching Verified 02/11/19 17:31 atorvastatin AdvReac Unknown See Comment Verified 02/11/19 17:31 almond AdvReac GI Upset Verified 02/11/19 17:31 codeine AdvReac Vomiting Verified 02/11/19 17:31 levofloxacin AdvReac Joint Pain Verified 02/11/19 17:31 Home Medications: Home Medications Azelastine 0.15% NASAL(NF) [Astepro 0.15% NASAL (NF)] 2 spray BOTH NARES BID PRN 02/28/19 [History Confirmed 02/28/19] Montelukast Sodium TAB* [Singulair 10 MG TAB*] 10 mg PO DAILY 02/28/19 [History Confirmed 02/28/19] PMH/Surg Hx/FS Hx/Imm Hx Endocrine/Hematology History: Reports: Hx Diabetes Cardiovascular History: Reports: Hx Hypertension Denies: Hx Deep Vein Thrombosis, Hx Pacemaker/ICD Respiratory History: Reports: Hx Chronic Obstructive Pulmonary Disease (COPD) Denies: Hx Pulmonary Embolism History: Denies: Hx Renal Disease Musculoskeletal History: Denies: Hx Osteoporosis Comment Only: Hx Back Problems - herniation lumbar/sacral spine, DDD Sensory History: Reports: Hx Contacts or Glasses Denies: Hx Hearing Aid Opthamlomology History: Reports: Hx Contacts or Glasses Neurological History: Reports: Other Neuro Impairments/Disorders - early pepitog Parkinsons Psychiatric History: Denies: Hx Panic Disorder - Cancer History Cancer Type, 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 RIGHT KNEE REPLACEMENT. HYSTERECTOMY. EXPLORATORY LUNG SURGERY. T&A AGE 4. BILATERAL CATARACTS - Immunization History Date of Tetanus Vaccine: utd Date of Influenza Vaccine: utd - Family History Known Family History: Positive: Cardiac Disease - Social History Alcohol Use: None Hx Substance Use: No Substance Use Type: Reports: None Hx Tobacco Use: No Smoking Status (MU): Former Smoker Amount Used/How Often: Quit 30 years ago Review of Systems Negative: Fever Positive: Arthralgia - right hip, Edema, Other - positive: mechanical fall Neurological: Negative - LOC All Other Systems Reviewed And Are Negative: Yes Physical Exam - Summary Physical Exam Summary: Appearance: Well-appearing, Obese, lying in bed comfortably Skin: Warm, dry, no obvious rash Eyes: sclera anicteric, no conjunctival pallor ENT: mucous membranes moist, pharynx appears normal Neck: Supple, nontender Respiratory: Clear to auscultation, no signs of respiratory distress Cardiovascular: Normal S1, S2. No murmurs. Normal distal pulses in tibial and radial bilaterally. Abdomen: Soft, nontender, normal active bowel sounds present Musculoskeletal: No pain with log rolling, Pain when pressed over lateral hip over greater trochanter, No external bruising or deformity. Neurological: A&Ox3, awake and alert, mentation is normal, speech is fluent and appropriate Psychiatric: affect is normal, does not appear anxious or depressed Triage Information Reviewed: Yes Vital Signs Reviewed: Yes Diagnostics - Laboratory Result Diagrams: 03/01/19 06:51 03/01/19 06:51 Lab Statement: Any lab studies that have been ordered have been reviewed, and results considered in the medical decision making process. - Radiology hip/pelvis x-ray Radiology Interpretation Completed By: Radiologist Summary of Radiographic Findings: Hip/pelvis x-ray impression: LIMITED STUDY. OSTEOPENIA. NO RADIOGRAPHIC EVIDENCE FOR HIP FRACTURE. X-RAYS MAY BE NEGATIVE WITH NONDISPLACED HIP. FRACTURE, IF THERE IS PERSISTENT CLINICAL CONCERN, RECOMMEND CONSIDERATION OF MRI. IN THE. SETTING OF CONTRAINDICATION TO MRI OR LIMITATION IN EMERGENT ACCESS TO MRI, CT WOULD BE. SUGGESTED. ED physician has reviewed this imaging report. Adult Trauma Course/Dx - Course Course Of Treatment: A 78 y/o female brought in by [facility] ambulance presents to [facility] with a chief complaint of a mechanical fall today. The patient reports right hip pain. The physical exam revealed that the patient is obese and has no pain with log rolling, Pain when pressed over lateral hip over greater trochanter, No external bruising or deformity. Hip/pelvis x-ray impression: LIMITED STUDY. OSTEOPENIA. NO RADIOGRAPHIC EVIDENCE FOR HIP FRACTURE. X- RAYS MAY BE NEGATIVE WITH NONDISPLACED HIP. FRACTURE, IF THERE IS PERSISTENT CLINICAL CONCERN, RECOMMEND CONSIDERATION OF MRI. IN THE. SETTING OF CONTRAINDICATION TO MRI OR LIMITATION IN EMERGENT ACCESS TO MRI, CT WOULD BE. SUGGESTED. Despite being medicated with Flexeril and opioid analgesics, the patient continues complaints. Pain, presently in the back. She states she is unable to ambulate and cannot go home. I explained that I do not have a true medical indication for hospitalization and that she needs to consider a higher level of care if her ability to ambulate is this fragile, but she adamantly refuses to consider this. My clinical suspicion for occult fracture is very low given her physical exam and location of the pain. Case discussed with Dr. Humphrey , hospitalist, who accepted the patient for admission. The patient is agreeable with this plan. - Diagnoses Provider Diagnoses: Exacerbation of chronic back pain, Fall - Physician Notifications Discussed Care Of Patient With: Sarah Humphrey Time Discussed With Above Provider: 18:13 Instructed by Provider To: Admit As Inpatient Discharge - Sign-Out/Discharge Documenting (check all that apply): Patient Departure - admit Patient Received Moderate/Deep Sedation with Procedure: No - Discharge Plan Condition: Fair Disposition: ADMITTED TO [facility] - Billing Disposition and Condition Condition: FAIR Disposition: Admitted to [facility] - Attestation Statements Document Initiated by Vinny: Yes Documenting Scribe: Ander Hendricks Provider For Whom Vinny is Documenting (Include Credential): Prince Yoon MD Scribe Attestation: IAnder, scribed for Prince Yoon MD on 03/02/19 at 1048. Scribe Documentation Reviewed: Yes Provider Attestation: The documentation as recorded by the Ander bowie accurately reflects the service I personally performed and the decisions made by me, Prince Yoon MD Status of Scribe Document: Viewed
--- OUTSIDE RECORDS SUMMARY | 2019-02-28 15:25 | XMS REPORT | Continuity of Care Document ---
:1940 External Reference #:[id number] Author Name Jacquie Montiel Care Team Providers Name Role Phone Alondra Reynolds M.D. Primary Care Physician Unavailable Payers Date Identification Numbers Payment Provider Subscriber Policy Number: [id number] [employer] Medicare David Wilhelm Group Number: [id number] [address] PayID: [id number] [place] [address] Expires: 2018 Policy Number: [id number] Medicaid David Wilhelm Group Name: 1 1 [address] PayID: [id number] [place] [address] Effective: 2015 Policy Number: [id number] [employer] David Wilhelm Expires: 2016 PayID: [id number] [address] [address] Attn: [place] [address] Expires: 2019 PayID: [id number] Medicare D - Drug Plan David Wilhelm Effective: 2015 Policy Number: [id number] [employer] Of [place] David Wilhelm Expires: 2015 PayID: [id number] [address] [address] [place] [address] Expires: 2015 Policy Number: [id number] [facility] David Wilhelm PayID: [id number] [address] [place] [address] Expires: 2016 Policy Number: [id number] [facility] Onset: 2014 Group Number: [id number] [address] [place] [address] PayID: [address] [id number] Advance Directives Type Date Description Status Comment ELISA 12/31/2016 MOLST Current and Verified Problems Active Problems Provider Date Asthma without status asthmaticus Renny Moore M.D. Onset: 10/18/2014 Depressive disorder Renny Moore M.D. Onset: 10/18/2014 Benign essential hypertension Renny Moore M.D. Onset: 10/18/2014 Mixed hyperlipidemia Renny Moore M.D. Onset: 10/18/2014 Hypothyroidism Renny Moore M.D. Onset: 10/18/2014 Psoriasis Renny Moore M.D. Onset: 10/18/2014 Injury of lower leg Renny Moore M.D. Onset: 01/06/2015 Neck pain Renny Moore M.D. Onset: 01/06/2015 Type 2 diabetes mellitus Renny Moore M.D. Onset: 01/27/2015 Lymphedema Renny Moore M.D. Onset: 01/27/2015 Anemia Renny Moore M.D. Onset: 01/27/2015 Onychia of toe Renny Moore M.D. Onset: 02/10/2015 Morbid obesity Renny Moore M.D. Onset: 05/21/2015 Coronary angioplasty Renny Moore M.D. Onset: 08/19/2015 Coronary atherosclerosis Renny Moore M.D. Onset: 08/19/2015 Parkinson's disease Daniel Peterson MD Onset: 05/13/2016 Essential tremor Daniel Peterson MD Onset: 05/13/2016 Diabetic peripheral neuropathy associated Daniel Peterson MD Onset: 05/13/2016 with type 2 diabetes mellitus Age-related osteoporosis without current Renny Moore M.D. Onset: 2015 pathological fracture Edema Adrianna Kaplan M.D. Onset: 06/25/2016 Sleep disorder Daniel Peterson MD Onset: 08/02/2016 Mild recurrent major depression Renny Moore M.D. Onset: 12/07/2016 Abnormal gait Renny Moore M.D. Onset: 12/23/2016 Localized, primary osteoarthritis Christiana Talbot M.D. Onset: 04/13/2017 Non-organic sleep disorder Daniel Peterson MD Onset: 05/26/2017 Chronic obstructive lung disease Sarai Cochran MD Onset: 07/04/2017 Other sleep disorders Sarai Cochran MD Onset: 07/04/2017 Arthralgia of the ankle and/or foot Christiana Talbot M.D. Onset: 07/15/2017 Thoracic and lumbosacral neuritis Renny Moore M.D. Onset: 09/20/2017 Lumbosacral spondylosis without myelopathy Fabby Conde MD Onset: Lumbar spondylolisthesis Fabby Conde MD Onset: 11/21/2017 Obesity Fabby Conde MD Onset: 11/21/2017 Candidiasis Renny Moore M.D. Onset: 12/05/2017 Resolved Problems Disorder of upper respiratory system Renny Moore M.D. Onset: 10/18/2014 Resolved: 08/19/2015 Malaise and fatigue Renny Moore M.D. Onset: 10/18/2014 Resolved: 08/19/2015 Concussion injury of brain Renny Moore M.D. Onset: 12/30/2014 Resolved: 08/19/2015 Essential hypertension Renny Moore M.D. Onset: 08/07/2015 Resolved: 08/19/2015 Family History Date Family Member(s) Observation Comments General Heart Disease General Cancer General Bursitis General Lymphedema General Cerebrovascular Accident (CVA) General Hypertension Father Heart Disease Father Alcoholism Father prostate cancer Mother Heart Disease Mother Bipolar Disorder Mother breast and uterine cancer Siblings 1 Siblings heart disease,prostate cancer,depression Social History Type Date Description Comments Sex Unknown Lives With Alone Occupation Disabled Tobacco Use Start: Unknown End: Former Cigarette Smoker Unknown Smoking Status Reviewed: 02/21/19 Former Cigarette Smoker ETOH Use 11/20/2017 Denies alcohol use Tobacco Use Start: Unknown End: Patient is a former quit 30+ yrs ago Unknown smoker smoked 1/2 pack daily Recreational Drug Use Denies Drug Use Exercise Type/Frequency Exercises regularly chair exercise twice a week Allergies, Adverse Reactions, Alerts Active Allergies Reaction Severity Comments Date Penicillins Severe hives 10/18/2014 Erythromycin Moderate 10/18/2014 Sulfa Antibiotics hives 10/18/2014 Vancomycin intense itching 10/18/2014 Codeine Nausea and Vomiting 10/18/2014 Cipro Severe white corpuscles disappear 10/18/2014 Levaquin muscle pain 10/18/2014 Meloxicam 05/21/2015 Statins myalgia 05/21/2015 Shellfish 06/30/2015 Tetracycline 06/30/2015 Ampicillin 06/30/2015 Fosamax 06/25/2016 Bandage Adhesive 04/13/2017 Inactive Allergies Doxycycline 08/07/2015 Medications Active Medications SIG Qnty Indications Ordering Date Provider Azelastine HCL (Nasal) use 1 spray(s) 30ml J30.9 Alondra Reynolds, 0.15% twice daily in 9 Solution each nostril as needed Levothyroxine Sodium 1 by mouth every 90tabs Alondra Reynolds, 150mcg morning on empty MD Cartwright Tablets stomach Hydrochlorothiazide 1 by mouth every 90tabs Alondra Reynolds, 25mg day 9 Tablets Protective Underwear Schwab change 6x/day. 192units N39.41 Alondrasunny Reynolds, Per Absorbency X-Large Size 2XL MD Cartwright Misc Doxycycline Hyclate 1 cap twice a day 20caps J32.9 Alondra Reynolds, 100mg for 10 days MD Cartwright Capsules Flonase Allergy Relief 2 sprays in each 9.900ml J32.9 Alondra Reynolds, nostril once a MD Cartwright 50mcg/Act Suspension day Metformin HCL 1/2 tab by mouth 90tabs Alondra Reynolds, 500mg Tablets twice daily MD Cartwright Advair Diskus 1 inhalation 60units J44.9 Alondra Reynolds, 100-50mcg/Dose twice a day MD Cartwright Aerosol Hydrocodone-Acetaminophen 1 tab every 8h as 45tabs M51.16 Alondra Reynolds, needed MD Orozco 5-325mg Tablets Cyclobenzaprine HCL 1 tab at 4pm and 60tabs M51.16 Alondrasunny Reynolds, 5mg Tablets at bedtime MD Orozco Clotrimazole apply twice daily 90gm B37.9 Tubac 1% Cream Pachika, 8 M.D. Ventolin HFA 2 puffs by mouth 1units J45.909 Alex Le 108(90Base) four times a day [place], 8 mcg/Act Aerosol as needed M.D.,FACP Duloxetine HCL 1 by mouth every 30caps F33.0 Alondra Reynolds, 60mg Caps DR katt GRIFFITHS 8 Part Vortex Valved Holding use as [facility] Sammie 7 Device Nebulizer 1 unit 1[facility] J44.9 [facility] Kit/Tubing/Mouthpiece nebulization MD Sammie 7 Kit every 4- 6 hours as needed Pulse Oximeter use as instructed 1[facility] J44.9 [facility] Misc MD Camron Cochran Montelukast Sodium once daily 90tabs J30.2 Alondrasunny BostonReynolds, 10mg Tablets 7 Repaglinide take 1 tablet by 180tabs Alondra Reynolds, 0.5mg Tablets mouth two times 7 daily just before food Albuterol Sulfate one treatment 75ml J45.901 [facility] 0.63mg/3ML every 4 hours as MD Sammie 6 Nebulizer needed Prednisone one by mouth Unknown 20mg Tablets daily 0 CB Oil 1 drop daily Unknown 0 Coricidin D 1 tab by mouth Unknown Cold/Flu/Sinus twice daily 0 Tablets Cetirizine HCL 1 by mouth every Unknown 10mg Tablets day 0 Magnesium Oxide -MG 1 by mouth once Unknown Supplement daily 0 400mg Capsules Lidocaine apply patch up to Unknown 5% Patches 12 hours once a 0 day. Calcium Carbonate 1 tab PO tid prn Unknown 500(200CA) mg 0 Wafer Xarelto 1 tab by mouth 90tabs Alondra Reynolds, 20mg Tablets daily MD 0 Metoprolol Tartrate take 1 and 1/2 90tabs Alondra Reynolds, 25mg tablets by mouth MD 0 Tablets two times daily Colace 1 tab by mouth Unknown 100mg Capsules daily as needed 0 constipation Amlodipine Besylate 2 tabs by mouth 180tabs Alondra Reynolds, 5mg Tablets every day MD 0 Probiotic 1 by mouth once Unknown Capsules daily 0 Aspirin 1 by mouth every Unknown 81mg Tablets day 0 Cranberry Plus Vitamin C 1 by mouth every 90caps Unknown day 0 [id number]-mg-Unit Capsules Vitamin D-3 1 by mouth every 90caps Unknown 5000Unit Capsules day 0 Multi For Her 50+ 1 by mouth every Unknown Capsules day 0 History Medications Advair Diskus 2 inh bid 60units J44.9 Alondra Dardene, 11/09/2018 - 100-50mcg/Dose 11/09/2018 Aerosol Advair HFA inhale 2 puffs by 12gm J44.9 Alondra Bostonnte, 11/09/2018 - 115-21mcg/Act mouth two times 11/15/2018 Aerosol daily Cephalexin 1 by mouth four 14caps Unknown 12/13/2017 - 500mg Capsules times a day 12/17/2017 Medrol medrol dosepack 1pak M51.16 Aelx Le 11/14/2017 - 4mg Tablets as directed Rodrigo, 11/21/2017 Roman,FACP Medrol as directed 1units Tubac 10/28/2017 - 4mg TBPK Duika, 11/14/2017 M.DSantiago Doxycycline Hyclate 1 cab twice a day 20caps J01.90 Tubac 10/25/2017 - 100mg Pachikara, 11/04/2017 Capsules M.D. Prednisone 5tabx 2days,4 30tabs M51.16 Tubac 09/20/2017 - 10mg Tablets [id number] Pachika, 10/25/2017 [id number],2tabx2 M.D. days,1tabxday. Methylprednisolone as directed 1units Tubac 07/19/2017 - 4mg TBPK Pachikara, 11/04/2017 M.D. Azithromycin 2 tab today and 6tabs J06.9 Tubac 07/19/2017 - 250mg Tablets then 1tab daily Pachikara, 07/24/2017 M.D. Duloxetine HCL once daily with 90caps F33.0 Tubac 07/19/2017 - 30mg Caps DR matthew Moore, 10/25/2017 Part MPari Neuroquell One capsule daily Sarai 07/04/2017 - Capsules MD Sammie 12/23/2017 Azithromycin 2 tab today and 6tabs J06.9 Tubac 05/11/2017 - 250mg Tablets then 1tab daily Pachikara, 05/25/2017 M.D. Clindamycin HCL 1 cap every 6 28caps L03.116 Tubac 04/28/2017 - 150mg Capsules hours Pachika, 05/11/2017 M.D. Medial Training Project Manager Knee medial environmental sustainability manager 1units M25.562 Christiana 04/13/2017 - Brace knee brace, left Antione, Roman 07/04/2017 Venlafaxine HCL ER 1 by mouth every 90caps F33.0 Tubac 01/28/2017 - 150mg Caps day Pachika, 07/04/2017 ER 24HR M.D. Azithromycin 2 tab today and 6tabs J06.9 Tubac 01/28/2017 - 250mg Tablets then 1tab daily Pachika, 05/11/2017 M.D. Carbidopa-Levodopa 2 tabs in the 120tabs G20 Daniel 01/24/2017 - 25-100mg morning and 1 at MD Nicholas 07/04/2017 Tablets lunch and 1 in evening Venlafaxine HCL ER once a day 30caps Tubac 12/28/2016 - 75mg Caps ER Pachika, 01/28/2017 24HR M.D. Venlafaxine HCL 1 by mouth every 90tabs F33.0 Tubac 12/24/2016 - 75mg Tablets day Pachika, 12/28/2016 M.D. Venlafaxine HCL ER 1 tab daily for 30tabs F33.0 Tubac 12/07/2016 - 37.5mg 1week and then 2 Pachikara, 12/24/2016 Tablets ER 24HR tab daily M.D. Januvia one tab daily 60tabs E11.42 Tubac 12/07/2016 - 50mg Tablets Pachika, 12/09/2016 M.D. Hydrochlorothiazide Take 1 Tablet By 90tabs I10 Alondra Reynolds 12/07/2016 - 12.5mg Mouth Every Day 01/23/2019 Tablets Sertraline HCL 1 by mouth every 30tabs F33.0 Tubac 09/29/2016 - 100mg Tablets day Pachika, 12/07/2016 M.D. Bupropion HCL ER (XL) once daily in the 30tabs F33.0 Tubac 09/29/2016 - 150mg morning with food Pachsan [facility], 12/07/2016 Tablets ER 24HR M.D. Valsartan-Hydrochlorothia 1 by mouth every 90tabs I10 Tubac 09/29/2016 - zide day Pachika, 12/23/2017 160-12.5mg Tablets M.D. Clindamycin HCL three times a day 30caps L03.032 Tubac 09/17/2016 - 300mg Capsules [facility], 12/07/2016 M.D. Sertraline HCL 1 by mouth every 30tabs F32.9 Tubac 09/17/2016 - 100mg Tablets day Pachika, 09/29/2016 M.D. Symbicort 2 puff twice a 30.6gm Tubac 09/14/2016 - 160-4.5mcg/Act day Pachika, 10/27/2016 Aerosol M.D. Azithromycin 2 tab today and 6tabs J20.9 Tubac 08/23/2016 - 250mg Tablets then 1tab daily Pachika, 09/17/2016 M.D. Prednisone 5tabx 2days,4 30tabs J45.901 Tubac 08/19/2016 - 10mg Tablets [id number] Pachika, 09/17/2016 [id number],2tabx2 M.D. days,1tabxday. Medrol as directed 1units Tubac 06/28/2016 - 4mg TBPK Pachsan [facility], 08/20/2016 M.D. Bupropion HCL ER (XL) 1 tab in in the 30tabs F32.9 Tubac 05/20/2016 - 300mg morning Pachikara, 09/29/2016 Tablets ER 24HR M.D. Sertraline HCL 1 by mouth every 30tabs F32.9 Tubac 05/20/2016 - 50mg Tablets day Pachikara, 09/17/2016 M.D. Bupropion HCL ER (XL) 1 by mouth every 30tabs F32.9 Tubac 03/11/2016 - 150mg day Pachikara, 05/20/2016 Tablets ER 24HR M.D. Azithromycin 2 tab today and 6tabs J20.8 Tubac 01/05/2016 - 250mg Tablets then 1tab daily [facility], 03/11/2016 M.D. Methylprednisolone (Oliver) use as directed 21tabs J20.8 Tubac 01/05/2016 - 4mg [facility], 03/11/2016 Tablets M.D. Prednisone 5tabx 2days,4 30tabs Tubac 09/18/2015 - 10mg Tablets [id number] [facility], 11/17/2015 [id number],2tabx2 M.D. days,1tabxday. Azithromycin 2 tab today and 6tabs J20.8 Tubac 09/10/2015 - 250mg Tablets then 1tab daily [facility], 11/17/2015 M.D. Clindamycin HCL 1 cap every 6 28caps R07.9 Tubac 08/12/2015 - 150mg Capsules hours [facility], 08/12/2015 M.D. Clindamycin HCL 1 cap every 6 28caps J20.8 Tubac 08/12/2015 - 150mg Capsules hours [facility], 09/10/2015 M.D. Hydrochlorothiazide once daily 30tabs I89.0 Tubac 08/12/2015 - 12.5mg [facility], 01/05/2016 Tablets M.D. Feosol once daily 30tabs D50.9 Tubac 08/07/2015 - 325(65Fe) mg Tablets [facility], 11/17/2015 M.D. Bupropion HCL ER (SR) take 1 tablet by 90tabs F32.9 Olvin 07/04/2015 - 100mg mouth every SP Wright 03/11/2016 Tablets ER 12HR morning Ipratropium 3ml nebulizer up 84ml Olvin 06/17/2015 - Navarre/Albuterol Sulfate to twice a day as SP Wright 12/07/2016 needed 0.5-2.5(3)mg/3ML Solution Prednisone 5tabx 2days,4 30tabs 493.90 Olvin 06/13/2015 - 10mg Tablets [id number] SP Wright 06/23/2015 [id number],2tabx2 days,1tabxday. Prednisone 5tab x 1 day,4 25tabs 493.90 Tubac 05/21/2015 - 10mg Tablets [id number] 3 t a b [facility], 06/13/2015 x2days,2qncp0crow M.D. ,1tabxday. Feosol once daily 30tabs 285.8 Tubac 05/21/2015 - 325(65Fe) mg Tablets [facility], 08/07/2015 M.D. Meloxicam 1 by mouth every 30tabs 722.93 Tubac 05/07/2015 - 7.5mg Tablets day as needed [facility], 06/24/2016 M.D. Clindamycin HCL 1 cap every 6 28caps 681.11 Tubac 02/10/2015 - 150mg Capsules hours [facility], 02/14/2015 M.D. Doxycycline Monohydrate twice a day 20tabs Tubac 01/06/2015 - 100mg [facility], 02/10/2015 Tablets M.D. Metformin HCL take 1/2 tablet 180tabs Tubac 11/11/2014 - 1000mg Tablets by mouth twice [facility], 10/17/2018 daily M.D. Doxycycline Hyclate 1 by mouth twice 20tabs 478.9 Tubac 10/18/2014 - 100mg a day [facility], 12/30/2014 Tablets M.D. Proair HFA 2 puffs ih every 3units J45.909 Tubac 10/18/2014 - 108(90Base) mcg/Act 4 hours as needed [facility], 11/04/2017 Aerosol M.D. Metformin HCL 1 tab by mouth Unknown - 250mg Tablet twice daily 12/01/2018 Hydrocortisone apply twice a day Unknown - 1% Cream to legs 12/20/2018 Senna 1 tab daily as Unknown - 8.6mg Tablets needed 12/20/2018 constipation Polyethylene Glycol 3350 mix 17gm with 8 Unknown - ounces of fluids 12/20/2018 Powder once daily prn constipation Oxycodone HCL 1-2 tabs by mouth Unknown - 5mg Tablets every 4-6 hours 12/14/2017 as needed Tylenol 2 tablets every 4 Unknown - 325mg Capsules hours as needed 10/18/2018 for pain (alternates with aleve) Aleve 2 tablets as Unknown - 220mg Tablets needed for pain 12/20/2018 Clindamycin HCL Unknown - 300mg Capsules 11/14/2017 Turmeric 1 by mouth twice Unknown - 500mg Capsules a day 11/14/2017 Aspirin Adult Low Dose 1 by mouth every Unknown - 81mg day 05/25/[address] Prednisone 3 tabs day#1, 3 Unknown - 10mg (21) TBPK tabs day#2, 2 09/17/2016 tabs day#3, #1 for 3 days Montelukast Sodium Take One Tablet 90tabs Olvin - 10mg Tablets By Mouth Once Kyle, TRACK WATCHMAN 08/19/2016 Daily Sertraline HCL take one tablet 90tabs Renny - 100mg Tablets by mouth once [facility], 05/20/2016 daily M.D. Amlodipine Besylate take 1 tablet by 180tabs Renny - 5mg Tablets mouth every Pachikara, 09/29/2016 morning and in M.D. the evening Advair Diskus use 2 inhalation 3units Renny - 100-50mcg/Dose 2 times daily [facility], 12/23/2017 Aerosol M.D. Krill Oil 1 by mouth three Unknown - times daily 07/04/2017 Acidophilus Unknown - 05/12/2016 Zyrtec Allergy 1 by mouth every Unknown - 10mg Tablets day 12/23/2017 Co Q10 1 by mouth every 90caps Unknown - 100mg Capsules day 12/23/2017 Vitamin C ER 1 by mouth every Unknown - 1000mg Tablets ER day 12/23/2017 Astragalus Root 1 by mouth every Unknown - 1000mg Tablet day 05/12/2016 Xopenex HFA 2 puffs four 1units Unknown - 45mcg/Act Aerosol times a day as 10/18/2014 needed Metformin HCL 2 by mouth twice 180tabs Tubac - 500mg Tablets a day [facility], 11/11/2014 Roman Levemir Flextouch inject 55 units 30units Unknown - 100Unit/ML under the skin 10/18/2014 Solution Pen-Inject every day Clopidogrel Bisulfate 1 by mouth every 90tabs Tubac - 75mg day Pachikara, 05/07/2015 Tablets Roman Lisinopril 1 by mouth every 90tabs Renny - 10mg Tablets day Pachika, 06/02/2016 Roman Levothyroxine Sodium Take 1 Tablet By 90tabs Alondra Reynolds, - 125mcg Mouth Every Day 01/23/2019 Tablets Medications Administered in Office Medication SIG Qnty Indications Ordering Provider Date Depomedrol 40MG Christiana Talbot M.D. 07/15/2017 Injection Depomedrol 40MG Christiana Talbot M.D. 04/13/2017 Injection Immunizations CPT Code Status Date Vaccine Lot # [id number] Given 09/01/2017 Tdap - Tetanus/Diptheria/Acellular Pertussis [id number] Given 09/17/2016 Influ Virus Vaccine, Quadrivalent, Split Virus, [place] [id number] [address] Given 10/24/2015 Influenza Virus Vaccine, Quadrivalent, Split, Preservative Free [id number] Given 01/27/2015 Pneumococcal Conjugate Vaccine 13 Valent For [id number] Intramuscular Use Vital Signs Date Vital Result Comment 02/21/2019 11:19am Height 61.5 inches 5'1.50" Weight 246.00 lb Heart Rate 63 /min BP Systolic Sitting 133 mmHg BP Diastolic Sitting 72 mmHg O2 % BldC Oximetry 98 % BMI (Body Mass Index) 45.7 kg/m2 01/05/2019 2:47pm Weight 247.19 lb without wheelchair. 01/05/2019 2:41pm Height 61.5 inches 5'1.50" Heart Rate 63 /min BP Systolic 145 mmHg BP Diastolic 81 mmHg BP Systolic Recheck 132 mmHg BP Diastolic Recheck 80 mmHg Body Temperature 97.9 F O2 % BldC Oximetry 97 % 12/20/2018 4:10pm Height 61.5 inches 5'1.50" Weight 246.00 lb Heart Rate 75 /min BP Systolic 131 mmHg BP Diastolic 68 mmHg Body Temperature 99.0 F O2 % BldC Oximetry 97 % BMI (Body Mass Index) 45.7 kg/m2 11/09/2018 11:47am Height 61.5 inches 5'1.50" Weight 285.00 lb with wheel chair Heart Rate 63 /min BP Systolic 131 mmHg BP Diastolic 75 mmHg O2 % BldC Oximetry 98 % BMI (Body Mass Index) 53.0 kg/m2 10/18/2018 9:51am Height 61.5 inches 5'1.50" Weight 215.00 lb per pt Heart Rate 67 /min BP Systolic Sitting 124 mmHg BP Diastolic Sitting 82 mmHg O2 % BldC Oximetry 95 % Room air BMI (Body Mass Index) 40.0 kg/m2 06/27/2018 11:01am Height 61.5 inches 5'1.50" Weight 215.00 lb per pt BP Systolic Sitting 118 mmHg BP Diastolic Sitting 70 mmHg Pain Level 6 BMI (Body Mass Index) 40.0 kg/m2 05/09/2018 11:30am Height 61.5 inches 5'1.50" Weight 223.00 lb per pt BP Systolic Sitting 126 mmHg BP Diastolic Sitting 60 mmHg Pain Level 9 BMI (Body Mass Index) 41.4 kg/m2 12/05/2017 11:01am Height 61.5 inches 5'1.50" Heart Rate 104 /min BP Systolic 150 mmHg Lower Arm BP Diastolic 90 mmHg Lower Arm O2 % BldC Oximetry 97 % 11/21/2017 2:05pm Height 61.5 inches 5'1.50" Weight 280.00 lb Heart Rate 91 /min BP Systolic Sitting 138 mmHg BP Diastolic Sitting 84 mmHg Pain Level 6 BMI (Body Mass Index) 52.0 kg/m2 11/14/2017 8:27am Heart Rate 98 /min BP Systolic Sitting 174 mmHg BP Diastolic Sitting 100 mmHg Body Temperature 97.3 F O2 % BldC Oximetry 94 % 10/25/2017 11:21am Height 61.5 inches 5'1.50" Heart Rate 86 /min BP Systolic Sitting 146 mmHg BP Diastolic Sitting 80 mmHg Body Temperature 97.4 F O2 % BldC Oximetry 95 % 09/20/2017 12:49pm Heart Rate 88 /min BP Systolic Sitting 136 mmHg BP Diastolic Sitting 80 mmHg O2 % BldC Oximetry 96 % 09/01/2017 8:35am Heart Rate 86 /min BP Systolic Sitting 138 mmHg BP Diastolic Sitting 80 mmHg O2 % BldC Oximetry 95 % 07/19/2017 11:17am Height 61.5 inches 5'1.50" Weight 283.00 lb per pt Heart Rate 90 /min BP Systolic 138 mmHg BP Diastolic 80 mmHg Body Temperature 97.7 F O2 % BldC Oximetry 97 % BMI (Body Mass Index) 52.6 kg/m2 07/15/2017 2:00pm Height 61.5 inches 5'1.50" Weight 283.00 lb Heart Rate 98 /min BP Systolic 140 mmHg BP Diastolic 80 mmHg BMI (Body Mass Index) 52.6 kg/m2 06/27/2017 10:26am Height 61.5 inches 5'1.50" Weight 275.00 lb Heart Rate 84 /min BP Systolic 115 mmHg BP Diastolic 81 mmHg Body Temperature 97.9 F Pain Level 4 BMI (Body Mass Index) 51.1 kg/m2 05/26/2017 9:43am Height 61.5 inches 5'1.50" Weight 274.00 lb Heart Rate 102 /min BP Systolic Sitting 138 mmHg BP Diastolic Sitting 82 mmHg Respiratory Rate 19 /min BMI (Body Mass Index) 50.9 kg/m2 05/11/2017 11:27am Heart Rate 79 /min BP Systolic Sitting 138 mmHg BP Diastolic Sitting 80 mmHg Body Temperature 98.0 F O2 % BldC Oximetry 97 % 04/28/2017 1:21pm Heart Rate 118 /min BP Systolic Sitting 169 mmHg BP Diastolic Sitting 96 mmHg Body Temperature 98.3 F O2 % BldC Oximetry 96 % 04/13/2017 10:12am Height 61.5 inches 5'1.50" Weight 274.00 lb Heart Rate 87 /min BP Systolic 147 mmHg BP Diastolic 73 mmHg Body Temperature 98.3 F BMI (Body Mass Index) 50.9 kg/m2 03/18/2017 10:39am Heart Rate 100 /min BP Systolic 142 mmHg BP Diastolic 76 mmHg Body Temperature 98.4 F O2 % BldC Oximetry 95 % 01/28/2017 11:00am Heart Rate 84 /min BP Systolic Sitting 138 mmHg BP Diastolic Sitting 76 mmHg Body Temperature 98.2 F O2 % BldC Oximetry 98 % 01/24/2017 2:04pm Height 61.5 inches 5'1.50" Weight 276.00 lb Heart Rate 88 /min BP Systolic 130 mmHg BP Diastolic 90 mmHg BMI (Body Mass Index) 51.3 kg/m2 12/23/2016 1:35pm Height 61.5 inches 5'1.50" Weight 277.38 lb Heart Rate 96 /min BP Systolic Sitting 150 mmHg BP Diastolic Sitting 84 mmHg Body Temperature 98.4 F O2 % BldC Oximetry 96 % BMI (Body Mass Index) 51.6 kg/m2 12/07/2016 3:27pm Weight 275.50 lb Heart Rate 112 /min BP Systolic Sitting 126 mmHg BP Diastolic Sitting 88 mmHg Body Temperature 98.3 F O2 % BldC Oximetry 95 % 09/29/2016 11:25am Weight 273.00 lb Heart Rate 92 /min BP Systolic Sitting 140 mmHg BP Diastolic Sitting 82 mmHg Respiratory Rate 15 /min Body Temperature 97.7 F O2 % BldC Oximetry 97 % 09/17/2016 1:49pm Heart Rate 96 /min BP Systolic Sitting 156 mmHg BP Diastolic Sitting 70 mmHg Body Temperature 98.7 F O2 % BldC Oximetry 97 % 08/23/2016 12:56pm Height 61.5 inches 5'1.50" Weight 279.00 lb per pt report Heart Rate 92 /min BP Systolic Sitting 144 mmHg BP Diastolic Sitting 76 mmHg Respiratory Rate 18 /min Body Temperature 99.2 F O2 % BldC Oximetry 97 % BMI (Body Mass Index) 51.9 kg/m2 08/19/2016 2:30pm Height 61.5 inches 5'1.50" Weight 279.00 lb Heart Rate 112 /min BP Systolic Sitting 168 mmHg BP Diastolic Sitting 88 mmHg Body Temperature 98.9 F O2 % BldC Oximetry 96 % BMI (Body Mass Index) 51.9 kg/m2 08/02/2016 10:23am Height 61.5 inches 5'1.50" Weight 276.50 lb Heart Rate 84 /min BP Systolic Sitting 130 mmHg BP Diastolic Sitting 80 mmHg BMI (Body Mass Index) 51.4 kg/m2 06/25/2016 9:32am Height 61.5 inches 5'1.50" Weight 276.00 lb [...] 51.3 kg/m2 Ejection Fraction 55-60% 08/15/15 06/03/2016 4:20pm Height 61.5 inches 5'1.50" Heart Rate 100 /min BP Systolic 133 mmHg BP Diastolic 86 mmHg Body Temperature 98.9 F O2 % BldC Oximetry 97 % 05/20/2016 8:38am Height 61.5 inches 5'1.50" Weight 274.12 lb Heart Rate 92 /min BP Systolic 136 mmHg BP Diastolic 70 mmHg Body Temperature 98.4 F O2 % BldC Oximetry 95 % BMI (Body Mass Index) 51.0 kg/m2 05/13/2016 8:33am Height 61.5 inches 5'1.50" Weight 272.00 lb Heart Rate 84 /min BP Systolic Sitting 132 mmHg BP Diastolic Sitting 80 mmHg Respiratory Rate 16 /min BMI (Body Mass Index) 50.6 kg/m2 03/11/2016 9:35am Height 61.5 inches 5'1.50" Weight 274.00 lb Heart Rate 86 /min BP Systolic Sitting 122 mmHg BP Diastolic Sitting 76 mmHg Body Temperature 98.6 F O2 % BldC Oximetry 97 % BMI (Body Mass Index) 50.9 kg/m2 01/05/2016 3:49pm Height 61.5 inches 5'1.50" Weight 275.00 lb Heart Rate 108 /min BP Systolic Sitting 148 mmHg BP Diastolic Sitting 86 mmHg Body Temperature 98.8 F O2 % BldC Oximetry 95 % BMI (Body Mass Index) 51.1 kg/m2 11/17/2015 2:10pm Height 61.5 inches 5'1.50" Weight 271.50 lb Heart Rate 88 /min BP Systolic Sitting 140 mmHg BP Diastolic Sitting 80 mmHg Body Temperature 97.4 F O2 % BldC Oximetry 96 % BMI (Body Mass Index) 50.5 kg/m2 09/10/2015 10:04am Height 61.5 inches 5'1.50" Weight 270.00 lb Heart Rate 85 /min BP Systolic 118 mmHg BP Diastolic 70 mmHg Body Temperature 98.8 F O2 % BldC Oximetry 96 % BMI (Body Mass Index) 50.2 kg/m2 08/12/2015 8:47am Height 61.5 inches 5'1.50" Weight 275.00 lb Heart Rate 88 /min BP Systolic Sitting 163 mmHg BP Diastolic Sitting 78 mmHg Body Temperature 98.3 F O2 % BldC Oximetry 96 % BMI (Body Mass Index) 51.1 kg/m2 08/07/2015 8:32am Weight 273.38 lb Heart Rate 84 /min BP Systolic Sitting 142 mmHg taking sudafed BP Diastolic Sitting 78 mmHg taking sudafed Body Temperature 99.4 F O2 % BldC Oximetry 97 % 07/04/2015 8:25am Height 61.5 inches 5'1.50" Weight 270.25 lb Heart Rate 84 /min BP Systolic Sitting 142 mmHg BP Diastolic Sitting 70 mmHg Body Temperature 98.6 F O2 % BldC Oximetry 96 % BMI (Body Mass Index) 50.2 kg/m2 06/13/2015 2:03pm Height 61.5 inches 5'1.50" Heart Rate 88 /min BP Systolic Sitting 142 mmHg BP Diastolic Sitting 80 mmHg O2 % BldC Oximetry 95 % 05/21/2015 7:59am Height 61.5 inches 5'1.50" Weight 272.00 lb Heart Rate 83 /min BP Systolic 136 mmHg BP Diastolic 78 mmHg Body Temperature 98.9 F O2 % BldC Oximetry 97 % BMI (Body Mass Index) 50.6 kg/m2 05/07/2015 4:21pm Weight 272.00 lb Heart Rate 94 /min BP Systolic Sitting 132 mmHg BP Diastolic Sitting 74 mmHg Pain Level 4 lower back O2 % BldC Oximetry 96 % 03/07/2015 10:55am Heart Rate 76 /min BP Systolic Sitting 145 mmHg BP Diastolic Sitting 85 mmHg 02/10/2015 2:14pm Height 61.5 inches 5'1.50" Weight 266.00 lb Heart Rate 98 /min BP Systolic Sitting 128 mmHg BP Diastolic Sitting 80 mmHg Body Temperature 98.7 F O2 % BldC Oximetry 96 % BMI (Body Mass Index) 49.4 kg/m2 01/27/2015 2:54pm Height 61.5 inches 5'1.50" Weight 266.00 lb Heart Rate 107 /min BP Systolic Sitting 130 mmHg BP Diastolic Sitting 70 mmHg O2 % BldC Oximetry 94 % BMI (Body Mass Index) 49.4 kg/m2 01/06/2015 3:07pm Height 61.5 inches 5'1.50" Weight 262.00 lb BMI (Body Mass Index) 48.7 kg/m2 12/30/2014 1:16pm Weight 261.25 lb Heart Rate 103 /min BP Systolic Sitting 130 mmHg BP Diastolic Sitting 86 mmHg Body Temperature 98.2 F O2 % BldC Oximetry 97 % 12/27/2014 2:25pm Weight 261.75 lb Heart Rate 88 /min BP Systolic Sitting 129 mmHg BP Diastolic Sitting 76 mmHg Body Temperature 99.0 F 10/18/2014 10:12am Height 61.5 inches 5'1.50" Weight 259.00 lb Heart Rate 87 /min BP Systolic Sitting 124 mmHg BP Diastolic Sitting 62 mmHg Body Temperature 98.8 F O2 % BldC Oximetry 97 % BMI (Body Mass Index) 48.1 kg/m2 Results Test Date Facility Test Result H/L Range Note CBC Auto Diff 01/11/2019 [facility] White Blood 7.5 10^3/uL N 3.5-10.[address] [place] [address] [phone] Red Blood Count 3.99 10^6/uL N 3.70-4.87 Hemoglobin 10.4 g/dL Low 12.0-16.0 Hematocrit 32 % Low 33-41 Mean Corpuscular Volume 80 fL N 80-97 Mean Corpuscular Hemoglobin 26 pg Low 27-31 Mean Corpuscular HGB Conc 33 g/dL N 31-36 Red Cell Distribution Width 17 % High 10.5-15 Platelet Count 240 10^3/uL N 150-450 Mean Platelet Volume 8.4 fL N 7.4-10.4 Abs Neutrophils 4.4 10^3/uL N 1.5-7.7 Abs Lymphocytes 2.0 10^3/uL N 1.0-4.8 Abs Monocytes 0.4 10^3/uL N 0-0.8 Abs Eosinophils 0.7 10^3/uL High 0-0.6 Abs Basophils 0.1 10^3/uL N 0-0.2 Abs Nucleated RBC 0 10^3/uL Granulocyte % 57.7 % Lymphocyte % 26.5 % Monocyte % 5.8 % Eosinophil % 9.1 % Basophil % 0.9 % Nucleated Red Blood Cells % 0 Urinalysis Profile 01/11/2019 [facility] Urine Color Yellow [address] [place] [address] [phone] Urine Appearance Clear Urine Specific [place] 1.013 N 1.010-1.030 Urine pH 6.0 N 5-9 Urine Urobilinogen Negative Negative Urine Ketones Negative Negative Urine Protein Negative Negative Urine Leukocytes Negative Negative Urine Blood Negative Negative Urine Nitrite Negative Negative Urine Bilirubin Negative Negative Urine Glucose Negative Negative Laboratory test 01/11/2019 [facility] B-Type 173 pg/mL High <= [address] [place] [address] Peptide BNP [phone] Comp Metabolic 01/11/2019 [facility] Sodium 139 N 135-[address] mmol/[place] [address] [phone] Potassium 4.1 mmol/L N 3.5-5.0 Chloride 101 mmol/L N 101-111 Co2 Carbon Dioxide 30 mmol/L N 22-32 Anion Gap 8 mmol/L N 2-11 Glucose 127 mg/dL High 70-100 Blood Urea Nitrogen 25 mg/dL High 6-24 Creatinine 0.71 mg/dL N 0.51-0.95 BUN/Creatinine Ratio 35.2 High 8-20 Calcium 9.0 mg/dL N 8.6-10.3 Total Protein 6.1 g/dL Low 6.4-8.9 Albumin 4.0 g/dL N 3.2-5.2 Globulin 2.1 g/dL N 2-4 Albumin/Globulin Ratio 1.9 N 1-3 Total Bilirubin 0.40 mg/dL N 0.2-1.0 Alkaline Phosphatase 81 U/L N 34-104 Alt 11 U/L N 7-52 Ast 13 U/L N 13-39 Egfr Non- 80.0 >60 Egfr 96.8 >60 1 Laboratory test 01/11/2019 [facility] TSH (Thyroid 11.74 High 0.34-5.[address] Stim Horm) mcIU/mL [place], [place] [id number] [phone] Urine 11/23/2018 [facility] Ur Microalbumin < 15.[address] (mg/L) [place] [address] [phone] Urine Creatinine 53.74 mg/dL Urine Microalbumin/Creatinine TNP <31 2 Comp Metabolic Panel 11/16/2018 [facility] Sodium 138 mmol/L N 135-[address] [place] [address] [phone] Potassium 4.4 mmol/L N 3.5-5.0 Chloride 103 mmol/L N 101-111 Co2 Carbon Dioxide 30 mmol/L N 22-32 Anion Gap 5 mmol/L N 2-11 Glucose 95 mg/dL N 70-100 Blood Urea Nitrogen 26 mg/dL High 6-24 Creatinine 0.65 mg/dL N 0.51-0.95 BUN/Creatinine Ratio 40.0 High 8-20 Calcium 9.2 mg/dL N 8.6-10.3 Total Protein 5.7 g/dL Low 6.4-8.9 Albumin 3.7 g/dL N 3.2-5.2 Globulin 2.0 g/dL N 2-4 Albumin/Globulin Ratio 1.9 N 1-3 Total Bilirubin 0.50 mg/dL N 0.2-1.0 Alkaline Phosphatase 71 U/L N 34-104 Alt 9 U/L N 7-52 Ast 10 U/L Low 13-39 Egfr Non- 88.6 >60 Egfr 107.2 >60 3 Lipid Profile 11/16/2018 [facility] Triglycerides 189 mg/dL 4 (Trig/Chol/HDL) [address] [place] [address] [phone] Cholesterol 224 mg/dL 5 HDL Cholesterol 57.6 mg/dL 6 LDL Cholesterol 129 mg/dL 7 Laboratory test 11/16/2018 [facility] TSH (Thyroid 5.02 mcIU/mL N 0.34-5.[address] Stim Horm) [place] [address] [phone] Free T4 (Free Thyroxine) 0.91 ng/dL N 0.61-1.12 T3 Total 73 ng/dL Low 87-178 Hemoglobin A1c (Glyco HGB) 5.2 % N 4.0-5.6 8 CBC Auto Diff 12/15/2017 [facility] White Blood 9.4 10^3/uL N 3.5-10.[address] [place] [address] [phone] Red Blood Count 4.24 10^6/uL N 4.0-5.4 Hemoglobin 11.0 g/dL Low 12.0-16.0 Hematocrit 33 % Low 35-47 Mean Corpuscular Volume 78 fL Low 80-97 Mean Corpuscular Hemoglobin 26 pg Low 27-31 Mean Corpuscular HGB Conc 34 g/dL N 31-36 Red Cell Distribution Width 18 % High 10.5-15 Platelet Count 310 10^3/uL N 150-450 Mean Platelet Volume 8 um3 N 7.4-10.4 Abs Neutrophils 6.8 10^3/uL N 1.5-7.7 Abs Lymphocytes 1.6 10^3/uL N 1.0-4.8 Abs Monocytes 0.5 10^3/uL N 0-0.8 Abs Eosinophils 0.4 10^3/uL N 0-0.6 Abs Basophils 0.1 10^3/uL N 0-0.2 Abs Nucleated RBC 0 10^3/uL Granulocyte % 72.4 % N 38-83 Lymphocyte % 16.9 % Low 25-47 Monocyte % 5.3 % N 0-7 Eosinophil % 4.0 % N 0-6 Basophil % 1.4 % N 0-2 Nucleated Red Blood Cells % 0.1 Laboratory test 12/15/2017 [facility] Lactic Acid 1.2 mmol/L N 0.5-2.0 9 finding [address] [place] [address] [phone] Inr/Protime 12/15/2017 [facility] Inr 1.08 High 0.77-1.[address] [place] [address] [phone] Laboratory test 12/15/2017 [facility] Partial 36.3 N 26.0- 36.3 finding 101 [facility] [place] [address] PTT [phone] B-Type Natriuretic Peptide BNP 133 pg/mL High 10 Comp Metabolic Panel 12/15/2017 [facility] Sodium 134 mmol/L N 133-[address] [place] [address] [phone] Potassium 3.4 mmol/L Low 3.5-5.0 Chloride 97 mmol/L Low 101-111 Co2 Carbon Dioxide 29 mmol/L N 22-32 Anion Gap 8 mmol/L N 2-11 Glucose 171 mg/dL High 70-100 Blood Urea Nitrogen 13 mg/dL N 6-24 Creatinine 0.57 mg/dL N 0.51-0.95 BUN/Creatinine Ratio 22.8 High 8-20 Calcium 9.3 mg/dL N 8.6-10.3 Total Protein 6.2 g/dL Low 6.4-8.9 Albumin 3.6 g/dL N 3.2-5.2 Globulin 2.6 g/dL N 2-4 Albumin/Globulin Ratio 1.4 N 1-3 Total Bilirubin 0.70 mg/dL N 0.2-1.0 Alkaline Phosphatase 88 U/L N 34-104 Alt 14 U/L N 7-52 Ast 12 U/L Low 13-39 Egfr Non- 103.4 >60 Egfr 133.0 >60 11 Laboratory test 12/15/2017 [facility] Magnesium 1.7 mg/dL Low 1.9-2.7 finding [address] [place] [address] [phone] Lipase 22 U/L N 11.0-82.0 Creatine Kinase(CK) 74 U/L N 10-223 C Reactive Protein 66.26 mg/L High < 5.00 12 Troponin-I (TnI) 0.03 ng/mL <0.04 CKMB 12/15/2017 [facility] CKMB ng/mL 4.7 ng/mL N 0.6-6.3 [address] [place], [place] [id number] [phone] Laboratory test 12/15/2017 [facility] TSH 2.40 mcIU/mL N 0.34- 5.60 finding [address] [facility] [address] (Thyroid [place], [place] [id number] [employer]ds[facility]) [phone] Urinalysis 12/08/2017 [facility] Urine Color Yellow Profile [address] [place] [address] [phone] Urine Appearance Cloudy Urine Specific [place] 1.010 N 1.010-1.030 Urine pH 5.0 N 5-9 Urine Urobilinogen Negative Negative Urine Ketones Negative Negative Urine Protein Negative Negative Urine Leukocytes 2+ Abnormal Negative Urine Blood Negative Negative * * Abnormal Negative 13 Urine Nitrite Negative Negative Urine Bilirubin Negative Negative Urine Glucose Negative Negative Urine White Blood Cell 3+(>20/hpf) Abnormal Absent Urine Red Blood Cell Absent Absent Urine Bacteria Absent Absent Urine Culture And 12/08/2017 [facility] Urine Culture SEE RESULT [address] [place] [address] [phone] CBC Auto Diff 12/01/2017 [facility] White Blood 10.1 10^3/uL N 3.5-[address] Count 0.8 [place] [address] [phone] Red Blood Count 4.48 10^6/uL N 4.0-5.4 Hemoglobin 11.5 g/dL Low 12.0-16.0 Hematocrit 34 % Low 35-47 Mean Corpuscular Volume 77 fL Low 80-97 Mean Corpuscular Hemoglobin 26 pg Low 27-31 Mean Corpuscular HGB Conc 33 g/dL N 31-36 Red Cell Distribution Width 18 % High 10.5-15 Platelet Count 284 10^3/uL N 150-450 Mean Platelet Volume 8 um3 N 7.4-10.4 Abs Neutrophils 7.0 10^3/uL N 1.5-7.7 Abs Lymphocytes 2.0 10^3/uL N 1.0-4.8 Abs Monocytes 0.6 10^3/uL N 0-0.8 Abs Eosinophils 0.3 10^3/uL N 0-0.6 Abs Basophils 0.1 10^3/uL N 0-0.2 Abs Nucleated RBC 0 10^3/uL Granulocyte % 69.9 % N 38-83 Lymphocyte % 20.2 % Low 25-47 Monocyte % 5.8 % N 1-9 Eosinophil % 3.4 % N 0-6 Basophil % 0.7 % N 0-2 Nucleated Red Blood Cells % 0.1 CBC Auto 11/19/2017 [facility] White Blood 15.2 10^3/uL High 3.5-10.[address] [place] [address] [phone] Red Blood Count 5.17 10^6/uL N 4.0-5.4 Hemoglobin 13.1 g/dL N 12.0-16.0 Hematocrit 40 % N 35-47 Mean Corpuscular Volume 78 fL Low 80-97 Mean Corpuscular Hemoglobin 25 pg Low 27-31 Mean Corpuscular HGB Conc 33 g/dL N 31-36 Red Cell Distribution Width 18 % High 10.5-15 Platelet Count 336 10^3/uL N 150-450 Mean Platelet Volume 9 um3 N 7.4-10.4 Abs Neutrophils 10.8 10^3/uL High 1.5-7.7 Abs Lymphocytes 3.2 10^3/uL N 1.0-4.8 Abs Monocytes 0.8 10^3/uL N 0-0.8 Abs Eosinophils 0.3 10^3/uL N 0-0.6 Abs Basophils 0.2 10^3/uL N 0-0.2 Abs Nucleated RBC 0 10^3/uL Granulocyte % 71.0 % N 38-83 Lymphocyte % 20.9 % Low 25-47 Monocyte % 5.0 % N 1-9 Eosinophil % 2.0 % N 0-6 Basophil % 1.1 % N 0-2 Nucleated Red Blood Cells % 0.1 Laboratory test 11/19/2017 [facility] Partial 32.5 seconds N 26.0-36.[address] [place] [address] PTT [phone] Comp Metabolic 11/19/2017 [facility] Sodium 134 mmol/L N 133- [address] [place] [address] [phone] Potassium 3.3 mmol/L Low 3.5-5.0 Chloride 96 mmol/L Low 101-111 Co2 Carbon Dioxide 28 mmol/L N 22-32 Anion Gap 10 mmol/L N 2-11 Glucose 173 mg/dL High 70-100 Blood Urea Nitrogen 25 mg/dL High 6-24 Creatinine 0.91 mg/dL N 0.51-0.95 BUN/Creatinine Ratio 27.5 High 8-20 Calcium 10.1 mg/dL N 8.6-10.3 Total Protein 7.3 g/dL N 6.4-8.9 Albumin 4.6 g/dL N 3.2-5.2 Globulin 2.7 g/dL N 2-4 Albumin/Globulin Ratio 1.7 N 1-3 Total Bilirubin 0.70 mg/dL N 0.2-1.0 Alkaline Phosphatase 60 U/L N 34-104 Alt 26 U/L N 7-52 Ast 22 U/L N 13-39 Egfr Non- 60.3 >60 Egfr 77.5 >60 15 Laboratory test 11/19/2017 [facility] C Reactive 18.25 High < 5.00 [address] Protein mg/[place] [address] [phone] Lipid Profile 10/27/2017 [facility] Triglycerides 192 mg/dL 17 (Trig/Chol/HDL) [address] [place] [address] [phone] Cholesterol 220 mg/dL 18 HDL Cholesterol 57.2 mg/dL 19 LDL Cholesterol 124 mg/dL 20 Laboratory test 10/27/2017 [facility] TSH (Thyroid 1.61 mcIU/mL N 0.34-5.[address] Stim Horm) [place] [address] [phone] Comp Metabolic 10/27/2017 [facility] Sodium 136 mmol/L N 133- [address] [place] [address] [phone] Potassium 4.6 mmol/L N 3.5-5.0 Chloride 99 mmol/L Low 101-111 Co2 Carbon Dioxide 29 mmol/L N 22-32 Anion Gap 8 mmol/L N 2-11 Glucose 163 mg/dL High 70-100 Blood Urea Nitrogen 18 mg/dL N 6-24 Creatinine 0.75 mg/dL N 0.51-0.95 BUN/Creatinine Ratio 24.0 High 8-20 Calcium 9.5 mg/dL N 8.6-10.3 Total Protein 6.3 g/dL Low 6.4-8.9 Albumin 4.2 g/dL N 3.2-5.2 Globulin 2.1 g/dL N 2-4 Albumin/Globulin Ratio 2.0 N 1-3 Total Bilirubin 0.80 mg/dL N 0.2-1.0 Alkaline Phosphatase 70 U/L N 34-104 Alt 17 U/L N 7-52 Ast 19 U/L N 13-39 Egfr Non- 75.3 >60 Egfr 96.9 >60 21 Laboratory test 07/19/2017 [facility] Hemoglobin A1c 6.6 5-7 finding Laboratory test 04/28/2017 [facility] Hemoglobin A1c 7.0 5-7 finding Laboratory test 12/23/2016 [facility] Hemoglobin A1c 7.5 High 5-7 finding Urine Microalbumin 12/23/2016 [facility] Urine Creatinine 122.02 N Random [address] mg/[place] [address] [phone] Ur Microalbumin (mg/L) 38.0 mg/L N Urine Microalbumin/Creatinine 31.1 ug/mg High <31 Laboratory test 09/24/2016 [facility] D Dimer < 200 N Less [address] Quantitative ng/mL Than 230 [place] [address] [phone] Comp Metabolic 09/24/2016 [facility] Sodium 135 mmol/L N 133- [address] [place] [address] [phone] Potassium 3.8 mmol/L N 3.5-5.0 Chloride 100 mmol/L Low 101-111 Co2 Carbon Dioxide 27 mmol/L N 22-32 Anion Gap 8 mmol/L N 2-11 Glucose 167 mg/dL High 70-100 Blood Urea Nitrogen 16 mg/dL N 6-24 Creatinine 0.94 mg/dL N 0.51-0.95 BUN/Creatinine Ratio 17.0 N 8-20 Calcium 9.6 mg/dL N 8.6-10.3 Total Protein 7.0 g/dL N 6.4-8.9 Albumin 4.2 g/dL N 3.2-5.2 Globulin 2.8 g/dL N 2-4 Albumin/Globulin Ratio 1.5 N 1-3 Total Bilirubin 0.60 mg/dL N 0.2-1.0 Alkaline Phosphatase 70 U/L N 34-104 Alt 22 U/L N 7-52 Ast 19 U/L N 13-39 Egfr Non- 58.2 N >60 Egfr 74.9 N >60 23 Laboratory test 09/24/2016 [facility] C Reactive 15.76 mg/L High < 5.00 [address] [place] [address] [phone] CBC Auto Diff 09/24/2016 [facility] White Blood 10.0 N 3.5- 10.[address] Count 10^3/[place] [address] [phone] Red Blood Count 4.52 10^6/uL N 4.0-5.4 Hemoglobin 11.5 g/dL Low 12.0-16.0 Hematocrit 35 % N 35-47 Mean Corpuscular Volume 78 fL Low 80-97 Mean Corpuscular Hemoglobin 26 pg Low 27-31 Mean Corpuscular HGB Conc 33 g/dL N 31-36 Red Cell Distribution Width 17 % High 10.5-15 Platelet Count 266 10^3/uL N 150-450 Mean Platelet Volume 8 um3 N 7.4-10.4 Abs Neutrophils 6.3 10^3/uL N 1.5-7.7 Abs Lymphocytes 2.2 10^3/uL N 1.0-4.8 Abs Monocytes 0.6 10^3/uL N 0-0.8 Abs Eosinophils 0.8 10^3/uL High 0-0.6 Abs Basophils 0.1 10^3/uL N 0-0.2 Abs Nucleated RBC 0.01 10^3/uL N Granulocyte % 63.7 % N 38-83 Lymphocyte % 21.9 % Low 25-47 Monocyte % 5.9 % N 1-9 Eosinophil % 7.8 % High 0-6 Basophil % 0.7 % N 0-2 Nucleated Red Blood Cells % 0.1 N Laboratory test 09/24/2016 [facility] B-Type 48 pg/mL N [address] [place] [address] Peptide BNP [phone] Comp Metabolic 08/24/2016 [facility] Sodium 134 mmol/L N 133- [address] [place] [address] [phone] Potassium 4.0 mmol/L N 3.5-5.0 Chloride 98 mmol/L Low 101-111 Co2 Carbon Dioxide 26 mmol/L N 22-32 Anion Gap 10 mmol/L N 2-11 Glucose 304 mg/dL High 70-100 Blood Urea Nitrogen 25 mg/dL High 6-24 Creatinine 1.05 mg/dL High 0.51-0.95 BUN/Creatinine Ratio 23.8 High 8-20 Calcium 9.0 mg/dL N 8.6-10.3 Total Protein 6.0 g/dL Low 6.4-8.9 Albumin 4.0 g/dL N 3.2-5.2 Globulin 2.0 g/dL N 2-4 Albumin/Globulin Ratio 2.0 N 1-3 Total Bilirubin 0.60 mg/dL N 0.2-1.0 Alkaline Phosphatase 62 U/L N 34-104 Alt 19 U/L N 7-52 Ast 12 U/L Low 13-39 Egfr Non- 51.2 N >60 Egfr 65.9 N >60 26 Laboratory test 08/23/2016 [facility] Hemoglobin A1c 7.4 High 5-7 finding Laboratory test 05/20/2016 [facility] Hemoglobin A1c 7.4 High 5-7 finding Vitamin B12 And 05/04/2016 [facility] Vitamin B12 564 pg/mL N 180-914 27 Folate Serum [address] [place] [address] [phone] Folic Acid (Folate) > 20.00 ng/mL N >3.99 28 Laboratory test 05/04/2016 [facility] TSH (Thyroid 0.47 mcIU/mL N 0.34-5.60 [address] Stim Horm) [place] [address] [phone] Comp Metabolic 05/04/2016 [facility] Sodium 135 mmol/L N 133- [address] [place] [address] [phone] Potassium 4.1 mmol/L N 3.5-5.0 Chloride 101 mmol/L N 101-111 Co2 Carbon Dioxide 26 mmol/L N 22-32 Anion Gap 8 mmol/L N 2-11 Glucose 162 mg/dL High 70-100 Blood Urea Nitrogen 17 mg/dL N 6-24 Creatinine 0.91 mg/dL N 0.51-0.95 BUN/Creatinine Ratio 18.7 N 8-20 Calcium 9.4 mg/dL N 8.6-10.3 Total Protein 6.1 g/dL Low 6.4-8.9 Albumin 4.0 g/dL N 3.2-5.2 Globulin 2.1 g/dL N 2-4 Albumin/Globulin Ratio 1.9 N 1-3 Total Bilirubin 0.60 mg/dL N 0.2-1.0 Alkaline Phosphatase 67 U/L N 34-104 Alt 17 U/L N 7-52 Ast 15 U/L N 13-39 Egfr Non- 60.6 N >60 Egfr 77.9 N >60 30 Lipid Profile 05/04/2016 [facility] Triglycerides 341 mg/dL N 31 (Trig/Chol/HDL) [address] [place] [address] [phone] Cholesterol 310 mg/dL N 32 HDL Cholesterol 49.8 mg/dL N 33 LDL Cholesterol 192 mg/dL N 34 Laboratory test 03/11/2016 [facility] Hemoglobin A1c 7.5 High 5-7 finding Laboratory test 11/17/2015 [facility] Hemoglobin A1c 7.6 High 5-7 finding CBC Auto Diff 09/16/2015 [facility] White Blood Count 10.1 N 4.8-10.[address] 10^3/uL [place], [place] [address] [phone] Red Blood Count 4.52 10^6/uL N 4.0-5.4 Hemoglobin 11.7 g/dL Low 12.0-16.0 Hematocrit 36 % N 35-47 Mean Corpuscular Volume 79 fL Low 80-97 Mean Corpuscular Hemoglobin 26 pg Low 27-31 Mean Corpuscular HGB Conc 33 g/dL N 31-36 Red Cell Distribution Width 17 % High 10.5-15 Platelet Count 247 10^3/uL N 150-450 Mean Platelet Volume 8 um3 N 7.4-10.4 Abs Neutrophils 6.7 10^3/uL N 1.5-7.7 Abs Lymphocytes 2.0 10^3/uL N 1.0-4.8 Abs Monocytes 0.6 10^3/uL N 0-0.8 Abs Eosinophils 0.7 10^3/uL High 0-0.6 Abs Basophils 0.1 10^3/uL N 0-0.2 Abs Nucleated RBC 0 10^3/uL N Granulocyte % 66.9 % N 38-83 Lymphocyte % 19.6 % Low 25-47 Monocyte % 6.0 % N 1-9 Eosinophil % 6.7 % High 0-6 Basophil % 0.8 % N 0-2 Nucleated Red Blood Cells % 0 N Laboratory test 08/07/2015 [facility] Hemoglobin A1c 7.3 High 5-7 finding Laboratory test 05/16/2015 [facility] TSH (Thyroid Stim 1.54 N 0.34-5.[address] Horm) ?IU/mL [place], [place] [id number] [phone] Vitamin B12 And 05/16/2015 [facility] Vitamin B12 980 pg/mL High 180-914 [address] [place] [address] [phone] Folic Acid (Folate) > 20.00 ng/mL N >3.99 Iron & Iron Binding 05/16/2015 [facility] Iron 47 g/dL Low 50-212 Capacity [address] [place] [address] [phone] Unsaturated Iron Binding 366 g/dL N Total Iron Binding Capacity 413 g/dL N 250-450 % Iron Saturation 11 % Low 15-55 CBC Auto Diff 05/16/2015 [facility] White Blood 7.7 10^3/uL N 4.8-10.[address] [place] [address] [phone] Red Blood Count 4.63 10^6/uL N 4.0-5.4 Hemoglobin 11.7 g/dL Low 12.0-16.0 Hematocrit 37 % N 35-47 Mean Corpuscular Volume 79 fL Low 80-97 Mean Corpuscular Hemoglobin 25 pg Low 27-31 Mean Corpuscular HGB Conc 32 g/dL N 31-36 Red Cell Distribution Width 17 % High 10.5-15 Platelet Count 224 10^3/uL N 150-450 Mean Platelet Volume 8 um3 N 7.4-10.4 Abs Neutrophils 5.0 10^3/uL N 1.5-7.7 Abs Lymphocytes 1.5 10^3/uL N 1.0-4.8 Abs Monocytes 0.4 10^3/uL N 0-0.8 Abs Eosinophils 0.6 10^3/uL N 0-0.6 Abs Basophils 0.1 10^3/uL N 0-0.2 Abs Nucleated RBC 0 10^3/uL N Granulocyte % 64.8 % N 38-83 Lymphocyte % 19.9 % Low 25-47 Monocyte % 5.8 % N 1-9 Eosinophil % 8.1 % High 0-6 Basophil % 1.4 % N 0-2 Nucleated Red Blood Cells % 0.1 N Urine Microalbumin 05/16/2015 [facility] Ur Microalbumin 7.0 mg/ L N Random [address] (mg/L) [place] [address] [phone] Urine Creatinine 84.15 mg/dL N Urine Microalbumin/Creatinine 8.3 ug/mg N <31 Lipid Profile 05/16/2015 [facility] Triglycerides 324 mg/dL N 36 (Trig/Chol/HDL) [address] [place] [address] [phone] Cholesterol 285 mg/dL N 37 HDL Cholesterol 46.8 mg/dL N 38 LDL Cholesterol 173 mg/dL N 39 Comp Metabolic Panel 05/16/2015 [facility] Sodium 136 mmol/L N 133-[address] [place] [address] [phone] Potassium 4.3 mmol/L N 3.5-5.0 Chloride 101 mmol/L N 101-111 Co2 Carbon Dioxide 26 mmol/L N 22-32 Anion Gap 9 mmol/L N 2-11 Glucose 164 mg/dL High 70-100 Blood Urea Nitrogen 16 mg/dL N 6-24 Creatinine 0.81 mg/dL N 0.51-0.95 BUN/Creatinine Ratio 19.8 N 8-20 Calcium 9.4 mg/dL N 8.6-10.3 Total Protein 6.5 g/dL N 6.4-8.9 Albumin 4.2 g/dL N 3.2-5.2 Globulin 2.3 g/dL N 2-4 Albumin/Globulin Ratio 1.8 N 1-3 Total Bilirubin 0.70 mg/dL N 0.2-1.0 Alkaline Phosphatase 72 U/L N 34-104 Alt 18 U/L N 7-52 Ast 17 U/L N 13-39 Egfr Non- 69.5 N >60 Egfr 89.4 N >60 40 Comp Metabolic Panel 01/17/2015 Sodium 137 mmol/L N 133-145 Potassium 4.4 mmol/L N 3.5-5.0 Chloride 102 mmol/L N 101-111 Co2 Carbon Dioxide 26 mmol/L N 22-32 Anion Gap 9 mmol/L N 2-11 Glucose 129 mg/dL High 70-100 Blood Urea Nitrogen 15 mg/dL N 6-24 Creatinine 0.79 mg/dL N 0.51-0.95 BUN/Creatinine Ratio 19.0 N 8-20 Calcium 9.3 mg/dL N 8.6-10.3 Total Protein 6.5 g/dL N 6.4-8.9 Albumin 4.3 g/dL N 3.2-5.2 Globulin 2.2 g/dL N 2-4 Albumin/Globulin Ratio 2.0 N 1-3 Total Bilirubin 0.50 mg/dL N 0.2-1.0 Alkaline Phosphatase 78 U/L N 34-104 Alt 18 U/L N 7-52 Ast 15 U/L N 13-39 Egfr Non- 71.5 N >60 Egfr 92.0 N >60 41 Vitamin D, 25 Hydroxy 01/17/2015 25-Hydroxy Vitamin D2 <4.0 ng/mL N 25-Hydroxy Vitamin D3 66 ng/mL N 25-Hydroxy Vitamin D Total 66 ng/mL N 42 Vitamin B12 And Folate Serum 01/17/2015 Vitamin B12 774 pg/mL N 180-914 43 Folate > 20.00 ng/mL N >3.99 CBC Auto Diff 01/17/2015 White Blood Count 8.6 10^3/uL N 4.8-10.8 Red Blood Count 4.45 10^6/uL N 4.0-5.4 Hemoglobin 11.5 g/dL Low 12.0-16.0 Hematocrit 35 % N 35-47 Mean Corpuscular Volume 78 fL Low 80-97 Mean Corpuscular Hemoglobin 26 pg Low 27-31 Mean Corpuscular HGB Conc 33 g/dL N 31-36 Red Cell Distribution Width 16 % High 10.5-15 Platelet Count 237 10^3/uL N 150-450 Mean Platelet Volume 8 um3 N 7.4-10.4 Abs Neutrophils 5.7 10^3/uL N 1.5-7.7 Abs Lymphocytes 1.7 10^3/uL N 1.0-4.8 Abs Monocytes 0.5 10^3/uL N 0-0.8 Abs Eosinophils 0.5 10^3/uL N 0-0.6 Abs Basophils 0.1 10^3/uL N 0-0.2 Abs Nucleated RBC 0 10^3/uL N Granulocyte % 66.6 % N 38-83 Lymphocyte % 20.1 % Low 25-47 Monocyte % 6.1 % N 1-9 Eosinophil % 6.1 % High 0-6 Basophil % 1.1 % N 0-2 Nucleated Red Blood Cells % 0 N Laboratory test 01/17/2015 TSH (Thyroid 0.80 IU/mL N 0.34-5.60 finding Stimulating Horm) Laboratory test 10/18/2014 [facility] [address] [facility] In House Hemoglobin A1c 6.3 5-7 finding 1 Because ethnic data is not always [...] 5 Kidney failure <15 (or dialysis) 2 Unable to calculate due to low microalbumin 3 Because ethnic data is not always [...] 130-159 High: 160-189 Very High: >189 8 Therapeutic target for the treatment of diabetes mellitus patients is <7% HBA1C, and in selective patients <6.0%. Please refer to [place] [employer] diabetic care guidelines for further information. 9 RIS Severe Sepsis and Septic Shock Management Bundle Measure requires all lactic acids initially measuring >2.0 mmol/L be repeated. 10 >100 to <200 pg/mL: likely compensated congestive heart failure (CHF) 200 to 400 pg/mL: likely moderate CHF >400 pg/mL: likely moderate to severe CHF 11 Because ethnic data is not always readily [...] 15-29 5 Kidney failure <15 (or dialysis) 12 Acute inflammation: >10.00 13 *Ascorbic acid is present which may interfere with detection of blood. 14 SEE RESULT BELOW Name: DAVID WILHELM : [address]: Venu Mckeon MD Acct: [id number] Unit: [id number] AGE: 77 Location: [address] Re12/08/17 SEX: F Status: ADM Peyton SPEC: [id number] JEANNE: 12/08/17-1220 [facility] DR: Wilman Lockwood MD REQ: [id number] RECD: 12/08/17-123 STATUS: YOLANDA ABREU DR: Renny Moore MD _ SOURCE: URINE SPDESC: ORDERED: Urine Culture Procedure Result Reported Site Urine Culture Final 12/09/17- 1306 ML Few Enterobacteriacae; possible contamination. * ML - MAIN LAB (PSC1) . END OF REPORT * ML=Testing performed at Main Lab DEPARTMENT OF PATHOLOGY, [address] [place] [address] Pepe Franco M.D. Director [facility] # [id number] 15 Because ethnic data is not always readily [...] 15-29 5 Kidney failure <15 (or dialysis) 16 Acute inflammation: >10.00 17 Desirable: <150 Borderline High: 150-199 High: 200-499 Very High: >500 18 Desirable: <200 Borderline High: 200-239 High: >239 19 Low: <40 Desirable: 40-60 High: >60 20 Desirable: <100 Near Optimal: 100-129 Borderline High: 130-159 High: 160-189 Very High: >189 21 Because ethnic data is not always readily [...] 15-29 5 Kidney failure <15 (or dialysis) 22 Please note: The following may produce a false positive D Dimer test: - Rheumatoid factor greater than 60 IU/ml - Plasma hemoglobin greater than 0.05 gm/dl - Bilirubin greater than 50 mg/dl - Lipids greater than 1000 mg/dl - FDP greater than 20 ug/ml 23 Because ethnic data is not always readily [...] 15-29 5 Kidney failure <15 (or dialysis) 24 Acute inflammation: >10.00 25 >100 to <200 pg/mL: likely compensated congestive heart failure (CHF) 200 to 400 pg/mL: likely moderate CHF >400 pg/mL: likely moderate to severe CHF 26 Because ethnic data is not always [...] 5 Kidney failure <15 (or dialysis) 27 Normal Range 180 to 914 Indeterminate Range 145 to 180 Deficient Range <145 28 FASTING 12 HOUR 29 FASTING 12 HOUR 30 Because ethnic data is not always readily [...] 15-29 5 Kidney failure <15 (or dialysis) 31 Desirable <150 Borderline high 150-199 High 200-499 Very High >500 32 Desirable <200 Borderline high 200-239 High >239 33 Low <40 Desirable: 40-60 High: >60 34 Desirable: <100 mg/dL Near Optimal: 100-129 mg/dL Borderline High: 130-159 mg/dL High: 160-189 mg/dL Very High: >189 mg/dL 35 Normal Range 180 to 914 Indeterminate Range 145 to 180 Deficient Range <145 36 Desirable <150 Borderline high 150-199 High 200-499 Very High >500 37 Desirable <200 Borderline high 200-239 High >239 38 Low <40 Desirable: 40-60 High: >60 39 Desirable: <100 mg/dL Near Optimal: 100-129 mg/dL Borderline High: 130-159 mg/dL High: 160-189 mg/dL Very High: >189 mg/dL 40 Because ethnic data is not always readily [...] 15-29 5 Kidney failure <15 (or dialysis) 41 Because ethnic data is not always readily [...] 15-29 5 Kidney failure <15 (or dialysis) 42 Interpretation: 51-80 ng/mL (increased risk of hypercalciuria) REFERENCE VALUE 25-HYDROXY D TOTAL (D2+D3) Optimum levels in the healthy population are 20-50, patients with bone disease may benefit from higher levels within this range. Test Performed by: [facility] - [address] [address] Executive Search Consultant: Manish Sandoval II, M.D., Ph.D. 43 Normal Range 180 to 914 Indeterminate Range 145 to 180 Deficient Range <145 Procedures Date Code Description Status 01/30/2019 72708 ECHO Transthoracic, Real-Time 2D With Doppler And Completed Color Flow 01/30/2019 84805 ECHO Transthoracic, Real-Time 2D With Doppler And Completed Color Flow 06/20/2018 36462 Nerve Conduction 05-06 Studies Completed 06/20/2018 01032 Needle Electromyography Each Extremity W/Related Completed Paraspinal Areas 12/11/2017 73105 EKG, Interpretation Only Completed 12/10/2017 44156 EKG, Interpretation Only Completed 12/08/2017 90330 ECHO Transthorasic Realtime 2D W Doppler & Color Flow Completed Hosp 12/08/2017 49644 EKG, Interpretation Only Completed 07/15/2017 30681 Inject/Drain Joint/Bursa Major W/O US Completed 04/13/2017 86918 Inject/Drain Joint/Bursa Major W/O US Completed 03/28/2017 [id number] Diabetic Retinal Eye Exam Completed 08/23/2016 [id number] Colonoscopy Completed 07/30/2016 51170 ECHO Transthorasic Realtime 2D W Doppler & Color Flow Completed Hosp 06/25/2016 99064 EKG Tracing & Interpretation Completed 04/15/2016 35494 Diffusing Capacity Completed 04/15/2016 64530 Pulmonary Function><Bronchodil Completed 04/15/2016 [id number] Bone Mineral Density Test Completed 08/15/2015 01145 ECHO Transthoracic, Real-Time 2D With Doppler And Completed Color Flow 08/12/2015 82586 EKG Tracing & Interpretation Completed 07/17/2015 [id number] Diabetic Retinal Eye Exam Completed 09/16/2013 [id number] Mammogram Completed Encounters Type Date Location Provider Dx Diagnosis Office Visit 01/05/2019 [facility] [address] [facility] Jana Echevarria NP R60.0 Localized edema 2:20p Medicine Office Visit 12/20/2018 [facility] [address] Jana Reynolds MD E11.42 Type 2 diabetes 4:00p Medicine - [place] mellitus with Rd diabetic polyneuropathy E03.9 Hypothyroidism, unspecified J32.9 Chronic sinusitis, unspecified Office Visit 11/09/2018 11:40a [facility] [address] [facility] Jana Reynolds M48.07 Spinal stenosis, Medicine - lumbosacral region [address] G20 Parkinson's disease G62.9 Polyneuropathy, unspecified I89.0 Lymphedema, not elsewhere classified M62.81 Muscle weakness (generalized) J44.9 Chronic obstructive pulmonary disease, unspecified M51.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 intervertebral disc degeneration, lumbar region Office Visit 10/18/2018 9:40a [facility] [address] Jana Reynolds, M48.07 Spinal stenosis, Medicine - lumbosacral region [address] G20 Parkinson's disease I10 Essential (primary) hypertension E11.42 Type 2 diabetes mellitus with diabetic polyneuropathy E03.9 Hypothyroidism, unspecified I48.91 Unspecified atrial fibrillation F33.0 Major depressive disorder, recurrent, mild Office Visit 06/27/2018 11:00a Neurosurgery Vassilios E66.8 Other obesity Services Of Saida Conde MD M47.896 Other spondylosis, lumbar region M43.17 Spondylolisthesis, lumbosacral region M48.07 Spinal stenosis, lumbosacral region Office Visit 05/09/2018 Neurosurgery [facility] M47.896 Other 11:30a Services Of Saida Conde MD spondylosis, lumbar region E66.8 Other obesity M43.17 Spondylolisthesis, lumbosacral region M43.16 Spondylolisthesis, lumbar region Z68.43 Body mass index (BMI) 50-59.9 , adult Office Visit 12/19/2017 1:56p [facility] Venu Mckeon, R53.1 Weakness Assoc, Hospitalists Roman I89.0 Lymphedema, not elsewhere classified G20 Parkinson's disease M54.16 Radiculopathy, lumbar region Office [facility]18[facility]2017 [facility] R53.1 Weakness Assoc, Hospitalists Roman I89.0 Lymphedema, not elsewhere classified G20 Parkinson's disease M54.16 Radiculopathy, lumbar region Office 12/17/2017 Neurohospitalist Mariela M62.81 Muscle weakness Visit 12:53p Clinic Roman Lin (generalized) R29.6 Repeated falls M48.07 Spinal stenosis, lumbosacral region G25.0 Essential tremor M13.0 Polyarthritis, unspecified R60.9 Edema, unspecified Office Visit 12/17/2017 1:54p [facility] Venu Mckeon, R53.1 Weakness Assoc, Hospitalists Roman I89.0 Lymphedema, not elsewhere classified G20 Parkinson's disease M54.16 Radiculopathy, lumbar region Office Visit 12/16/2017 1:53p [facility] Odalis Martinez R53.1 Weakness Assoc,pc Melchor, TRACK WATCHMAN Hospitalists I89.0 Lymphedema, not elsewhere classified G20 Parkinson's disease M54.16 Radiculopathy, lumbar region Office Visit 12/15/2017 1:52p [facility] Manish Jean-Baptiste, R53.1 Weakness Assoc, Hospitalists PA I89.0 Lymphedema, not elsewhere classified G20 Parkinson's disease M54.16 Radiculopathy, lumbar region Office Visit 12/13/2017 2:25p [facility] Nohemy Wilhelm, L03.90 Cellulitis, Assoc,pc N.P. unspecified Hospitalists I89.0 Lymphedema, not elsewhere classified J44.9 Chronic obstructive pulmonary disease, unspecified I48.91 Unspecified atrial fibrillation Office Visit 12/12/2017 [facility] L03.90 Cellulitis, 2:23p Assoc,pc Felipa, TRACK WATCHMAN unspecified Hospitalists I89.0 Lymphedema, not elsewhere classified J44.9 Chronic obstructive pulmonary disease, unspecified I48.91 Unspecified atrial fibrillation Office Visit 12/11/2017 [facility] L03.90 Cellulitis, 2:22p Assoc,pc Felipa, TR[employer] W[employer]MAN unspecified Hospitalists I89.0 Lymphedema, not elsewhere classified J44.9 Chronic obstructive pulmonary disease, unspecified I48.91 Unspecified atrial fibrillation Office Visit 12/10/2017 [facility] Darlyn L03.90 Cellulitis, 2:19p Assoc,pc Leo, TR[employer] W[employer]MAN unspecified Hospitalists I89.0 Lymphedema, not elsewhere classified I10 Essential (primary) hypertension J44.9 Chronic obstructive pulmonary disease, unspecified Office Visit 12/08/2017 [facility] Les L03.90 Cellulitis, 2:17p Assoc,pc Avila, N.P. unspecified Hospitalists I89.0 Lymphedema, not elsewhere classified I10 Essential (primary) hypertension J44.9 Chronic obstructive pulmonary disease, unspecified Office Visit 12/05/2017 [facility] [address] [facility] Internal Renny M51.16 Intervertebral disc 11:00a Lucio Moore M.D. disorders w [address] radiculopathy, lumbar region B37.9 Candidiasis, unspecified F33.0 Major depressive disorder, recurrent, mild Office 11/21/2017 Neurosurgery Vassilios M47.26 Other spondylosis Visit 2:00p Services Of Saida Conde MD with radiculopathy, lumbar region M43.16 Spondylolisthesis, lumbar region M51.16 Intervertebral disc disorders w radiculopathy, lumbar region E66.8 Other obesity E11.42 Type 2 diabetes mellitus with diabetic polyneuropathy Z68.43 Body mass index (BMI) 50-59.9 , adult Office Visit 11/14/2017 [facility] [address] Internal Alex Le M51.16 Intervertebral disc 8:40a Lucio Wallace M.D.,FACP disorders w [address] radiculopathy, lumbar region E11.42 Type 2 diabetes mellitus with diabetic polyneuropathy Office Visit 10/25/2017 11:20a [facility] [address] [facility] Internal Renny J01.90 Acute sinusitis, Lucio Moore M.D. unspecified [address] F33.0 Major depressive disorder, recurrent, mild M51.16 Intervertebral disc disorders w radiculopathy, lumbar region Office Visit 09/20/2017 [facility] [address] [facility] Internal Renny M51.16 Intervertebral disc 1:00p Lucio Moore M.D. disorders w [address] radiculopathy, lumbar region Office Visit 09/01/2017 [facility] [address] Internal [place] J45.909 Unspecified asthma, 8:40a Lucio Moore M.D. uncomplicated [address] J01.90 Acute sinusitis, unspecified F33.0 Major depressive disorder, recurrent, mild Z23 Encounter for immunization Office Visit 07/19/2017 [facility] [address] [facility] Internal Renny J45.909 Unspecified asthma, 11:20a Lucio Moore M.D. uncomplicated [address] E11.42 Type 2 diabetes mellitus with diabetic polyneuropathy I10 Essential (primary) hypertension F33.0 Major depressive disorder, recurrent, mild J06.9 Acute upper respiratory infection, unspecified Office Visit 07/15/2017 1:45p Orthopedic Services Christiana Talbot, M25.562 Pain in left Of C.M.A. M.D. knee M25.462 Effusion, left knee M17.12 Unilateral primary osteoarthritis, left knee M25.572 Pain in left ankle and joints of left foot R29.6 Repeated falls Office Visit 07/04/2017 11:30a Pulmonology And Sarai J44.9 Chronic Sleep Services Of MD Sammie obstructive Certified Caregiver pulmonary disease, unspecified J45.909 Unspecified asthma, uncomplicated R06.83 Snoring R40.0 Somnolence R68.2 Dry mouth, unspecified E66.01 Morbid (severe) obesity due to excess calories Office Visit 06/27/2017 10:15a Orthopedic Christiana Talbot, M25.572 Pain in left Services Of C.M.A. M.D. ankle and joints of left foot S92.415A Nondisp fx of proximal phalanx of left great toe, init M25.562 Pain in left knee W19.xxxA Unspecified fall, initial encounter Office Visit 05/26/2017 Neurohospitalist Daniel Peterson, G20 Parkinson's 9:45a Clinic disease E11.42 Type 2 diabetes mellitus with diabetic polyneuropathy R53.83 Other fatigue Office Visit 05/11/2017 [facility] [address] Internal Renny J06.9 Acute upper 11:20a Lucio Moore M.D. respiratory infection, unspecified Office Visit 04/28/2017 [facility] [address] [facility] Jana Lawson E11.42 Type 2 diabetes 1:40p Lucio Moore M.D. mellitus with [address] diabetic polyneuropathy E66.01 Morbid (severe) obesity due to excess calories Z12.39 Encounter for oth screening for malignant neoplasm of breast I10 Essential (primary) hypertension F33.0 Major depressive disorder, recurrent, mild L03.116 Cellulitis of left lower limb M25.562 Pain in left knee Office Visit 04/13/2017 10:00a Orthopedic Services Christiana Antione, M25.562 Pain in left Of C.M.A. M.D. knee M25.462 Effusion, left knee M17.12 Unilateral primary osteoarthritis, left knee Office Visit 03/18/2017 11:20a Saida Moore, F33.0 Major depressive Medicine - M.DSantiago disorder, [address] recurrent, mild J45.909 Unspecified asthma, uncomplicated M25.562 Pain in left knee Office Visit 01/28/2017 11:00a Saida Moore, F33.0 Major depressive Medicine - M.DSantiago disorder, [address] recurrent, mild G93.3 Postviral fatigue syndrome I82.402 Acute embolism and thombos unsp deep veins of l low extrem J06.9 Acute upper respiratory infection, unspecified J30.2 Other seasonal allergic rhinitis Office Visit 01/24/2017 Neurohospitalist Daniel R26.81 Unsteadiness on 2:15p Clinic MD Nicholas feet E11.42 Type 2 diabetes mellitus with diabetic polyneuropathy G20 Parkinson's disease Office Visit 12/07/2016 Saida Lawson E11.42 Type 2 diabetes 3:40p Lucio Moore M.D. mellitus with [address] diabetic polyneuropathy F33.0 Major depressive disorder, recurrent, mild I10 Essential (primary) hypertension Office Visit 09/29/2016 11:40a Saida Lawson L03.032 Cellulitis of Lucio Moore M.D. left toe I10 Essential (primary) hypertension F33.0 Major depressive disorder, recurrent, mild Office Visit 09/17/2016 2:20p Saida Lawson L03.032 Cellulitis of Lucio Moore M.D. left toe [address] Z23 Encounter for immunization Office Visit 08/23/2016 1:00p Saida Sandyikara, I10 Essential (primary) Medicine - Roman hypertension [address] E78.2 Mixed hyperlipidemia E11.42 Type 2 diabetes mellitus with diabetic polyneuropathy J45.909 Unspecified asthma, uncomplicated E03.9 Hypothyroidism, unspecified J20.9 Acute bronchitis, unspecified E66.01 Morbid (severe) obesity due to excess calories M81.0 Age-related osteoporosis w/o current pathological fracture Office 08/19/2016 [facility] [address] [facility] Internal Medicine Renny J45.901 Unspecified Visit 2:40p - [address] Pachikara, asthma with M.D. 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 Of [facility] [address] AT [facility] M.DSantiago disease of [place] coronary artery w/o ang pctrs I10 Essential (primary) hypertension E11.8 Type 2 diabetes mellitus with unspecified complications E78.2 Mixed hyperlipidemia E66.01 Morbid (severe) obesity due to excess calories Z82.49 Family hx of ischem heart dis and oth dis of the circ sys R60.0 Localized edema R06.02 Shortness of breath Z68.43 Body mass index (BMI) 50-59.9 , adult Office Visit 06/03/2016 [facility] [address] [facility] Internal Renny M79.605 Pain in left leg 4:20p Lucio Moore M.D. [address] Office Visit 05/20/2016 [facility] [address] Internal Renny M81.0 Age-related 8:40a Lucio Moore M.D. osteoporosis w/o [address] current pathological fracture E78.2 Mixed hyperlipidemia E11.42 Type 2 diabetes mellitus with diabetic polyneuropathy G20 Parkinson's disease J45.909 Unspecified asthma, uncomplicated F32.9 Major depressive disorder, single episode, unspecified Office Visit 05/13/2016 Neurohospitalist Daniel Peterson, G20 Parkinson's 8:30a Clinic disease G25.2 Other specified forms of tremor E11.42 Type 2 diabetes mellitus with diabetic polyneuropathy Office Visit 03/11/2016 9:40a [facility] [address] [facility] Jana Lawson E11.9 Type 2 diabetes Lucio Moore M.D. mellitus without [address] complications I10 Essential (primary) hypertension E03.9 Hypothyroidism, unspecified E78.2 Mixed hyperlipidemia F32.9 Major depressive disorder, single episode, unspecified R25.1 Tremor, unspecified Office Visit 01/05/2016 3:40p [facility] [address] [facility] Jana Lawson J20.8 Acute bronchitis Lucio Moore M.D. due to other [address] specified organisms Office Visit 11/17/2015 2:40p [facility] [address] Jana Lawson E11.9 Type 2 diabetes Lucio Moore M.D. mellitus without [address] complications M81.0 Age-related osteoporosis w/o current pathological fracture J45.909 Unspecified asthma, uncomplicated I10 Essential (primary) hypertension E03.9 Hypothyroidism, unspecified E66.01 Morbid (severe) obesity due to excess calories Z68.43 Body mass index (BMI) 50-59.9 , adult Office Visit 09/10/2015 10:00a [facility] [address] [facility] Internal Renny Moore, J20.8 Acute bronchitis Medicine M.DSantiago due to other specified organisms Office Visit 08/12/2015 8:40a [facility] [address] [facility] Internal Renny Moore, R07.9 Chest pain, Medicine - M.D. unspecified [address] J20.8 Acute bronchitis due to other specified organisms I89.0 Lymphedema, not elsewhere classified R60.0 Localized edema R94.31 Abnormal electrocardiogram [ECG] [EKG] Office Visit 08/07/2015 8:40a [facility] [address] Jana Lawson E11.9 Type 2 diabetes Lucio Moore M.D. mellitus without [address] complications E03.8 Other specified hypothyroidism J45.909 Unspecified asthma, uncomplicated F32.9 Major depressive disorder, single episode, unspecified D50.9 Iron deficiency anemia, unspecified I10 Essential (primary) hypertension I89.0 Lymphedema, not elsewhere classified Office Visit 07/04/2015 8:30a [facility] [address] Internal Olvin Wright, 311 Depressive Medicine - [place] TRACK WATCHMAN Disorder Not Rd Elsewhere Spec 285.8 Anemia Other Spec 280.9 Iron Deficiency Anemia Unspec Office Visit 06/13/2015 2:00p [facility] [address] Internal Olvin Wright, 493.90 Asthma Unspec W/O Medicine - TRACK WATCHMAN Status Asthmaticus [address] Office Visit 05/21/2015 8:00a [facility] [address] Internal Renny 493.90 Asthma Unspec W/ O Medicine P[place]ik[place], Status Asthmaticus M.D. 285.8 Anemia Other Spec 278.01 Obesity Morbid 272.2 Hyperlipidemia Mixed 285.9 Anemia Unspec Office Visit 05/07/2015 4:00p [facility] [address] [facility] Internal Renny Moore, 250.00 Diabetes Medicine M.D. Mellitus W/O Compl Type II Or Unspec Controlled 722.93 Disc Disorder Other & Unspec Lumbar Region 285.8 Anemia Other Spec 244.8 Hypothyroidism Other Spec 724.2 Lumbago Office Visit 03/07/2015 11:00a [facility] [address] Internal Renny Moore, 959.7 Injury Knee Leg Medicine M.D. Ankle & Foot Other & Unspec Office Visit 02/10/2015 2:20p [facility] [address] [facility] Internal Renny Moore, 681.11 Onychia & Medicine - M.D. Paronychia Toe [address] Office Visit 01/27/2015 3:00p [facility] Internal Renny Moore, 250.00 Diabetes Medicine - M.D. Mellitus W/O [address] Compl Type II Or Unspec Controlled 244.8 Hypothyroidism Other Spec 401.1 Hypertension Benign 272.2 Hyperlipidemia Mixed 457.1 Lymphedema Other 285.8 Anemia Other Spec V03.82 Streptococcus Pneumoniae Vaccination Spec Other Office Visit 01/06/2015 3:00p [facility] [address] [facility] Internal Renny Moore, 850.9 Concussion Unspec Medicine - M.D. [address] 850.9 Concussion Unspec 959.7 Injury Knee Leg Ankle & Foot Other & Unspec 959.7 Injury Knee Leg Ankle & Foot Other & Unspec 723.1 Cervicalgia 723.1 Cervicalgia Office Visit 12/30/2014 1:20p [facility] [address] [facility] Internal Renny Moore, 850.9 Concussion Unspec Medicine - M.D. [address] 850.9 Concussion Unspec 959.7 Injury Knee Leg Ankle & Foot Other & Unspec 959.7 Injury Knee Leg Ankle & Foot Other & Unspec Office Visit 12/27/2014 2:20p [facility] Internal Peggy Damon, 850.0 Concussion W/ No Medicine M.D. Loss Of Consciousness 850.0 Concussion W/ No Loss Of Consciousness 924.9 Contusion Unspec Site 924.9 Contusion Unspec Site 847.0 Sprains & Strains Neck 847.0 Sprains & Strains Neck 847.9 Sprains & Strains Unspec Site Of Back 847.9 Sprains & Strains Unspec Site Of Back Office Visit 10/18/2014 10:20a [facility] [address] [facility] Internal Renny 493.90 Asthma Unspec W/ O Medicine Roman Moore Status Asthmaticus 311 Depressive Disorder Not Elsewhere Spec 401.1 Hypertension Benign 272.2 Hyperlipidemia Mixed 244.8 Hypothyroidism Other Spec 478.9 Upper Resp Tract Disease Other & Unspec 780.79 Malaise And Fatigue Other 781.2 Gait Abnormality 627.8 Menopausal & Postmenopausal Disorder Spec Other 719.47 Pain Joint Ankle & Foot 250.00 Diabetes Mellitus W/O Compl Type II Or Unspec Controlled Plan of Treatment Future Appointment(s):04/25/2019 10:00 am - Alondra Reynolds MD at [facility] [address] Internal Ldxcneca43/08/2019 - Alondra Reynolds MDJ45.30 Mild persistent asthma, [id number] Allergic rhinitis, unspecifiedNew Medication:Azelastine HCL ( Nasal) 0.15 % - use 1 spray(s) twice daily in each nostril as rkbosuD46.23 Impacted cerumen, bilateralComments:For your ear wax:I would advise you to use warm olive oil drops in your ears once or twice weekly. This will help prevent the wax from building up in your ear canals.M48.07 Spinal stenosis, lumbosacral region
[2019-02-28] MEDS ORDERED: HYDROcodone/ACETAMIN 5-325 MG* 1 TAB PO ONE (16:33)
[2019-02-28] MEDS ORDERED: Cyclobenzaprine TAB* 10 MG PO ONE (16:33)
[2019-02-28] MEDS ORDERED: Calcium Carbonate CHEW TAB* 500 MG (TUMS) PO PRN (18:56)
[2019-02-28] MEDS ORDERED: Azelastine 0.15% NASAL(NF) 30 ML BTL BOTH NARES PRN (18:56)
[2019-02-28] MEDS ORDERED: Albuterol HFA INHALER* 8 gm MDI INH PRN (18:56)
[2019-02-28] MEDS ORDERED: Acetaminophen TAB* 325 MG PO PRN (18:56)
[2019-02-28] MEDS ORDERED: HYDROcodone/ACETAMIN 5-325 MG* 1 TAB PO PRN (18:56)
[2019-02-28] MEDS ORDERED: Senna TAB PO PRN (18:56)
[2019-02-28] MEDS ORDERED: Enoxaparin(*) 40 MG/0.4 ML SYR SUBCUT SCH (19:00)
[2019-02-28] MEDS: Metoprolol Tartrate TAB* 25 MG PO SCH (20:52)
[2019-02-28] MEDS: metFORMIN* 500 MG TAB PO SCH (20:56)
[2019-02-28] MEDS: oxyCODONE/Acetamin 5/325 MG* TAB PO PRN (20:56)
[2019-02-28] MEDS: Cyclobenzaprine TAB* 10 MG PO PRN (20:58)
[2019-02-28] MEDS: Rivaroxaban TAB(*) 20 MG TAB PO SCH (20:59)
[2019-02-28] MEDS: DULoxetine DR CAP* 60 MG CAP.DR PO SCH (21:10)
--- NOTE | 2019-02-28 23:28 | HP ---
CC: Alondra Reynolds MD; Fabby Conde MD * HISTORY AND PHYSICAL: DATE OF ADMISSION: 02/28/19 PRIMARY CARE PROVIDER: Alondra Reynolds MD. NEUROSURGEON: Fabby Conde MD. ATTENDING PHYSICIAN: Sarah Humphrey MD * (dictated by CHELI Carias). CHIEF COMPLAINT: Right hip pain, status post fall. HISTORY OF PRESENT ILLNESS: Ms. Wilhelm is a 78-year-old female with an extensive past medical history that is described below including following with Dr. Conde for possible laminectomy after medically stable and weight loss. She presented today stating that she was walking in her slipper feet and she slipped on the floor, fell, and landed on her right hip. 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 She immediately experienced pain in the right hip. She has difficulty with ambulation. She reports right foot numbness, a spasm at the middle of the back that radiates to the upper thigh, to the posterior knee, and then moves around to the front of the iz[place]re area. She states that this is intermittent. She had difficultly sitting up and now states that both of her hips are painful. She is noted to be very obese with a BMI of 46.5. She was here and discharged just over 2 weeks ago for a fall in the past. Due to frequent falls and difficulty with pain management of her chronic pain and right-sided sciatica, the patient has been asked to be admitted for social work consult and pain management. While in the emergency department, the patient was given Monroe 5/325 two tablets as well as cyclobenzaprine 10. She also received an x-ray of the right hip and pelvis. Hospitalists were asked to evaluate the patient for admission. PAST MEDICAL HISTORY: 1. Diabetes mellitus. 2. Hypertension. 3. Hyperlipidemia. 4. Hypothyroidism. 5. Extreme obesity with BMI of 46.5. 6. Chronic lymphedema. 7. Depression. 8. Anxiety. 9. Possible Parkinson disease. 10. Chronic pain with right-sided sciatica. The patient is on chronic opiates for this. 11. Atrial fibrillation. PAST SURGICAL HISTORY: Heart stent 2013, right knee, hysterectomy, exploratory lung surgery, bilateral cataracts, tonsils and adenoids. HOME MEDICATIONS: 1. Montelukast 10 mg p.o. daily. 2. Azelastine 2 sprays both nares b.i.d. p.r.n. for congestion. 3. Metformin 250 mg p.o. b.i.d. 4. Amlodipine 10 mg p.o. daily. 5. CoQ10 at 30 mg p.o. daily. 6. Senna 1 tab p.o. daily p.r.n. for constipation. 7. Rivaroxaban 20 mg p.o. at 1800. 8. Repaglinide 0.5 mg p.o. b.i.d. a.c. 9. Multivitamin/minerals 1 tab p.o. daily. 10. Metoprolol tartrate 37.5 mg p.o. b.i.d. 11. Magnesium oxide 400 mg p.o. daily. 12. Levothyroxine 125 mcg p.o. daily. 13. Hydrochlorothiazide 12.5 mg p.o. daily. 14. Hydrocodone/acetaminophen 5/325 one tab p.o. q.8 hours p.r.n., MDD 3. 15. Fluticasone/salmeterol 100/50 one inhalation b.i.d. 16. Duloxetine 60 mg p.o. daily. 17. Cyclobenzaprine 5 mg p.o. b.i.d. p.r.n. for spasm. 18. Cranberry 400 mg p.o. daily. 19. Cholecalciferol 5000 units p.o. daily. 20. Calcium carbonate chew 500 mg p.o. t.i.d. p.r.n. for indigestion. 21. Aspirin 81 mg p.o. daily. 22. Ascorbic acid 1000 mg p.o. daily. 23. Albuterol HFA inhaler 2 puffs inhalation q.4 hours p.r.n. for wheeze. 24. Acetaminophen 650 mg p.o. q.6 hours p.r.n. ALLERGIES: ADHESIVE, hives; avocado, unknown; CIPRO, "white blood cells disappear"; IODINATED CONTRAST, difficulty breathing/wheeze; PENICILLIN, hives; shellfish, difficulty breathing/wheeze; SULFA, hives; TETRACYCLINE, difficulty breathing; VANCOMYCIN, itching; ATORVASTATIN, "muscle wasting"; ALMOND, GI upset ; CODEINE, vomiting; LEVOFLOXACIN, joint pain. FAMILY HISTORY: Mother from heart disease, father from heart failure. SOCIAL HISTORY: The patient lives alone in senior housing. She does not use alcohol or tobacco products and reports that she never has. REVIEW OF SYSTEMS: A 10-point review of systems was performed and all the pertinent positives and negatives are in the HPI. All other systems are negative. PHYSICAL EXAMINATION GENERAL: Ms. Wilhelm is a well-developed, well-nourished, severely obese, older white woman who is sitting in a chair with the lower extremities elevated. She appears to be in no acute distress, although she does appear somewhat uncomfortable. VITAL SIGNS: Temperature 99.0 temporal, heart rate 79, respiratory rate 19, oxygen saturation 95% on room air, blood pressure 121/56. HEENT: Pupils are equally round and reactive to light. Extraocular movements are intact. Sclerae is without icterus. Oral mucous membranes are moist. Pharynx is clear. NECK: The patient has full range of motion. Trachea is at midline. There is no lymphadenopathy. RESPIRATORY: Symmetrical chest expansion without use of accessory muscles. The lungs are clear to auscultation anteriorly. There are no rhonchi, wheezes, or rubs. CARDIOVASCULAR: Regular rate and rhythm with S1, S2 present. There are no murmurs, rubs, or gallops. There is no JVD. ABDOMEN: Obese. There are bowel sounds noted in all quadrants. The abdomen is soft and nontender to palpation, unable to assess for hepatosplenomegaly due to body habitus. MUSCULOSKELETAL: The patient is able to move all of her extremities, although she does have pain with movement of the hips. EXTREMITIES: The skin is warm and smooth bilaterally. There is no clubbing or cyanosis. The patient has chronic lymphedema in the lower extremities. She is noted to have trace edema to the lower leg with 1+ pitting edema pedally. There is tenderness to palpation at the right hip area. There is no ecchymosis. The right lateral proximal thigh has a small amount of ecchymosis that is also tender to palpation. NEUROLOGIC: The patient is awake. She is alert and oriented x3. Again, she is able to move all of her extremities, although does have pain with hip flexion. DIAGNOSTIC STUDIES/LAB DATA: Right hip/pelvis x-ray 02/28/19, impression: Limited study, osteopenia. No radiographic evidence for hip fracture. No laboratory data has been obtained. ASSESSMENT AND PLAN: Ms. Wilhelm is a 78-year-old female with a past medical history of chronic low back pain with right-sided sciatica, extreme obesity, hypertension, diabetes, hypothyroidism, hyperlipidemia, chronic lymphedema who presents to the ER today with complaints of right hip pain, status post fall. The patient will be admitted to observation for: 1. Right hip pain, status post fall. The patient will resume her home medications for chronic pain, which include Monroe 5 q.8 hours, Flexeril 5 b.i.d. and Percocet 5 q.4 hours will be added for approximately 24 hours for pain management. The patient will work with physical therapy and occupational therapy. Case Management consult has been requested to assess for the need for placement into subacute rehab versus long-term placement in a facility as it appears that the patient continually is falling and may not be able to take care of herself and live on her own anymore safely. 2. Lymphedema. The patient will be placed on 40 of Lasix tomorrow due to pedal edema. Recommendations are made for wrapping of the lower extremities and elevation. There are no clinical signs of cellulitis in the lower extremities. 3. Atrial fibrillation. Continue metoprolol and rivaroxaban. 4. Hypertension. Continue metoprolol, amlodipine. 5. Diabetes mellitus. Continue metformin, Prandin. 6. Hypothyroidism. Continue levothyroxine. 7. Hyperlipidemia. Continue aspirin, Coq10. The patient is allergic to STATINS. 8. Chronic pain. Continue home medications, Monroe and Flexeril. 9. FEN. The patient will not be placed on fluids. She will be ordered a heart - healthy, caffeine-okay, ADA diet. 10. Code status. Full code. 11. DVT prophylaxis. Based on the DVT risk assessment, the patient scores a 3 and is high risk. She will be placed on Lovenox 40 subcu; creatinine from 02/12 was 0.77. TIME SPENT: Approximately 45 minutes were spent on this admission, greater than half that time was spent [id number] with the patient, obtaining history, performing physical, and reviewing the plan of care. This case has been reviewed with my attending, Dr. Humphrey, who is in agreement with the plan of care. REJI ALBA, CHELI [id number]/[facility] #: [id number] HENRI
[2019-02-28] MEDS: Mometasone/Formoter 100/5 MDI INH SCH (23:55)
[2019-03-01] MEDS: oxyCODONE/Acetamin 5/325 MG* TAB PO PRN ×3 (04:15→20:11)
[2019-03-01] MEDS: Cyclobenzaprine TAB* 10 MG PO PRN ×2 (05:40→16:01)
[2019-03-01] MEDS ORDERED: Levothyroxine TAB* 125 MCG TAB PO SCH (06:00)
[2019-03-01 07:07] LABS: ABS Basophils 0.1 10^3/ul (0-0.2); ABS Eosinophils 0.5 10^3/ul (0-0.6); ABS Monocytes 0.5 10^3/ul (0-0.8); ABS Neutrophils 4.1 10^3/ul (1.5-7.7); Eosinophil % 6.5 %; Hematocrit 29 % (35-47); Hemoglobin 9.3 g/dL (12.0-16.0); Lymphocyte % 28.4 %; Mean Corpuscular HGB Conc 32 g/dL (31-36); Mean Corpuscular Hemoglobin 26 pg (27-31); Mean Corpuscular Volume 80 fL (80-97); Mean Platelet Volume 7.4 fL (7.4-10.4); Nucleated Red Blood Cells % 0.1; Platelet Count 193 10^3/uL (150-450); Red Blood Count 3.64 10^6 /uL (3.70-4.87); Red Cell Distribution Width 17 % (10.5-15); White Blood Count 7.2 10^3/uL (3.5-10.8)
[2019-03-01 07:33] LABS: Calcium 8.4 mg/dL (8.6-10.3); EGFR African American 100.1 (>60); EGFR Non-African American 82.7 (>60); Potassium 3.7 mmol/L (3.5-5.0)
[2019-03-01] MEDS: Mometasone/Formoter 100/5 MDI INH SCH ×3 (07:52→19:12)
[2019-03-01] MEDS: Repaglinide TAB* 0.5 MG PO SCH ×2 (08:21→16:01)
[2019-03-01] MEDS: Metoprolol Tartrate TAB* 25 MG PO SCH ×2 (08:22→20:11)
[2019-03-01] MEDS: metFORMIN* 500 MG TAB PO SCH ×2 (08:27→20:12)
[2019-03-01] MEDS ORDERED: Multivitamins/Minerals TAB PO SCH (09:00)
[2019-03-01] MEDS ORDERED: Aspirin 81 mg CHEW TAB* 81 MG TAB.CHEW PO SCH (09:00)
[2019-03-01] MEDS ORDERED: Cholecalciferol TAB* 1000 UNITS PO SCH (09:00)
[2019-03-01] MEDS ORDERED: DULoxetine DR CAP* 60 MG CAP.DR PO SCH (09:00)
[2019-03-01] MEDS ORDERED: Magnesium Oxide TAB* 400 MG PO SCH (09:00)
[2019-03-01] MEDS ORDERED: amLODIPine TAB* 5 MG PO SCH (09:00)
[2019-03-01] MEDS ORDERED: Ascorbic Acid TAB* 500 MG PO SCH (09:00)
[2019-03-01] MEDS ORDERED: Hydrochlorothiazide TAB* 25 MG PO SCH (09:00)
[2019-03-01] MEDS ORDERED: Montelukast Sodium TAB* 10 MG PO SCH (09:00)
[2019-03-01] MEDS ORDERED: Furosemide IV* 10 MG/ML VIAL (40 MG) IV ONE (09:00)
[2019-03-01 13:57] VITALS: BP 113/57
--- NOTE | 2019-03-01 16:57 | PN ---
Subjective Date of Service: 03/01/19 Interval History: VS: WNL Lab: Anemia- chronic Pt is "doing better than yesterday," but still unable to walk well. Pt feel she is an appropriate candidate for rehabilitation. This was relayed to patient , who states she is having a very difficult time deciding whether she will go home or to [facility], as last [facility] experience was "awful." It was highly recommended that she pursue [facility], as discharge home appears unsafe, and it is likely that she will experience another fall. She does appear to have capacity to make these decisions. Objective Active Medications: Acetaminophen (Tylenol Tab*) 650 mg PO Q6H PRN Hydrocodone Bitart/Acetaminophen ([place] 5-325 Tab*) 1 tab PO Q8H PRN Albuterol (Ventolin Hfa Inhaler*) 2 puff INH Q4HR PRN Amlodipine Besylate (Norvasc Tab*) 10 mg PO DAILY TYLOR Ascorbic Acid (Vitamin C Tab*) 1,000 mg PO DAILY TYLOR Aspirin (Aspirin 81 Mg Chew Tab*) 81 mg PO DAILY TYLOR Azelastine HCl (Astepro 0.15% Nasal (Nf)) 2 spray BOTH NARES BID PRN Calcium Carbonate (Tums*) 500 mg PO TID PRN Cholecalciferol (Vitamin D Tab*) 5,000 units PO DAILY TYLOR Cyclobenzaprine HCl (Flexeril Tab*) 5 mg PO BID PRN Duloxetine HCl (Cymbalta Cap*) 60 mg PO BEDTIME TYLOR Hydrochlorothiazide (Hydrodiuril Tab*) 12.5 mg PO DAILY TYLOR Levothyroxine Sodium (Synthroid Tab*) 125 mcg PO DAILY@0600 TYLOR Magnesium Oxide (Magox 400 Tab*) 400 mg PO DAILY TYLOR Metformin HCl (Glucophage*) 250 mg PO BID TYLOR Metoprolol Tartrate (Lopressor Tab*) 37.5 mg PO BID TYLOR Mometasone Furoate/Formoterol Fumar (Dulera 100/5 Mdi*) 2 puff INH BID TYLOR Montelukast Sodium (Singulair Tab*) 10 mg PO DAILY TYLOR Multivitamins/Minerals (Theragran/Minerals Tab*) 1 tab PO DAILY TYLOR Oxycodone/Acetaminophen (Percocet 5/325 Tab*) 1 tab PO Q4H PRN Repaglinide (Prandin Tab*) 0.5 mg PO BID AC TYLOR Rivaroxaban (Xarelto(*)) 20 mg PO 1800 TYLOR Senna (Senokot Tab*) 1 tab PO DAILY PRN Vital Signs: Temp Pulse Resp BP Pulse Ox 98.1 F 64 18 113/57 96 03/01/19 11:28 03/01/19 11:28 03/01/19 16:01 03/01/19 11:28 03/01/19 11:28 Oxygen Devices in Use Now: None Appearance: Pt is laying in bed with LE elevated. She appears to be in no acute distress. Eyes: No Scleral Icterus, PERRLA Ears/Nose/Mouth/Throat: NL Teeth, Lips, Gums, Clear Oropharnyx, Mucous Membranes Moist Neck: NL Appearance and Movements; NL JVP, Trachea Midline Respiratory: Symmetrical Chest Expansion and Respiratory Effort, Clear to Auscultation Cardiovascular: NL Sounds; No Murmurs; No JVD, RRR Abdominal: NL Sounds; No Tenderness; No Distention, No Hepatosplenomegaly Extremities: No Clubbing, Cyanosis, - - R hip TTP; R lat thigh with ecchymosis, TTP. B/L LE pedal edema 1-2+ pitting Neurological: Alert and Oriented x 3 Result Diagrams: 03/01/19 06:51 03/01/19 06:51 Assess/Plan/Problems-Billing Assessment: Pt is 78 yof with PMHx DM, HTN, HLD, AF, hypothyroid, extreme obesity, chronic lymphedema, chronic pain with R sciatica, anxiety, depression who presents after fall. She has fallen multiple times in past couple months. - Patient Problems (1) Right hip pain Comment: -Pt with continuing difficulty with ADLs, ambulation. Considering home vs [facility]. Has capacity -Continue percocet -Continue PT/OT (2) Lymphedema of both lower extremities Comment: -1-2+ pitting pedal edema -Will give lasix 40 tomorrow -Continue HCTZ (3) Diabetes Comment: -Continue metformin, repaglinide (4) Hypertension Comment: -Well controlled -Continue amlodipine and HCTZ (5) Atrial fibrillation Comment: -Continue metoprolol, amlodipine, rivaroxaban (6) Back pain Comment: -Continue norco, flexeril (7) Hypothyroid Comment: - Continue synthroid (8) Morbid obesity Comment: -BMI 45.0 (9) Anxiety and depression Comment: - Continue cymbalta (10) DVT prophylaxis Comment: -Rivaroxaban (11) Full code status Comment: Status and Disposition: Observation. Discharge to [facility] or home once patient decides.
[2019-03-01] MEDS: Rivaroxaban TAB(*) 20 MG TAB PO SCH (19:00)
[2019-03-01] MEDS: DULoxetine DR CAP* 60 MG CAP.DR PO SCH (20:12)
--- NOTE | 2019-03-02 00:08 | DS ---
CC: Dr. Alondra Reynolds; Dr. Fabby Conde * DISCHARGE SUMMARY: DATE OF ADMISSION: 02/28/19 DATE OF DISCHARGE: 03/01/19 PRIMARY CARE PROVIDER: Dr. Alondra Reynolds. NEUROSURGEON: Dr. Fabby Conde. ATTENDING PHYSICIAN: Dr. Sarah Humphrey * (dictated by CHELI Carias). PRIMARY DIAGNOSES: 1. Fall. 2. Right hip pain. 3. Lymphedema. SECONDARY DIAGNOSES: 1. Diabetes mellitus. 2. Atrial fibrillation. 3. Hypertension. 4. Hyperlipidemia. 5. Hypothyroidism. 6. Extreme obesity with BMI of 46.5. 7. Chronic lymphedema. 8. Chronic pain with right-sided sciatica, on chronic opiates. 9. Depression. 10. Anxiety. 11. Possible Parkinson's disease. STUDIES WHILE IN THE HOSPITAL: Pelvis/right hip x-ray, 02/28/19, impression: Limited study. Osteopenia. No radiographic evidence for hip fracture. DISCHARGE MEDICATIONS: Home medications: 1. Acetaminophen 650 mg p.o. q.6 hours p.r.n. 2. Albuterol HFA inhaler 2 puffs inhalation q.4 hours p.r.n. wheezing. 3. Amlodipine 10 mg p.o. daily. 4. Ascorbic acid 1000 mg p.o. daily. 5. Aspirin 81 mg p.o. daily. 6. Calcium carbonate 500 mg p.o. t.i.d. p.r.n. indigestion. 7. Cholecalciferol 5000 units p.o. daily. 8. Cranberry 400 mg p.o. daily. 9. Cyclobenzaprine 5 mg p.o. b.i.d. p.r.n. pain. 10. Duloxetine DR 60 mg p.o. daily. 11. Fluticasone/salmeterol 500/50 one inhalation b.i.d. 12. Hydrocodone/acetaminophen 5/325 one tab p.o. q.8 hours p.r.n. pain, MDD 3. 13. Levothyroxine 125 mcg p.o. daily. 14. Magnesium oxide 400 mg p.o. daily. 15. Metformin 250 mg p.o. b.i.d. 16. Metoprolol tartrate 37.5 mg p.o. b.i.d. 17. Multivitamin/minerals 1 tab p.o. daily. 18. Repaglinide 0.5 mg p.o. b.i.d. at bedtime. 19. Rivaroxaban 20 mg p.o. at 1800. 20. Senna 1 tab p.o. daily p.r.n. constipation. 21. CoQ10 30 mg p.o. daily. 22. Azelastine 0.15% nasal 2 sprays to both nares b.i.d. p.r.n. allergy symptoms. 23. Montelukast 10 mg p.o. daily. New home medications: 1. Furosemide 20 mg p.o. daily. Discontinued home meds: 1. Hydrochlorothiazide. HISTORY OF PRESENT ILLNESS/HOSPITAL COURSE: Ms. Wilhelm is a 78-year-old female with a past medical history of diabetes, hypertension, hyperlipidemia, extreme obesity, chronic lymphedema, atrial fibrillation, and chronic pain with right- sided sciatica, on chronic opiates. She presented to the ER yesterday stating that she had fallen on to her right hip which caused immediate pain and difficulty with ambulation. She described spasms in the middle of the back that radiated to the upper thigh and around to the knee, which likely represents her chronic right-sided sciatica. She was recently discharged from the hospital approximately 2 weeks ago for a similar reason wherein she had a fall and exacerbation of sciatica and required hospitalization with administration of steroids. The patient was admitted today due to frequency of falls, difficulty with pain management. Social Work has consulted with the patient and the patient was offered subacute rehab versus discharge to home. The patient spent some time thinking about this and had declined subacute rehab. Physical Therapy noted that she may benefit from an acute rehab facility but the patient continues to refuse this. She notes that she had a bad experience in the past. She does have full capacity to make her own medical decisions at this time and notes that she would prefer to be discharged to home. At the time of discharge, the patient continues to have right hip pain and spasm and pain in the middle of the back that radiates down the leg. She does feel better than she did yesterday. She denies chest pain, shortness of breath, abdominal pain, nausea, vomiting, diarrhea. She has pedal edema that she complains about which she states she believes has decreased somewhat since admission with the administration of Lasix and instructions to elevate and wrap the lower extremities. The patient does have visiting nursing services as well as regular physical therapy and occupational therapy. Ms. Wilhelm is stable for discharge. PHYSICAL EXAMINATION: Vital Signs: Temperature 98.1 oral, heart rate 63, respiratory rate 16, oxygen saturation 95% on room air, blood pressure 113/57. General: Ms. Wilhelm is a well-developed, well-nourished, obese class 3, white woman, who is sitting up in a chair with her lower extremities elevated. She appears to be in no acute distress. HEENT: Visual staley are grossly intact. PERRL. Extraocular movements are intact. Oral mucous membranes are moist. There are no lesions. Pharynx is clear. Hearing is grossly intact. Cardiovascular: Regular rate and rhythm with S1 and S2 present. There are no murmurs, rubs, clicks, or gallops. There is no JVD. Respiratory: Symmetrical chest expansion without use of accessory muscles. The lungs are clear to auscultation bilaterally. There are no rhonchi, wheezes, or rubs. Abdomen is obese. Bowel sounds noted in all quadrants. The abdomen is soft; it is nontender to palpation. Unable to assess for hepatosplenomegaly due to body habitus. Extremities: Skin is warm and smooth bilaterally. There is no clubbing or cyanosis. There is tenderness to palpation at the left hip and down to mid thigh. There is an ecchymotic area at the lateral thigh that is about the size of a baseball. There is lymphedema noted in the lower extremities. Pedal edema that is approximately 1 to 2+ pitting. Radial and pedal pulses are palpable. Neuro: The patient is awake. She is alert and oriented. She is able to move all of her extremities. She ambulates with a walker. DISCHARGE PLAN: Ms. Wilhelm will be discharged to home. ACTIVITY: As tolerated. Continue with PT, OT. DIET: Heart healthy, ADA, increase potassium. MEDICATIONS: Discontinue hydrochlorothiazide. Start furosemide tomorrow. EDUCATION: 1. Follow up with primary care provider in 4 to 7 days. Discussed recent medication changes as described above and consider BMP for potassium monitoring while on Lasix. 2. Consider consultation with Dr. Escobar for chronic pain management. 3. Follow up with Dr. Conde in 1 to 2 weeks. 4. Continue with VNS, PT, OT. 5. Monitor and log blood pressures daily and bring log to primary care provider when discussing recent medication changes. 6. Elevate and wrap both lower extremities as needed for increased healing. 7. Return to the ER or nearest hospital if you experience any worsening of symptoms, shortness of breath, chest discomfort, lightheadedness, dizziness, loss of consciousness, high fevers, chills, night sweats, or any other worrisome signs or symptoms. This is a summarized report of a complex medical history and hospital stay. For further details, please see the entire medical record. TIME SPENT: Approximately 30 minutes was spent on this discharge, greater than half that time was spent [id number] with the patient discussing discharge plans and instructions. CHELI MEIER [id number]/[facility] #: [id number] HENRI
[2019-03-02] MEDS ORDERED: Furosemide IV* 10 MG/ML VIAL (40 MG) IV ONE (06:00)
== END 2019-03-01 19:20 | disposition home or self-care (01) ==
LOC: ED 14:04 → MED 19:00
PROVIDERS: ADMIT Internal Medicine; ATTEND Internal Medicine
DX: M25.551 Pain in right hip (principal); Z91.81 History of falling; I89.0 Lymphedema, not elsewhere classified; E11.9 Type 2 diabetes mellitus without complications; I48.91 Unspecified atrial fibrillation; I10 Essential (primary) hypertension; E78.5 Hyperlipidemia, unspecified; E03.9 Hypothyroidism, unspecified; E66.01 Morbid (severe) obesity due to excess calories; Z68.42 Body mass index [BMI] 45.0-49.9, adult; M54.31 Sciatica, right side; Z79.891 Long term (current) use of opiate analgesic; F32.9 Major depressive disorder, single episode, unspecified; F41.9 Anxiety disorder, unspecified; Z79.82 Long term (current) use of aspirin
CPT/HCPCS: 36415; 80048; 85025; 94640; 96374; 99283; A9270-GY; G0378; G8978-GP-CK; G8987-GO-CM; G8988-GO-CJ; J1940

== ENCOUNTER 2019-05-16 09:51 | Emergency (ER) | payer MEDICARE ==
--- OUTSIDE RECORDS SUMMARY | 2019-05-16 10:06 | XMS REPORT | Continuity of Care Document ---
:1940 External Reference #:[id number] Author Name John Sharri Care Team Providers Name Role Phone Alondra Reynolds M.D. Primary Care Physician Unavailable Payers Date Identification Numbers Payment Provider Subscriber Policy Number: [id number] [employer] David Wilhelm Group Number: [id number] [address] PayID: [id number] [place] [address] Expires: 2018 Policy Number: [id number] Medicaid David Wilhelm Group Name: 1 1 [address] PayID: [id number] [place] [address] Effective: 2015 Policy Number: [id number] [employer] Options David Wilhelm Expires: 2016 PayID: [id number] [address] [address] Attn: [place] [address] Expires: 2019 PayID: [id number] Medicare D - Drug Plan David Wilhelm Effective: 2015 Policy Number: [id number] Today's Option Of MIGUEL Wilhelm Expires: 2015 PayID: [id number] [address] [address] [place] [address] Expires: 2015 Policy Number: [id number] [facility] David Wilhelm PayID: [id number] [address] [place] [address] Expires: 2016 Policy Number: [id number] [facility] Onset: 2014 Group Number: [id number] [address] [place] [address] PayID: [id number] [id number] Advance Directives Type Date Description Status Comment ELISA 12/31/2016 [facility] Current and Verified Problems Active Problems Provider [...] Former Cigarette Smoker Unknown Smoking Status Reviewed: 05/11/19 Former Cigarette Smoker ETOH Use 11/20/2017 Denies [...] Medications SIG Qnty Indications Ordering Date Provider Levothyroxine Sodium 1 by mouth every 90tabs Alondra Reynolds, 175mcg day MD Cartwright Tablets Hydrochlorothiazide 1 by mouth every 90tabs Alondra Reynolds, 25mg day 9 Tablets Metformin HCL 1/2 tab by mouth 90tabs Alondra Reynolds, 500mg Tablets twice daily MD Cartwright Advair Diskus 1 inhalation twice 60units J44.9 Alondra Reynolds, 100-50mcg/Dose a day MD Cartwright Aerosol Hydrocodone-Acetaminophen 1 tab every 8h as 90tabs M51.16 Alondra Reynolds, needed MD Orozco 5-325mg Tablets Cyclobenzaprine HCL 1 tab at 4pm and 60tabs M51.16 Alondra Reynolds, 5mg Tablets at bedtime MD Orozco Ventolin HFA 2 puffs by mouth 1units J45.909 Alex Le 108(90Base) four times a day [place], 8 mcg/Act Aerosol as needed Roman,FACP Duloxetine HCL 1 by mouth every 30caps F33.0 Alondra Reynolds, 60mg Caps DR katt Orozco Part Vortex Valved Holding use as instructed 1units [facility] Chamber MD Camron Cochran Device Pulse Oximeter use as instructed 1units J44.9 [facility] Misc MD Camron Cochran Nebulizer 1 unit 1units J44.9 [facility] Kit/Tubing/Mouthpiece nebulization every MD Camron Cochran Kit 4- 6 hours as needed Montelukast Sodium once daily 90tabs J30.2 Alondra Reynolds, 10mg Tablets MD Lyon Repaglinide take 1 tablet by 180tabs Alondra Reynolds, 0.5mg Tablets mouth two times MD 7 daily just before food Albuterol Sulfate one treatment 75ml J45.901 Sarai 0.63mg/3ML every 4 hours as MD Sammie 6 Nebulizer needed Melatonin 1 cap at bedtime Unknown 5mg Capsules 0 Furosemide Take 1 Tablet By Unknown 20mg Tablets Mouth Every Day 0 Cetirizine HCL 1 by mouth every Unknown 10mg Tablets day 0 Magnesium Oxide -MG 1 by mouth once Unknown Supplement daily 0 400mg Capsules Calcium Carbonate 1 tab PO tid prn Unknown 500(200CA) mg 0 Wafer Xarelto 1 tab by mouth 90tabs Alondra Reynolds, 20mg Tablets daily MD 0 Metoprolol Tartrate take 1 3x/day 90tabs Alondra Reynolds, 25mg MD 0 Tablets Amlodipine Besylate 2 tabs by mouth 180tabs Alondra Reynolds, 5mg Tablets every day MD 0 Probiotic 1 by mouth once Unknown Capsules daily 0 Aspirin 1 by mouth every Unknown 81mg Tablets day 0 Cranberry Plus Vitamin C 1 by mouth every 90caps Unknown day 0 [id number]-mg-Unit Capsules Vitamin D-3 1 by mouth every 90caps Unknown 5000Unit Capsules day 0 Multi For Her 50+ 1 by mouth every Unknown Capsules day 0 History Medications Azelastine HCL (Nasal) use 1 spray(s) 30ml J30.9 Alondra Reynolds, 02/21/2019 - 0.15% twice daily in 04/24/2019 Solution each nostril as needed Levothyroxine Sodium 1 by mouth every 90tabs Alondra Reynolds, 01/23/2019 - 150mcg morning on empty [place] 03/26/2019 Tablets stomach Protective Underwear Schwab change 6x/day. 192units N39.41 Alondra Reynolds, 2018 - Per Absorbency X-Large Size 2XL 04/24/2019 Mis Flonase Allergy Relief 2 sprays in each 9.900ml J32.9 Alondra Reynolds, 2018 - nostril once a 04/24/2019 50mcg/Act Suspension day Doxycycline Hyclate 1 cap twice a day 20caps J32.9 Alondra Reynolds, 2018 - 100mg for 10 days 04/24/2019 Capsules Advair Diskus 2 inh bid 60units J44.9 Alondra Reynolds, 11/09/2018 - 100-50mcg/Dose MD 11/09/2018 Aerosol Advair HFA inhale 2 puffs by 12gm J44.9 Alondra Reynolds, 11/09/2018 - 115-21mcg/Act mouth two times MD 11/15/2018 Aerosol daily Cephalexin 1 by mouth four 14caps Unknown 12/13/2017 - 500mg Capsules times a day 12/17/2017 Clotrimazole apply twice daily 90gm B37.9 [place] 12/05/2017 - 1% Cream Oscar, 04/24/2019 M.Mimi Medrol medrol dosepack 1pak M51.16 Alex Le 11/14/2017 - 4mg Tablets as directed Rodrigo, 11/21/2017 Roman,FACP [facility] - 4mg TBPK Pachika, 11/14/2017 MPari Doxycycline Hyclate 1 cab twice a day 20caps J01.90 [place] 10/25/2017 - 100mg Pachikara, 11/04/2017 Capsules M.D. Prednisone 5tabx 2days,4 30tabs M51.16 [place] 09/20/2017 - 10mg Tablets [id number] Pachikara, 10/25/2017 [id number],2tabx2 M.D. days,1tabxday. Duloxetine HCL once daily with 90caps F33.0 [place] 07/19/2017 - 30mg Caps DR matthew Moore, 10/25/2017 Part M.DSantiago Azithromycin 2 tab today and 6tabs J06.9 [place] 07/19/2017 - 250mg Tablets then 1tab daily Pachikara, 07/24/2017 M.D. [facility] 07/[facility] - 4mg TBPK Pachikara, 11/04/2017 MPari Neuroquell One capsule daily Sarai 07/04/2017 - Capsules MD Sammie 12/23/2017 Azithromycin 2 tab today and 6tabs J06.9 [place] 05/11/2017 - 250mg Tablets then 1tab daily Pachikara, 05/25/2017 M.D. Clindamycin HCL 1 cap every 6 28caps L03.116 [place] 04/28/2017 - 150mg hours Pachikara, 05/11/2017 Capsules M.D. Medial Cardiac Rehabilitation Specialist Knee medial bus dispatcher interstate 1units M25.562 Christiana 04/13/2017 - Brace knee brace, left oRman Talbot 07/04/2017 Venlafaxine HCL ER 1 by mouth every 90caps F33.0 [place] 01/28/2017 - 150mg Caps day Pachika, 07/04/2017 ER 24HR M.D. Azithromycin 2 tab today and 6tabs J06.9 [place] 01/28/2017 - 250mg Tablets then 1tab daily Pachika, 05/11/2017 M.DSantiago Carbidopa-Levodopa 2 tabs in the 120tabs G20 Daniel 01/24/2017 - 25-100mg morning and 1 at MD Nicholas 07/04/2017 Tablets lunch and 1 in evening Venlafaxine HCL ER once a day 30caps [place] 12/28/2016 - 75mg Caps [facility], 01/28/2017 ER 24HR M.D. Venlafaxine HCL 1 by mouth every 90tabs F33.0 [place] 12/24/2016 - 75mg Tablets day Pachika, 12/28/2016 M.D. Venlafaxine HCL ER 1 tab daily for 30tabs F33.0 [place] 12/07/2016 - 37.5mg 1week and then 2 Pachikara, 12/24/2016 Tablets ER 24HR tab daily M.D. Januvia one tab daily 60tabs E11.42 [place] 12/07/2016 - 50mg Tablets Pachika, 12/09/2016 M.D. Hydrochlorothiazide Take 1 Tablet By 90tabs I10 Alondra Reynolds 12/07/2016 - 12.5mg Mouth Every Day 01/23/2019 Tablets Valsartan-Hydrochlorothi 1 by mouth every 90tabs I10 [place] 09/29/2016 - azide day Pachikara, 12/23/2017 160-12.5mg Tablets M.D. Bupropion HCL ER (XL) once daily in the 30tabs F33.0 [place] 09/29/2016 - 150mg morning with food Pachika, 12/07/2016 Tablets ER 24HR M.D. Sertraline HCL 1 by mouth every 30tabs F33.0 [place] 09/29/2016 - 100mg Tablets day Pachikara, 12/07/2016 M.D. Clindamycin HCL three times a day 30caps L03.032 [place] 09/17/2016 - 300mg Pachikara, 12/07/2016 Capsules M.D. Sertraline HCL 1 by mouth every 30tabs F32.9 [place] 09/17/2016 - 100mg Tablets day Pachikara, 09/29/2016 M.D. Symbicort 2 puff twice a 30.6gm [place] 09/14/2016 - 160-4.5mcg/Act day Pachika, 10/27/2016 Aerosol M.D. Azithromycin 2 tab today and 6tabs J20.9 [place] 08/23/2016 - 250mg Tablets then 1tab daily Pachikara, 09/17/2016 M.D. Prednisone 5tabx 2days,4 30tabs J45.901 [place] 08/19/2016 - 10mg Tablets [id number] Pachikara, 09/17/2016 [id number],2tabx2 M.D. days,1tabxday. Medrol as directed 1units [place] 06/28/2016 - 4mg TBPK Pachika, 08/20/2016 M.D. Bupropion HCL ER (XL) 1 tab in in the 30tabs F32.9 [place] 05/20/2016 - 300mg morning Pachikara, 09/29/2016 Tablets ER 24HR M.D. Sertraline HCL 1 by mouth every 30tabs F32.9 [place] 05/20/2016 - 50mg Tablets day Pachikara, 09/17/2016 M.D. Bupropion HCL ER (XL) 1 by mouth every 30tabs F32.9 [place] 03/11/2016 - 150mg day Pachikara, 05/20/2016 Tablets ER 24HR M.D. Azithromycin 2 tab today and 6tabs J20.8 [place] 01/05/2016 - 250mg Tablets then 1tab daily [facility], 03/11/2016 M.D. Methylprednisolone (Oliver) use as directed 21tabs J20.8 [place] 01/05/2016 - 4mg Pachika, 03/11/2016 Tablets M.D. Prednisone 5tabx 2days,4 30tabs [place] 09/18/2015 - 10mg Tablets [id number] [facility], 11/17/2015 [id number],2tabx2 M.D. days,1tabxday. Azithromycin 2 tab today and 6tabs J20.8 [place] 09/10/2015 - 250mg Tablets then 1tab daily [facility], 11/17/2015 M.D. Clindamycin HCL 1 cap every 6 28caps R07.9 [place] 08/12/2015 - 150mg hours [facility], 08/12/2015 Capsules M.D. Clindamycin HCL 1 cap every 6 28caps J20.8 [place] 08/12/2015 - 150mg hours [facility], 09/10/2015 Capsules M.D. Hydrochlorothiazide once daily 30tabs I89.0 [place] 08/12/2015 - 12.5mg [facility], 01/05/2016 Tablets M.D. Feosol once daily 30tabs D50.9 [place] 08/07/2015 - 325(65Fe) mg Tablets [facility], 11/17/2015 M.D. Bupropion HCL ER (SR) take 1 tablet by 90tabs F32.9 Olvin 07/04/2015 - 100mg mouth every SP Wright 03/11/2016 Tablets ER 12HR morning Ipratropium 3ml nebulizer up 84ml Olvin 06/17/2015 - [place]/Albuterol to twice a day as SP Wright 12/07/2016 Sulfate needed 0.5-2.5(3)mg/3ML Solution Prednisone 5tabx 2days,4 30tabs 493.90 Olvin 06/13/2015 - 10mg Tablets [id number] SP Wright 06/23/2015 [id number],2tabx2 days,1tabxday. Prednisone 5tab x 1 day,4 25tabs 493.90 [place] 05/21/2015 - 10mg Tablets [id number] 3 t a b [facility], 06/13/2015 x2days,[id number] M.D. ,1tabxday. Feosol once daily 30tabs 285.8 [place] 05/21/2015 - 325(65Fe) mg Tablets [facility], 08/07/2015 M.D. Meloxicam 1 by mouth every 30tabs 722.93 [place] 05/07/2015 - 7.5mg Tablets day as needed [facility], 06/24/2016 M.D. Clindamycin HCL 1 cap every 6 28caps 681.11 [place] 02/10/2015 - 150mg hours [facility], 02/14/2015 Capsules M.D. Doxycycline Monohydrate twice a day 20tabs [place] 01/06/2015 - 100mg [facility], 02/10/2015 Tablets M.D. Metformin HCL take 1/2 tablet 180tabs [place] 11/11/2014 - 1000mg Tablets by mouth twice [facility], 10/17/2018 daily M.D. Proair HFA 2 puffs ih every 3units J45.909 [place] 10/18/2014 - 108(90Base) 4 hours as needed [facility], 11/04/2017 mcg/Act Aerosol M.D. Doxycycline Hyclate 1 by mouth twice 20tabs 478.9 [place] 10/18/2014 - 100mg a day [facility], 12/30/2014 Tablets M.D. Aspirin Adult Low Dose 1 by mouth every Unknown - 81mg day 05/25/[address] Lion 1 by mouth twice Unknown - 500mg Capsules a day 11/14/2017 Clindamycin HCL Unknown - 300mg 11/14/2017 Capsules Aleve 2 tablets as Unknown - 220mg Tablets needed for pain 12/20/2018 Tylenol 2 tablets every 4 Unknown - 325mg Capsules hours as needed 10/18/2018 for pain (alternates with aleve) Oxycodone HCL 1-2 tabs by mouth Unknown - 5mg Tablets every 4-6 hours 12/14/2017 as needed Colace 1 tab by mouth Unknown - 100mg Capsules daily as needed 04/24/2019 constipation Polyethylene Glycol 3350 mix 17gm with 8 Unknown - ounces of fluids 12/20/2018 Powder once daily prn constipation Senna 1 tab daily as Unknown - 8.6mg Tablets needed 12/20/2018 constipation Hydrocortisone apply twice a day Unknown - 1% Cream to legs 12/20/2018 Lidocaine apply patch up to Unknown - 5% Patches 12 hours once a 04/24/2019 day. Metformin HCL 1 tab by mouth Unknown - 250mg Tablet twice daily 12/01/2018 Coricidin D 1 tab by mouth Unknown - Cold/Flu/Sinus twice daily 04/24/2019 Tablets CB Oil 1 drop daily Unknown - 04/24/2019 Prednisone one by mouth Unknown - 20mg Tablets daily 04/24/2019 Levothyroxine Sodium Take 1 Tablet By Unknown - 125mcg Mouth Every Day 04/24/2019 Tablets Levothyroxine Sodium Take 1 Tablet By 90tabs Alondra Reynolds, - 125mcg Mouth Every Day MD 01/23/2019 Tablets Lisinopril 1 by mouth every 90tabs [place] - 10mg Tablets day , 06/02/2016 Roman Clopidogrel Bisulfate 1 by mouth every 90tabs Renny - 75mg day , 05/07/2015 Tablets MPari Levemir Flextouch inject 55 units 30units Unknown - 100Unit/ML under the skin 10/18/2014 Solution Pen-Inject every day Metformin HCL 2 by mouth twice 180tabs Renny - 500mg Tablets a day , 11/11/2014 Roman Xopenex HFA 2 puffs four 1units Unknown - 45mcg/Act Aerosol times a day as 10/18/2014 needed Astragalus Root 1 by mouth every Unknown - 1000mg Tablet day 05/12/2016 Vitamin C ER 1 by mouth every Unknown - 1000mg Tablets day 12/23/2017 ER Co Q10 1 by mouth every 90caps Unknown - 100mg Capsules day 12/23/2017 Zyrtec Allergy 1 by mouth every Unknown - 10mg Tablets day 12/23/2017 Acidophilus Unknown - 05/12/2016 Krill Oil 1 by mouth three Unknown - times daily 07/04/2017 Advair Diskus use 2 inhalation 3units [place] - 100-50mcg/Dose 2 times daily Pachikara, 12/23/2017 Aerosol M.D. Amlodipine Besylate take 1 tablet by 180tabs [place] - 5mg mouth every Pachikara, 09/29/2016 Tablets morning and in M.D. the evening Sertraline HCL take one tablet 90tabs [place] - 100mg Tablets by mouth once Pachikara, 05/20/2016 daily M.D. Montelukast Sodium Take One Tablet 90tabs Olvin - 10mg By Mouth Once SP Wright 08/19/2016 Tablets Daily Prednisone 3 tabs day#1, 3 Unknown - 10mg (21) TBPK tabs day#2, 2 09/17/2016 tabs day#3, #1 for 3 days Medications Administered in Office Medication SIG Qnty Indications Ordering Provider Date Depomedrol 40MG Christiana Talbot M.D. 07/15/2017 Injection Depomedrol 40MG Christiana Talbot M.D. 04/13/2017 Injection Immunizations CPT Code Status Date Vaccine Lot # [id number] Given 09/01/2017 Tdap - Tetanus/Diptheria/Acellular Pertussis [id number] Given 09/17/2016 Influ Virus Vaccine, Quadrivalent, Split Virus, [place] [id number] [address] Given 10/24/2015 Influenza Virus Vaccine, Quadrivalent, Split, Preservative Free 10619 Given 01/27/2015 Pneumococcal Conjugate Vaccine 13 Valent For [id number] Intramuscular Use Vital Signs Date Vital Result Comment 05/11/2019 2:38pm Heart Rate 76 /min BP Systolic 127 mmHg BP Diastolic 69 mmHg Respiratory Rate 18 /min Body Temperature 98.1 F Pain Level 5 O2 % BldC Oximetry 95 % 04/25/2019 10:12am Height 61.5 inches 5'1.50" Heart Rate 76 /min BP Systolic 120 mmHg BP Diastolic 76 mmHg Body Temperature 98.0 F 03/21/2019 10:05am Height 61.5 inches 5'1.50" Weight 259.00 lb BP Systolic Sitting 122 mmHg BP Diastolic Sitting 70 mmHg Pain Level 3 BMI (Body Mass Index) 48.1 kg/m2 03/09/2019 9:47am Height 61.5 inches 5'1.50" Weight 259.38 lb Heart Rate 53 /min BP Systolic 124 mmHg BP Diastolic 70 mmHg Body Temperature 97.8 F O2 % BldC Oximetry 98 % BMI (Body Mass Index) 48.2 kg/m2 02/21/2019 11:19am Height 61.5 inches 5'1.50" Weight [...] Date Facility Test Result H/L Range Note Laboratory test 04/25/2019 [facility] Hemoglobin A1c 5.3 5-7 finding Laboratory test 03/09/2019 [facility] TSH (Thyroid 6.66 High 0.34-5.[address] Stim Horm) mcIU/[place] [address] [phone] Free T4 (Free Thyroxine) 0.97 ng/dL N 0.61-1.12 CBC Auto Diff 01/11/2019 [facility] White Blood 7.5 10^3/uL N 3.5-10.[address] [place] [address] [phone] Red Blood Count 3.99 10^6/uL N 3.70-4.87 [...] Blood Cells % 0 Urinalysis Profile 01/11/2019 [facility] Urine Color Yellow [address] [place] [address] [phone] Urine Appearance Clear Urine Specific [place] 1.013 N 1.010-1.030 Urine pH 6.0 N 5-9 Urine Urobilinogen Negative Negative Urine Ketones Negative Negative Urine Protein Negative Negative Urine Leukocytes Negative Negative Urine Blood Negative Negative Urine Nitrite Negative Negative Urine Bilirubin Negative Negative Urine Glucose Negative Negative Laboratory test 01/11/2019 [facility] B-Type 173 pg/mL High <= [address] [place] [address] Peptide BNP [phone] Comp Metabolic 01/11/2019 [facility] Sodium 139 N 135-[address] mmol/[place] [address] [phone] Potassium 4.1 mmol/L N 3.5-5.0 Chloride 101 [...] Egfr 96.8 >60 1 Laboratory test 01/11/2019 [facility] TSH (Thyroid 11.74 High 0.34-5.[address] Stim Horm) mcIU/mL [place], [place] [id number] [phone] Urine 11/23/2018 [facility] Ur Microalbumin < 15.[address] (mg/L) Random [place], [place] [id number] [phone] Urine Creatinine 53.74 mg/dL Urine Microalbumin/Creatinine TNP <31 2 Laboratory test 11/16/2018 [facility] TSH (Thyroid 5.02 mcIU/mL N 0.34-5.[address] Stim Horm) [place] [address] [phone] Free T4 (Free Thyroxine) 0.91 ng/dL N 0.61-1.12 T3 Total 73 ng/dL Low 87-178 Hemoglobin A1c (Glyco HGB) 5.2 % N 4.0-5.6 3 Lipid Profile 11/16/2018 [facility] Triglycerides 189 mg/dL 4 (Trig/Chol/HDL) [address] [place] [address] [phone] Cholesterol 224 mg/dL 5 HDL Cholesterol 57.6 mg/dL 6 LDL Cholesterol 129 mg/dL 7 Comp Metabolic Panel 11/16/2018 [facility] Sodium 138 mmol/L N 135-[address] [place] [address] [phone] Potassium 4.4 mmol/L N 3.5-5.0 Chloride 103 [...] Egfr Non- 88.6 >60 Egfr 107.2 >60 8 CBC Auto Diff 12/15/2017 [facility] White Blood 9.4 10^3/uL N 3.5-10.[address] [place] [address] [phone] Red Blood Count 4.24 10^6/uL N 4.0-5.4 [...] Blood Cells % 0.1 Laboratory test 12/15/2017 [facility] Lactic Acid 1.2 mmol/L N 0.5-2.0 [address] [place] [address] [phone] Inr/Protime 12/15/2017 [facility] Inr 1.08 High 0.77-1.[address] [place] [address] [phone] Laboratory test 12/15/2017 [facility] Partial 36.3 N 26.0- 36.3 finding [address] [facility] [place] [address] PTT [phone] B-Type Natriuretic Peptide BNP 133 pg/mL High 10 Comp Metabolic Panel 12/15/2017 [facility] Sodium 134 mmol/L N 133-145 [address] [place] [address] [phone] Potassium 3.4 mmol/L Low 3.5-5.0 Chloride 97 [...] Egfr 133.0 >60 11 Laboratory test 12/15/2017 [facility] Magnesium 1.7 mg/dL Low 1.9-2.[address] [place], [place] [id number] [phone] Lipase 22 U/L N 11.0-82.0 Creatine Kinase(CK) 74 U/L N 10-223 C Reactive Protein 66.26 mg/L High < 5.00 12 Troponin-I (TnI) 0.03 ng/mL <0.04 CKMB 12/15/2017 [facility] CKMB ng/mL 4.7 ng/mL N 0.6-6.[address] [place] [address] [phone] Laboratory test 12/15/2017 [facility] TSH 2.40 mcIU/mL N 0.34- 5.[address] ([place] [address] Stim Ibrc) [phone] Urinalysis 12/08/2017 [facility] Urine Color Yellow Profile [address] [place] [address] [phone] Urine Appearance Cloudy Urine Specific [place] 1.010 N 1.010-1.030 Urine pH 5.0 N [...] Bacteria Absent Absent Urine Culture And 12/08/2017 [facility] Urine Culture SEE RESULT [address] [place] [address] [phone] CBC Auto Diff 12/01/2017 [facility] White Blood 10.1 10^3/uL N 3.5-[address] DR[address] Count 0.8 [place] [address] [phone] Red Blood Count 4.48 10^6/uL N 4.0-5.4 [...] Blood Cells % 0.1 CBC Auto 11/19/2017 [facility] White Blood 15.2 10^3/uL High 3.5-10.[address] [place] [address] [phone] Red Blood Count 5.17 10^6/uL N 4.0-5.4 [...] Blood Cells % 0.1 Laboratory test 11/19/2017 [facility] Partial 32.5 seconds N 26.0-36.[address] [place] [address] PTT [phone] Comp Metabolic 11/19/2017 [facility] Sodium 134 mmol/L N 133- [address] [place] [address] [phone] Potassium 3.3 mmol/L Low 3.5-5.0 Chloride 96 [...] Egfr 77.5 >60 15 Laboratory test 11/19/2017 [facility] C Reactive 18.25 mg/L High < 5.00 [address] [place] [address] [phone] Comp Metabolic 10/27/2017 [facility] Sodium 136 mmol/L N 133- [address] [place] [address] [phone] Potassium 4.6 mmol/L N 3.5-5.0 Chloride 99 [...] Egfr Non- 75.3 >60 Egfr 96.9 >60 17 Laboratory 10/27/2017 [facility] TSH (Thyroid Stim 1.61 N 0.34 -5.[address] Horm) mcIU/[place] [address] [phone] Lipid Profile 10/27/2017 [facility] Triglycerides 192 mg/dL 18 (Trig/Chol/HDL DRIVE ) [place] [address] [phone] Cholesterol 220 mg/dL 19 HDL Cholesterol 57.2 mg/dL 20 LDL Cholesterol 124 mg/dL 21 Laboratory test 07/19/2017 [facility] Hemoglobin A1c 6.6 5-7 finding Laboratory test 04/28/2017 [facility] Hemoglobin A1c 7.0 5-7 finding Laboratory test 12/23/2016 [facility] Hemoglobin A1c 7.5 High 5-7 finding Urine Microalbumin 12/23/2016 [facility] Urine Creatinine 122.[address] mg/[place] [address] [phone] Ur Microalbumin (mg/L) 38.0 mg/L N Urine Microalbumin/Creatinine 31.1 ug/mg High <31 Laboratory test 09/24/2016 [facility] D Dimer < 200 N Less [address] Quantitative ng/mL Than 230 [place] [address] [phone] Comp Metabolic 09/24/2016 [facility] Sodium 135 mmol/L N 133- [address] [place] [address] [phone] Potassium 3.8 mmol/L N 3.5-5.0 Chloride 100 [...] 74.9 N >60 23 Laboratory test 09/24/2016 [facility] C Reactive 15.76 mg/L High < 5.00 [address] [place] [address] [phone] CBC Auto Diff 09/24/2016 [facility] White Blood 10.0 N 3.5- 10.[address] Count 10^3/[place] [address] [phone] Red Blood Count 4.52 10^6/uL N 4.0-5.4 [...] Cells % 0.1 N Laboratory test 09/24/2016 [facility] B-Type 48 pg/mL N [address] [place] [address] Peptide BNP [phone] Comp Metabolic 08/24/2016 [facility] Sodium 134 mmol/L N 133- [address] [place] [address] [phone] Potassium 4.0 mmol/L N 3.5-5.0 Chloride 98 [...] 65.9 N >60 26 Laboratory test 08/23/2016 [facility] Hemoglobin A1c 7.4 High 5-7 finding Laboratory test 05/20/2016 [facility] Hemoglobin A1c 7.4 High 5-7 finding Vitamin B12 And 05/04/2016 [facility] Vitamin B12 564 pg/mL N 180-914 27 Folate Serum [address] [place] [address] [phone] Folic Acid (Folate) > 20.00 ng/mL N >3.99 28 Laboratory test 05/04/2016 [facility] TSH (Thyroid 0.47 mcIU/mL N 0.34-5.60 [address] Stim Horm) [place] [address] [phone] Comp Metabolic 05/04/2016 [facility] Sodium 135 mmol/L N 133- [address] [place] [address] [phone] Potassium 4.1 mmol/L N 3.5-5.0 Chloride 101 [...] 77.9 N >60 30 Lipid Profile 05/04/2016 [facility] [facility] Triglycerides 341 mg/dL N 31 (Trig/Chol/HDL) [address] [place] [address] [phone] Cholesterol 310 mg/dL N 32 HDL Cholesterol 49.8 mg/dL N 33 LDL Cholesterol 192 mg/dL N 34 Laboratory test 03/11/2016 [employer] [facility] Hemoglobin A1c 7.5 High 5-7 finding Laboratory test 11/17/2015 [employer] [facility] Hemoglobin A1c 7.6 High 5-7 finding CBC Auto Diff 09/16/2015 [facility] White Blood Count 10.1 N 4.8-10.[address] 10^3/[place] [address] [phone] Red Blood Count 4.52 10^6/uL N 4.0-5.4 [...] Cells % 0 N Laboratory test 08/07/2015 [employer] [facility] Hemoglobin A1c 7.3 High 5-7 finding Laboratory test 05/16/2015 [facility] TSH (Thyroid Stim 1.54 N 0.34-5.60 finding 101 [facility] Horm) ?IU/[place] [address] [phone] Vitamin B12 And 05/16/2015 [facility] Vitamin B12 980 pg/mL High 180-914 35 Folate Serum [address] [place] [address] [phone] Folic Acid (Folate) > 20.00 ng/mL N >3.99 Iron & Iron Binding 05/16/2015 [facility] Iron 47 g/dL Low 50-212 [address]acity [address] [place] [address] [phone] Unsaturated Iron Binding 366 g/dL N Total Iron Binding Capacity 413 g/dL N 250-450 % Iron Saturation 11 % Low 15-55 Comp Metabolic Panel 05/16/2015 [facility] Sodium 136 mmol/L N 133-145 [address] [place] [address] [phone] Potassium 4.3 mmol/L N 3.5-5.0 Chloride 101 [...] 69.5 N >60 Egfr 89.4 N >60 36 Lipid Profile 05/16/2015 [facility] Triglycerides 324 mg/dL N 37 (Trig/Chol/HDL) [address] [place] [address] [phone] Cholesterol 285 mg/dL N 38 HDL Cholesterol 46.8 mg/dL N 39 LDL Cholesterol 173 mg/dL N 40 CBC Auto Diff 05/16/2015 [facility] White Blood 7.7 10^3/uL N 4.8-10.[address] [place] [address] [phone] Red Blood Count 4.63 10^6/uL N 4.0-5.4 [...] Cells % 0.1 N Urine Microalbumin 05/16/2015 [facility] Ur Microalbumin 7.0 mg/ L N Random [address] (mg/L) [place] [address] [phone] Urine Creatinine 84.15 mg/dL N Urine Microalbumin/Creatinine 8.3 ug/mg N <31 Laboratory test finding 01/17/2015 TSH (Thyroid 0.80 IU/mL N 0.34-5.60 Stimulating Horm) CBC Auto Diff 01/17/2015 White Blood [...] Nucleated Red Blood Cells % 0 N Comp Metabolic Panel 01/17/2015 Sodium 137 mmol/L [...] >60 Egfr 92.0 N >60 41 Vitamin B12 And Folate Serum 01/17/2015 Vitamin B12 774 pg/mL N 180-914 42 Folate > 20.00 ng/mL N >3.99 Vitamin D, 25 Hydroxy 01/17/2015 25-Hydroxy Vitamin D2 <4.0 ng/mL N 25-Hydroxy Vitamin D3 66 ng/mL N 25-Hydroxy Vitamin D Total 66 ng/mL N 43 Laboratory test finding 10/18/2014 [employer] [facility] Hemoglobin A1c 6.3 5-7 1 Because ethnic [...] to calculate due to low microalbumin 3 Therapeutic target for the treatment of diabetes mellitus patients is <7% HBA1C, and in selective patients <6.0%. Please refer to [place] [employer] diabetic care guidelines for further information. 4 Desirable: <150 Borderline High: 150-199 High: 200-499 Very High: >500 5 Desirable: <200 Borderline High: 200-239 High: >239 6 Low: <40 Desirable: 40-60 High: >60 7 Desirable: <100 Near Optimal: 100-129 Borderline High: 130-159 High: 160-189 Very High: >189 8 Because ethnic data is not always readily [...] 15-29 5 Kidney failure <15 (or dialysis) 9 [facility] Severe Sepsis and Septic Shock Management Bundle [...] [address]: Venu Mckeon MD Acct: [id number] Unit: [id number] AGE: 77 Location: [place] [address] Re12/08/17 SEX: F Status: ADM Peyton SPEC: [id number] JEANNE: 12/08/17-1220 [facility] DR: Wilman Lockwood MD REQ: [id number] RECD: 12/08/17-123 STATUS: YOLANDA ABREU DR: Renny Moore MD _ SOURCE: URINE SPDESC: ORDERED: Urine Culture Procedure Result Reported Site Urine Culture Final 12/09/17- 1306 ML Few Enterobacteriacae; possible contamination. * ML - MAIN LAB ([facility]) . END OF REPORT * ML=Testing performed at Main Lab DEPARTMENT OF PATHOLOGY, [address] [place] [address] Pepe Franco M.D. Director [facility] # [id number] 15 Because ethnic data is not always [...] (or dialysis) 16 Acute inflammation: >10.00 17 Because ethnic data is not always [...] 5 Kidney failure <15 (or dialysis) 18 Desirable: <150 Borderline High: 150-199 High: 200-499 Very High: >500 19 Desirable: <200 Borderline High: 200-239 High: >239 20 Low: <40 Desirable: 40-60 High: >60 21 Desirable: <100 Near Optimal: 100-129 Borderline High: 130-159 High: 160-189 Very High: >189 22 Please note: The following may produce [...] 145 to 180 Deficient Range <145 36 Because ethnic data is not always readily [...] 15-29 5 Kidney failure <15 (or dialysis) 37 Desirable <150 Borderline high 150-199 High 200-499 Very High >500 38 Desirable <200 Borderline high 200-239 High >239 39 Low <40 Desirable: 40-60 High: >60 40 Desirable: <100 mg/dL Near Optimal: 100-129 mg/dL Borderline High: 130-159 mg/dL High: 160-189 mg/dL Very High: >189 mg/dL 41 Because ethnic data is not always [...] 5 Kidney failure <15 (or dialysis) 42 Normal Range 180 to 914 Indeterminate Range 145 to 180 Deficient Range <145 43 Interpretation: 51-80 ng/mL (increased risk of hypercalciuria) REFERENCE VALUE 25-HYDROXY D TOTAL (D2+D3) Optimum levels in the healthy population are 20-50, patients with bone disease may benefit from higher levels within this range. Test Performed by: [address] [address] Government Property Inspector: Manish Sandoval II, M.D., Ph.D. Procedures Date Code Description Status 01/30/2019 09677 ECHO Transthoracic, Real-Time 2D With Doppler And Completed Color Flow 01/30/2019 71266 ECHO Transthoracic, Real-Time 2D With Doppler And Completed Color Flow 06/20/2018 31755 Nerve Conduction 05-06 Studies Completed 06/20/2018 80466 Needle Electromyography Each Extremity W/Related Completed Paraspinal Areas 12/11/2017 45009 EKG, Interpretation Only Completed 12/10/2017 72573 EKG, Interpretation Only Completed 12/08/2017 05497 ECHO Transthorasic Realtime 2D W Doppler & Color Flow Completed Hosp 12/08/2017 88801 EKG, Interpretation Only Completed 07/15/2017 62924 Inject/Drain Joint/Bursa Major W/O US Completed 04/13/2017 70355 Inject/Drain Joint/Bursa Major W/O US Completed 03/28/2017 [id number] Diabetic Retinal Eye Exam Completed 08/23/2016 [id number] Colonoscopy Completed 07/30/2016 00910 ECHO Transthorasic Realtime 2D W Doppler & Color Flow Completed Hosp 06/25/2016 48467 EKG Tracing & Interpretation Completed 04/15/2016 51083 Diffusing Capacity Completed 04/15/2016 78220 Pulmonary Function><Bronchodil Completed 04/15/2016 [id number] Bone Mineral Density Test Completed 08/15/2015 38721 ECHO Transthoracic, Real-Time 2D With Doppler And Completed Color Flow 08/12/2015 87848 EKG Tracing & Interpretation Completed 07/17/2015 [id number] Diabetic Retinal Eye Exam Completed 09/16/2013 [id number] Mammogram Completed Encounters Type Date Location Provider Dx Diagnosis Office Visit 05/11/2019 [facility] Shreya Booth, W19.xxxA Unspecified fall, 2:00p Medicine - Suite DO initial encounter R I89.0 Lymphedema, not elsewhere classified Office Visit 04/25/2019 10:00a [facility] Internal Alondra Reynolds MD Z00.01 Encounter for Medicine - Ccmob general adult medical exam w abnormal findings F33.1 Major depressive disorder, recurrent, moderate I89.0 Lymphedema, not elsewhere classified M25.511 Pain in right shoulder E03.9 Hypothyroidism, unspecified E11.9 Type 2 diabetes mellitus without complications J44.9 Chronic obstructive pulmonary disease, unspecified Office Visit 03/09/2019 9:40a [facility] Internal Alondra Reynolds, M48.061 Spinal stenosis, Medicine - MD lumbar region Ccmob without neurogenic chiara R29.6 Repeated falls Z68.42 Body mass index (BMI) 45.0-49.9, adult I89.0 Lymphedema, not elsewhere classified E03.9 Hypothyroidism, unspecified F33.1 Major depressive disorder, recurrent, moderate G20 Parkinson's disease Office Visit 03/01/2019 9:31a [facility] M25.551 Pain in Assoc, [place], [place] right hip Hospitalists I89.0 Lymphedema, not elsewhere classified E66.01 Morbid (severe) obesity due to excess calories Z79.891 jail (current) use of opiate analgesic Z68.42 Body mass index (BMI) 45.0-49.9, adult W19.xxxA Unspecified fall, initial encounter Office Visit 02/28/2019 9:30a [facility] M25.551 Pain in Assoc, [place], [place] right hip Hospitalists I89.0 Lymphedema, not elsewhere classified E66.01 Morbid (severe) obesity due to excess calories Z68.42 Body mass index (BMI) 45.0-49.9, adult E11.9 Type 2 diabetes mellitus without complications W19.xxxA Unspecified fall, initial encounter Office Visit 02/21/2019 11:20a [facility] Jana Reynolds, J45.30 Mild persistent Medicine - asthma, Ccmob uncomplicated J30.9 Allergic rhinitis, unspecified H61.23 Impacted cerumen, bilateral M48.07 Spinal stenosis, lumbosacral region Office Visit [facility]2019 [facility] M54.5 Low back Assoc,pc [place] pain Hospitalists Office Visit 02/11/2019 8:50a [facility] Connie Cm MD M54.5 Low back Assoc,pc pain Hospitalists W19.xxxA Unspecified fall, initial encounter Office Visit 01/05/2019 2:20p [facility] Internal Brett Swathi, R60.0 Localized edema Medicine - PUBLICITY WRITER Ccmob Office Visit 12/20/2018 4:00p [facility] Internal Alondra Reynolds, E11.42 Type 2 diabetes Medicine - MD mellitus with Suite R diabetic polyneuropathy E03.9 Hypothyroidism, unspecified J32.9 Chronic sinusitis, unspecified Office Visit 11/09/2018 11:40a [facility] Internal Alondra Reynolds, M48.07 Spinal stenosis, Medicine - MD lumbosacral region Suite R G20 Parkinson's disease G62.9 Polyneuropathy, unspecified I89.0 Lymphedema, not elsewhere classified M62.81 Muscle weakness (generalized) J44.9 Chronic obstructive pulmonary disease, unspecified M51.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 intervertebral disc degeneration, lumbar region Office Visit 10/18/2018 9:40a [facility] Internal Alondra Reynolds, M48.07 Spinal stenosis, Medicine - MD lumbosacral region Suite R G20 Parkinson's disease I10 Essential (primary) hypertension [...] 50-59.9 , adult Office Visit 12/19/2017 1:56p [facility] Venu Mckeon, R53.1 Weakness Assoc, Hospitalists Roman I89.0 Lymphedema, not elsewhere classified G20 Parkinson's disease M54.16 Radiculopathy, lumbar region Office Visit 12/18/2017 1:55p [facility] Venu Mckeon, R53.1 Weakness Assoc, Hospitalists Roman I89.0 Lymphedema, not elsewhere classified G20 Parkinson's disease M54.16 Radiculopathy, lumbar region Office Visit 12/17/2017 1:54p [facility] Venu Mckeon, R53.1 Weakness Assoc, Hospitalists Roman I89.0 Lymphedema, not elsewhere classified G20 Parkinson's disease M54.16 Radiculopathy, lumbar region Office 12/17/2017 [facility] Mariela M62.81 Muscle weakness Visit 12:53p Clinic Roman Lin (generalized) R29.6 Repeated falls M48.07 Spinal stenosis, lumbosacral region G25.0 Essential tremor M13.0 Polyarthritis, unspecified R60.9 Edema, unspecified Office Visit 12/16/2017 1:53p [facility] Odalis Martinez R53.1 Weakness Assoc,pc SP Roche Hospitalists I89.0 Lymphedema, not elsewhere classified G20 Parkinson's disease M54.16 Radiculopathy, lumbar region Office Visit 12/15/2017 1:52p [facility] Manish Jean-Baptiste, R53.1 Weakness Assoc, Hospitalists [place] I89.0 Lymphedema, not elsewhere classified G20 Parkinson's disease M54.16 Radiculopathy, lumbar region Office Visit 12/13/2017 2:25p [facility] Nohemy Wilhelm, L03.90 Cellulitis, Assoc,pc N.P. unspecified Hospitalists I89.0 Lymphedema, not elsewhere classified J44.9 Chronic obstructive pulmonary disease, unspecified I48.91 Unspecified atrial fibrillation Office Visit 12/12/2017 [facility] Darlyn L03.90 Cellulitis, 2:23p Assoc,pc Felipa, PUBLICITY WRITER unspecified Hospitalists I89.0 Lymphedema, not elsewhere classified J44.9 Chronic obstructive pulmonary disease, unspecified I48.91 Unspecified atrial fibrillation Office Visit 12/11/2017 [facility] L03.90 Cellulitis, 2:22p Assoc,pc Felipa, PUBLICITY WRITER unspecified Hospitalists I89.0 Lymphedema, not elsewhere classified J44.9 Chronic obstructive pulmonary disease, unspecified I48.91 Unspecified atrial fibrillation Office Visit 12/10/2017 [facility] L03.90 Cellulitis, 2:19p Assoc,pc Felipa, PUBLICITY WRITER unspecified Hospitalists I89.0 Lymphedema, not elsewhere classified I10 Essential (primary) hypertension J44.9 Chronic obstructive pulmonary disease, unspecified Office Visit 12/08/2017 [facility] L03.90 Cellulitis, 2:17p Assoc,pc Avila, N.P. unspecified Hospitalists I89.0 Lymphedema, not elsewhere classified I10 Essential (primary) hypertension J44.9 Chronic obstructive pulmonary disease, unspecified Office Visit 12/05/2017 [facility] Internal Renny M51.16 Intervertebral disc 11:00a Lucio Moore M.D. disorders w Suite R radiculopathy, lumbar region B37.9 Candidiasis, unspecified F33.0 [...] (BMI) 50-59.9 , adult Office Visit 11/14/2017 [facility] Internal Alex Le M51.16 Intervertebral disc 8:40a Lucio Wallace M.D.,FACP disorders w Suite R radiculopathy, lumbar region E11.42 Type 2 diabetes mellitus with diabetic polyneuropathy Office Visit 10/25/2017 11:20a [facility] Internal Renny J01.90 Acute sinusitis, Lucio Moore M.D. unspecified Suite R F33.0 Major depressive disorder, recurrent, mild M51.16 Intervertebral disc disorders w radiculopathy, lumbar region Office Visit 09/20/2017 [facility] Internal Renny M51.16 Intervertebral disc 1:00p Lucio Moore M.D. disorders w Suite R radiculopathy, lumbar region Office Visit 09/01/2017 [facility] Internal Renny J45.909 Unspecified asthma, 8:40a Lucio Moore M.D. uncomplicated Suite R J01.90 Acute sinusitis, unspecified F33.0 Major depressive disorder, recurrent, mild Z23 Encounter for immunization Office Visit 07/19/2017 [facility] Internal Renny J45.909 Unspecified asthma, 11:20a Lucio Moore M.D. uncomplicated Suite R E11.42 Type 2 diabetes mellitus with diabetic [...] [facility] Sammie obstructive [facility] pulmonary disease, unspecified J45.909 Unspecified asthma, uncomplicated [...] polyneuropathy R53.83 Other fatigue Office Visit 05/11/2017 [facility] Internal Renny J06.9 Acute upper 11:20a Lucio Moore M.D. respiratory Ccmob infection, unspecified Office Visit 04/28/2017 [facility] Jana Lawson E11.42 Type 2 diabetes 1:40p Lucio Moore M.D. mellitus with Suite R diabetic polyneuropathy E66.01 Morbid (severe) obesity due to excess calories Z12.39 Encounter for oth screening for malignant neoplasm of breast I10 Essential (primary) hypertension F33.0 Major depressive disorder, recurrent, mild L03.116 Cellulitis of left lower limb M25.562 Pain in left knee Office Visit 04/13/2017 10:00a [facility] Christianarosalba Talbot, M25.562 Pain in left Of C.M.A. M.D. knee M25.462 Effusion, left knee M17.12 Unilateral primary osteoarthritis, left knee Office Visit 03/18/2017 11:20a [facility] Jana Moore, F33.0 Major depressive Medicine - Roman disorder, Suite R recurrent, mild J45.909 Unspecified asthma, uncomplicated M25.562 Pain in left knee Office Visit 01/28/2017 11:00a [facility] Jana Moore, F33.0 Major depressive Medicine Jena Owens disorder, Suite R recurrent, mild G93.3 Postviral fatigue syndrome I82.402 Acute embolism and thombos unsp deep veins of l low extrem J06.9 Acute upper respiratory infection, unspecified J30.2 Other seasonal allergic rhinitis Office Visit 01/24/2017 Neurohospitalist Daniel R26.81 Unsteadiness on 2:15p Clinic MD Nicholas feet E11.42 Type 2 diabetes mellitus with diabetic polyneuropathy G20 Parkinson's disease Office Visit 12/07/2016 [facility] Jana Lawson E11.42 Type 2 diabetes 3:40p Lucio Moore M.D. mellitus with Suite R diabetic polyneuropathy F33.0 Major depressive disorder, recurrent, mild I10 Essential (primary) hypertension Office Visit 09/29/2016 11:40a [facility] Jana Lawson L03.032 Cellulitis of Lucio Moore M.D. left toe Ccmob I10 Essential (primary) hypertension F33.0 Major depressive disorder, recurrent, mild Office Visit 09/17/2016 2:20p [facility] Jana Lawson L03.032 Cellulitis of Lucio Moore M.D. left toe Suite R Z23 Encounter for immunization Office Visit 08/23/2016 1:00p [facility] Internal Renny Moore, I10 Essential (primary) Medicine - MPari hypertension Suite R E78.2 Mixed hyperlipidemia E11.42 Type 2 diabetes mellitus with diabetic polyneuropathy J45.909 Unspecified asthma, uncomplicated E03.9 Hypothyroidism, unspecified J20.9 Acute bronchitis, unspecified E66.01 Morbid (severe) obesity due to excess calories M81.0 Age-related osteoporosis w/o current pathological fracture Office 08/19/2016 [facility] Internal Medicine Renny J45.901 Unspecified Visit 2:40p - Suite R Oscar, asthma with M.D. (acute) exacerbation Office 08/02/2016 Neurohospitalist Daniel Peterson, G20 Parkinson's Visit 10:15a Clinic disease E11.42 Type 2 diabetes mellitus with diabetic polyneuropathy F51.8 Oth sleep disord not due to a sub or known physiol cond Office Visit 06/25/2016 9:40a [facility] Adrianna Kaplan, I25.10 [facility] Of [facility] M.DSantiago disease of [place] coronary artery w/o ang pctrs I10 Essential (primary) hypertension E11.8 Type 2 diabetes mellitus with unspecified complications E78.2 Mixed hyperlipidemia E66.01 Morbid (severe) obesity due to excess calories Z82.49 Family hx of ischem heart dis and oth dis of the circ sys R60.0 Localized edema R06.02 Shortness of breath Z68.43 Body mass index (BMI) 50-59.9 , adult Office Visit 06/03/2016 [facility] Internal Renny M79.605 Pain in left leg 4:20p Lucio Moore M.D. Suite R Office Visit 05/20/2016 [facility] Internal Renny M81.0 Age-related 8:40a Lucio Moore M.D. osteoporosis w/o Suite R current pathological fracture E78.2 Mixed hyperlipidemia E11.42 Type 2 diabetes mellitus with diabetic polyneuropathy G20 Parkinson's disease J45.909 Unspecified asthma, uncomplicated F32.9 Major depressive disorder, single episode, unspecified Office Visit 05/13/2016 Neurohospitalist Daniel Peterson, G20 Parkinson's 8:30a Clinic disease G25.2 Other specified forms of tremor E11.42 Type 2 diabetes mellitus with diabetic polyneuropathy Office Visit 03/11/2016 9:40a [facility] Internal Renny E11.9 Type 2 diabetes Lucio Moore M.D. mellitus without Suite R complications I10 Essential (primary) hypertension E03.9 Hypothyroidism, unspecified E78.2 Mixed hyperlipidemia F32.9 Major depressive disorder, single episode, unspecified R25.1 Tremor, unspecified Office Visit 01/05/2016 3:40p [facility] Internal Renny J20.8 Acute bronchitis Lucio Moore M.D. due to other Suite R specified organisms Office Visit 11/17/2015 2:40p [facility] Internal Renny E11.9 Type 2 diabetes Lucio Moore M.D. mellitus without Suite R complications M81.0 Age-related osteoporosis w/o current pathological fracture J45.909 Unspecified asthma, uncomplicated I10 Essential (primary) hypertension E03.9 Hypothyroidism, unspecified E66.01 Morbid (severe) obesity due to excess calories Z68.43 Body mass index (BMI) 50-59.9 , adult Office Visit 09/10/2015 10:00a [facility] Internal Renny Moore, J20.8 Acute bronchitis Medicine - M.DSantiago due to other Ccmob specified organisms Office Visit 08/12/2015 8:40a [facility] Internal Renny Moore, R07.9 Chest pain, Medicine - M.DSantiago unspecified Suite R J20.8 Acute bronchitis due to other specified organisms I89.0 Lymphedema, not elsewhere classified R60.0 Localized edema R94.31 Abnormal electrocardiogram [ECG] [EKG] Office Visit 08/07/2015 8:40a [facility] Internal Renny E11.9 Type 2 diabetes Lucio Moore M.D. mellitus without Suite R complications E03.8 Other specified hypothyroidism J45.909 Unspecified asthma, uncomplicated F32.9 Major depressive disorder, single episode, unspecified D50.9 Iron deficiency anemia, unspecified I10 Essential (primary) hypertension I89.0 Lymphedema, not elsewhere classified Office Visit 07/04/2015 8:30a [facility] Internal Olvin Wright, 311 Depressive Medicine - Suite PUBLICITY WRITER Disorder Not R Elsewhere Spec 285.8 Anemia Other Spec 280.9 Iron Deficiency Anemia Unspec Office Visit 06/13/2015 2:00p [facility] Internal Olvin Wright, 493.90 Asthma Unspec W/O Medicine - PUBLICITY WRITER Status Asthmaticus Suite R Office Visit 05/21/2015 8:00a [facility] Internal [place] 493.90 Asthma Unspec W/ O Medicine - [place], Status Asthmaticus Ccmob M.D. 285.8 Anemia Other Spec 278.01 Obesity Morbid 272.2 Hyperlipidemia Mixed 285.9 Anemia Unspec Office Visit 05/07/2015 4:00p [facility] Internal Renny Moore, 250.00 Diabetes Medicine - M.D. Mellitus W/O Ccmob Compl Type II Or Unspec Controlled 722.93 Disc Disorder Other & Unspec Lumbar Region 285.8 Anemia Other Spec 244.8 Hypothyroidism Other Spec 724.2 Lumbago Office Visit 03/07/2015 11:00a [facility] Internal Renny Moore, 959.7 Injury Knee Leg Medicine - M.D. Ankle & Foot Ccmob Other & Unspec Office Visit 02/10/2015 2:20p [facility] Internal Renny Moore, 681.11 Onychia & Medicine - M.D. Paronychia Toe Suite R Office Visit 01/27/2015 3:00p [facility] Internal Renny Moore, 250.00 Diabetes Medicine - M.D. Mellitus W/O Suite R Compl Type II Or Unspec Controlled 244.8 Hypothyroidism Other Spec 401.1 Hypertension Benign 272.2 Hyperlipidemia Mixed 457.1 Lymphedema Other 285.8 Anemia Other Spec V03.82 Streptococcus Pneumoniae Vaccination Spec Other Office Visit 01/06/2015 3:00p [facility] Internal Renny Moore, 850.9 Concussion Unspec Medicine - M.D. Suite R 850.9 Concussion Unspec 959.7 Injury Knee Leg Ankle & Foot Other & Unspec 959.7 Injury Knee Leg Ankle & Foot Other & Unspec 723.1 Cervicalgia 723.1 Cervicalgia Office Visit 12/30/2014 1:20p [facility] Internal Renny Moore, 850.9 Concussion Unspec Medicine - M.D. Suite R 850.9 Concussion Unspec 959.7 Injury Knee Leg Ankle & Foot Other & Unspec 959.7 Injury Knee Leg Ankle & Foot Other & Unspec Office Visit 12/27/2014 2:20p [facility] Internal Peggy Damon, 850.0 Concussion W/ No Medicine - M.D. Loss Of Ccmob Consciousness 850.0 Concussion W/ No Loss Of Consciousness 924.9 Contusion Unspec Site 924.9 Contusion Unspec Site 847.0 Sprains & Strains Neck 847.0 Sprains & Strains Neck 847.9 Sprains & Strains Unspec Site Of Back 847.9 Sprains & Strains Unspec Site Of Back Office Visit 10/18/2014 10:20a [facility] Internal Renny 493.90 Asthma Unspec W/ O Medicine - Roman Moore Status Ccmob Asthmaticus 311 Depressive Disorder Not Elsewhere Spec 401.1 Hypertension Benign 272.2 Hyperlipidemia Mixed 244.8 Hypothyroidism Other Spec 478.9 Upper Resp Tract Disease Other & Unspec 780.79 Malaise And Fatigue Other 781.2 Gait Abnormality 627.8 Menopausal & Postmenopausal Disorder Spec Other 719.47 Pain Joint Ankle & Foot 250.00 Diabetes Mellitus W/O Compl Type II Or Unspec Controlled Plan of Treatment Future Appointment(s):06/19/2019 1:30 pm - Sarai Cochran MD at [facility]09/21/2019 11:00 am - CHELI Morales at [facility]05/11/2019 - TAMRA [id number] Unspecified fall, initial encounterComments:keep elevated, ice, stay active as much as possible we will check an xray to rule out a fracture we will check a blood count to be sure your hemoglobin levels are [id number] Lymphedema, not elsewhere classified
--- OUTSIDE RECORDS SUMMARY | 2019-05-16 10:07 | XMS REPORT | Continuity of Care Document ---
:1940 External Reference #:[id number] Author Name Jahaira Alejandre Care Team Providers Name Role Phone Alondra Reynolds M.D. Primary Care Physician Unavailable Payers Date Identification Numbers Payment Provider Subscriber Policy Number: [id number] [employer] David Wilhelm Group Number: [id number] [address] PayID: [id number] [place] [address] Expires: 2018 Policy Number: [id number] Medicaid Dvaid Wilhelm Group Name: 1 1 [address] PayID: [id number] [place] [address] Effective: 2015 Policy Number: [id number] [employer] Todays Options David Wilhelm Expires: 2016 PayID: [id number] [address] [address] Attn: [place] [address] Expires: 2019 PayID: [id number] Medicare D - Drug Plan David Wilhelm Effective: 2015 Policy Number: [id number] Today's Option Of MIGUEL Wilhelm Expires: 2015 PayID: [id number] [address] [address] [place] [address] Expires: 2015 Policy Number: [id number] [facility] David Wilhelm PayID: [id number] [address] [place] [address] Expires: 2016 Policy Number: [id number] [facility] Onset: 2014 Group Number: [id number] [address] [place] [address] PayID: [address] [id number] Advance Directives Type Date Description Status Comment ELISA 12/31/2016 [facility] Current and Verified Problems Active Problems Provider [...] Former Cigarette Smoker Unknown Smoking Status Reviewed: 04/25/19 Former Cigarette Smoker ETOH Use 11/20/2017 Denies [...] Sodium 1 by mouth every 90tabs Alondra Gail, 175mcg day MD Cartwright Tablets Hydrochlorothiazide ( Not Taking On 90tabs Alondra Reynolds, 25mg Lasix ) 1 by mouth MD Cartwright Tablets every day Metformin HCL 1/2 tab by mouth 90tabs Alondra Gail, 500mg Tablets twice daily MD Cartwright Advair Diskus 1 inhalation twice 60units J44.9 Alondra Gail, 100-50mcg/Dose a day MD Cartwright Aerosol Hydrocodone-Acetaminophen 1 tab every 8h as 90tabs M51.16 Alondrasunny Reynolds, needed MD Orozco 5-325mg Tablets Cyclobenzaprine HCL 1 tab at 4pm and 60tabs M51.16 Alondra Reynolds, 5mg Tablets at bedtime MD Orozco Ventolin HFA 2 puffs by mouth 1units J45.909 Alex Le 108(90Base) four times a day [place], 8 mcg/Act Aerosol as needed M.D.,FACP Duloxetine HCL 1 by mouth every 30caps F33.0 Alondra Reynolds, 60mg Caps DR katt GRIFFITHS 8 Part Vortex Valved Holding use as instructed units Sarai Chamber MD Camron Cochran Device Pulse Oximeter use as instructed 1units J44.9 [facility] Misc MD Camron Cochran Nebulizer 1 unit 1units J44.9 [facility] Kit/Tubing/Mouthpiece nebulization every MD Camron Cochran Kit 4- 6 hours as needed Montelukast Sodium once daily 90tabs J30.2 Alondra Reynolds, 10mg Tablets MD [place] Repaglinide take 1 tablet by 180tabs Alondra Reynolds, 0.5mg Tablets mouth two times 7 daily just before food Albuterol Sulfate one treatment 75ml J45.901 Sarai 0.63mg/3ML every 4 hours as MD Sammie 6 Nebulizer needed Furosemide Take 1 Tablet By Unknown 20mg [...] by mouth every 90caps Unknown day 0 8916-83-2xk-mg-Unit Capsules Vitamin D-3 1 by mouth every [...] Reynolds, 01/23/2019 - 150mcg morning on empty MD 03/26/2019 Tablets stomach Protective Underwear Schwab change 6x/day. 192units N39.41 Alondra Reynolds, 2018 - Per Absorbency X-Large Size 2XL 04/24/2019 Misc Flonase Allergy Relief 2 sprays in each [...] 12/17/2017 Clotrimazole apply twice daily 90gm B37.9 [place] 12/05/2017 - 1% Cream Oscar, 04/24/2019 MPari Medrol medrol dosepack 1pak M51.16 Alex Le 11/14/2017 - 4mg Tablets as directed Rodrigo, 11/21/2017 Roman,FACP [facility] - 4mg TBPK Pachikara, 11/14/2017 M.DSantiago Doxycycline Hyclate 1 cab twice a day 20caps J01.90 [place] 10/25/2017 - 100mg Pachikara, 11/04/2017 Capsules M.D. Prednisone 5tabx 2days,4 30tabs M51.16 [place] 09/20/2017 - 10mg Tablets [id number] Pachikara, 10/25/2017 [id number],2tabx2 M.D. days,1tabxday. Duloxetine HCL once daily with 90caps F33.0 [place] 07/19/2017 - 30mg Caps DR matthew Moore, 10/25/2017 Part M.D. Azithromycin 2 tab today and 6tabs J06.9 [place] 07/19/2017 - 250mg Tablets then 1tab daily Pachikara, 07/24/2017 M.D. [facility]one [facility] 07/19[facility]2017 - 4mg TBPK [place]ara, 11/04/2017 M.D. 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 Venlafaxine HCL 1 by mouth every 90tabs F33.0 [place] 12/24/2016 - 75mg Tablets day Pachikara, 12/28/2016 M.D. Venlafaxine HCL ER 1 tab daily for 30tabs F33.0 [place] 12/07/2016 - 37.5mg 1week and then 2 Pachikara, 12/24/2016 Tablets ER 24HR tab daily M.D. Januvia one tab daily 60tabs E11.42 [place] 12/07/2016 - 50mg Tablets Pachika, 12/09/2016 M.D. Hydrochlorothiazide Take 1 Tablet By 90tabs I10 Alondra Reynolds, 12/07/2016 - 12.5mg Mouth Every Day 01/23/2019 Tablets Valsartan-Hydrochlorothi 1 by mouth every 90tabs I10 [place] 09/29/2016 - azide day Pachikara, 12/23/2017 160-12.5mg Tablets M.D. Bupropion HCL ER (XL) once daily in the 30tabs F33.0 [place] 09/29/2016 - 150mg morning with food Pachika, 12/07/2016 Tablets ER 24HR M.D. Sertraline HCL 1 by mouth every 30tabs F33.0 [place] 09/29/2016 - 100mg Tablets day P[place]ikara, 12/07/2016 M.D. Clindamycin HCL three times a day 30caps L03.032 [place] 09/17/2016 - 300mg Pachikara, 12/07/2016 Capsules M.D. Sertraline HCL 1 by mouth every 30tabs F32.9 [place] 09/17/2016 - 100mg Tablets day Pachikara, 09/29/2016 M.D. Symbicort 2 puff twice a 30.6gm [place] 09/14/2016 - 160-4.5mcg/Act day Pachika, 10/27/2016 Aerosol M.D. Azithromycin 2 tab today and 6tabs J20.9 [place] 08/23/2016 - 250mg Tablets then 1tab daily Pachika, 09/17/2016 M.D. Prednisone 5tabx 2days,4 30tabs J45.901 [place] 08/19/2016 - 10mg Tablets [id number] Pachikara, 09/17/2016 [id number],2tabx2 M.D. days,1tabxday. Medrol as directed 1units [place] 06/28/2016 - 4mg TBPK Pachika, 08/20/2016 M.D. Bupropion HCL ER (XL) 1 tab in in the 30tabs F32.9 [place] 05/20/2016 - 300mg morning P[place]ikara, 09/29/2016 Tablets ER 24HR M.D. Sertraline HCL 1 by mouth every 30tabs F32.9 [place] 05/20/2016 - 50mg Tablets day Pachikara, 09/17/2016 M.D. Bupropion HCL ER (XL) 1 by mouth every 30tabs F32.9 [place] 03/11/2016 - 150mg day Pachikara, 05/20/2016 Tablets ER 24HR M.D. Azithromycin 2 tab today and 6tabs J20.8 [place] 01/05/2016 - 250mg Tablets then 1tab daily [facility], 03/11/2016 M.D. Methylprednisolone (Oliver) use as directed 21tabs J20.8 [place] 01/05/2016 - 4mg Pachikara, 03/11/2016 Tablets M.D. Prednisone 5tabx 2days,4 30tabs [place] 09/18/2015 - 10mg Tablets [id number] Pachika, 11/17/2015 [id number],2tabx2 M.D. days,1tabxday. Azithromycin 2 tab today and 6tabs J20.8 [place] 09/10/2015 - 250mg Tablets then 1tab daily [facility], 11/17/2015 M.D. Clindamycin HCL 1 cap every 6 28caps R07.9 [place] 08/12/2015 - 150mg hours [facility], 08/12/2015 Capsules M.D. Clindamycin HCL 1 cap every 6 28caps J20.8 [place] 08/12/2015 - 150mg hours [facility], 09/10/2015 Capsules M.D. Hydrochlorothiazide once daily 30tabs I89.0 [place] 08/12/2015 - 12.5mg [facility], 01/05/2016 Tablets M.D. Feosol once daily 30tabs D50.9 [place] 08/07/2015 - 325(65Fe) mg Tablets [facility], 11/17/2015 M.D. Bupropion HCL ER (SR) take 1 tablet by 90tabs F32.9 [place] 07/04/2015 - 100mg mouth every SP Wright 03/11/2016 Tablets ER 12HR morning Ipratropium 3ml nebulizer up 84ml [place] 06/17/2015 - [place]/Albuterol to twice a day as SP Wright 12/07/2016 Sulfate needed 0.5-2.5(3)mg/3ML Solution Prednisone 5tabx 2days,4 30tabs 493.90 [place] 06/13/2015 - 10mg Tablets [id number] SP [place] 06/23/2015 [id number],2tabx2 days,1tabxday. Prednisone 5tab x 1 day,4 25tabs 493.90 [place] 05/21/2015 - 10mg Tablets [id number] 3 t a b [facility], 06/13/2015 x2days,[id number] M.D. ,1tabxday. Feosol once daily 30tabs 285.8 [place] 05/21/2015 - 325(65Fe) mg Tablets [facility], 08/07/2015 M.D. Meloxicam 1 by mouth every 30tabs 722.93 [place] 05/07/2015 - 7.5mg Tablets day as needed [facility], 06/24/2016 M.D. Clindamycin HCL 1 cap every 6 28caps 681.11 [place] 02/10/2015 - 150mg hours [facility], 02/14/2015 Capsules M.D. Doxycycline Monohydrate twice a day 20tabs [place] 01/06/2015 - 100mg [facility], 02/10/2015 Tablets M.D. Metformin HCL take 1/2 tablet 180tabs [place] 11/11/2014 - 1000mg Tablets by mouth twice [facility], 10/17/2018 daily M.D. Proair HFA 2 puffs ih every 3units J45.909 [place] 10/18/2014 - 108(90Base) 4 hours as needed [facility], 11/04/2017 mcg/Act Aerosol M.D. Doxycycline Hyclate 1 by mouth twice 20tabs 478.9 [place] 10/18/2014 - 100mg a day [facility], 12/30/2014 Tablets M.D. Aspirin Adult Low [...] Tablets Lisinopril 1 by mouth every 90tabs Renny - 10mg Tablets day [facility], 06/02/2016 MPari Clopidogrel Bisulfate 1 by mouth every 90tabs [place] - 75mg day [facility], 05/07/2015 Tablets MPari Levemir Flextouch inject 55 units 30units Unknown - 100Unit/ML under the skin 10/18/2014 Solution Pen-Inject every day Metformin HCL 2 by mouth twice 180tabs Renny - 500mg Tablets a day [facility], 11/11/2014 MPari Xopenex HFA 2 puffs four 1units Unknown [...] 07/04/2017 Advair Diskus use 2 inhalation 3units [place] - 100-50mcg/Dose 2 times daily Pachikara, 12/23/2017 Aerosol M.D. Amlodipine Besylate take 1 tablet by 180tabs [place] - 5mg mouth every Pachikara, 09/29/2016 Tablets morning and in M.D. the evening Sertraline HCL take one tablet 90tabs [place] - 100mg Tablets by mouth once Pachikara, [...] CPT Code Status Date Vaccine Lot # [id number] Given 09/01/2017 Tdap - Tetanus/Diptheria/Acellular Pertussis [id number] Given 09/17/2016 Influ Virus Vaccine, Quadrivalent, Split Virus, [place] [id number] [id number] Given 10/24/2015 Influenza Virus Vaccine, Quadrivalent, Split, Preservative Free [id number] Given 01/27/2015 Pneumococcal Conjugate Vaccine 13 Valent For [id number] Intramuscular Use Vital Signs Date Vital Result Comment 04/25/2019 10:12am Height 61.5 inches 5'1.50" Heart [...] Test Result H/L Range Note Laboratory test 03/09/2019 [facility] TSH 6.66 mcIU/mL High 0.34-5.[address] ([place] [address] Stim Horm) [phone] Free T4 (Free Thyroxine) 0.97 ng/dL N 0.61-1.12 CBC Auto Diff 01/11/2019 [facility] White Blood 7.5 10^3/uL N 3.5-10.[address] [place] [address] [phone] Red Blood Count 3.99 10^6/uL N 3.70-4.87 [...] Blood Cells % 0 Urinalysis Profile 01/11/2019 [facility] Urine Color Yellow [address] [place] [address] [phone] Urine Appearance Clear Urine Specific [place] 1.013 N 1.010-1.030 Urine pH 6.0 N 5-9 Urine Urobilinogen Negative Negative Urine Ketones Negative Negative Urine Protein Negative Negative Urine Leukocytes Negative Negative Urine Blood Negative Negative Urine Nitrite Negative Negative Urine Bilirubin Negative Negative Urine Glucose Negative Negative Laboratory test 01/11/2019 [facility] B-Type 173 pg/mL High <= [address] [place] [address] Peptide BNP [phone] Comp Metabolic 01/11/2019 [facility] Sodium 139 N 135-[address] mmol/[place] [address] [phone] Potassium 4.1 mmol/L N 3.5-5.0 Chloride 101 [...] Egfr 96.8 >60 1 Laboratory test 01/11/2019 [facility] TSH (Thyroid 11.74 High 0.34-5.[address] Stim Horm) mcIU/[place] [address] [phone] Urine 11/23/2018 [facility] Ur Microalbumin < 15.0 Microalbumin 101 (mg/L) [place] [address] [phone] Urine Creatinine 53.74 mg/dL Urine Microalbumin/Creatinine TNP <31 2 Laboratory test 11/16/2018 [facility] TSH (Thyroid 5.02 mcIU/mL N 0.34-5.[address] Stim Horm) [place] [address] [phone] Free T4 (Free Thyroxine) 0.91 ng/dL N 0.61-1.12 T3 Total 73 ng/dL Low 87-178 Hemoglobin A1c (Glyco HGB) 5.2 % N 4.0-5.6 3 Lipid Profile 11/16/2018 [facility] Triglycerides 189 mg/dL 4 (Trig/Chol/HDL) [address] [place] [address] [phone] Cholesterol 224 mg/dL 5 HDL Cholesterol 57.6 mg/dL 6 LDL Cholesterol 129 mg/dL 7 Comp Metabolic Panel 11/16/2018 [facility] Sodium 138 mmol/L N 135-[address] [place] [address] [phone] Potassium 4.4 mmol/L N 3.5-5.0 Chloride 103 [...] 107.2 >60 8 CBC Auto Diff 12/15/2017 [facility] White Blood 9.4 10^3/uL N 3.5-10.[address] [place] [address] [phone] Red Blood Count 4.24 10^6/uL N 4.0-5.4 [...] Blood Cells % 0.1 Laboratory test 12/15/2017 [facility] Lactic Acid 1.2 mmol/L N 0.5-2.0 [address] [place] [address] [phone] Inr/Protime 12/15/2017 [facility] Inr 1.08 High 0.77-1.[address] [place] [address] [phone] Laboratory test 12/15/2017 [facility] Partial 36.3 N 26.0- 36.[address] [place] [address] PTT [phone] B-Type Natriuretic Peptide BNP 133 pg/mL High 10 Comp Metabolic Panel 12/15/2017 [facility] Sodium 134 mmol/L N 133-[address] [place] [address] [phone] Potassium 3.4 mmol/L Low 3.5-5.0 Chloride 97 [...] Egfr 133.0 >60 11 Laboratory test 12/15/2017 [facility] Magnesium 1.7 mg/dL Low 1.9-2.[address] [place], [place] [address] [phone] Lipase 22 U/L N 11.0-82.0 Creatine Kinase(CK) 74 U/L N 10-223 C Reactive Protein 66.26 mg/L High < 5.00 12 Troponin-I (TnI) 0.03 ng/mL <0.04 CKMB 12/15/2017 [facility] CKMB ng/mL 4.7 ng/mL N 0.6-6.3 DRIVE [place], [place] [address] [phone] Laboratory test 12/15/2017 [facility] TSH 2.40 mcIU/mL N 0.34- 5.[address] (Thyroid [place], [place] [address] Wkao Xtzp) [phone] Urinalysis 12/08/2017 [facility] Urine [place] [address] [phone] Urine Appearance Cloudy Urine Specific [place] 1.010 N 1.010-1.030 Urine pH 5.0 N [...] Bacteria Absent Absent Urine Culture And 12/08/2017 [facility] Urine Culture SEE RESULT [address] [place] [address] [phone] CBC Auto Diff 12/01/2017 [facility] White Blood 10.1 10^3/uL N 3.5-1 Count 0.8 [place] [address] [phone] Red Blood Count 4.48 10^6/uL N 4.0-5.4 [...] Blood Cells % 0.1 CBC Auto 11/19/2017 [facility] White Blood 15.2 10^3/uL High 3.5-10.[address] [place] [address] [phone] Red Blood Count 5.17 10^6/uL N 4.0-5.4 [...] Blood Cells % 0.1 Laboratory test 11/19/2017 [facility] Partial 32.5 seconds N 26.0-36.[address] [place] [address] PTT [phone] Comp Metabolic 11/19/2017 [facility] Sodium 134 mmol/L N 133- [address] [place] [address] [phone] Potassium 3.3 mmol/L Low 3.5-5.0 Chloride 96 [...] Egfr 77.5 >60 15 Laboratory test 11/19/2017 [facility] C Reactive 18.25 mg/L High < 5.[address] Protein [place], [place] [address] [phone] Comp Metabolic 10/27/2017 [facility] Sodium 136 mmol/L N 133- 145 Panel [address] [place] [address] [phone] Potassium 4.6 mmol/L N 3.5-5.0 Chloride 99 [...] Non- 75.3 >60 Egfr 96.9 >60 17 Lipid Profile 10/27/2017 [facility] Triglycerides 192 mg/dL 18 (Trig/Chol/HDL) [address] [place] [address] [phone] Cholesterol 220 mg/dL 19 HDL Cholesterol 57.2 mg/dL 20 LDL Cholesterol 124 mg/dL 21 Laboratory test 10/27/2017 [facility] TSH (Thyroid 1.61 N 0.34 -5.[address] Stim Horm) mcIU/[place] [address] [phone] Laboratory test 07/19/2017 [facility] Hemoglobin A1c 6.6 5-7 finding Laboratory test 04/28/2017 [facility] Hemoglobin A1c 7.0 5-7 finding Urine 12/23/2016 [facility] Urine 122.02 [address] Microalbumin [address] Creatinine mg/[place] [address] [phone] Ur Microalbumin (mg/L) 38.0 mg/L N Urine Microalbumin/Creatinine 31.1 ug/mg High <31 Laboratory test 12/23/2016 [facility] Hemoglobin A1c 7.5 High 5-7 finding Laboratory test 09/24/2016 [facility] D Dimer < 200 N Less Than [address] Quantitative ng/mL 230 [place] [address] [phone] Comp Metabolic 09/24/2016 [facility] Sodium 135 N 133-[address] mmol/[place] [address] [phone] Potassium 3.8 mmol/L N 3.5-5.0 Chloride 100 [...] 74.9 N >60 23 Laboratory test 09/24/2016 [facility] C Reactive 15.76 mg/L High < 5.00 [address] [place] [address] [phone] CBC Auto Diff 09/24/2016 [facility] White Blood 10.0 N 3.5- 10.[address] Count 10^3/[place] [address] [phone] Red Blood Count 4.52 10^6/uL N 4.0-5.4 [...] Cells % 0.1 N Laboratory test 09/24/2016 [facility] B-Type 48 pg/mL N [address] [place] [address] Peptide BNP [phone] Comp Metabolic 08/24/2016 [facility] Sodium 134 mmol/L N 133- [address] [place] [address] [phone] Potassium 4.0 mmol/L N 3.5-5.0 Chloride 98 [...] 65.9 N >60 26 Laboratory test 08/23/2016 [facility] Hemoglobin A1c 7.4 High 5-7 finding Laboratory test 05/20/2016 [facility] Hemoglobin A1c 7.4 High 5-7 finding Vitamin B12 And 05/04/2016 [facility] Vitamin B12 564 pg/mL N 180-914 27 Folate Serum [address] [place] [address] [phone] Folic Acid (Folate) > 20.00 ng/mL N >3.99 28 Laboratory test 05/04/2016 [facility] TSH (Thyroid 0.47 mcIU/mL N 0.34-5.60 [address] Stim Horm) [place] [address] [phone] Comp Metabolic 05/04/2016 [facility] Sodium 135 mmol/L N 133- [address] [place] [address] [phone] Potassium 4.1 mmol/L N 3.5-5.0 Chloride 101 [...] 77.9 N >60 30 Lipid Profile 05/04/2016 [facility] Triglycerides 341 mg/dL N 31 (Trig/Chol/HDL) [address] [place] [address] [phone] Cholesterol 310 mg/dL N 32 HDL Cholesterol 49.8 mg/dL N 33 LDL Cholesterol 192 mg/dL N 34 Laboratory test 03/11/2016 [facility] Hemoglobin A1c 7.5 High 5-7 finding Laboratory test 11/17/2015 [facility] Hemoglobin A1c 7.6 High 5-7 finding CBC Auto Diff 09/16/2015 [facility] White Blood Count 10.1 N 4.8-10.[address] 10^3/[place] [address] [phone] Red Blood Count 4.52 10^6/uL N 4.0-5.4 [...] Cells % 0 N Laboratory test 08/07/2015 [facility] Hemoglobin A1c 7.3 High 5-7 finding Comp Metabolic 05/16/2015 [facility] Sodium 136 mmol/L N 133- [address] [place] [address] [phone] Potassium 4.3 mmol/L N 3.5-5.0 Chloride 101 [...] 69.5 N >60 Egfr 89.4 N >60 35 Laboratory test 05/16/2015 [facility] TSH (Thyroid 1.54 N 0.34 -5.[address] Stim Horm) ?IU/[place] [address] [phone] Vitamin B12 And 05/16/2015 [facility] Vitamin B12 980 pg/mL High 180-914 36 Folate Serum [address] [place] [address] [phone] Folic Acid (Folate) > 20.00 ng/mL N >3.99 Iron & Iron Binding 05/16/2015 [facility] Iron 47 g/dL Low 50-[address] [place] [address] [phone] Unsaturated Iron Binding 366 g/dL N Total Iron Binding Capacity 413 g/dL N 250-450 % Iron Saturation 11 % Low 15-55 CBC Auto Diff 05/16/2015 [facility] White Blood 7.7 10^3/uL N 4.8-10.[address] [place] [address] [phone] Red Blood Count 4.63 10^6/uL N 4.0-5.4 [...] Cells % 0.1 N Urine Microalbumin 05/16/2015 [facility] Ur Microalbumin 7.0 mg/ L N Random [address] (mg/L) [place] [address] [phone] Urine Creatinine 84.15 mg/dL N Urine Microalbumin/Creatinine 8.3 ug/mg N <31 Lipid Profile 05/16/2015 [facility] Triglycerides 324 mg/dL N 37 (Trig/Chol/HDL) [address] [place] [address] [phone] Cholesterol 285 mg/dL N 38 HDL Cholesterol 46.8 mg/dL N 39 LDL Cholesterol 173 mg/dL N 40 Vitamin D, 25 Hydroxy 01/17/2015 25-Hydroxy Vitamin D2 <4.0 ng/mL N 25-Hydroxy Vitamin D3 66 ng/mL N 25-Hydroxy Vitamin D Total 66 ng/mL N 41 Vitamin B12 And Folate Serum 01/17/2015 Vitamin B12 774 pg/mL N 180-914 42 Folate > 20.00 ng/mL N >3.99 Comp Metabolic Panel 01/17/2015 Sodium 137 mmol/L [...] 71.5 N >60 Egfr 92.0 N >60 43 CBC Auto Diff 01/17/2015 White Blood Count [...] 0.34-5.60 finding Stimulating Horm) Laboratory test 10/18/2014 [facility] Hemoglobin A1c 6.3 5-7 finding [...] in selective patients <6.0%. Please refer to [place] [employer] diabetic care guidelines for further [...] 5 Kidney failure <15 (or dialysis) 9 [facility] Severe Sepsis and Septic Shock Management Bundle [...] [address]: Venu Mckeon MD Acct: [id number] Unit: [id number] AGE: 77 Location: [place] [address] Re12/08/17 SEX: F Status: ADM Peyton SPEC: [id number] JEANNE: 12/08/17-[address] [facility] [address]: Wilman Lockwood MD REQ: [id number] RECD: 12/08/17 STATUS: YOLANDA ABREU DR: Renny Moore MD _ SOURCE: URINE SPDESC: ORDERED: Urine Culture Procedure Result Reported Site Urine Culture Final 12/09/17- 1306 ML Few Enterobacteriacae; possible contamination. * ML - MAIN LAB (PSC1) . END OF REPORT * ML=Testing performed at Main Lab DEPARTMENT OF PATHOLOGY, [address] [place] [address] Pepe Franco M.D. Director [facility] # [id number] 15 Because ethnic data is not always [...] 160-189 mg/dL Very High: >189 mg/dL 35 Because ethnic data is not always readily [...] 15-29 5 Kidney failure <15 (or dialysis) 36 Normal Range 180 to 914 Indeterminate Range 145 to 180 Deficient Range <145 37 Desirable <150 Borderline high 150-199 High 200-499 Very High >500 38 Desirable <200 Borderline high 200-239 High >239 39 Low <40 Desirable: 40-60 High: >60 40 Desirable: <100 mg/dL Near Optimal: 100-129 mg/dL Borderline High: 130-159 mg/dL High: 160-189 mg/dL Very High: >189 mg/dL 41 Interpretation: 51-80 ng/mL (increased risk of hypercalciuria) REFERENCE VALUE 25-HYDROXY D TOTAL (D2+D3) Optimum levels in the healthy population are 20-50, patients with bone disease may benefit from higher levels within this range. Test Performed by: [place] [address] Talent Management Specialist: Manish Sandoval II, M.D., Ph.D. 42 Normal Range 180 to 914 Indeterminate Range 145 to 180 Deficient Range <145 43 Because ethnic data is not always readily [...] 15-29 5 Kidney failure <15 (or dialysis) Procedures Date Code Description Status 01/30/2019 68659 ECHO Transthoracic, Real-Time 2D With Doppler And Completed Color Flow 01/30/2019 70617 ECHO Transthoracic, Real-Time 2D With Doppler And Completed Color Flow 06/20/2018 07031 Nerve Conduction 05-06 Studies Completed 06/20/2018 00987 Needle Electromyography Each Extremity W/Related Completed Paraspinal Areas 12/11/2017 78529 EKG, Interpretation Only Completed 12/10/2017 18068 EKG, Interpretation Only Completed 12/08/2017 34682 ECHO Transthorasic Realtime 2D W Doppler & Color Flow Completed Hosp 12/08/2017 46167 EKG, Interpretation Only Completed 07/15/2017 36467 Inject/Drain Joint/Bursa Major W/O US Completed 04/13/2017 54682 Inject/Drain Joint/Bursa Major W/O US Completed 03/28/2017 [id number] Diabetic Retinal Eye Exam Completed 08/23/2016 [id number] Colonoscopy Completed 07/30/2016 54027 ECHO Transthorasic Realtime 2D W Doppler & Color Flow Completed Hosp 06/25/2016 94505 EKG Tracing & Interpretation Completed 04/15/2016 69502 Diffusing Capacity Completed 04/15/2016 44561 Pulmonary Function><Bronchodil Completed 04/15/2016 [id number] Bone Mineral Density Test Completed 08/15/2015 16368 ECHO Transthoracic, Real-Time 2D With Doppler And Completed Color Flow 08/12/2015 01966 EKG Tracing & Interpretation Completed 07/17/2015 [id number] Diabetic Retinal Eye Exam Completed 09/16/2013 [id number] Mammogram Completed Encounters Type Date Location Provider Dx Diagnosis Office Visit 03/09/2019 [facility] Alondra Reynolds MD M48.061 Spinal stenosis, 9:40a Medicine - Ccmob lumbar region without neurogenic chiara R29.6 Repeated falls Z68.42 Body mass index (BMI) 45.0-49.9, adult I89.0 Lymphedema, not elsewhere classified E03.9 Hypothyroidism, unspecified F33.1 Major depressive disorder, recurrent, moderate G20 Parkinson's disease Office Visit 03/01/2019 9:31a [facility] M25.551 Pain in Assoc,pc [place] right hip Hospitalists I89.0 Lymphedema, not elsewhere classified E66.01 Morbid (severe) obesity due to excess calories Z79.891 detention (current) use of opiate analgesic Z68.42 Body mass index (BMI) 45.0-49.9, adult W19.xxxA Unspecified fall, initial encounter Office Visit 02/28/2019 9:30a [facility] M25.551 Pain in Assoc,pc CHELI Issa right hip Hospitalists I89.0 Lymphedema, not elsewhere classified E66.01 Morbid (severe) obesity due to excess calories Z68.42 Body mass index (BMI) 45.0-49.9, adult E11.9 Type 2 diabetes mellitus without complications W19.xxxA Unspecified fall, initial encounter Office Visit 02/21/2019 11:20a [facility] Internal Alondra Reynolds, J45.30 Mild persistent Medicine - MD asthma, Ccmob uncomplicated J30.9 Allergic rhinitis, unspecified H61.23 Impacted cerumen, bilateral M48.07 Spinal stenosis, lumbosacral region Office [facility] M54.5 Low back Assoc,pc [place] pain Hospitalists Office Visit 02/11/2019 8:50a [facility] Connie Cm MD M54.5 Low back Assoc,pc pain Hospitalists W19.xxxA Unspecified fall, initial encounter Office Visit 01/05/2019 2:20p [facility] Internal Brett Echevarria, R60.0 Localized edema Medicine - EMERGENCY ROOM RN Ccmob Office Visit 12/20/2018 4:00p [facility] Internal Alondra Reynolds, E11.42 Type 2 diabetes Medicine - MD mellitus with Suite R diabetic polyneuropathy E03.9 Hypothyroidism, unspecified J32.9 Chronic sinusitis, unspecified Office Visit 11/09/2018 11:40a [facility] Internal Alondra Reynolds, M48.07 Spinal stenosis, Medicine - MD lumbosacral region Suite R G20 Parkinson's disease G62.9 Polyneuropathy, unspecified I89.0 Lymphedema, not elsewhere classified M62.81 Muscle weakness (generalized) J44.9 Chronic obstructive pulmonary disease, unspecified M51.36 Other intervertebral disc degeneration, lumbar region Office Visit 10/18/2018 9:40a [facility] Internal Alondra Reynolds, M48.07 Spinal stenosis, Medicine [...] 50-59.9 , adult Office Visit 12/19/2017 1:56p [facility] Venu Mckeon, R53.1 [facility] I89.0 Lymphedema, not elsewhere classified G20 Parkinson's disease M54.16 Radiculopathy, lumbar region Office Visit 12/18/2017 1:55p [facility] Venu Mckeon, R53.1 [facility] I89.0 Lymphedema, not elsewhere classified G20 Parkinson's disease M54.16 Radiculopathy, lumbar region Office 12/17/2017 Neurohospitalist Mariela M62.81 Muscle weakness Visit 12:53p Clinic Roman Lin (generalized) R29.6 Repeated falls M48.07 Spinal stenosis, lumbosacral region G25.0 Essential tremor M13.0 Polyarthritis, unspecified R60.9 Edema, unspecified Office Visit 12/17/2017 1:54p [facility] Venu Mckeon R53.1 Weakness Assoc,[facility] Hospitalists Roman I89.0 Lymphedema, not elsewhere classified G20 Parkinson's disease M54.16 Radiculopathy, lumbar region Office Visit 12/16/2017 1:53p [facility] Odalis Quevedoedithcarmelina R53.1 Weakness Assoc,nikolas Roche, EMERGENCY ROOM RN Hospitalists I89.0 Lymphedema, not elsewhere classified G20 Parkinson's disease M54.16 Radiculopathy, lumbar region Office Visit 12/15/2017 1:52p [facility] Manish Jean-Baptiste, R53.1 Weakness Assoc,pc Hospitalists PA I89.0 Lymphedema, not elsewhere classified G20 Parkinson's disease M54.16 Radiculopathy, lumbar region Office Visit 12/13/2017 2:25p [facility] Nohemylyn Wilhelm, L03.90 Cellulitis, Assoc,pc N.P. unspecified Hospitalists I89.0 Lymphedema, not elsewhere classified J44.9 Chronic obstructive pulmonary disease, unspecified I48.91 Unspecified atrial fibrillation Office Visit 12/12/2017 [facility] L03.90 Cellulitis, 2:23p Assoc,nikolas Leo, EMERGENCY ROOM RN unspecified Hospitalists I89.0 Lymphedema, not elsewhere classified J44.9 Chronic obstructive pulmonary disease, unspecified I48.91 Unspecified atrial fibrillation Office Visit 12/11/2017 [facility] L03.90 Cellulitis, 2:22p Assoc,nikolas Leo, EMERGENCY ROOM RN unspecified Hospitalists I89.0 Lymphedema, not elsewhere classified J44.9 Chronic obstructive pulmonary disease, unspecified I48.91 Unspecified atrial fibrillation Office Visit 12/10/2017 [facility] L03.90 Cellulitis, 2:19p Assoc,nikolas Leo, EMERGENCY ROOM RN unspecified Hospitalists I89.0 Lymphedema, not elsewhere classified I10 Essential (primary) hypertension J44.9 Chronic obstructive pulmonary disease, unspecified Office Visit 12/08/2017 [facility] Les L03.90 Cellulitis, 2:17p Assoc,nikolas Avila, N.P. unspecified Hospitalists I89.0 Lymphedema, not elsewhere classified I10 Essential (primary) hypertension J44.9 Chronic obstructive pulmonary disease, unspecified Office Visit 12/05/2017 [facility] Internal Renny M51.16 Intervertebral disc 11:00a Lucio Moore M.D. disorders w Suite R radiculopathy, lumbar region B37.9 Candidiasis, unspecified F33.0 Major depressive disorder, recurrent, mild Office 11/21/2017 Neurosurgery Vassilios M47.26 Other spondylosis Visit 2:00p [facility] MD Aamya with radiculopathy, lumbar region M43.16 Spondylolisthesis, lumbar region M51.16 Intervertebral disc disorders w radiculopathy, lumbar region E66.8 Other obesity E11.42 Type 2 diabetes mellitus with diabetic polyneuropathy Z68.43 Body mass index (BMI) 50-59.9 , adult Office Visit 11/14/2017 [facility] Internal Alex Le M51.16 Intervertebral disc 8:40a Lucio Wallace M.D.,FACP disorders w Suite R radiculopathy, lumbar region E11.42 Type 2 diabetes mellitus with diabetic polyneuropathy Office Visit 10/25/2017 11:20a [facility] Internal Renny J01.90 Acute sinusitis, Lucio Moore M.D. unspecified Suite R F33.0 Major depressive disorder, recurrent, mild M51.16 Intervertebral disc disorders w radiculopathy, lumbar region Office Visit 09/20/2017 [facility] Internal Renny M51.16 Intervertebral disc 1:00p Lucio Moore M.D. disorders w Suite R radiculopathy, lumbar region Office Visit 09/01/2017 [facility] Internal Renny J45.909 Unspecified asthma, 8:40a Lucio Moore M.D. uncomplicated Suite R J01.90 Acute sinusitis, unspecified F33.0 Major depressive disorder, recurrent, mild Z23 Encounter for immunization Office Visit 07/19/2017 [facility] Internal Renny J45.909 Unspecified asthma, 11:20a Lucio [...] Chronic Sleep Services Of MD Sammie obstructive [facility] pulmonary disease, unspecified J45.909 Unspecified asthma, uncomplicated [...] Neurohospitalist Daniel Peterson, G20 Parkinson's 9:45a Clinic MD disease E11.42 Type 2 diabetes mellitus with diabetic polyneuropathy R53.83 Other fatigue Office Visit 05/11/2017 [facility] Internal Renny J06.9 Acute upper 11:20a Lucio Moore M.D. respiratory Ccmob infection, unspecified Office Visit 04/28/2017 [facility] Jana Lawsno E11.42 Type 2 diabetes 1:40p Lucio Moore M.D. mellitus with Suite R diabetic polyneuropathy E66.01 Morbid (severe) obesity due to excess calories Z12.39 Encounter for oth screening for malignant neoplasm of breast I10 Essential (primary) hypertension F33.0 Major depressive disorder, recurrent, mild L03.116 Cellulitis of left lower limb M25.562 Pain in left knee Office Visit 04/13/2017 10:00a [facility] Christiananate Lawsonke, M25.562 Pain in left Of C.M.A. M.D. knee M25.462 Effusion, left knee M17.12 Unilateral primary osteoarthritis, left knee Office Visit 03/18/2017 11:20a [facility] Internal Renny Moore, F33.0 Major depressive Medicine - MPari disorder, Suite R recurrent, mild J45.909 Unspecified asthma, uncomplicated M25.562 Pain in left knee Office Visit 01/28/2017 11:00a [facility] Internal Renny Pachyanira, F33.0 Major depressive Medicine - MSantiagoDSantiago disorder, Suite R recurrent, mild G93.3 Postviral fatigue syndrome I82.402 Acute embolism and thombos unsp deep veins of l low extrem J06.9 Acute upper respiratory infection, unspecified J30.2 Other seasonal allergic rhinitis Office Visit 01/24/2017 Neurohospitalist Daniel R26.81 Unsteadiness on 2:15p Clinic MD Nicholas feet E11.42 Type 2 diabetes mellitus with diabetic polyneuropathy G20 Parkinson's disease Office Visit 12/07/2016 [facility] Internal [place] E11.42 Type 2 diabetes 3:40p Medicine Jena Moore M.D. mellitus with Suite R diabetic polyneuropathy F33.0 Major depressive disorder, recurrent, mild I10 Essential (primary) hypertension Office Visit 09/29/2016 11:40a [facility] Internal Renny L03.032 Cellulitis of Lucio Moore M.D. left toe Ccmob I10 Essential (primary) hypertension F33.0 Major depressive disorder, recurrent, mild Office Visit 09/17/2016 2:20p [facility] Internal [place] L03.032 Cellulitis of Lucio Moore M.D. left toe Suite R Z23 Encounter for immunization Office Visit 08/23/2016 1:00p [facility] Internal Renny Moore, I10 Essential (primary) Medicine - Roman hypertension Suite R E78.2 Mixed hyperlipidemia E11.42 Type 2 diabetes mellitus with diabetic polyneuropathy J45.909 Unspecified asthma, uncomplicated E03.9 Hypothyroidism, unspecified J20.9 Acute bronchitis, unspecified E66.01 Morbid (severe) obesity due to excess calories M81.0 Age-related osteoporosis w/o current pathological fracture Office 08/19/2016 [facility] Internal Medicine [place] J45.901 Unspecified Visit 2:40p - Suite R [place], asthma with M.D. 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 Suite R Office Visit 05/20/2016 [facility] Internal Renny M81.0 Age-related 8:40a Lucio Moore M.D. osteoporosis w/o Suite R current pathological fracture E78.2 Mixed hyperlipidemia E11.42 Type 2 diabetes mellitus with diabetic polyneuropathy G20 Parkinson's disease J45.909 Unspecified asthma, uncomplicated F32.9 Major depressive disorder, single episode, unspecified Office Visit 05/13/2016 Neurohospitalist Daniel Peterson, G20 Parkinson's 8:30a Clinic MD disease G25.2 Other specified forms of tremor E11.42 Type 2 diabetes mellitus with diabetic polyneuropathy Office Visit 03/11/2016 9:40a [facility] Internal Renny E11.9 Type 2 diabetes Lucio Moore M.D. mellitus without Suite R complications I10 Essential (primary) hypertension E03.9 Hypothyroidism, unspecified E78.2 Mixed hyperlipidemia F32.9 Major depressive disorder, single episode, unspecified R25.1 Tremor, unspecified Office Visit 01/05/2016 3:40p [facility] Internal [place]enny J20.8 Acute bronchitis Lucio Moore M.D. due to other Suite R specified organisms Office Visit 11/17/2015 2:40p [facility] Internal [place] E11.9 Type 2 diabetes Lucio Moore M.D. mellitus without Suite R complications M81.0 Age-related osteoporosis w/o current pathological fracture J45.909 Unspecified asthma, uncomplicated I10 Essential (primary) hypertension E03.9 Hypothyroidism, unspecified E66.01 Morbid (severe) obesity due to excess calories Z68.43 Body mass index (BMI) 50-59.9 , adult Office Visit 09/10/2015 10:00a [facility] Internal Renny Moore, J20.8 Acute bronchitis Medicine - M.D. due to other Ccmob specified organisms Office Visit 08/12/2015 8:40a [facility] Internal [place] Oscar, R07.9 Chest pain, Medicine - M.D. unspecified Suite R J20.8 Acute bronchitis due to other specified organisms I89.0 Lymphedema, not elsewhere classified R60.0 Localized edema R94.31 Abnormal electrocardiogram [ECG] [EKG] Office Visit 08/07/2015 8:40a [facility] Internal [place] E11.9 Type 2 diabetes Lucio Moore M.D. mellitus without Suite R complications E03.8 Other specified hypothyroidism J45.909 Unspecified asthma, uncomplicated F32.9 Major depressive disorder, single episode, unspecified D50.9 Iron deficiency anemia, unspecified I10 Essential (primary) hypertension I89.0 Lymphedema, not elsewhere classified Office Visit 07/04/2015 8:30a [facility] Internal Olvin Wright, 311 Depressive Medicine - Suite EMERGENCY ROOM RN Disorder Not R Elsewhere Spec 285.8 Anemia Other Spec 280.9 Iron Deficiency Anemia Unspec Office Visit 06/13/2015 2:00p [facility] Internal Olvin Wright, 493.90 Asthma Unspec W/O Medicine - EMERGENCY ROOM RN Status Asthmaticus Suite R Office Visit 05/21/2015 8:00a [facility] Internal [place] 493.90 Asthma Unspec W/ O Medicine - [place], Status Asthmaticus Ccmob M.D. 285.8 Anemia Other Spec 278.01 Obesity Morbid 272.2 Hyperlipidemia Mixed 285.9 Anemia Unspec Office Visit 05/07/2015 4:00p [facility] Internal Renny Moore, 250.00 Diabetes Medicine - M.DSantiago Mellitus W/O Ccmob Compl Type II Or Unspec Controlled 722.93 Disc Disorder Other & Unspec Lumbar Region 285.8 Anemia Other Spec 244.8 Hypothyroidism Other Spec 724.2 Lumbago Office Visit 03/07/2015 11:00a [facility] Internal Renny Moore, 959.7 Injury Knee Leg Medicine - MPari Ankle & Foot Ccmob Other & Unspec Office Visit 02/10/2015 2:20p [facility] Internal Renny Moore, 681.11 Onychia & Medicine - M.DSantiago Paronychia Toe Suite R Office Visit 01/27/2015 3:00p [facility] Internal Renny Moore, 250.00 Diabetes Medicine - M.DSantiago Mellitus W/O Suite R Compl Type II Or Unspec Controlled 244.8 Hypothyroidism Other Spec 401.1 Hypertension Benign 272.2 Hyperlipidemia Mixed 457.1 Lymphedema Other 285.8 Anemia Other Spec V03.82 Streptococcus Pneumoniae Vaccination Spec Other Office Visit 01/06/2015 3:00p [facility] Internal Renny Moore, 850.9 Concussion Unspec Medicine - M.D. Suite R 850.9 Concussion Unspec 959.7 Injury Knee Leg Ankle & Foot Other & Unspec 959.7 Injury Knee Leg Ankle & Foot Other & Unspec 723.1 Cervicalgia 723.1 Cervicalgia Office Visit 12/30/2014 1:20p [facility] Internal Renny Moore, 850.9 Concussion Unspec Medicine - M.DSantiago Suite R 850.9 Concussion Unspec 959.7 Injury Knee Leg Ankle & Foot Other & Unspec 959.7 Injury Knee Leg Ankle & Foot Other & Unspec Office Visit 12/27/2014 2:20p [facility] Internal Peggy Damon, 850.0 Concussion W/ No Medicine - M.DSantiago Loss Of Ccmob Consciousness 850.0 Concussion W/ No Loss Of Consciousness 924.9 Contusion Unspec Site 924.9 Contusion Unspec Site 847.0 Sprains & Strains Neck 847.0 Sprains & Strains Neck 847.9 Sprains & Strains Unspec Site Of Back 847.9 Sprains & Strains Unspec Site Of Back Office Visit 10/18/2014 10:20a [facility] Internal [place] 493.90 Asthma Unspec W/ O Lucio Moore M.D. Status Ccmob Asthmaticus 311 Depressive Disorder Not Elsewhere Spec 401.1 Hypertension Benign 272.2 Hyperlipidemia Mixed 244.8 Hypothyroidism Other Spec 478.9 Upper Resp Tract Disease Other & Unspec 780.79 Malaise And Fatigue Other 781.2 Gait Abnormality 627.8 Menopausal & Postmenopausal Disorder Spec Other 719.47 Pain Joint Ankle & Foot 250.00 Diabetes Mellitus W/O Compl Type II Or Unspec Controlled Plan of Treatment Future Appointment(s):09/21/2019 11:00 am - CHELI Morales at [facility]05/16/2019 10:00 am - Daniel Peterson MD at [place] [facility]04/25/2019 - Alondra Reynolds MDZ00.01 Encounter for general adult medical examination with abnormaComments:You are up to date with cancer screening.Your cholesterol profile and other labs were reviewed today.Remember to wear sunscreen and see your dentist regularly.For optimum health, I recommend some form of regular exercise and integrating a lot of plant-based foods into your daily diet.F33.1 Major depressive disorder, recurrent, moderateComments:I have provided a list of Psych body fitter and psychiatrists in the [id number] Lymphedema, not elsewhere classifiedNew Therapy:Physical BwwjtrkU53.511 Pain in right shoulderComments:this may also be referred pain from your neck. consider changing the position you are sleeping in
--- NOTE | 2019-05-16 11:43 | ED ---
Complex/Multi-Sys Presentation - HPI Summary HPI Summary: This patient is a 78 year old F presenting [facility] accompanied by a male medical sonographer with a chief complaint of worsened left lower extremity edema since 1 week ago. Pt states she was ambulating using a walker last week. The walker became off-balanced, causing her to fall. Pt hit her right elbow, right toe, and left knee upon the fall. She notes her right lower extremity edema is usually worse, but the left lower extremity edema is now worse due to the fall and is warm. The patient rates the pain 7/10 in severity, achy, worse w movement and pressure. Patient reports shoulder pain. Pt has hx of afib, cellulitis, chronic lymphedema , degenerative disc disease with 2 herniated discs, sciatica, diabetes, but denies hx of blood clots. Pt is on blood thinner medication. - History Of Current Complaint Chief Complaint: EDExtremityLower Time Seen by Provider: 05/16/19 11:01 Hx Obtained From: Patient, Other: - male medical sonographer Onset/Duration: Sudden Onset, Lasting Weeks - 1, Still Present Timing: Constant Severity Currently: Severe Severity Initially: Severe Aggravating Factor(s): nothing Alleviating Factor(s): nothing Associated Signs And Symptoms: Positive: Edema - worsened left lower extremity edema since 1 week ago after the fall, Other - positive - hit her right elbow, right toe, and left knee upon the fall, shoulder pain, left lower extremity is warm - Allergies/Home Medications Allergies/Adverse Reactions: Allergies Allergy/AdvReac Type Severity Reaction Status Date / Time adhesive Allergy Hives Verified 05/16/19 09:58 avocado Allergy Unknown Verified 05/16/19 09:58 Reaction Details ciprofloxacin [From Cipro] Allergy See Comment Verified 05/16/19 09:58 Iodinated Contrast- Oral and Allergy Difficulty Verified 05/16/19 09:58 IV Dye Breathing/Wheezing Penicillins Allergy Hives Verified 05/16/19 09:58 shellfish derived Allergy Difficulty Verified 05/16/19 09:58 Breathing/Wheezing Sulfa (Sulfonamide Allergy Hives Verified 05/16/19 09:58 Antibiotics) Tetracyclines Allergy Difficulty Verified 05/16/19 09:58 Breathing vancomycin Allergy Itching Verified 05/16/19 09:58 atorvastatin AdvReac Unknown See Comment Verified 05/16/19 09:58 almond AdvReac GI Upset Verified 05/16/19 09:58 codeine AdvReac Vomiting Verified 05/16/19 09:58 levofloxacin AdvReac Joint Pain Verified 05/16/19 09:58 Home Medications: Home Medications Aspirin EC TAB* [Ecotrin EC Low Dose 81 MG*] 81 mg PO DAILY 05/16/19 [History Confirmed 05/16/19] Cetirizine HCl 10 mg PO DAILY 05/16/19 [History Confirmed 05/16/19] Cholecalciferol (Vitamin D3) [D 5000] 5,000 unit PO DAILY 05/16/19 [History Confirmed 05/16/19] Cranberry Fruit Extract/Vit C [Azo Cranbery Urinary Trac 250-60 mg] 1 cap PO DAILY 05/16/19 [History Confirmed 05/16/19] Hydrochlorothiazide TAB* [Hydrodiuril TAB*] 25 mg PO DAILY 05/16/19 [History Confirmed 05/16/19] L.acidoph,Paracasei, B.lactis [Probiotic] 1 each PO DAILY 05/16/19 [History Confirmed 05/16/19] Levothyroxine Sodium 175 mcg PO DAILY 05/16/19 [History Confirmed 05/16/19] Melatonin/Pyridoxine HCl (B6) [Melatonin] 1 tab PO BEDTIME 05/16/19 [History Confirmed 05/16/19] Metformin HCl 500 mg PO BID 05/16/19 [History Confirmed 05/16/19] Metoprolol Tartrate TAB* [Lopressor TAB*] 37.5 mg PO TID 05/16/19 [History Confirmed 05/16/19] Rivaroxaban TAB(*) [Xarelto 20 mg] 20 mg PO DAILY 05/16/19 [History Confirmed ] PMH/Surg Hx/FS Hx/Imm Hx Previously Healthy: No Endocrine/Hematology History: Reports: Hx Diabetes Cardiovascular History: Reports: Hx Hypertension Denies: Hx Deep Vein Thrombosis, Hx Pacemaker/ICD Respiratory History: Reports: Hx Asthma, Hx Chronic Obstructive Pulmonary Disease (COPD) Denies: Hx Pulmonary Embolism History: Denies: Hx Renal Disease Musculoskeletal History: Denies: Hx Osteoporosis Comment Only: Hx Back Problems - herniation lumbar/sacral spine, DDD Sensory History: Reports: Hx Contacts or Glasses Denies: Hx Hearing Aid Opthamlomology History: Reports: Hx Contacts or Glasses Neurological History: Reports: Other Neuro Impairments/Disorders - early stang Parkinsons Psychiatric History: Denies: Hx Panic Disorder - Cancer History Cancer Type, 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 RIGHT KNEE REPLACEMENT. HYSTERECTOMY. EXPLORATORY LUNG SURGERY. T&A AGE 4. BILATERAL CATARACTS - Immunization History Date of Tetanus Vaccine: utd Date of Influenza Vaccine: utd Infectious Disease History: No Infectious Disease History: Denies: Traveled Outside the [place] in Last 30 Days - Family History Known Family History: Positive: Cardiac Disease - Social History Alcohol Use: None Hx Substance Use: No Substance Use Type: Reports: None Hx Tobacco Use: Yes Smoking Status (MU): Former Smoker Amount Used/How Often: Quit 30 years ago Review of Systems Negative: Fever Musculoskeletal: Other - positive - Pt hit her right elbow, right toe, and left knee upon the fall 1 week ago, shoulder pain Positive: Edema - worsened left lower extremity edema since 1 week ago after the fall Skin: Other - positive - left lower extremity is warm All Other Systems Reviewed And Are Negative: Yes Physical Exam - Summary Physical Exam Summary: Constitutional: Obese female NAD. Skin: Warm, Dry. 5x5 cm ecchymosis on right medial elbow. Ecchymosis at PIP joint on right toe. Left knee 8x5 cm ecchymosis to lateral proximal izaguirre. 5x4 cm ecchymosis to lateral calf. HENT: Normocephalic; Atraumatic Eyes: Conjunctiva normal Neck: Musculoskeletal ROM normal neck. Cardio: Rhythm regular, rate normal, Heart sounds normal; Intact distal pulses; Radial pulses are 2+ and symmetric. (-) Murmur Pulmonary/Chest wall: Effort normal. (-) Respiratory distress, (-) Wheezes, (-) Rales Abd: Soft, (-) tenderness, (-) Distension, (-) Guarding, (-) Rebound Musculoskeletal: full ROM elbow w mild tenderness of olecranon, no wrist or hand tenderness. R first toe TTP, no foot TTP. TTP L lateral knee. exam limited 2/2 lymphema (R>L). No CTL tenderness. No chest wall tenderness. Lymph: (-) Cervical adenopathy Neuro: Alert, Oriented x3 Psych: Mood and affect Normal Triage Information Reviewed: Yes Vital Signs On Initial Exam: Initial Vitals Temp Pulse Resp BP Pulse Ox 97.9 F 81 18 151/70 98 05/16/19 09:53 05/16/19 09:53 05/16/19 09:53 05/16/19 09:53 05/16/19 09:53 Vital Signs Reviewed: Yes Diagnostics - Vital Signs Vital Signs Temp Pulse Resp BP Pulse Ox 05/16/19 09:53 97.9 F 81 18 151/70 98 - Laboratory Lab Statement: Any lab studies that have been ordered have been reviewed, and results considered in the medical decision making process. - Radiology Shoulder X-ray Radiology Interpretation Completed By: Radiologist Summary of Radiographic Findings: IMPRESSION: 1. OSTEOARTHRITIS. 2. NO ACUTE OSSEOUS INJURY. IF SYMPTOMS PERSIST, RECOMMEND REPEAT IMAGING. 3. SCLEROTIC FOCUS OF THE PROXIMAL HUMERUS. THE APPEARANCE IS SUGGESTIVE OF A BONE. ISLAND, THOUGH THIS IS NOT CLEARLY SEEN ON THE 2015 EXAMINATION WHICH RAISES THE. POSSIBILITY OF AN OSTEOBLASTIC METASTASIS. IF THERE IS CLINICAL CONCERN FOR METASTATIC. DISEASE, CONSIDER FURTHER EVALUATION WITH BONE SCAN. These findings were reviewed by Dr. Simms. Foot X-ray Radiology Interpretation Completed By: Radiologist Summary of Radiographic Findings: IMPRESSION: 1. ADVANCED OSTEOPENIA. 2. EVIDENCE OF PREVIOUS TRAUMA. 3. SOFT TISSUE SWELLING. 4. NO ACUTE OSSEOUS INJURY. THE DEGREE OF OSTEOPENIA MAY MAKE A NONDISPLACED FRACTURE. RADIOGRAPHICALLY OCCULT. IF SYMPTOMS PERSIST, RECOMMEND REPEAT IMAGING. These findings were reviewed by Dr. Simms. Elbow X-ray Radiology Interpretation Completed By: Radiologist Summary of Radiographic Findings: IMPRESSION: SOFT TISSUE SWELLING. NO ACUTE OSSEOUS INJURY. IF SYMPTOMS PERSIST, RECOMMEND REPEAT. IMAGING. These findings were reviewed by Dr. Simms. - Ultrasound Venous Doppler Study Ultrasound Interpretation Completed By: Radiologist Summary of Ultrasound Findings: IMPRESSION: LIMITED EVALUATION OF THE CALF VEINS. NO LEFT LOWER EXTREMITY DEEP VEIN THROMBOSIS. These findings were reviewed by Dr. Simms. Re-Evaluation - Re-Evaluation First Eval Comment: US neg for DVT. XR neg for fracture. To go home w abx for cellulitis, has apt with Dr tomorrow for lymphedema Complex Multi-Symp Course/Dx Course Of Treatment: 78-year-old female with a history of chronic lymphedema, A. warren Domingo also who presents with left lower extremity swelling and pain after a fall 1 week ago. Physical exam notable for ecchymosis of the right elbow, right great toe, left knee. Exam limited by extensive lymphedema of bilateral lower extremities. Patient does appear to have overlying erythema and taut skin of the left lower extremity. Will check DVT ultrasound however suspect more likely secondary to cellulitis. - Diagnoses Provider Diagnoses: Cellulitis, Knee pain Discharge - Sign-Out/Discharge Documenting (check all that apply): Patient Departure - discharge Patient Received Moderate/Deep Sedation with Procedure: No - Discharge Plan Condition: Stable Disposition: HOME Prescriptions: Cephalexin CAP* [Keflex CAP*] 500 mg PO QID 10 Days #40 cap Patient Education Materials: Cellulitis (ED), Knee Pain (ED) Referrals: Alondra Reynolds MD [Primary Care Provider] - 2 Days Additional Instructions: The X-ray of the shoulder saw a small sclerotic lesion. Please get follow-up imaging with your primary care doctor within 2-3 days regarding this. The XRay of your foot and elbow did not show any fractures. Your DVT ultrasound did not show any blood clots. Please take keflex four times per day for 10 days for cellulitis. Return for worsening swelling, fevers, increased redness or if you are concerned. - Billing Disposition and Condition Condition: STABLE Disposition: Home - Attestation Statements Document Initiated by Vinny: Yes Documenting Scribe: Driss Tolentino Provider For Whom Vinny is Documenting (Include Credential): Dr. Yanelis Simms MD Scribe Attestation: I, Driss Tolentino scribed for Dr. Yanelis Simms MD on 05/16/19 at 1934. Scribe Documentation Reviewed: Yes Provider Attestation: The documentation as recorded by the Driss bowie accurately reflects the service I personally performed and the decisions made by me, Dr. aYnelis Simms MD Status of Scrkarl Document: Viewed
[2019-05-16] MEDS ORDERED: Cephalexin CAP* 500 MG PO ONE (12:37)
[2019-05-16] MEDS ORDERED: Cyclobenzaprine TAB* 10 MG PO ONE (13:25)
[2019-05-16 14:16] VITALS: BP 136/62
== END 2019-05-16 13:44 | disposition home or self-care (01) ==
LOC: ED 09:51
DX: L03.116 Cellulitis of left lower limb (principal); M25.562 Pain in left knee; I48.91 Unspecified atrial fibrillation; I89.0 Lymphedema, not elsewhere classified; Z79.01 Long term (current) use of anticoagulants; Z88.0 Allergy status to penicillin; Z88.2 Allergy status to sulfonamides; Z88.8 Allergy status to other drugs, medicaments and biological substances; Z88.1 Allergy status to other antibiotic agents; Z91.041 Radiographic dye allergy status; Z79.82 Long term (current) use of aspirin; Z79.84 Long term (current) use of oral hypoglycemic drugs; Z79.899 Other long term (current) drug therapy; E11.9 Type 2 diabetes mellitus without complications; I10 Essential (primary) hypertension; J44.9 Chronic obstructive pulmonary disease, unspecified; Z87.891 Personal history of nicotine dependence; M19.011 Primary osteoarthritis, right shoulder
CPT/HCPCS: 99282; A9270-GY

== ENCOUNTER 2020-12-25 07:56 | Inpatient (IN) ==
[2020-12-25 10:15] LABS: ABS Basophils 0.1 10^3/ul (0-0.2); ABS Eosinophils 0.4 10^3/ul (0-0.6); ABS Lymphocytes 1.8 10^3/ul (1.0-4.8); ABS Monocytes 0.5 10^3/ul (0-0.8); ABS Neutrophils 5.3 10^3/ul (1.5-7.7); Eosinophil % 4.4 %; Hematocrit 30 % (35-47); Hemoglobin 9.5 g/dL (12.0-16.0); Lymphocyte % 22.5 %; Mean Corpuscular HGB Conc 32 g/dL (31-36); Mean Corpuscular Hemoglobin 27 pg (27-31); Mean Corpuscular Volume 83 fL (80-97); Mean Platelet Volume 8.5 fL (7.4-10.4); Platelet Count 207 10^3/uL (150-450); Red Blood Count 3.58 10^6 /uL (3.70-4.87); Red Cell Distribution Width 17 % (10-15); White Blood Count 8.2 10^3/uL (3.5-10.8)
[2020-12-25 10:20] LABS: INR 1.8 (0.82-1.09)
[2020-12-25 10:37] LABS: Albumin 3.6 g/dL (3.2-5.2); Albumin/Globulin Ratio 1.4 (1-3); BUN/Creatinine Ratio 35.3 (8-20); Calcium 8.6 mg/dL (8.6-10.3); EGFR African American 53.1 (>60); EGFR Non-African American 43.9 (>60); Globulin 2.6 g/dL (2-4); Potassium 4.2 mmol/L (3.5-5.0); Total Bilirubin 0.5 mg/dL (0.2-1.0); Total Protein 6.2 g/dL (6.4-8.9)
[2020-12-25 11:02] LABS: TSH Ultra Thyroid Stim Horm 0.66 mcIU/mL (0.34-5.60)
[2020-12-25 11:04] LABS: Free T4 1.23 ng/dL (0.61-1.12)
[2020-12-25] MEDS ORDERED: Ondansetron 4 mg VIAL 2 MG/ML 2 ml VIAL IV PRN (13:26)
[2020-12-25] MEDS ORDERED: Dextrose 50% Syringe 50 ml 25 GM/50 ML SYRINGE IV PUSH PRN (13:40)
[2020-12-25] MEDS ORDERED: HYDROcodone/ACETAMIN 5/325 mg TAB PO PRN (14:06)
[2020-12-25] MEDS ORDERED: Albuterol HFA INHALER 8 gm MDI INH PRN (15:03)
[2020-12-25] MEDS: Mometasone/Formoter 100/5 MDI INH SCH (19:14)
[2020-12-25] MEDS: HYDROcodone/ACETAMIN 5/325 mg TAB PO PRN (20:05)
[2020-12-26] MEDS: HYDROcodone/ACETAMIN 5/325 mg TAB PO PRN (05:57)
[2020-12-26 06:21] LABS: ABS Eosinophils 0.3 10^3/ul (0-0.6); ABS Lymphocytes 1.9 10^3/ul (1.0-4.8); ABS Monocytes 0.4 10^3/ul (0-0.8); ABS Neutrophils 3.2 10^3/ul (1.5-7.7); BUN/Creatinine Ratio 28.3 (8-20); Calcium 8.4 mg/dL (8.6-10.3); EGFR African American 60.7 (>60); EGFR Non-African American 50.1 (>60); Eosinophil % 5.3 %; Hematocrit 26 % (35-47); Hemoglobin 8.4 g/dL (12.0-16.0); Lymphocyte % 31.8 %; Mean Corpuscular HGB Conc 32 g/dL (31-36); Mean Corpuscular Hemoglobin 27 pg (27-31); Mean Corpuscular Volume 83 fL (80-97); Platelet Count 172 10^3/uL (150-450); Potassium 3.9 mmol/L (3.5-5.0); Red Blood Count 3.15 10^6 /uL (3.70-4.87); Red Cell Distribution Width 17 % (10-15); White Blood Count 5.8 10^3/uL (3.5-10.8)
[2020-12-26] MEDS: Mometasone/Formoter 100/5 MDI INH SCH ×2 (07:29→20:12)
[2020-12-26] MEDS: DULoxetine DR 20 mg CAP PO SCH (08:18)
[2020-12-26] MEDS: Potassium Chlor 10 meq TAB PO SCH (08:19)
[2020-12-26] MEDS: Aspirin EC 81 mg TAB.EC (enteric coated) PO SCH (08:19)
[2020-12-26] MEDS ORDERED: Iron Sucrose 200 MG in NS 0.9% 100 ml BAG 100 ML IVPB ONE (13:45)
[2020-12-27 05:37] LABS: Corrected Retic Count 1.2 % (0.5-1.5); Hematocrit for Retic CNT 26 % (35-47); Immature Retic Fraction 0.55
[2020-12-27] MEDS: Mometasone/Formoter 100/5 MDI INH SCH ×3 (07:50→22:45)
[2020-12-27] MEDS: DULoxetine DR 20 mg CAP PO SCH (08:50)
[2020-12-27] MEDS: Aspirin EC 81 mg TAB.EC (enteric coated) PO SCH (08:51)
[2020-12-27] MEDS: Potassium Chlor 10 meq TAB PO SCH (08:51)
[2020-12-28] MEDS: Mometasone/Formoter 100/5 MDI INH SCH ×2 (08:31→20:07)
[2020-12-28] MEDS: DULoxetine DR 20 mg CAP PO SCH (09:09)
[2020-12-28] MEDS: Potassium Chlor 10 meq TAB PO SCH (09:10)
[2020-12-28] MEDS: Aspirin EC 81 mg TAB.EC (enteric coated) PO SCH (09:10)
[2020-12-28 13:45] LABS: ABS Eosinophils 0.4 10^3/ul (0-0.6); ABS Monocytes 0.5 10^3/ul (0-0.8); ABS Neutrophils 3.9 10^3/ul (1.5-7.7); Eosinophil % 5.2 %; Hematocrit 26 % (35-47); Hemoglobin 8.4 g/dL (12.0-16.0); Lymphocyte % 29.1 %; Mean Corpuscular HGB Conc 32 g/dL (31-36); Mean Corpuscular Hemoglobin 27 pg (27-31); Mean Corpuscular Volume 83 fL (80-97); Mean Platelet Volume 8.5 fL (7.4-10.4); Platelet Count 186 10^3/uL (150-450); Red Blood Count 3.11 10^6 /uL (3.70-4.87); Red Cell Distribution Width 17 % (10-15); White Blood Count 6.8 10^3/uL (3.5-10.8)
[2020-12-28 14:07] LABS: BUN/Creatinine Ratio 23.2 (8-20); Calcium 8.2 mg/dL (8.6-10.3); EGFR African American 65.6 (>60); EGFR Non-African American 54.2 (>60)
[2020-12-29] MEDS: HYDROcodone/ACETAMIN 5/325 mg TAB PO PRN ×3 (03:27→21:45)
[2020-12-29] MEDS: Mometasone/Formoter 100/5 MDI INH SCH ×2 (07:29→19:19)
[2020-12-29] MEDS: DULoxetine DR 20 mg CAP PO SCH (07:32)
[2020-12-29] MEDS: Potassium Chlor 10 meq TAB PO SCH (07:32)
[2020-12-29] MEDS: Aspirin EC 81 mg TAB.EC (enteric coated) PO SCH (07:32)
[2020-12-29] MEDS ORDERED: Benzocaine/Menthol LOZ PO PRN (23:43)
[2020-12-30] MEDS: Aspirin EC 81 mg TAB.EC (enteric coated) PO SCH (07:53)
[2020-12-30] MEDS: DULoxetine DR 20 mg CAP PO SCH (07:53)
[2020-12-30] MEDS: Potassium Chlor 10 meq TAB PO SCH (07:54)
[2020-12-30] MEDS: Mometasone/Formoter 100/5 MDI INH SCH (08:00)
[2020-12-30] MEDS: HYDROcodone/ACETAMIN 5/325 mg TAB PO PRN (09:02)
[2020-12-30 12:06] VITALS: BP 105/52
== END 2020-12-30 13:10 | DRG 563 ==
LOC: ED 07:56 → MED 13:26
PROVIDERS: ADMIT Internal Medicine; ATTEND Internal Medicine